=== PATIENT | female | born 1935 | race Hispanic/Latino ===

== ENCOUNTER 2018-07-10 18:01 | Inpatient (IN) | payer MEDICARE ==
[2018-07-10 18:08] VITALS: BMI 23.0
--- NOTE | 2018-07-10 18:37 | ED PDOC ---
Arrival/HPI - General Historian: Patient, Spouse - History of Present Illness Narrative History of Present Illness (Text): 07/10/18 18:34 83yr old female presents today s/p fall and weakness. pt states she occasionally feels dizzy, but otherwise denies any complaints. pts states that he was assisting the patient to the bathroom and when the patients legs gave out. pt st ates he was able to lower the patient to ground. states she did not hit her head. pt denies any arm or leg pain. no n/v/d/c. pt denies fever/chills. no cp or sob. <Radhika Egan - Last Filed: 07/11/18 01:27> <Trevor Kaufman - Last Filed: 07/13/18 07:28> - General Chief Complaint: Trauma Time Seen by Provider: 07/10/18 18:04 Past Medical History - Provider Review Nursing Documentation Reviewed: Yes - Travel History Have you recently traveled outside [place] w/in the past 3 mons?: No - Infectious Disease Hx of Infectious Diseases: None - Cardiac Hx Hypertension: Yes - HEENT Hx Cataracts: Yes - Endocrine/Metabolic Hx Hypothyroidism: Yes - Musculoskeletal/Rheumatological Hx Back Pain: Yes Hx Falls: Yes - Gastrointestinal Hx Constipation: Yes Hx Gastroesophageal Reflux: Yes - Psychiatric Hx Depression: Yes Hx Substance Use: No <Radhika Egan - Last Filed: 07/11/18 01:27> Family/Social History - Physician Review Nursing Documentation Reviewed: Yes Family/Social History: Unknown Family HX Smoking Status: Never Smoked Hx Alcohol Use: No Hx Substance Use: No <Radhika Egan - Last Filed: 07/11/18 01:27> Allergies/Home Meds <Radhika Egan - Last Filed: 07/11/18 01:27> <Trevor Kaufman - Last Filed: 07/13/18 07:28> Allergies/Adverse Reactions: Allergies No Known Allergies Allergy (Verified 03/05/17 12:50) Home Medications: Home Meds Medication Instructions Recorded Confirmed Aspirin [Ecotrin] 81 mg PO DAILY 03/05/17 07/10/18 Atorvastatin [Lipitor] 40 mg PO HS 03/05/17 07/10/18 Levothyroxine [Synthroid] 37.5 mcg PO DAILY 03/05/17 07/10/18 Paroxetine HCl [Paxil] 40 mg PO DAILY 03/05/17 07/10/18 Famotidine [Pepcid] 1 tab PO DAILY 07/10/18 07/10/18 Olmesartan Medoxomil [Benicar] 40 mg PO DAILY 07/10/18 07/10/18 Pantoprazole [Protonix EC Tab] 1 tab PO DAILY 07/10/18 07/10/18 Risperidone [Risperdal] 1 tab PO HS 07/10/18 07/10/18 Review of Systems - Review of Systems Constitutional: Fatigue. absent: Fevers Respiratory: absent: SOB, Cough Cardiovascular: absent: Chest Pain, Palpitations Gastrointestinal: absent: Abdominal Pain, Constipation, Diarrhea, Nausea, Vomiting Genitourinary Female: absent: Dysuria, Frequency, Hematuria Musculoskeletal: absent: Arthralgias, Back Pain, Neck Pain Skin: absent: Rash, Pruritis Neurological: Dizziness (occasional). absent: Headache Psychiatric: absent: Anxiety <Radhika Egan - Last Filed: 07/11/18 01:27> Physical Exam Vital Signs Reviewed: Yes Vital Signs Temp Pulse Resp BP Pulse Ox 07/10/18 18:17 98.2 F 89 18 139/69 97 Temperature: Afebrile Blood Pressure: Normal Pulse: Regular Respiratory Rate: Normal Appearance: Positive for: Well-Appearing, Non-Toxic, Comfortable Pain Distress: None Mental Status: Positive for: Alert and Oriented X 3 - Systems Exam Head: Present: Atraumatic Mouth: Present: Moist Mucous Membranes Respiratory/Chest: Present: Clear to Auscultation, Good Air Exchange. No: Respiratory Distress, Accessory Muscle Use Cardiovascular: Present: Regular Rate and Rhythm, Normal S1, S2. No: Murmurs Abdomen: No: Tenderness, Distention, Rebound, Guarding Upper Extremity: No: Tenderness Lower Extremity: Present: Normal ROM. No: CALF TENDERNESS Neurological: Present: GCS=15, Speech Normal Skin: Present: Warm, Dry Psychiatric: Present: Alert <Radhika Egan - Last Filed: 07/11/18 01:27> Vital Signs Temp Pulse Resp BP Pulse Ox 07/10/18 21:53 71 18 113/76 100 07/10/18 18:17 98.2 F 89 18 139/69 97 <Trevor Kaufman - Last Filed: 07/13/18 07:28> Medical Decision Making ED Course and Treatment: 07/10/18 18:38 83yr old female presents with generalized weakness. Labs reviewed: cbc; wnl cmp; elevated BUN/CR Troponin negative CPK 1086 ekg; normal sinus rhythm at 92 bpm normal axis no ST elevations QTC 415 cxr; rotated. no infiltrate head CT: FINDINGS: BRAIN There is slight midline shift to the right which appears chronic and is not related to mass effect Chronic periventricular and subcortical microvascular disease is seen. VENTRICLES: There is generalized parenchymal atrophy, disproportionately involving right ventricular system to a greater extent than the left and left sulci to a greater extent then the right. ORBITS: The orbits are unremarkable. SINUSES AND MASTOIDS: The paranasal sinuses and mastoid air cells are clear. BONES: No fracture. MISCELLANEOUS: No acute intracranial pathology. iMPRESSION: 1. Assymetric generalized parenchymal atrophy, as above. 2. There is slight midline shift to the right which appears chronic and is not related to mass effect. 3. Chronic periventricular and subcortical microvascular disease is seen. 4. No acute intracranial pathology. pt started on NS 500cc. Multiple calls placed to dr. malone without return call. will admit to hospitalist. case discussed with dr. fermin in depth; accepts admission impression; rhabdomyolysis, generalized weakness, renal insufficiency Admit to telemetry pt found to have UTI; started on rocephin. - RAD Interpretation Radiology Orders: 07/10/18 18:32 CHEST PORTABLE [RAD] Stat 07/10/18 18:33 HEAD W/O CONTRAST [CT] Stat <Radhika Egan T - Last Filed: 07/11/18 01:27> - Lab Interpretations Lab Results: 07/10/18 19:14 07/10/18 19:14 Lab Results 07/10/18 19:14: WBC 10.2, RBC 4.44, Hgb 12.4, Hct 37.8, MCV 85.1, MCH 27.9, MCHC 32.8, RDW 14.6 H, Plt Count 265, MPV 12.3 H, Gran % 89.1 H, Lymph % (Auto) 5.6 L, [place] % (Auto) 4.3, Eos % (Auto) 0.9 L, Baso % (Auto) 0.1, Gran # 9.10 H, Lymph # (Auto) 0.6 L, [place] # (Auto) 0.4, Eos # (Auto) 0.1, Baso # (Auto) 0.01 07/10/18 19:14: Sodium 139, Potassium 4.4, Chloride 101, Carbon Dioxide 22, An ion Gap 20, BUN 38 H, Creatinine 2.6 H, Est GFR ( Amer) 21, Est GFR (Non- Af Amer) 18, Random Glucose 137 H, Calcium 10.1, Total Bilirubin 0.6, AST 52 H, ALT 19, Alkaline Phosphatase 75, Lactate Dehydrogenase 594, Total Creatine Kinase 1086 H, CK-MB (CK-2) 8.4 H, CK-MB (CK-2) % 0.8 L, Troponin I < 0.01, NT-Pro-B Natriuret Pep 65.0, Total Protein 7.6, Albumin 4.4, Globulin 3.2, Albumin/Globulin Ratio 1.4 - RAD Interpretation Radiology Orders: 07/10/18 18:32 CHEST PORTABLE [RAD] Stat 07/10/18 18:33 HEAD W/O CONTRAST [CT] Stat - Medication Orders Current Medication Orders: Amantadine HCl (Amantadine 100 Mg Cap) 100 mg PO Q48H [facility] Last Admin: 07/12/18 12:07 Dose: 100 mg Artificial Tears (Artificial Tears) 2 ml OU DAILY PRN PRN Reason: FOR DRY EYES Last Admin: 07/12/18 08:47 Dose: 2 units Comments: 1 drop to each eye Aspirin (Ecotrin) 81 mg PO DAILY [facility] Last Admin: 07/12/18 12:06 Dose: 81 mg Atorvastatin Calcium (Lipitor) 40 mg PO HS [facility] Last Admin: 07/12/18 22:00 Dose: 40 mg Heparin Sodium (Porcine) (Heparin) 5,000 units SC Q8H [facility]; Protocol Last Admin: 07/13/18 05:33 Dose: 5,000 units Subcutaneous Administrations Document 07/13/18 05:33 OWUSR (Rec: 07/13/18 05:33 OWUSR [id number]) Injection Site MAR Injection Site Right Abdomen Charges for Administration # of Subcutaneous Administrations 1 Sodium Chloride (Sodium Chloride 0.9%) 1,000 mls @ 75 mls/hr IV .[id number] [facility] Last Admin: 07/11/18 17:33 Dose: 75 mls/hr eMAR Start Stop Document 07/11/18 17:33 RDS (Rec: 07/11/18 17:33 RDS [id number]) Intravenous Solution Start Date 07/11/18 Start Time 17:33 Ceftriaxone Sodium (Rocephin 1 Gram Ivpb) 1 gm in 100 mls @ 100 mls/hr IVPB DAILY [facility]; Protocol Last Admin: 07/12/18 09:53 Dose: 100 mls/hr eMAR Start Stop Document 07/12/18 09:53 RDS (Rec: 07/12/18 09:54 RDS [id number]) Intravenous Solution Start Date 07/12/18 Start Time 09:54 End Date 07/12/18 End time 10:54 Total Infusion Time 60 Levothyroxine Sodium (Synthroid) 37.5 mcg PO 0600 [facility] Last Admin: 07/13/18 05:25 Dose: 37.5 mcg Pantoprazole Sodium (Protonix Ec Tab) 40 mg PO 0600 [facility] Last Admin: 07/13/18 05:27 Dose: 40 mg Paroxetine HCl (Paxil) 40 mg PO DAILY [facility] Last Admin: 07/12/18 12:06 Dose: 40 mg Tobramycin/Dexamethasone (Tobradex Opht Susp) 0 ml OU DAILY [facility] Discontinued Medications Amantadine HCl (Amantadine 100 Mg Cap) 100 mg PO Q48H [facility] Last Admin: 07/11/18 18:45 Dose: Not Given Non-Admin Reason: NPO Comments: Joy Sumner aware; to give at 20:00 once patient passed the swallow eval being done at this time 18:45. Sodium Chloride (Sodium Chloride 0.9%) 1,000 mls @ 75 mls/hr IV .[id number] [facility] Sodium Chloride (Sodium Chloride 0.9%) 1,000 mls @ 100 mls/hr IV .Q10H [facility] Vancomycin HCl (Vancomycin 1gm) 1 gm in 250 mls @ 167 mls/hr IVPB STAT STA; Protocol Stop: 07/12/18 11:45 Last Admin: 07/12/18 12:07 Dose: 167 mls/hr eMAR Start Stop Document 07/12/18 12:07 RDS (Rec: 07/12/18 12:07 RDS [id number]) Intravenous Solution Start Date 07/12/18 Start Time 12:07 End Date 07/12/18 End time 13:37 Total Infusion Time 90 <Trevor Kaufman - Last Filed: 07/13/18 07:28> - PA / MULTIPLE RESAW OPERATOR / Resident Statement MD/DO has reviewed & agrees with the documentation as recorded. <Trevor Kaufman - Last Filed: 07/13/18 07:28> Disposition/Present on Arrival - Present on Arrival Any Indicators Present on Arrival: No History of DVT/PE: No History of Uncontrolled Diabetes: No Urinary Catheter: No History of Decub. Ulcer: No History Surgical Site Infection Following: None - Disposition Have Diagnosis and Disposition been Completed?: Yes Disposition Time: 20:56 Patient Plan: Admission, Telemetry <Radhika Egan - Last Filed: 07/11/18 01:27> <Trevor Kaufman - Last Filed: 07/13/18 07:28> - Disposition Diagnosis: Rhabdomyolysis, Generalized weakness, Renal insufficiency, Near syncope, Urinary tract infection Disposition: HOSPITALIZED Patient Problems: Current Active Problems Problem Status Onset Generalized weakness Acute Near syncope Acute Renal insufficiency Acute Rhabdomyolysis Acute Urinary tract infection Acute Condition: FAIR
[2018-07-10 19:29] LABS: ALB/GLOB RATIO 1.4 (1.1-1.8); ALBUMIN 4.4 g/dL (3.0-4.8); ALT/SGPT 19 U/L (7-56); AST/SGOT 52 U/L (14-36); BLOOD UREA NITROGEN 38 mg/dL (7-21); CALCIUM 10.1 mg/dL (8.4-10.5); GFR NON-AFRICAN AMERICAN 18
[2018-07-10 19:41] LABS: TROPONIN I < 0.01 ng/mL
[2018-07-10 19:56] LABS: BASO # 0.01 K/mm3 (0.0-2.0); BASO % 0.1 % (0.0-3.0); EOS # 0.1 (0.0-0.7); EOS % 0.9 % (1.5-5.0); GRAN # 9.1 (1.4-6.5); GRAN % 89.1 % (50.0-68.0); HEMOGLOBIN 12.4 g/dL (12.0-16.0); LYMPH # 0.6 (1.2-3.4); LYMPH % 5.6 % (22.0-35.0); MEAN CELL VOLUME 85.1 fl (80.0-105.0); MEAN CORPUSCULAR HEMOGLOBIN 27.9 pg (25.0-35.0); MEAN CORPUSCULAR HGB CONC 32.8 g/dl (31.0-37.0); MEAN PLATELET VOLUME 12.3 fl (7.0-11.0); MONO # 0.4 (0.1-0.6); MONO % 4.3 % (1.0-6.0); RBC 4.44 10^6/uL (3.5-6.1); RED CELL DISTRIBUTION WIDTH 14.6 % (11.5-14.5); WHITE BLOOD COUNT 10.2 10^3/ul (4.5-11.0)
[2018-07-10 20:25] LABS: CK MB% 0.8 % (2.5-3.0); CK-MB 8.4 ng/mL (0.0-3.6)
[2018-07-10] MEDS ORDERED: Sodium Chloride 0.9% 500 ML IV STA (20:32)
[2018-07-10] MEDS ORDERED: Sodium Chloride 0.9% 500 ML IV SCH (21:30)
[2018-07-10] MEDS ORDERED: Sodium Chloride 0.9% 1,000 ML IV SCH ×2 (22:30)
[2018-07-10 22:48] LABS: PH,URINE 6.5 (4.7-8.0); URINE BILIRUBIN NEGATIVE (NEGATIVE); URINE BLOOD SMALL (NEGATIVE); URINE GLUCOSE (UA) NEGATIVE (NEGATIVE); URINE LEUKOCYTE ESTERASE LARGE Leu/uL (NEGATIVE); URINE PROTEIN 30 mg/dL (<30 mg/dL); URINE UROBILINOGEN 0.2 E.U./dL (<1 E.U./dL)
[2018-07-10 22:49] LABS: URINE APPEARANCE CLOUDY (CLEAR); URINE COLOR LIGHT YELLOW (YELLOW)
[2018-07-10 23:04] LABS: URINE BACTERIA MANY (NEG); URINE WBC TNTC /hpf (0-6)
[2018-07-11] MEDS: Sodium Chloride 0.9% 1,000 ML IV SCH ×2 (00:05→17:33)
--- NOTE | 2018-07-11 00:41 | CP.PCM.HP ---
History of Present Illness - History of Present Illness History of Present Illness: Hari Barrios, PGY-1 History and Physical for Hospitalist Service CC: Fall HPI: Ms. Rodriguez is an 83 yr old Female with PMHx of HTN, hypercholesterolemia, hypothyroid who presents s/p near-syncope at home. brought patient in after being present when patient was falling at home, having stated that her legs gave out and felt weak. was nearby and caught patient before she hit the ground. Denies hitting head but patient believes she may have lost consciousness. Patient reports some episodes of dizziness and full-body weakness but denies current symptoms. Patient also denies chest pain, shortness of breath, fevers, chills, recent infections, changes to urinary and bowel habits or vision changes. Patient denies having those symptoms in the past and does not fall regularly. PMHx: HTN, hypercholesterolemia, hypothyroid, depression PSHx: R cataract surgery All: NKDA Social: unable to assess currently because patient "does not know" Fam hx: denies Meds: as per ELICIA PCP: Dr Ram Present on Admission - Present on Admission Any Indicators Present on Admission: No Review of Systems - Review of Systems Review of Systems: 12 point ROS completed and negative except as described in HPI. Past Patient History - Infectious Disease Hx of Infectious Diseases: None - Past Social History Smoking Status: Never Smoked - CARDIAC Hx Hypertension: Yes - HEENT Hx Cataracts: Yes - ENDOCRINE/METABOLIC Hx Hypothyroidism: Yes - MUSCULOSKELETAL/RHEUMATOLOGICAL Hx Back Pain: Yes Hx Falls: Yes - GASTROINTESTINAL Hx Constipation: Yes Hx Gastroesophageal Reflux: Yes - PSYCHIATRIC Hx Depression: Yes Hx Substance Use: No Meds Allergies/Adverse Reactions: Allergies Allergy/AdvReac Type Severity Reaction Status Date / Time No Known Allergies Allergy Verified 03/05/17 12:50 Physical Exam - Constitutional Appears: Well, Non-toxic, No Acute Distress - Head Exam Head Exam: ATRAUMATIC, NORMOCEPHALIC - Eye Exam Eye Exam: EOMI. absent: Normal appearance (R eye surrounded by ? hardened disch arge. No changes in vision) Pupil Exam: PERRL - ENT Exam ENT Exam: Mucous Membranes Moist, Normal Exam - Neck Exam Neck exam: Positive for: Full Rom - Respiratory Exam Respiratory Exam: Decreased Breath Sounds, Clear to Auscultation Bilateral, NORMAL BREATHING PATTERN. absent: Rales, Rhonchi, Wheezes - Cardiovascular Exam Cardiovascular Exam: RRR, +S1, +S2 - GI/Abdominal Exam GI & Abdominal Exam: Normal Bowel Sounds, Soft. absent: Distended, Guarding, Tenderness - Extremities Exam Extremities exam: Negative for: normal inspection (gout tophi vs lipid crystals on R index finger MCP and R hallux internally. Nontender to palpation) Results - Vital Signs Recent Vital Signs: Last Vital Signs Temp 98.2 F 07/10/18 18:17 Pulse 71 07/10/18 21:53 Resp 18 07/10/18 21:53 BP 113/76 07/10/18 21:53 Pulse Ox 100 07/10/18 21:53 - Labs Result Diagrams: 07/10/18 19:14 07/10/18 19:14 Labs: Laboratory Results - last 24 hr 07/10/18 07/10/18 07/10/18 19:14 19:14 22:34 WBC 10.2 RBC 4.44 Hgb 12.4 Hct 37.8 MCV 85.1 MCH 27.9 MCHC 32.8 RDW 14.6 H Plt Count 265 MPV 12.3 H Gran % 89.1 H Lymph % (Auto) 5.6 L [place] % (Auto) 4.3 Eos % (Auto) 0.9 L Baso % (Auto) 0.1 Gran # 9.10 H Lymph # (Auto) 0.6 L [place] # (Auto) 0.4 Eos # (Auto) 0.1 Baso # (Auto) 0.01 Sodium 139 Potassium 4.4 Chloride 101 Carbon Dioxide 22 Anion Gap 20 BUN 38 H Creatinine 2.6 H Est GFR ( Amer) 21 Est GFR (Non-Af Amer) 18 Random Glucose 137 H Calcium 10.1 Total Bilirubin 0.6 AST 52 H ALT 19 Alkaline Phosphatase 75 Lactate Dehydrogenase 594 Total Creatine Kinase 1086 H CK-MB (CK-2) 8.4 H CK-MB (CK-2) % 0.8 L Troponin I < 0.01 NT-Pro-B Natriuret Pep 65.0 Total Protein 7.6 Albumin 4.4 Globulin 3.2 Albumin/Globulin Ratio 1.4 Urine Color Light yellow Urine Appearance Cloudy Urine pH 6.5 Ur Specific [place] 1.020 Urine Protein 30 H Urine Glucose (UA) Negative Urine Ketones Negative Urine Blood Small H Urine Nitrate Positive H Urine Bilirubin Negative Urine Urobilinogen 0.2 Ur Leukocyte Esterase Large H Urine RBC 10 - 15 Urine WBC Tntc Ur Epithelial Cells 6 - 8 Urine Bacteria Many Assessment & Plan - Assessment and Plan (Free Text) Assessment: Assessment: 83 year old female with PMHX HTN, hypercholesterolemia, hypothyroid, and depression who presents s/p near-syncopal episode. Plan: Weakness 2/2 syncope 2/2 UTI vs neurogenic vs cardiogenic vs electrolyte abnormality EKG: normal sinus rhythm at 92 bpm normal axis, no ST elevations, QTC 415 CXR: rotated so poor film. Possible RLL infiltrate. f/u repeat in AM Head CT: FINDINGS: There is slight midline shift to the right which appears chronic and is not related to mass effect Chronic periventricular and subcortical microvascular disease is seen. There is generalized parenchymal atrophy. No acute intracranial pathology. UA positive for nitrates and leuk esterase- started on Rocephin 1 gm IVP daily for UTI IVF NS @ 75 cc/hr. Pro-BNP 65 so unlikely CHF but will f/u repeat AM CXR f/u UDS, urine cx ASA 81 mg f/u Echo trop neg x1. F/u second f/u blood cx f/u AM CBC, CMP Mg Phos, Vit D, RPR SW referral Glucose 137 - follow accuchecks Fall protocol PT/OT- recommendations appreciated Speech/swallow eval Software Test Specialist referral Rhabdo 2/2 near-fall CK 1086 repeat CK in AM HUI likely 2/2 prerenal azotemia 2/2 dehydration vs intrinsic Reports poor oral intake BUN/Cr 38/2.6 elevated from 26/1.2 on 03/17 will consider renal U/S and renal consult if no improvement on fluids in AM labs NS @ 75 cc/hr avoid nephrotoxic medications - hold home ARB for now Hypothyroid f/u TSH and free T4 on Synthroid 37.5 mcg Hypercholesterolemia f/u lipid panel and a1c Lipitor 40 Depression c/w home Paroxetine Will hold risperidone GI/DVT ppx SCDs Heparin 5000 q8 Protonix 40 mg Patient seen, case reviewed and plan discussed with Dr. Miller. Hari Barrios, PGY-1
[2018-07-11] MEDS: Pantoprazole 40 mg EC Tab PO SCH (05:00)
[2018-07-11] MEDS: Levothyroxine 75 MCG TAB PO SCH (05:01)
[2018-07-11 07:09] LABS: BARBITURATES, UR NEGATIVE (NEGATIVE); BENZODIAZEPINES, UR NEGATIVE (NEGATIVE); OPIATES, UR NEGATIVE (NEGATIVE); PHENCYCLIDINE, UR NEGATIVE (NEGATIVE)
[2018-07-11 07:18] LABS: BASO # 0.02 K/mm3 (0.0-2.0); BASO % 0.3 % (0.0-3.0); EOS # 0.2 (0.0-0.7); EOS % 3.2 % (1.5-5.0); GRAN # 4.67 (1.4-6.5); GRAN % 74.8 % (50.0-68.0); HEMOGLOBIN 10.9 g/dL (12.0-16.0); LYMPH # 0.8 (1.2-3.4); LYMPH % 12.3 % (22.0-35.0); MEAN CELL VOLUME 85.6 fl (80.0-105.0); MEAN CORPUSCULAR HEMOGLOBIN 27.5 pg (25.0-35.0); MEAN CORPUSCULAR HGB CONC 32.1 g/dl (31.0-37.0); MEAN PLATELET VOLUME 11.8 fl (7.0-11.0); MONO # 0.6 (0.1-0.6); MONO % 9.4 % (1.0-6.0); RBC 3.97 10^6/uL (3.5-6.1); RED CELL DISTRIBUTION WIDTH 14.7 % (11.5-14.5); WHITE BLOOD COUNT 6.3 10^3/ul (4.5-11.0)
[2018-07-11 07:32] LABS: ALB/GLOB RATIO 1.2 (1.1-1.8); ALBUMIN 3.6 g/dL (3.0-4.8)
[2018-07-11 07:45] LABS: FREE T4 1.04 ng/dL (0.78-2.19)
--- NOTE | 2018-07-11 07:50 | RAD ---
Date of service: 07/11/2018 HISTORY: fall COMPARISON: Portable chest 07/10/2018. FINDINGS: LUNGS: Patient remains grossly rotated toward the right obscuring right lung evaluation. No left-sided infiltrate definitively shown. Hiatal hernia likely. Linear atelectasis or fibrosis reiterated at the right base with the right apex completely obscured by the patient's lower face. PLEURA: No significant pleural effusion identified, no pneumothorax apparent. CARDIOVASCULAR: No definite pulmonary vascular congestion. Cardiac silhouette appears prominent. OSSEOUS STRUCTURES: No significant abnormalities. VISUALIZED UPPER ABDOMEN: Normal. OTHER FINDINGS: None. IMPRESSION: No definitive infiltrate bilaterally. Hiatal hernia likely. Cardiac silhouette appears prominent without pulmonary vascular congestion. Fibrosis or linear atelectasis right base reiterated. Right apex obscured by the patient's lower face completely.
[2018-07-11 07:54] LABS: CK MB% 0.8 % (2.5-3.0); CK-MB 8.2 ng/mL (0.0-3.6)
--- NOTE | 2018-07-11 09:07 | CT ---
Date of service: 07/10/2018 PROCEDURE: CT HEAD WITHOUT CONTRAST. HISTORY: weakness COMPARISON: None available. TECHNIQUE: Axial computed tomography images were obtained through the head/brain without intravenous contrast. Radiation dose: Total exam DLP = 833 mGy-cm. This CT exam was performed using one or more of the following dose reduction techniques: Automated exposure control, adjustment of the mA and/or kV according to patient size, and/or use of iterative reconstruction technique. FINDINGS: HEMORRHAGE: No intracranial hemorrhage. BRAIN: No mass effect or edema. There is asymmetrical atrophy severe on the left. There is also cerebellar atrophy left greater than right. Chronic microvascular changes are seen. No acute intracranial findings VENTRICLES: Unremarkable. No hydrocephalus. CALVARIUM: Unremarkable. PARANASAL SINUSES: Unremarkable as visualized. No significant inflammatory changes. MASTOID AIR CELLS: Unremarkable as visualized. No inflammatory changes. OTHER FINDINGS: The report concurs with the preliminary [facility] report IMPRESSION: No acute intracranial findings
--- NOTE | 2018-07-11 10:01 | RAD ---
Date of service: 07/10/2018 HISTORY: weakness COMPARISON: No prior. FINDINGS: LUNGS: No active pulmonary disease. PLEURA: No significant pleural effusion identified, no pneumothorax apparent. CARDIOVASCULAR: Patient rotated toward the right severely, limiting ostia cardiac size and the hilar anatomy. No pulmonary vascular congestion. Cardiac silhouette appears somewhat prominent. OSSEOUS STRUCTURES: Scoliotic thoracolumbar spinal deformity. VISUALIZED UPPER ABDOMEN: Hiatal hernia felt to be present posterior to the heart. OTHER FINDINGS: None. IMPRESSION: No acute infiltrate, pleural effusion or pneumothorax bilaterally. Potential cardiomegaly. Patient is severely rotated toward the right limiting interpreted bloody of the mediastinal anatomy. Hiatal hernia felt to be present.
--- NOTE | 2018-07-11 10:22 | CARD ---
APPROVED REPORT Date of service: 07/10/2018 EKG Measurement Heart [id number] <Conclusion> Normal sinus rhythm Non Specific ST-T Changes.
[2018-07-11] MEDS: cefTRIAXone 1 gm 1 GM/100 ML BAG IVPB SCH ×2 (10:31)
--- NOTE | 2018-07-11 14:01 | CP.PCM.CON ---
History of Present Illness - History of Present Illness History of Present Illness: Joy Palmer, PGY2, Neurology Consult Note for Dr Eubanks: Reason for consult: AMS/syncope 83 year old female, referred by Dr Jennifer Mckeon, with PMH HTN, HLD, hypothyroidism, depression, presents post-fall at home. Per husbands report, he was assisting her to the bathroom when her legs gave out and he helped her to the floor. She did not hit her head or lose consciousness. says she was down on the floor for 30 minutes. She has been home-bound for the past year and uses a wheelchair to get around the house, is the only caregiver. She has not seen her PMD in 1 year because she cannot get out of the house. reports she has has been lethargic for past 6 months, but it is currently worse than her baseline. In ED, patient found to have a UTI, treated with rocephin. As per staff, patient's mental status improving. At the time of my exam, patient arousable by verbal command, responding to questions appropriately with one word answers, states that she is sleepy and "would like to rather rest." HPI limited due to patient's AMS. PMHx: HTN, HLD, hypothyroid, depression PSHx: R cataract surgery All: NKDA Meds: Risperdal, ASA 81, Paxil 40, Protonix, Benicar 40, Synthroid 37.5, Pepcid, Lipitor 40 SocHx: denies tobacco, alcohol, drug use FHx: unknown PMD: Saleeb Review of Systems - Review of Systems Systems not reviewed;Unavailable: Altered Mental Status Past Patient History - Infectious Disease Hx of Infectious Diseases: None - Past Social History Smoking Status: Never Smoked - CARDIAC Hx Hypertension: Yes - NEUROLOGICAL Hx Neurological Disorder: Yes Hx Dizziness: Yes - HEENT Hx Cataracts: Yes - ENDOCRINE/METABOLIC Hx Hypothyroidism: Yes - MUSCULOSKELETAL/RHEUMATOLOGICAL Hx Back Pain: Yes Hx Falls: Yes - GASTROINTESTINAL Hx Constipation: Yes Hx Gastroesophageal Reflux: Yes - PSYCHIATRIC Hx Depression: Yes Hx Substance Use: No Meds Allergies/Adverse Reactions: Allergies Allergy/AdvReac Type Severity Reaction Status Date / Time No Known Allergies Allergy Verified 03/05/17 12:50 - Medications Medications: Current Medications Aspirin (Ecotrin) 81 mg PO DAILY [facility] Last Admin: 07/11/18 10:31 Dose: Not Given Atorvastatin Calcium (Lipitor) 40 mg PO HS [facility] Last Admin: 07/11/18 01:06 Dose: Not Given Heparin Sodium (Porcine) (Heparin) 5,000 units SC Q8H [facility]; Protocol Last Admin: 07/11/18 05:33 Dose: 5,000 units Sodium Chloride (Sodium Chloride 0.9%) 1,000 mls @ 75 mls/hr IV .[id number] [facility] Last Admin: 07/11/18 00:05 Dose: 75 mls/hr Ceftriaxone Sodium (Rocephin 1 Gram Ivpb) 1 gm in 100 mls @ 100 mls/hr IVPB DAILY [facility]; Protocol Last Admin: 07/11/18 10:31 Dose: 100 mls/hr Levothyroxine Sodium (Synthroid) 37.5 mcg PO 0600 [facility] Last Admin: 07/11/18 05:01 Dose: Not Given Pantoprazole Sodium (Protonix Ec Tab) 40 mg PO 0600 [facility] Last Admin: 07/11/18 05:00 Dose: Not Given Paroxetine HCl (Paxil) 40 mg PO DAILY [facility] Last Admin: 07/11/18 10:31 Dose: Not Given Physical Exam - Constitutional Appears: Chronically Ill - Head Exam Head Exam: ATRAUMATIC, NORMOCEPHALIC - Eye Exam Eye Exam: PERRL. absent: Conjunctival injection, Nystagmus, Periorbital tenderness, Scleral icterus Pupil Exam: PERRL. absent: Irregular, Miosis, Unequal - ENT Exam ENT Exam: Mucous Membranes Dry - Neck Exam Neck exam: Positive for: Full Rom - Respiratory Exam Respiratory Exam: Clear to Auscultation Bilateral, NORMAL BREATHING PATTERN. absent: Rhonchi, Wheezes - Cardiovascular Exam Cardiovascular Exam: RRR, +S1, +S2. absent: Systolic Murmur - GI/Abdominal Exam GI & Abdominal Exam: Normal Bowel Sounds, Soft. absent: Tenderness - Extremities Exam Extremities exam: Negative for: calf tenderness, pedal edema Additional comments: + bilateral big toe podagara noted. +Inflammation, erythema of right index finger PIP joint - Neurological Exam Neurological exam: Altered Additional comments: Lethargic. Opens eyes with verbal command. responds to questions with one word answers. Moving all extremities. +intentional tremor of bilateral UE/LE with movement - Psychiatric Exam Additional comments: lethargic - Skin Skin Exam: Normal Color, Warm Results - Vital Signs Recent Vital Signs: Last Vital Signs Temp 97.1 F L 07/11/18 12:00 Pulse 90 07/11/18 12:00 Resp 19 07/11/18 12:00 BP 118/88 07/11/18 12:00 Pulse Ox 100 07/11/18 06:00 - Labs Result Diagrams: 07/11/18 06:30 07/11/18 06:30 Labs: Laboratory Results - last 24 hr 07/10/18 07/10/18 07/10/18 19:14 19:14 22:34 WBC 10.2 RBC 4.44 Hgb 12.4 Hct 37.8 MCV 85.1 MCH 27.9 MCHC 32.8 RDW 14.6 H Plt Count 265 MPV 12.3 H Gran % 89.1 H Lymph % (Auto) 5.6 L Owen % (Auto) 4.3 Eos % (Auto) 0.9 L Baso % (Auto) 0.1 Gran # 9.10 H Lymph # (Auto) 0.6 L Owen # (Auto) 0.4 Eos # (Auto) 0.1 Baso # (Auto) 0.01 Sodium 139 Potassium 4.4 Chloride 101 Carbon Dioxide 22 Anion Gap 20 BUN 38 H Creatinine 2.6 H Est GFR ( Amer) 21 Est GFR (Non-Af Amer) 18 POC Glucose (mg/dL) Random Glucose 137 H Hemoglobin A1c Calcium 10.1 Phosphorus Magnesium Total Bilirubin 0.6 AST 52 H ALT 19 Alkaline Phosphatase 75 Lactate Dehydrogenase 594 Total Creatine Kinase 1086 H CK-MB (CK-2) 8.4 H CK-MB (CK-2) % 0.8 L Troponin I < 0.01 NT-Pro-B Natriuret Pep 65.0 Total Protein 7.6 Albumin 4.4 Globulin 3.2 Albumin/Globulin Ratio 1.4 Triglycerides Cholesterol LDL Cholesterol Direct HDL Cholesterol 25-OH Vitamin D Total Free T4 TSH 3rd Generation Urine Color Light yellow Urine Appearance Cloudy Urine pH 6.5 Ur Specific Summit 1.020 Urine Protein 30 H Urine Glucose (UA) Negative Urine Ketones Negative Urine Blood Small H Urine Nitrate Positive H Urine Bilirubin Negative Urine Urobilinogen 0.2 Ur Leukocyte Esterase Large H Urine RBC 10 - 15 Urine WBC Tntc Ur Epithelial Cells 6 - 8 Urine Bacteria Many Urine Opiates Screen Urine Methadone Screen Ur Barbiturates Screen Ur Phencyclidine Scrn Ur Amphetamines Screen U Benzodiazepines Scrn U Oth Cocaine Metabols U Cannabinoids Screen 07/11/18 07/11/18 07/11/18 00:40 02:05 04:43 WBC RBC Hgb Hct MCV MCH MCHC RDW Plt Count MPV Gran % Lymph % (Auto) Owen % (Auto) Eos % (Auto) Baso % (Auto) Gran # Lymph # (Auto) Owen # (Auto) Eos # (Auto) Baso # (Auto) Sodium Potassium Chloride Carbon Dioxide Anion Gap BUN Creatinine Est GFR ( Amer) Est GFR (Non-Af Amer) POC Glucose (mg/dL) 96 111 H Random Glucose Hemoglobin A1c Calcium Phosphorus Magnesium Total Bilirubin AST ALT Alkaline Phosphatase Lactate Dehydrogenase Total Creatine Kinase CK-MB (CK-2) CK-MB (CK-2) % Troponin I < 0.01 NT-Pro-B Natriuret Pep Total Protein Albumin Globulin Albumin/Globulin Ratio Triglycerides Cholesterol LDL Cholesterol Direct HDL Cholesterol 25-OH Vitamin D Total Free T4 TSH 3rd Generation Urine Color Urine Appearance Urine pH Ur Specific Summit Urine Protein Urine Glucose (UA) Urine Ketones Urine Blood Urine Nitrate Urine Bilirubin Urine Urobilinogen Ur Leukocyte Esterase Urine RBC Urine WBC Ur Epithelial Cells Urine Bacteria Urine Opiates Screen Urine Methadone Screen Ur Barbiturates Screen Ur Phencyclidine Scrn Ur Amphetamines Screen U Benzodiazepines Scrn U Oth Cocaine Metabols U Cannabinoids Screen 07/11/18 07/11/18 07/11/18 05:00 06:00 06:30 WBC 6.3 D RBC 3.97 Hgb 10.9 L Hct 34.0 L MCV 85.6 MCH 27.5 MCHC 32.1 RDW 14.7 H Plt Count 232 MPV 11.8 H Gran % 74.8 H Lymph % (Auto) 12.3 L Owen % (Auto) 9.4 H Eos % (Auto) 3.2 Baso % (Auto) 0.3 Gran # 4.67 Lymph # (Auto) 0.8 L Owen # (Auto) 0.6 Eos # (Auto) 0.2 Baso # (Auto) 0.02 Sodium Potassium Chloride Carbon Dioxide Anion Gap BUN Creatinine Est GFR ( Amer) Est GFR (Non-Af Amer) POC Glucose (mg/dL) Random Glucose Hemoglobin A1c Calcium Phosphorus Magnesium Total Bilirubin AST ALT Alkaline Phosphatase Lactate Dehydrogenase Total Creatine Kinase CK-MB (CK-2) CK-MB (CK-2) % Troponin I NT-Pro-B Natriuret Pep Total Protein Albumin Globulin Albumin/Globulin Ratio Triglycerides Cholesterol LDL Cholesterol Direct HDL Cholesterol 25-OH Vitamin D Total 48.6 Free T4 TSH 3rd Generation Urine Color Urine Appearance Urine pH Ur Specific [place] Urine Protein Urine Glucose (UA) Urine Ketones Urine Blood Urine Nitrate Urine Bilirubin Urine Urobilinogen Ur Leukocyte Esterase Urine RBC Urine WBC Ur Epithelial Cells Urine Bacteria Urine Opiates Screen Negative Urine Methadone Screen Negative Ur Barbiturates Screen Negative Ur Phencyclidine Scrn Negative Ur Amphetamines Screen Negative U Benzodiazepines Scrn Negative U Oth Cocaine Metabols Negative U Cannabinoids Screen Negative 07/11/18 07/11/18 07/11/18 06:30 06:30 06:30 WBC RBC Hgb Hct MCV MCH MCHC RDW Plt Count MPV Gran % Lymph % (Auto) Owen % (Auto) Eos % (Auto) Baso % (Auto) Gran # Lymph # (Auto) Owen # (Auto) Eos # (Auto) Baso # (Auto) Sodium 138 Potassium 4.1 Chloride 106 Carbon Dioxide 21 Anion Gap 15 BUN 35 H Creatinine 2.1 H Est GFR ( Amer) 27 Est GFR (Non-Af Amer) 22 POC Glucose (mg/dL) Random Glucose 91 Hemoglobin A1c 5.9 Calcium 9.0 Phosphorus 4.3 Magnesium 1.9 Total Bilirubin 0.5 AST 52 H ALT 21 Alkaline Phosphatase 70 Lactate Dehydrogenase Total Creatine Kinase 994 H CK-MB (CK-2) 8.2 H CK-MB (CK-2) % 0.8 L Troponin I NT-Pro-B Natriuret Pep Total Protein 6.6 Albumin 3.6 Globulin 3.0 Albumin/Globulin Ratio 1.2 Triglycerides 274 H Cholesterol 174 LDL Cholesterol Direct 93 HDL Cholesterol 27 L 25-OH Vitamin D Total Free T4 1.04 TSH 3rd Generation 1.94 Urine Color Urine Appearance Urine pH Ur Specific Summit Urine Protein Urine Glucose (UA) Urine Ketones Urine Blood Urine Nitrate Urine Bilirubin Urine Urobilinogen Ur Leukocyte Esterase Urine RBC Urine WBC Ur Epithelial Cells Urine Bacteria Urine Opiates Screen Urine Methadone Screen Ur Barbiturates Screen Ur Phencyclidine Scrn Ur Amphetamines Screen U Benzodiazepines Scrn U Oth Cocaine Metabols U Cannabinoids Screen 07/11/18 07/11/18 07:34 11:14 WBC RBC Hgb Hct MCV MCH MCHC RDW Plt Count MPV Gran % Lymph % (Auto) Owen % (Auto) Eos % (Auto) Baso % (Auto) Gran # Lymph # (Auto) Owen # (Auto) Eos # (Auto) Baso # (Auto) Sodium Potassium Chloride Carbon Dioxide Anion Gap BUN Creatinine Est GFR ( Amer) Est GFR (Non-Af Amer) POC Glucose (mg/dL) 97 87 Random Glucose Hemoglobin A1c Calcium Phosphorus Magnesium Total Bilirubin AST ALT Alkaline Phosphatase Lactate Dehydrogenase Total Creatine Kinase CK-MB (CK-2) CK-MB (CK-2) % Troponin I NT-Pro-B Natriuret Pep Total Protein Albumin Globulin Albumin/Globulin Ratio Triglycerides Cholesterol LDL Cholesterol Direct HDL Cholesterol 25-OH Vitamin D Total Free T4 TSH 3rd Generation Urine Color Urine Appearance Urine pH Ur Specific [place] Urine Protein Urine Glucose (UA) Urine Ketones Urine Blood Urine Nitrate Urine Bilirubin Urine Urobilinogen Ur Leukocyte Esterase Urine RBC Urine WBC Ur Epithelial Cells Urine Bacteria Urine Opiates Screen Urine Methadone Screen Ur Barbiturates Screen Ur Phencyclidine Scrn Ur Amphetamines Screen U Benzodiazepines Scrn U Oth Cocaine Metabols U Cannabinoids Screen Assessment & Plan - Assessment and Plan (Free Text) Assessment: 83 year old female with a PMHx of HTN, HLD, hypothyroid, depression, presents fo r lethargy, found to have UTI, undergoing treatment with IV antibiotics: - AMS likely toxic metabolic encephalopathy - 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 - C/w ASA 81 mg, statin - lipid panel reviewed - will start Amantadine 100 mg q48h (renally dosed) - Physical therapy eval - social work eval - Monitor Case seen and discussed with Dr Eubanks.
--- NOTE | 2018-07-11 17:08 | CARD ---
APPROVED REPORT Date of service: 07/11/2018 EXAM: Two-dimensional and M-mode echocardiogram with Doppler and color Doppler. INDICATION baseline echo 2D DIMENSIONS Left Atrium (2D)3.3 (1.6-4.0cm)IVSd1.3 (0.7-1.1cm) LVDd3.4 (3.9-5.9cm)PWd1.2 (0.7-1.1cm) LVDs2.2 (2.5-4.0cm)FS (%) 34.5 % LVEF (%)64.7 (>50%) M-Mode DIMENSIONS Aortic Root2.70 (2.2-3.7cm)Aortic Cusp Exc.1.70 (1.5-2.0cm) Aortic Valve AoV Peak Qynppngf098.0cm/Ritesh Peak GR.5mmHg Mitral Valve MV E Yoelocks34.1cm/sMV A Gkoycskn00.9cm/sE/A ratio0.8 TDI E/Lateral E'0.0E/Medial E'0.0 Tricuspid Valve TR Peak [id number] [id number] Peak Gr.6mmHg [id number] LEFT VENTRICLE The left ventricle is normal size. There is mild concentric left ventricular hypertrophy. The left ventricular function is normal.EF-65% There is normal LV segmental wall motion. Transmitral Doppler flow pattern is Grade III-reversible restrictive diastolic dysfunction. No left ventricle thrombus noted on this study. There is no ventricular septal defect visualized. There is no left ventricular aneurysm. There is no mass noted in the left ventricle. RIGHT VENTRICLE The right ventricle is normal size. There is normal right ventricular wall thickness. The right ventricular systolic function is normal. ATRIA The left atrium size is normal. The right atrium size is normal. The interatrial septum is intact with no evidence for an atrial septal defect. AORTIC VALVE The aortic valve is thickened but opens well. The aortic valve is mildly sclerotic. There is mild to moderate aortic regurgitation. There is no aortic valvular stenosis. There is no aortic valvular vegetation. MITRAL VALVE The mitral valve is thickened but opens well. Mitral regurgitation is mild. There is no mitral valve stenosis. There is no evidence of mitral valve prolapse. TRICUSPID VALVE The tricuspid valve leaflets are thickened , but open well. There is trace tricuspid regurgitation.RVSP-17 mmof Hg. There is no tricuspid valve stenosis. There is no tricuspid valve prolapse or vegetation. PULMONIC VALVE The pulmonary valve is normal in structure. There is no pulmonic valvular regurgitation. There is no pulmonic valvular stenosis. GREAT VESSELS The aortic root is normal in size. The ascending aorta is normal in size. The pulmonary artery is normal. The IVC is normal in size and collapses >50% with inspiration. PERICARDIAL EFFUSION There is no pleural effusion. There is no pericardial effusion. Anterior Pericardial Pad of Fat. <Conclusion> Normal Chamber Size. EF-65%. There is mild to moderate aortic regurgitation. Mitral regurgitation is mild. There is trace tricuspid regurgitation.RVSP-17 mmof Hg. There is no pericardial effusion. Anterior Pericardial Pad of Fat. The IVC is normal in size and collapses >50% with inspiration. no vegetation or thrombus noted.
--- NOTE | 2018-07-12 05:44 | CP.PCM.PN ---
<Alexis Rodriguez - Last Filed: 07/12/18 17:17> Subjective - Date & Time of Evaluation Date of Evaluation: 07/12/18 Time of Evaluation: 05:41 - Subjective Subjective: INTERNAL MEDICINE PROGRESS NOTE FOR DR. AFSHIN Rodriguez D.O. PGY-1 Pt seen and examined at bedside this am. Pt much more responsive this am compared to yesterday. She is AXO x 1. Answering questions appropriately, less lethargic She is awake, and is not complaining of anything. Pt was seen by neurology yesterday and recs have been appreciated. According to brother, pt is wheelchair bound. She denies fevers, chills, nausea, vomiting, chest pain, palpitations, shortness of breath, nausea, vomiting, diarrhea. Objective - Vital Signs/Intake and Output Vital Signs (last 24 hours): Temp Pulse Resp BP Pulse Ox 98.3 F 70 18 119/66 93 L 07/12/18 00:01 07/12/18 00:01 07/12/18 00:01 07/12/18 00:01 07/12/18 00:01 Intake and Output: 07/11/18 07/12/18 18:59 06:59 Intake Total 825 Balance 825 - Medications Medications: Current Medications Amantadine HCl (Amantadine 100 Mg Cap) 100 mg PO Q48H [facility] Artificial Tears (Artificial Tears) 2 ml OU DAILY PRN PRN Reason: FOR DRY EYES Aspirin (Ecotrin) 81 mg PO DAILY [facility] Last Admin: 07/11/18 10:31 Dose: Not Given Atorvastatin Calcium (Lipitor) 40 mg PO HS [facility] Last Admin: 07/11/18 21:42 Dose: Not Given Heparin Sodium (Porcine) (Heparin) 5,000 units SC Q8H [facility]; Protocol Last Admin: 07/12/18 01:08 Dose: 5,000 units Sodium Chloride (Sodium Chloride 0.9%) 1,000 mls @ 75 mls/hr IV .[id number] [facility] Last Admin: 07/11/18 17:33 Dose: 75 mls/hr Ceftriaxone Sodium (Rocephin 1 Gram Ivpb) 1 gm in 100 mls @ 100 mls/hr IVPB DAILY [facility]; Protocol Last Admin: 07/11/18 10:31 Dose: 100 mls/hr Levothyroxine Sodium (Synthroid) 37.5 mcg PO 0600 [facility] Last Admin: 07/11/18 05:01 Dose: Not Given Pantoprazole Sodium (Protonix Ec Tab) 40 mg PO 0600 [facility] Last Admin: 07/11/18 05:00 Dose: Not Given Paroxetine HCl (Paxil) 40 mg PO DAILY [facility] Last Admin: 07/11/18 10:31 Dose: Not Given - Labs Labs: 07/11/18 06:30 07/11/18 06:30 - Constitutional Appears: Non-toxic, No Acute Distress, Chronically Ill - Head Exam Head Exam: NORMAL INSPECTION, NORMOCEPHALIC - Eye Exam Eye Exam: EOMI, Normal appearance - ENT Exam ENT Exam: Mucous Membranes Moist, Normal Exam - Neck Exam Neck Exam: Normal Inspection. absent: Meningismus - Respiratory Exam Respiratory Exam: Clear to Ausculation Bilateral, NORMAL BREATHING PATTERN - Cardiovascular Exam Cardiovascular Exam: REGULAR RHYTHM, +S1, +S2 - GI/Abdominal Exam GI & Abdominal Exam: Soft, Normal Bowel Sounds. absent: Tenderness - Extremities Exam Extremities Exam: Normal Inspection. absent: Calf Tenderness Additional comments: Tophi noted on L thumb Tophi noted on b/l big toes - Back Exam Back Exam: NORMAL INSPECTION. absent: CVA tenderness (L), CVA tenderness (R) - Neurological Exam Neurological Exam: Alert, Awake. absent: Oriented x3 Additional comments: Lethargic - Psychiatric Exam Psychiatric exam: Normal Affect Additional comments: non-conversant - Skin Skin Exam: Dry, Intact, Warm Assessment and Plan - Assessment and Plan (Free Text) Assessment: 83 year old female with PMHX HTN, hypercholesterolemia, hypothyroid, and depression who presents s/p near-syncopal episode. History provided by husbands report. Pt has been lethargic, and has not given any history. She is awake and will respond "yes "to questions, but hasn't been conversant. Plan: Weakness/AMS 2/2 syncope 2/2 UTI vs neurogenic vs cardiogenic Continue amantadine per neuro recs Neurology consulted: Dr. Eubanks. 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 Possible RLL infiltrate. Head CT (07/10): FINDINGS: There is slight midline shift to the right which appears chronic and is not related to mass effect Chronic periventricular and subcortical microvascular disease is seen. There is generalized parenchymal atrophy. No acute intracranial pathology. Chest X-ray (07/10): No acute infiltrate, pleural effusion or pneumothoarax bilaterally. Potential cardiomegaly. Patient is severely rotated toward the right limiting interpreted bloody of the mediastinal anatomy. Hiatal hernia felt to be present. Chest X-ray (07/11): No definitive infiltrate bilaterally. Hiatal hernia likely. Cardiac silhouette appears prominent without pulmonary vascular congestion. Fibrosis or linear atelectasis right base reiterated. Right apex obscured by the patients lower face completely. UDS: (-) Echo: EF 65%. Mild-Mod Ao Regurg. Rhabdo 2/2 near-fall CK 1086 (07/10) --> 994 (07/11) --> 486 (07/12) HUI likely 2/2 prerenal azotemia Reports poor oral intake NS @ 75mls/hour will consider renal U/S and renal consult if no improvement on fluids in AM labs avoid nephrotoxic medications - hold home ARB for now Hx of Hypothyroid Continue Synthroid 37.5 mcg Free T4: 1.04 TSH: 1.94 Hx of Hypercholesterolemia Continue Lipitor 40 Continue ASA 81 mg Hx of Depression c/w home Paroxetine Will hold risperidone GI/DVT ppx: Hep SC 5000 q8/ Protonix 40 mg <Jennifer Mckeon R - Last Filed: 07/15/18 21:42> Objective - Vital Signs/Intake and Output Vital Signs (last 24 hours): Temp Pulse Resp BP Pulse Ox 98 F 61 16 132/75 100 07/15/18 18:00 07/15/18 18:00 07/15/18 18:00 07/15/18 18:00 07/15/18 06:00 - Medications Medications: Current Medications Artificial Tears (Artificial Tears) 2 ml OU DAILY PRN PRN Reason: FOR DRY EYES Last Admin: 07/12/18 08:47 Dose: 2 units Aspirin (Ecotrin) 81 mg PO DAILY [facility] Last Admin: 07/15/18 11:09 Dose: 81 mg Atorvastatin Calcium (Lipitor) 40 mg PO HS [facility] Last Admin: 07/14/18 23:11 Dose: 40 mg Cefpodoxime Proxetil (Vantin) 100 mg PO Q12 [facility]; Protocol Stop: 07/21/18 22:01 Last Admin: 07/15/18 11:09 Dose: 100 mg Colchicine (Colocrys) 0.6 mg PO DAILY [facility] Last Admin: 07/15/18 11:13 Dose: 0.6 mg Heparin Sodium (Porcine) (Heparin) 5,000 units SC Q8H [facility]; Protocol Last Admin: 07/15/18 15:02 Dose: 5,000 units Levothyroxine Sodium (Synthroid) 37.5 mcg PO 0600 [facility] Last Admin: 07/15/18 06:47 Dose: 37.5 mcg Ondansetron HCl (Zofran Inj) 4 mg IVP Q4H PRN PRN Reason: Nausea/Vomiting Pantoprazole Sodium (Protonix Ec Tab) 40 mg PO 0600 [facility] Last Admin: 07/15/18 05:24 Dose: 40 mg Paroxetine HCl (Paxil) 40 mg PO DAILY [facility] Last Admin: 07/15/18 11:09 Dose: 40 mg Tobramycin/Dexamethasone (Tobradex Opht Susp) 0.1 ml OU DAILY [facility] Stop: 07/16/18 11:45 - Labs Labs: 07/15/18 05:30 07/15/18 05:30 Attending/Attestation - Attestation I have personally seen and examined this patient.: Yes I have fully participated in the care of the patient.: Yes I have reviewed all pertinent clinical information, including history, physical exam and plan: Yes Notes (Text): Patient seen and examined by me with resident at 10:25AM on 07/12/18 with resident. Case including HPI, physical exam, and assessment and plan discussed with resident. Agree with above with following additions/corrections. Patient is an 83-year-old female with past medical history significant for hypertension, hypercholesterolemia, depression, and hypothyroidism presented to the emergency room with near syncope at home. Patient is awake and alert. Patient with some confusion. Patient states that she has some blurry vision but thats chronic. Patient is unsure why she is in the hospital. Patient oriented to self only. Denies any chest pain or palpitations. No shortness of breath. No headaches or dizziness. No fevers or chills. No dysuria. Unsure if review of systems accurate as patient confused. Physical exam: Gen: Awake and alert lying in bed in no acute distress HEENT: Normocephalic, atraumatic. Extraocular muscles intact, pupils equal and reactive. No scleral icterus. Positive green crust bilateral eyes. Oropharynx is pink. Positive dry mucous membranes. Neck is supple. Cardiovascular: Normal rhythm. Normal S1, S2. No murmurs, rubs, or gallops appreciated Pulmonary: Normal respiratory effort. No rhonchi, rales, or wheezing appreciated. Gastrointestinal: Soft. Nondistended. Nontender. Positive bowel sounds all 4 quadrants, no guarding. Musculoskeletal: Moves all extremities. No calf tenderness. Central nervous system: Awake and alert. Oriented to self. Dermatologic: Skin warm and dry. Positive tophi left thumb and bilateral great toes. Assessment and plan: Patient is an 83-year-old female with past medical history significant for hypertension, hypercholesterolemia, depression, and hypothyroidism presented to the emergency room with near syncope at home. 1. Near syncope. Toxic metabolic encephalopathy. Likely secondary to UTI and bacteremia. Neurology following, recommendations appreciated. Blood culture positive for gram positive cocci. Urine culture positive for gram negative rods. Continue Rocephin. Consult ID, Follow up recommendations. Head CT per radiologist shows no acute intracranial findings. 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 Continue ASA and Lipitor. Patient started on amantadine per neuro. Continue supportive care. 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 2. Rhabdomyolysis. Improving. Continue IV fluids. Follow up repeat CPK in AM 3. HUI. May be secondary to dehydration and poor oral intake. Improving with IV fluids. Continue to monitor. 4. Hypothyroidism. Continue synthroid 5. Conjunctivitis. Continue tobradex for 5 days. 6. Hypercholesterolemia. Continue Lipitor 7. Depression. Continue home paxil 8. Patient is a full code. Palliative care is following. Case discussed in detail with patient regarding current diagnosis and treatment plan. All questions answered.
[2018-07-12 06:41] LABS: BASO # 0.01 K/mm3 (0.0-2.0); BASO % 0.2 % (0.0-3.0); EOS # 0.2 (0.0-0.7); EOS % 3.1 % (1.5-5.0); GRAN # 4.38 (1.4-6.5); GRAN % 74.8 % (50.0-68.0); HEMOGLOBIN 9.9 g/dL (12.0-16.0); LYMPH # 0.9 (1.2-3.4); LYMPH % 14.9 % (22.0-35.0); MEAN CELL VOLUME 85.5 fl (80.0-105.0); MEAN CORPUSCULAR HEMOGLOBIN 27.6 pg (25.0-35.0); MEAN CORPUSCULAR HGB CONC 32.2 g/dl (31.0-37.0); MEAN PLATELET VOLUME 11.9 fl (7.0-11.0); MONO # 0.4 (0.1-0.6); RBC 3.59 10^6/uL (3.5-6.1); RED CELL DISTRIBUTION WIDTH 14.7 % (11.5-14.5); WHITE BLOOD COUNT 5.9 10^3/ul (4.5-11.0)
[2018-07-12 06:56] LABS: ALBUMIN 2.9 g/dL (3.0-4.8); CALCIUM 8.4 mg/dL (8.4-10.5)
[2018-07-12 07:13] LABS: CK MB% 1.1 % (2.5-3.0); CK-MB 5.2 ng/mL (0.0-3.6)
[2018-07-12] MEDS: Aritificial Tears (15ml) OU PRN (08:47)
[2018-07-12] MEDS: cefTRIAXone 1 gm 1 GM/100 ML BAG IVPB SCH (09:53)
[2018-07-12] MEDS ORDERED: Vancomycin 1gm in NS 250ml 1 GM/250 ML BAG IVPB STA (10:16)
--- NOTE | 2018-07-12 11:10 | CP.PCM.CON ---
History of Present Illness - History of Present Illness History of Present Illness: Palliative consult requested by Dr Africa Mckeon Goals of care/advance care planning 83 year old female with history of HTN, HLD, hypothyroidism who presented to ED yesterday after having near syncopal episode at home. states that the patient was weak and her legs gave out.The patient reported some dizziness weakness, but denied chest pain, shortness of breath, fever, chills,urinary symptoms, nausea, vomiting or diarrhea. EKG: NSR , non specific T wave changes ECHO:LV normal, EF 65%, mild/mod AR, Mild TR, trace TR. CT of head: No acute findings Chest X ray:no acute findings, potential cardiomegaly Labs:Wbc 10.2, Hgb 12.4, Plt 265Na 139, K 4.1, BUN 35, Rejoiner 2.1, glucose 91, AST 52, ALT 21, TCK 994, CK-MB8.2>0.08%, Albumin 3.0, urine + nitrite, protein and leukocytes. Urine culture > gram negative rods. Blood culture positive for gram + Cocci. Serology and Tox. screens negative PMHx: HTN, HLD, hypothyroidism, depression PSHx: right cataract surgery. Social History: Non smoker, no alcohol or drug use. Lives at home with spouse Family History: Non contributory Advance Care Planning: The patient does not have an Advanced Directive. Review of Systems: Patient reports weakness, difficulty ambulating. 12 point review negative Past Patient History - Infectious Disease Hx of Infectious Diseases: None - Past Social History Smoking Status: Never Smoked - CARDIAC Hx Hypertension: Yes - NEUROLOGICAL Hx Neurological Disorder: Yes Hx Dizziness: Yes - HEENT Hx Cataracts: Yes - ENDOCRINE/METABOLIC Hx Hypothyroidism: Yes - MUSCULOSKELETAL/RHEUMATOLOGICAL Hx Back Pain: Yes Hx Falls: Yes - GASTROINTESTINAL Hx Constipation: Yes Hx Gastroesophageal Reflux: Yes - PSYCHIATRIC Hx Depression: Yes Hx Substance Use: No Meds Allergies/Adverse Reactions: Allergies Allergy/AdvReac Type Severity Reaction Status Date / Time No Known Allergies Allergy Verified 03/05/17 12:50 - Medications Medications: Current Medications Amantadine HCl (Amantadine 100 Mg Cap) 100 mg PO Q48H [facility] Artificial Tears (Artificial Tears) 2 ml OU DAILY PRN PRN Reason: FOR DRY EYES Last Admin: 07/12/18 08:47 Dose: 2 units Aspirin (Ecotrin) 81 mg PO DAILY [facility] Last Admin: 07/11/18 10:31 Dose: Not Given Atorvastatin Calcium (Lipitor) 40 mg PO HS [facility] Last Admin: 07/11/18 21:42 Dose: Not Given Heparin Sodium (Porcine) (Heparin) 5,000 units SC Q8H [facility]; Protocol Last Admin: 07/12/18 01:08 Dose: 5,000 units Sodium Chloride (Sodium Chloride 0.9%) 1,000 mls @ 75 mls/hr IV .[id number] [facility] Last Admin: 07/11/18 17:33 Dose: 75 mls/hr Ceftriaxone Sodium (Rocephin 1 Gram Ivpb) 1 gm in 100 mls @ 100 mls/hr IVPB DAILY [facility]; Protocol Last Admin: 07/12/18 09:53 Dose: 100 mls/hr Vancomycin HCl (Vancomycin 1gm) 1 gm in 250 mls @ 167 mls/hr IVPB STAT [facility]; Protocol Stop: 07/12/18 11:45 Levothyroxine Sodium (Synthroid) 37.5 mcg PO 0600 [facility] Last Admin: 07/11/18 05:01 Dose: Not Given Pantoprazole Sodium (Protonix Ec Tab) 40 mg PO 0600 [facility] Last Admin: 07/11/18 05:00 Dose: Not Given Paroxetine HCl (Paxil) 40 mg PO DAILY [facility] Last Admin: 07/11/18 10:31 Dose: Not Given Physical Exam - Constitutional Appears: No Acute Distress - Head Exam Head Exam: NORMAL INSPECTION - Eye Exam Eye Exam: Normal appearance, PERRL - ENT Exam ENT Exam: Mucous Membranes Moist, Normal Oropharynx - Neck Exam Neck exam: Positive for: Normal Inspection - Respiratory Exam Respiratory Exam: Decreased Breath Sounds, NORMAL BREATHING PATTERN - Cardiovascular Exam Cardiovascular Exam: REGULAR RHYTHM, +S1, +S2 - GI/Abdominal Exam GI & Abdominal Exam: Normal Bowel Sounds, Soft Additional comments: no tenderness - Extremities Exam Extremities exam: Positive for: pedal pulses present - Neurological Exam Neurological exam: Alert, Oriented x3 - Skin Skin Exam: Dry, Warm - Additional Findings Additional findings: Palliative performance scale rating 40% Results - Vital Signs Recent Vital Signs: Last Vital Signs Temp 98.9 F 07/12/18 06:00 Pulse 65 07/12/18 06:00 Resp 20 07/12/18 06:00 BP 149/63 07/12/18 06:00 Pulse Ox 95 07/12/18 06:00 - Labs Result Diagrams: 07/12/18 05:20 07/12/18 05:20 Labs: Laboratory Results - last 24 hr 07/11/18 07/11/18 07/11/18 06:00 06:30 06:30 WBC RBC Hgb Hct MCV MCH MCHC RDW Plt Count MPV Gran % Lymph % (Auto) Dunn % (Auto) Eos % (Auto) Baso % (Auto) Gran # Lymph # (Auto) Dunn # (Auto) Eos # (Auto) Baso # (Auto) Sodium Potassium Chloride Carbon Dioxide Anion Gap BUN Creatinine Est GFR ( Amer) Est GFR (Non-Af Amer) POC Glucose (mg/dL) Random Glucose Hemoglobin A1c 5.9 Uric Acid Calcium Total Bilirubin AST ALT Alkaline Phosphatase Total Creatine Kinase CK-MB (CK-2) CK-MB (CK-2) % Total Protein Albumin Globulin Albumin/Globulin Ratio 25-OH Vitamin D Total 48.6 Procalcitonin RPR Nonreactive 07/11/18 07/11/18 07/11/18 10:00 11:14 16:33 WBC RBC Hgb Hct MCV MCH MCHC RDW Plt Count MPV Gran % Lymph % (Auto) Dunn % (Auto) Eos % (Auto) Baso % (Auto) Gran # Lymph # (Auto) Dunn # (Auto) Eos # (Auto) Baso # (Auto) Sodium Potassium Chloride Carbon Dioxide Anion Gap BUN Creatinine Est GFR ( Amer) Est GFR (Non-Af Amer) POC Glucose (mg/dL) 87 90 Random Glucose Hemoglobin A1c Uric Acid Calcium Total Bilirubin AST ALT Alkaline Phosphatase Total Creatine Kinase CK-MB (CK-2) CK-MB (CK-2) % Total Protein Albumin Globulin Albumin/Globulin Ratio 25-OH Vitamin D Total Procalcitonin 0.06 L RPR 07/11/18 07/12/18 07/12/18 21:07 05:20 05:20 WBC 5.9 RBC 3.59 Hgb 9.9 L Hct 30.7 L MCV 85.5 MCH 27.6 MCHC 32.2 RDW 14.7 H Plt Count 216 MPV 11.9 H Gran % 74.8 H Lymph % (Auto) 14.9 L Dunn % (Auto) 7.0 H Eos % (Auto) 3.1 Baso % (Auto) 0.2 Gran # 4.38 Lymph # (Auto) 0.9 L Dunn # (Auto) 0.4 Eos # (Auto) 0.2 Baso # (Auto) 0.01 Sodium 141 Potassium 3.8 Chloride 111 H Carbon Dioxide 24 Anion Gap 10 BUN 26 H Creatinine 1.5 H Est GFR ( Amer) 40 Est GFR (Non-Af Amer) 33 POC Glucose (mg/dL) 92 Random Glucose 85 Hemoglobin A1c Uric Acid 10.0 H Calcium 8.4 Total Bilirubin 0.4 AST 44 H ALT 20 Alkaline Phosphatase 59 Total Creatine Kinase 486 H CK-MB (CK-2) 5.2 H CK-MB (CK-2) % 1.1 L Total Protein 5.7 L Albumin 2.9 L Globulin 2.8 Albumin/Globulin Ratio 1.0 L 25-OH Vitamin D Total Procalcitonin RPR 07/12/18 07:23 WBC RBC Hgb Hct MCV MCH MCHC RDW Plt Count MPV Gran % Lymph % (Auto) Dunn % (Auto) Eos % (Auto) Baso % (Auto) Gran # Lymph # (Auto) Dunn # (Auto) Eos # (Auto) Baso # (Auto) Sodium Potassium Chloride Carbon Dioxide Anion Gap BUN Creatinine Est GFR ( Amer) Est GFR (Non-Af Amer) POC Glucose (mg/dL) 85 Random Glucose Hemoglobin A1c Uric Acid Calcium Total Bilirubin AST ALT Alkaline Phosphatase Total Creatine Kinase CK-MB (CK-2) CK-MB (CK-2) % Total Protein Albumin Globulin Albumin/Globulin Ratio 25-OH Vitamin D Total Procalcitonin RPR Assessment & Plan - Assessment and Plan (Free Text) Assessment: 83 year old female with history of HTN, HLD, depression and hypothyroidsim wh was admitted with near syncope, bacteremia, UTI ,HUI, rhabdomyolysis and AMS which has since resolved The pat is alert and oriented and is able to answer complex questions. She reports that she fell at home but doesn't remember exactly what happened. She denies any symptoms or complaints at this time. She states she is dependent on her for most ADL's Advance care planning discussion ensued. The patient states that she does not have an advanced directive. I asked her wishes regarding resuscitation and intubation. She states she has never thought about it. I explained the ramifications of CPR/intubation. Patient states she may consider doing an Advanced Directive but wants to speak with her and wants him present if she decides to complete AD. Time spent in goals of care and advance care planning discussion with patient, 20 minutes Plan: Goals of care and advance care planning Bacteremia/UTI: Continue Rocephin HUI: Slowly resolving. Continue IVF's, monitor labs Rhabdomyolosis: resolving;Continue IVF's, monitor labs Deconditioning: PT/OT
[2018-07-12] MEDS: Levothyroxine 75 MCG TAB PO SCH (12:06)
[2018-07-12] MEDS: Pantoprazole 40 mg EC Tab PO SCH (12:06)
--- NOTE | 2018-07-12 12:48 | CP.PCM.PN ---
Subjective - Date & Time of Evaluation Date of Evaluation: 07/12/18 Time of Evaluation: 11:00 - Subjective Subjective: Joy Palmer, PGY2, Neurology progress Note for Dr Eubanks: Patient seen and examined at bedside. No acute events overnight. Patient has lucid intervals, as per staff. Patient awake, alert, oriented x3 this AM. Patient states that she is here due to a fall. No fevers, chest pain, new focal weakness, shaking movements of her body. Objective - Vital Signs/Intake and Output Vital Signs (last 24 hours): Temp Pulse Resp BP Pulse Ox 97.1 F L 68 19 140/66 95 07/12/18 12:00 07/12/18 12:00 07/12/18 12:00 07/12/18 12:00 07/12/18 06:00 Intake and Output: 07/12/18 07/12/18 06:59 18:59 Intake Total 1725 Balance 1725 - Medications Medications: Current Medications Amantadine HCl (Amantadine 100 Mg Cap) 100 mg PO Q48H [facility] Last Admin: 07/12/18 12:07 Dose: 100 mg Artificial Tears (Artificial Tears) 2 ml OU DAILY PRN PRN Reason: FOR DRY EYES Last Admin: 07/12/18 08:47 Dose: 2 units Aspirin (Ecotrin) 81 mg PO DAILY [facility] Last Admin: 07/12/18 12:06 Dose: 81 mg Atorvastatin Calcium (Lipitor) 40 mg PO HS [facility] Last Admin: 07/11/18 21:42 Dose: Not Given Heparin Sodium (Porcine) (Heparin) 5,000 units SC Q8H [facility]; Protocol Last Admin: 07/12/18 01:08 Dose: 5,000 units Sodium Chloride (Sodium Chloride 0.9%) 1,000 mls @ 75 mls/hr IV .[id number] [facility] Last Admin: 07/11/18 17:33 Dose: 75 mls/hr Ceftriaxone Sodium (Rocephin 1 Gram Ivpb) 1 gm in 100 mls @ 100 mls/hr IVPB DAILY [facility]; Protocol Last Admin: 07/12/18 09:53 Dose: 100 mls/hr Levothyroxine Sodium (Synthroid) 37.5 mcg PO 0600 [facility] Last Admin: 07/12/18 12:06 Dose: 37.5 mcg Pantoprazole Sodium (Protonix Ec Tab) 40 mg PO 0600 [facility] Last Admin: 07/12/18 12:06 Dose: 40 mg Paroxetine HCl (Paxil) 40 mg PO DAILY [facility] Last Admin: 07/12/18 12:06 Dose: 40 mg Tobramycin/Dexamethasone (Tobradex Opht Susp) 0 ml OU DAILY [facility] - Labs Labs: 07/12/18 05:20 07/12/18 05:20 - Additional Findings Additional findings: - Constitutional Appears: Chronically Ill - Head Exam Head Exam: ATRAUMATIC, NORMOCEPHALIC - Eye Exam Eye Exam: PERRL. absent: Conjunctival injection, Nystagmus, Periorbital tenderness, Scleral icterus Pupil Exam: PERRL. absent: Irregular, Miosis, Unequal - ENT Exam ENT Exam: Mucous Membranes Dry - Neck Exam Neck exam: Positive for: Full Rom - Respiratory Exam Respiratory Exam: Clear to Auscultation Bilateral, NORMAL BREATHING PATTERN. absent: Rhonchi, Wheezes - Cardiovascular Exam Cardiovascular Exam: RRR, +S1, +S2. absent: Systolic Murmur - GI/Abdominal Exam GI & Abdominal Exam: Normal Bowel Sounds, Soft. absent: Tenderness - Extremities Exam Extremities exam: Negative for: calf tenderness, pedal edema Additional comments: + bilateral big toe podagara noted. +Inflammation, erythema of right index finger PIP joint - Neurological Exam Neurological exam: Alert, awake, oriented to self, place, time, situation Additional comments: Moving all extremities. 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 - C/w ASA 81 mg, statin - lipid panel reviewed - C/w Amantadine 100 mg q48h (renally dosed) - Physical therapy eval - social work eval - Thank you for your consult. Case seen and discussed with Dr Eubanks.
[2018-07-12] MEDS: Tobramycin/Dexamethasone (Tobradex) Opth Sol (2.5 ml) OU SCH (13:45)
--- NOTE | 2018-07-12 20:17 | CP.PCM.CON ---
History of Present Illness - History of Present Illness History of Present Illness: 83 year old female with PMH of HTN, dyslipidemia, hypothyroidism, depression was brought in to [facility] because of near syncope. I took the history from medical records and nursing staff on the floors. Apparently the patient was about to fal l when the was able to catch her before she fell on the floor. The patient feels that she lost consciousness for a few seconds. Prior to the fall, she felt lightheaded with generalized weakness. She had no fevers, no vomiting, no diarrhea, states she has problems with urination but does not qualify. Blood cx were done which are showing bacteria. Infectious Diseases consult is requested to further evaluate and manage. Past Patient History - Infectious Disease Hx of Infectious Diseases: None - Past Social History Smoking Status: Never Smoked - CARDIAC Hx Hypertension: Yes - NEUROLOGICAL Hx Neurological Disorder: Yes Hx Dizziness: Yes - HEENT Hx Cataracts: Yes - ENDOCRINE/METABOLIC Hx Hypothyroidism: Yes - MUSCULOSKELETAL/RHEUMATOLOGICAL Hx Back Pain: Yes Hx Falls: Yes - GASTROINTESTINAL Hx Constipation: Yes Hx Gastroesophageal Reflux: Yes - PSYCHIATRIC Hx Depression: Yes Hx Substance Use: No Meds Allergies/Adverse Reactions: Allergies Allergy/AdvReac Type Severity Reaction Status Date / Time No Known Allergies Allergy Verified 03/05/17 12:50 - Medications Medications: Current Medications Amantadine HCl (Amantadine 100 Mg Cap) 100 mg PO Q48H [facility] Last Admin: 07/12/18 12:07 Dose: 100 mg Artificial Tears (Artificial Tears) 2 ml OU DAILY PRN PRN Reason: FOR DRY EYES Last Admin: 07/12/18 08:47 Dose: 2 units Aspirin (Ecotrin) 81 mg PO DAILY [facility] Last Admin: 07/12/18 12:06 Dose: 81 mg Atorvastatin Calcium (Lipitor) 40 mg PO HS [facility] Last Admin: 07/11/18 21:42 Dose: Not Given Heparin Sodium (Porcine) (Heparin) 5,000 units SC Q8H [facility]; Protocol Last Admin: 07/12/18 01:08 Dose: 5,000 units Sodium Chloride (Sodium Chloride 0.9%) 1,000 mls @ 75 mls/hr IV .[id number] [facility] Last Admin: 07/11/18 17:33 Dose: 75 mls/hr Ceftriaxone Sodium (Rocephin 1 Gram Ivpb) 1 gm in 100 mls @ 100 mls/hr IVPB DAILY [facility]; Protocol Last Admin: 07/12/18 09:53 Dose: 100 mls/hr Levothyroxine Sodium (Synthroid) 37.5 mcg PO 0600 [facility] Last Admin: 07/12/18 12:06 Dose: 37.5 mcg Pantoprazole Sodium (Protonix Ec Tab) 40 mg PO 0600 [facility] Last Admin: 07/12/18 12:06 Dose: 40 mg Paroxetine HCl (Paxil) 40 mg PO DAILY [facility] Last Admin: 07/12/18 12:06 Dose: 40 mg Tobramycin/Dexamethasone (Tobradex Opht Susp) 0 ml OU DAILY [facility] Results - Vital Signs Recent Vital Signs: Last Vital Signs Temp 97.1 F L 07/12/18 12:00 Pulse 68 07/12/18 12:00 Resp 19 07/12/18 12:00 BP 140/66 07/12/18 12:00 Pulse Ox 95 07/12/18 06:00 - Labs Result Diagrams: 07/12/18 05:20 07/12/18 05:20 Labs: Laboratory Results - last 24 hr 07/11/18 07/11/18 07/11/18 06:30 10:00 16:33 WBC RBC Hgb Hct MCV MCH MCHC RDW Plt Count MPV Gran % Lymph % (Auto) Gilliam % (Auto) Eos % (Auto) Baso % (Auto) Gran # Lymph # (Auto) Gilliam # (Auto) Eos # (Auto) Baso # (Auto) Sodium Potassium Chloride Carbon Dioxide Anion Gap BUN Creatinine Est GFR ( Amer) Est GFR (Non-Af Amer) POC Glucose (mg/dL) 90 Random Glucose Uric Acid Calcium Total Bilirubin AST ALT Alkaline Phosphatase Total Creatine Kinase CK-MB (CK-2) CK-MB (CK-2) % Total Protein Albumin Globulin Albumin/Globulin Ratio Procalcitonin 0.06 L RPR Nonreactive 07/11/18 07/12/18 07/12/18 21:07 05:20 05:20 WBC 5.9 RBC 3.59 Hgb 9.9 L Hct 30.7 L MCV 85.5 MCH 27.6 MCHC 32.2 RDW 14.7 H Plt Count 216 MPV 11.9 H Gran % 74.8 H Lymph % (Auto) 14.9 L Gilliam % (Auto) 7.0 H Eos % (Auto) 3.1 Baso % (Auto) 0.2 Gran # 4.38 Lymph # (Auto) 0.9 L Gilliam # (Auto) 0.4 Eos # (Auto) 0.2 Baso # (Auto) 0.01 Sodium 141 Potassium 3.8 Chloride 111 H Carbon Dioxide 24 Anion Gap 10 BUN 26 H Creatinine 1.5 H Est GFR ( Amer) 40 Est GFR (Non-Af Amer) 33 POC Glucose (mg/dL) 92 Random Glucose 85 Uric Acid 10.0 H Calcium 8.4 Total Bilirubin 0.4 AST 44 H ALT 20 Alkaline Phosphatase 59 Total Creatine Kinase 486 H CK-MB (CK-2) 5.2 H CK-MB (CK-2) % 1.1 L Total Protein 5.7 L Albumin 2.9 L Globulin 2.8 Albumin/Globulin Ratio 1.0 L Procalcitonin RPR 07/12/18 07/12/18 07:23 11:42 WBC RBC Hgb Hct MCV MCH MCHC RDW Plt Count MPV Gran % Lymph % (Auto) Gilliam % (Auto) Eos % (Auto) Baso % (Auto) Gran # Lymph # (Auto) Gilliam # (Auto) Eos # (Auto) Baso # (Auto) Sodium Potassium Chloride Carbon Dioxide Anion Gap BUN Creatinine Est GFR ( Amer) Est GFR (Non-Af Amer) POC Glucose (mg/dL) 85 99 Random Glucose Uric Acid Calcium Total Bilirubin AST ALT Alkaline Phosphatase Total Creatine Kinase CK-MB (CK-2) CK-MB (CK-2) % Total Protein Albumin Globulin Albumin/Globulin Ratio Procalcitonin RPR
[2018-07-13] MEDS: Levothyroxine 75 MCG TAB PO SCH (05:25)
[2018-07-13] MEDS: Pantoprazole 40 mg EC Tab PO SCH (05:27)
[2018-07-13 07:28] LABS: BASO # 0.02 K/mm3 (0.0-2.0); BASO % 0.4 % (0.0-3.0); EOS # 0.2 (0.0-0.7); EOS % 3.4 % (1.5-5.0); GRAN # 4.1 (1.4-6.5); GRAN % 73.3 % (50.0-68.0); HEMOGLOBIN 9.6 g/dL (12.0-16.0); LYMPH # 0.8 (1.2-3.4); LYMPH % 13.8 % (22.0-35.0); MEAN CELL VOLUME 85.5 fl (80.0-105.0); MEAN CORPUSCULAR HEMOGLOBIN 27.8 pg (25.0-35.0); MEAN CORPUSCULAR HGB CONC 32.5 g/dl (31.0-37.0); MEAN PLATELET VOLUME 11.7 fl (7.0-11.0); MONO # 0.5 (0.1-0.6); MONO % 9.1 % (1.0-6.0); RBC 3.45 10^6/uL (3.5-6.1); RED CELL DISTRIBUTION WIDTH 14.6 % (11.5-14.5); WHITE BLOOD COUNT 5.6 10^3/ul (4.5-11.0)
[2018-07-13 08:07] LABS: ALBUMIN 2.8 g/dL (3.0-4.8); CALCIUM 8.2 mg/dL (8.4-10.5)
[2018-07-13] MEDS: Tobramycin/Dexamethasone (Tobradex) Opth Sol (2.5 ml) OU SCH (09:19)
[2018-07-13] MEDS: cefTRIAXone 1 gm 1 GM/100 ML BAG IVPB SCH (09:20)
[2018-07-13] MEDS: Sodium Chloride 0.9% 1,000 ML IV SCH (12:20)
--- NOTE | 2018-07-13 17:10 | PN ---
DATE: 07/13/2018 SUBJECTIVE: The patient is in bed, in no acute distress and the patient was seen earlier today in [facility], bed 2. PHYSICAL EXAMINATION: VITAL SIGNS: On exam, temperature is 98, blood pressure is 120/60, respiratory rate of 18, heart rate of 57. HEENT: Examination of HEENT is unremarkable. NECK: Supple. LUNGS: Have decreased breath sounds. HEART: Normal S1, S2. ABDOMEN: Soft, nontender. LABORATORY DATA: Laboratory examination reveals the white count is 5.6, hemoglobin of nine, platelets of 228. Chemistries reveals a BUN of 19, creatinine of 1.4. Urinalysis is noted. RPR is nonreactive. Microbiology reveals a gram-positive cocci in the blood and that E. coli in the urine. E. coli in the urine relatively sensitive except for nitrofurantoin. Gram-positive cocci is a coag-negative staph by PNA-FISH. The repeat blood cultures within 24 hours became negative. Review of orders reveals the patient to be on ceftriaxone and was given vancomycin. ASSESSMENT AND PLAN: An 83-year-old female with coagulase-negative Staphylococcus bacteremia, most consistent with a contamination; presyncopal; hypertensive; dyslipidemia; hypothyroidism; depression; who has Klebsiella urinary tract infection with negative blood cultures, repeat negative blood cultures and most consistent with a contamination. No intravascular foreign devices have been reported. Intravascular devices not present with sensitive Escherichia coli in the urine. The patient did not have any fevers throughout the hospitalization, did not have any white count throughout the hospitalization. In the emergency room, had seen the patient. There is weakness, although the patient did not have any fevers in the emergency room. No infiltrates were seen on the chest x-ray. Blood cultures were done. We will follow closely with you. Maybe able to switch to p.o. antibiotics upon discharge. Asa Berkowitz MD
--- NOTE | 2018-07-13 22:39 | CP.PCM.PN ---
Subjective - Date & Time of Evaluation Date of Evaluation: 07/13/18 Time of Evaluation: 22:38 - Subjective Subjective: Pramod Mckeon PGY1 - Internal Medicine Mail Sorter - Hospital Progress Note Patient seen and examined at bedside this morning No acute events reported overnight; No acute issues voiced by patient at this time. Patient alert awake conversing. She does however show some signs of confusion. Waiting to establish baseline mental status at this time. 12 system ROS is negative at this time. Objective - Vital Signs/Intake and Output Vital Signs (last 24 hours): Temp Pulse Resp BP Pulse Ox 98.8 F 63 18 109/78 97 07/13/18 18:00 07/13/18 22:00 07/13/18 18:00 07/13/18 18:00 07/13/18 18:00 Intake and Output: 07/13/18 07/14/18 18:59 06:59 Intake Total 540 925 Output Total 600 Balance -60 925 - Medications Medications: Current Medications Amantadine HCl (Amantadine 100 Mg Cap) 100 mg PO Q48H [facility] Last Admin: 07/12/18 12:07 Dose: 100 mg Artificial Tears (Artificial Tears) 2 ml OU DAILY PRN PRN Reason: FOR DRY EYES Last Admin: 07/12/18 08:47 Dose: 2 units Aspirin (Ecotrin) 81 mg PO DAILY [facility] Last Admin: 07/13/18 09:19 Dose: 81 mg Atorvastatin Calcium (Lipitor) 40 mg PO HS [facility] Last Admin: 07/13/18 21:49 Dose: 40 mg Heparin Sodium (Porcine) (Heparin) 5,000 units SC Q8H [facility]; Protocol Last Admin: 07/13/18 21:49 Dose: 5,000 units Sodium Chloride (Sodium Chloride 0.9%) 1,000 mls @ 75 mls/hr IV .[id number] [facility] Last Admin: 07/13/18 12:20 Dose: 75 mls/hr Ceftriaxone Sodium (Rocephin 1 Gram Ivpb) 1 gm in 100 mls @ 100 mls/hr IVPB DAILY [facility]; Protocol Last Admin: 07/13/18 09:20 Dose: 100 mls/hr Levothyroxine Sodium (Synthroid) 37.5 mcg PO 0600 [facility] Last Admin: 07/13/18 05:25 Dose: 37.5 mcg Pantoprazole Sodium (Protonix Ec Tab) 40 mg PO 0600 [facility] Last Admin: 07/13/18 05:27 Dose: 40 mg Paroxetine HCl (Paxil) 40 mg PO DAILY [facility] Last Admin: 07/13/18 09:18 Dose: 40 mg Tobramycin/Dexamethasone (Tobradex Opht Susp) 0 ml OU DAILY [facility] Last Admin: 07/13/18 09:19 Dose: 2 units - Labs Labs: 07/13/18 06:00 07/13/18 06:00 - Constitutional Appears: Non-toxic, No Acute Distress, Chronically Ill - Head Exam Head Exam: NORMAL INSPECTION, NORMOCEPHALIC - Eye Exam Eye Exam: EOMI, Normal appearance - ENT Exam ENT Exam: Mucous Membranes Moist, Normal Exam - Neck Exam Neck Exam: Normal Inspection. absent: Meningismus - Respiratory Exam Respiratory Exam: Clear to Ausculation Bilateral, NORMAL BREATHING PATTERN - Cardiovascular Exam Cardiovascular Exam: REGULAR RHYTHM, +S1, +S2 - GI/Abdominal Exam GI & Abdominal Exam: Soft, Normal Bowel Sounds. absent: Tenderness - Extremities Exam Extremities Exam: Normal Inspection. absent: Calf Tenderness Additional comments: Tophi noted on L thumb Tophi noted on b/l big toes - Back Exam Back Exam: NORMAL INSPECTION. absent: CVA tenderness (L), CVA tenderness (R) - Neurological Exam Neurological Exam: Alert, Awake. Oriented x1 - Psychiatric Exam Psychiatric exam: Confused, not oriented, - Skin Skin Exam: Dry, Intact, Warm Assessment and Plan - Assessment and Plan (Free Text) Assessment: 83 year old female with PMHX HTN, hypercholesterolemia, hypothyroid, and depression who presents s/p near-syncopal episode. Patient appears to be more alert relative to prior documentation however she is still altered upon exam. 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 Eubanks. Recs appreciated ID Following appreciate reccs Rhabdo 2/2 near-fall CK improving; continue trending CPK HUI likely 2/2 prerenal azotemia - Baseline Cr 1.2 NS @ 75mls/hour Cr improving - 1.4 will consider renal U/S and renal consult if no improvement on fluids in AM labs avoid nephrotoxic medications - hold home ARB for now Hx of Hypothyroid Continue Synthroid 37.5 mcg Free T4: 1.04 TSH: 1.94 Hx of Hypercholesterolemia Continue Lipitor 40 Continue ASA 81 mg Hx of Depression c/w home Paroxetine Will hold risperidone GI/DVT ppx: Hep SC 5000 q8/ Protonix 40 mg DISPO: Continued inpatient management at this time for AMS 2/2 unknown etiology; Upon discharge patient will benefit from [facility] as per PT. Home with services is the next option if patient not accepted to [facility] as per PT. Patient was seen, examined and discussed w/ attending physician Dr. Kenzie Mckeon DO PGY1 Internal Medicine Mail Sorter - Pager [phone]
[2018-07-14] MEDS: Pantoprazole 40 mg EC Tab PO SCH (05:10)
[2018-07-14] MEDS: Sodium Chloride 0.9% 1,000 ML IV SCH ×2 (05:15→17:40)
[2018-07-14 07:11] LABS: ALBUMIN 2.8 g/dL (3.0-4.8); CALCIUM 8.2 mg/dL (8.4-10.5)
[2018-07-14 07:30] LABS: BASO # 0.02 K/mm3 (0.0-2.0); BASO % 0.3 % (0.0-3.0); EOS # 0.2 (0.0-0.7); EOS % 3.2 % (1.5-5.0); GRAN # 4.54 (1.4-6.5); GRAN % 75.8 % (50.0-68.0); HEMOGLOBIN 9.9 g/dL (12.0-16.0); LYMPH # 0.7 (1.2-3.4); LYMPH % 11.9 % (22.0-35.0); MEAN CELL VOLUME 85.5 fl (80.0-105.0); MEAN CORPUSCULAR HEMOGLOBIN 28.1 pg (25.0-35.0); MEAN CORPUSCULAR HGB CONC 32.9 g/dl (31.0-37.0); MEAN PLATELET VOLUME 11.8 fl (7.0-11.0); MONO # 0.5 (0.1-0.6); MONO % 8.8 % (1.0-6.0); RBC 3.52 10^6/uL (3.5-6.1); RED CELL DISTRIBUTION WIDTH 14.7 % (11.5-14.5)
[2018-07-14 07:41] LABS: CK MB% 1.6 % (2.5-3.0); CK-MB 6.2 ng/mL (0.0-3.6)
[2018-07-14] MEDS: Tobramycin/Dexamethasone (Tobradex) Opth Sol (2.5 ml) OU SCH (09:40)
[2018-07-14] MEDS: cefTRIAXone 1 gm 1 GM/100 ML BAG IVPB SCH (09:40)
--- NOTE | 2018-07-14 13:20 | CP.PCM.PN ---
Subjective - Date & Time of Evaluation Date of Evaluation: 07/14/18 Time of Evaluation: 13:16 - Subjective Subjective: Pramod Mckeon PGY1 - Internal Medicine [employer] - Hospital Progress Note Patient seen and examined at bedside this morning No acute events reported overnight; No acute issues voiced by patient at this time. Patient voicing no urinary complaints, fevers, chills, abd pain, cp, sob, n/v/d/c. Remainder 12 system ROS is negative at this time. Objective - Vital Signs/Intake and Output Vital Signs (last 24 hours): Temp Pulse Resp BP Pulse Ox 98.3 F 76 18 173/85 H 96 07/14/18 12:00 07/14/18 12:00 07/14/18 12:00 07/14/18 12:00 07/14/18 06:00 Intake and Output: 07/14/18 07/14/18 06:59 18:59 Intake Total 1045 Output Total 450 Balance 595 - Medications Medications: Current Medications Amantadine HCl (Amantadine 100 Mg Cap) 100 mg PO Q48H [facility] Last Admin: 07/14/18 10:28 Dose: 100 mg Artificial Tears (Artificial Tears) 2 ml OU DAILY PRN PRN Reason: FOR DRY EYES Last Admin: 07/12/18 08:47 Dose: 2 units Aspirin (Ecotrin) 81 mg PO DAILY [facility] Last Admin: 07/14/18 09:39 Dose: 81 mg Atorvastatin Calcium (Lipitor) 40 mg PO HS [facility] Last Admin: 07/13/18 21:49 Dose: 40 mg Cefpodoxime Proxetil (Vantin) 100 mg PO Q12 [facility]; Protocol Stop: 07/21/18 22:01 Colchicine (Colocrys) 0.6 mg PO DAILY [facility] Last Admin: 07/14/18 10:27 Dose: 0.6 mg Heparin Sodium (Porcine) (Heparin) 5,000 units SC Q8H [facility]; Protocol Last Admin: 07/14/18 05:10 Dose: 5,000 units Sodium Chloride (Sodium Chloride 0.9%) 1,000 mls @ 75 mls/hr IV .[id number] [facility] Last Admin: 07/14/18 05:15 Dose: 75 mls/hr Levothyroxine Sodium (Synthroid) 37.5 mcg PO 0600 [facility] Last Admin: 07/13/18 05:25 Dose: 37.5 mcg Pantoprazole Sodium (Protonix Ec Tab) 40 mg PO 0600 [facility] Last Admin: 07/14/18 05:10 Dose: 40 mg Paroxetine HCl (Paxil) 40 mg PO DAILY [facility] Last Admin: 07/14/18 09:39 Dose: 40 mg Tobramycin/Dexamethasone (Tobradex Opht Susp) 0 ml OU DAILY [facility] Last Admin: 07/14/18 09:40 Dose: 2 units - Labs Labs: 07/14/18 06:00 07/14/18 06:00 - Constitutional Appears: Non-toxic, No Acute Distress, Chronically Ill, Clinically looks well - Head Exam Head Exam: NORMAL INSPECTION, NORMOCEPHALIC - Eye Exam Eye Exam: EOMI, Normal appearance - ENT Exam ENT Exam: Mucous Membranes Moist, Normal Exam - Neck Exam Neck Exam: Normal Inspection. absent: Meningismus - Respiratory Exam Respiratory Exam: Clear to Ausculation Bilateral, NORMAL BREATHING PATTERN - Cardiovascular Exam Cardiovascular Exam: REGULAR RHYTHM, +S1, +S2 - GI/Abdominal Exam GI & Abdominal Exam: Soft, Normal Bowel Sounds. absent: Tenderness - Extremities Exam Extremities Exam: Normal Inspection. 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 - Back Exam Back Exam: No BL CVA tenderness - Neurological Exam Neurological Exam: Alert, Awake. Oriented x2 this morning - Psychiatric Exam Psychiatric exam: Normal affect, normal mood - Skin Skin Exam: Dry, Intact, Warm Assessment and Plan - Assessment and Plan (Free Text) Assessment: 83 year old female with PMHX HTN, hypercholesterolemia, hypothyroid, and depression who presents s/p near-syncopal episode.Patient's mental status is improving at this time; clinically improving at this time mental status significantly improved. Patient alert awake answering questions; she is AAO2 vs AAO1 yesterday. 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 Eubanks. Recs appreciated ID Following appreciate reccs Rhabdo 2/2 near-fall CK improving; continue trending CPK HUI likely 2/2 prerenal azotemia - Baseline Cr 1.2 NS @ 75mls/hour Cr improving Avoid nephrotoxic medications - hold home ARB for now Hx of Hypothyroid Continue Synthroid 37.5 mcg Free T4: 1.04 // TSH: 1.94 Hx of Hypercholesterolemia Continue Lipitor 40 Continue ASA 81 mg Hx of Depression c/w home Paroxetine Will hold risperidone GI/DVT ppx: Hep SC 5000 q8/ Protonix 40 mg DISPO: Continued inpatient management at this time for AMS 2/2 unknown etiology; Upon discharge patient will benefit from [facility] as per PT. Home with services is the next option if patient not accepted to [facility] as per PT. Patient was seen, examined and discussed w/ attending physician Dr. Kenzie Mckeon DO PGY1 Internal Medicine [employer] - Pager [phone]
--- NOTE | 2018-07-14 14:24 | PN ---
DATE: 07/14/2018 SUBJECTIVE: The patient was seen earlier this morning in room 265. The patient is comfortable. No fevers. No chills. PHYSICAL EXAMINATION: VITAL SIGNS: Temperature of 98, blood pressure is 150/60, respiratory rate 20, heart rate of 65. HEENT: Examination of HEENT is unremarkable. NECK: Supple. LUNGS: Have decreased breath sounds. HEART: Normal S1, S2. ABDOMEN: Soft, nontender. No rebound or guarding. No masses. LABORATORY DATA: Laboratory examination reveals a white count of 6, hemoglobin of 9, platelets of 231. Chemistries reveals a BUN of 16, creatinine of 1.3 and procalcitonin 0.06. Urinalysis is noted and serology is noted. Microbiology reveals E. Coli in the urine, is pansensitive, which is from the 07/10/2018. There is coag-negative staph in the blood and sensitive coag-negative staph in two bottles. Repeat blood cultures are no growth at 24 hours microbiology. ASSESSMENT AND PLAN: An 83-year-old female with coag-negative Staphylococcus bacteremia that was most consistent with contamination. Repeat cultures negative in a patient with hypertension and dyslipidemia, hypothyroidism, depression with Klebsiella in the urinary tract and repeat blood cultures negative and no intravascular foreign devices have been reported and the patient has been afebrile and normal white count and was admitted because of near syncope. The urinalysis reveals [id number] WBCs, many bacteria. We will change the ceftriaxone to p.o. Vantin since the patient had Escherichia coli in the urine that is pansensitive. The patient's creatinine is 1.3. We will order p.o. Vantin at 100 mg b.i.d. x7 days. Asa Berkowitz MD
[2018-07-14] MEDS: Cefpodoxime (Vantin) 100 mg Tab PO SCH (23:11)
[2018-07-15] MEDS: Pantoprazole 40 mg EC Tab PO SCH (05:24)
[2018-07-15] MEDS: Levothyroxine 75 MCG TAB PO SCH ×2 (05:25→06:47)
[2018-07-15 06:59] LABS: BASO # 0.01 K/mm3 (0.0-2.0); BASO % 0.2 % (0.0-3.0); EOS # 0.2 (0.0-0.7); EOS % 3.4 % (1.5-5.0); GRAN # 3.78 (1.4-6.5); GRAN % 71.9 % (50.0-68.0); HEMOGLOBIN 9.4 g/dL (12.0-16.0); LYMPH # 0.9 (1.2-3.4); LYMPH % 16.5 % (22.0-35.0); MEAN CELL VOLUME 85.6 fl (80.0-105.0); MEAN CORPUSCULAR HEMOGLOBIN 27.6 pg (25.0-35.0); MEAN CORPUSCULAR HGB CONC 32.2 g/dl (31.0-37.0); MEAN PLATELET VOLUME 11.5 fl (7.0-11.0); MONO # 0.4 (0.1-0.6); RBC 3.41 10^6/uL (3.5-6.1); RED CELL DISTRIBUTION WIDTH 14.9 % (11.5-14.5); WHITE BLOOD COUNT 5.3 10^3/ul (4.5-11.0)
[2018-07-15 07:20] LABS: ALB/GLOB RATIO 1.1 (1.1-1.8); ALBUMIN 2.8 g/dL (3.0-4.8); CALCIUM 8.2 mg/dL (8.4-10.5)
[2018-07-15 07:37] LABS: CK MB% 1.8 % (2.5-3.0); CK-MB 5.1 ng/mL (0.0-3.6)
[2018-07-15] MEDS: Cefpodoxime (Vantin) 100 mg Tab PO SCH ×2 (11:09→22:12)
[2018-07-15] MEDS: Tobramycin/Dexamethasone (Tobradex) Opth Sol (2.5 ml) OU SCH (11:10)
--- NOTE | 2018-07-15 15:29 | CP.PCM.PN ---
<Alexis Rordiguez - Last Filed: 07/15/18 17:27> Subjective - Date & Time of Evaluation Date of Evaluation: 07/15/18 Time of Evaluation: 15:28 - Subjective Subjective: INTERNAL MEDICINE PROGRESS NOTE FOR DR. ELLEN Rodriguez PGY-1 Pt seen and examined at bedside this am. Pt still lethargic, but answers questions and shows improvement since admission. She denies any acute complaints. She has been switched to oral antibiotics. Pt has been approved by subacute rehab placement, however is unable to be reached. Pt denies fevers, chills, headache, dizziness, chest pain, palpitations, shortness of breath, nausea, vomiting, constipation, diarrhea, dysuria. Objective - Vital Signs/Intake and Output Vital Signs (last 24 hours): Temp Pulse Resp BP Pulse Ox 98.4 F 61 20 142/73 100 07/15/18 12:00 07/15/18 12:00 07/15/18 12:00 07/15/18 12:00 07/15/18 06:00 Intake and Output: 07/15/18 07/15/18 06:59 18:59 Intake Total 600 Output Total 600 Balance 0 - Medications Medications: Current Medications Artificial Tears (Artificial Tears) 2 ml OU DAILY PRN PRN Reason: FOR DRY EYES Last Admin: 07/12/18 08:47 Dose: 2 units Aspirin (Ecotrin) 81 mg PO DAILY [facility] Last Admin: 07/15/18 11:09 Dose: 81 mg Atorvastatin Calcium (Lipitor) 40 mg PO HS [facility] Last Admin: 07/14/18 23:11 Dose: 40 mg Cefpodoxime Proxetil (Vantin) 100 mg PO Q12 [facility]; Protocol Stop: 07/21/18 22:01 Last Admin: 07/15/18 11:09 Dose: 100 mg Colchicine (Colocrys) 0.6 mg PO DAILY [facility] Last Admin: 07/15/18 11:13 Dose: 0.6 mg Heparin Sodium (Porcine) (Heparin) 5,000 units SC Q8H [facility]; Protocol Last Admin: 07/15/18 15:02 Dose: 5,000 units Levothyroxine Sodium (Synthroid) 37.5 mcg PO 0600 [facility] Last Admin: 07/15/18 06:47 Dose: 37.5 mcg Ondansetron HCl (Zofran Inj) 4 mg IVP Q4H PRN PRN Reason: Nausea/Vomiting Pantoprazole Sodium (Protonix Ec Tab) 40 mg PO 0600 [facility] Last Admin: 07/15/18 05:24 Dose: 40 mg Paroxetine HCl (Paxil) 40 mg PO DAILY [facility] Last Admin: 07/15/18 11:09 Dose: 40 mg Tobramycin/Dexamethasone (Tobradex Opht Susp) 0 ml OU DAILY [facility] Last Admin: 07/15/18 11:10 Dose: 2 drop - Labs Labs: 07/15/18 05:30 07/15/18 05:30 - Constitutional Appears: Non-toxic, No Acute Distress, Chronically Ill - Head Exam Head Exam: NORMAL INSPECTION, NORMOCEPHALIC - Eye Exam Eye Exam: EOMI, Normal appearance - ENT Exam ENT Exam: Mucous Membranes Moist, Normal Exam - Neck Exam Neck Exam: Normal Inspection. absent: Meningismus - Respiratory Exam Respiratory Exam: Clear to Ausculation Bilateral, NORMAL BREATHING PATTERN - Cardiovascular Exam Cardiovascular Exam: REGULAR RHYTHM, +S1, +S2 - GI/Abdominal Exam GI & Abdominal Exam: Soft, Normal Bowel Sounds. absent: Tenderness - Extremities Exam Additional comments: Tophi on L thumb Tophi on b/l big toes - Back Exam Back Exam: NORMAL INSPECTION - Neurological Exam Neurological Exam: Alert, Awake Additional comments: AXO x 2 - Psychiatric Exam Psychiatric exam: Normal Affect, Normal Mood - Skin Skin Exam: Dry, Intact, Warm Assessment and Plan - Assessment and Plan (Free Text) Assessment: 83 year old female with PMHx HTN, hypercholesterolemia, hypothyroid, and depression who presents s/p near-syncopal episode. Patient's mental status is improving at this time; clinically improving at this time mental status significantly improved. Patient alert awake answering questions; she is AAO2 vs AAO1 yesterday. Plan: Weakness/AMS 2/2 syncope 2/2 UTI vs neurogenic vs cardiogenic Patient's mental status is improving at this time; Clinically Blood cultures: gram (+) cocci consistent with contaminantion Repeat Blood Cx negative at this time. No growth after 3 days urine cultures: gram (-) rods; Pansensitive; We will deescalate therapy as per ID reccs Continue Vantin po as per ID x 7 days. 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 Eubanks. Recs appreciated ID Following appreciate recs Rhabdo 2/2 near-fall CK improving; continue trending CPK 486 --> 392 --> 288 HUI likely 2/2 prerenal azotemia - Baseline Cr 1.2 Cr improving Avoid nephrotoxic medications - hold home AR[facility] for now Hx of Hypothyroid Continue Synthroid 37.5 mcg Free T4: 1.04 // TSH: 1.94 Hx of Hypercholesterolemia Continue Lipitor 40 Continue ASA 81 mg Hx of Depression c/w home Paroxetine Will hold risperidone GI/DVT ppx: Hep SC 5000 q8/ Protonix 40 mg DISPO: Continued inpatient management at this time for AMS 2/2 unknown etiology; Upon discharge patient will benefit from [facility] as per PT. Home with services is the next option if patient not accepted to [facility] as per PT. Case seen, examined and discussed with attending physician, Dr. Vora <Lacho Vora - Last Filed: 07/16/18 16:46> Objective - Vital Signs/Intake and Output Vital Signs (last 24 hours): Temp Pulse Resp BP Pulse Ox 97.8 F 92 H 16 122/61 100 07/16/18 13:48 07/16/18 13:48 07/16/18 13:48 07/16/18 13:48 07/16/18 09:00 Intake and Output: 07/16/18 07/16/18 06:59 18:59 Intake Total 0 Output Total 300 Balance -300 - Medications Medications: Current Medications Artificial Tears (Artificial Tears) 2 ml OU DAILY PRN PRN Reason: FOR DRY EYES Last Admin: 07/15/18 22:12 Dose: 2 units Aspirin (Ecotrin) 81 mg PO DAILY [facility] Last Admin: 07/16/18 09:57 Dose: 81 mg Atorvastatin Calcium (Lipitor) 40 mg PO HS [facility] Last Admin: 07/15/18 22:12 Dose: 40 mg Cefpodoxime Proxetil (Vantin) 100 mg PO Q12 [facility]; Protocol Stop: 07/21/18 22:01 Last Admin: 07/16/18 09:57 Dose: 100 mg Colchicine (Colocrys) 0.6 mg PO DAILY [facility] Last Admin: 07/16/18 09:57 Dose: 0.6 mg Heparin Sodium (Porcine) (Heparin) 5,000 units SC Q8H [facility]; Protocol Last Admin: 07/16/18 06:44 Dose: 5,000 units Levothyroxine Sodium (Synthroid) 37.5 mcg PO 0600 [facility] Last Admin: 07/16/18 06:43 Dose: 37.5 mcg Ondansetron HCl (Zofran Inj) 4 mg IVP Q4H PRN PRN Reason: Nausea/Vomiting Pantoprazole Sodium (Protonix Ec Tab) 40 mg PO 0600 [facility] Last Admin: 07/16/18 06:44 Dose: 40 mg Paroxetine HCl (Paxil) 40 mg PO DAILY [facility] Last Admin: 07/16/18 09:57 Dose: 40 mg - Labs Labs: 07/16/18 06:30 07/16/18 06:30 Attending/Attestation - Attestation I have personally seen and examined this patient.: Yes I have fully participated in the care of the patient.: Yes I have reviewed all pertinent clinical information, including history, physical exam and plan: Yes Notes (Text): 07/16/18 16:41 ATTENDING NOTE; Patient seen and examined with resident. Patient is alert and awake. Able to answer a few questions. Able to move right upper and lower extremity. Patient has weakness of the left upper and lower extremity. Patient is afebrile and nontoxic. Patient is an 83-year-old female with past medical history significant for hypertension, hypercholesterolemia, depression, and hypothyroidism presented to the emergency room with near syncope at home. 1. Near syncope. Toxic metabolic encephalopathy. Likely secondary to E. coli UTI. currently on po Vantin. Neurology evaluation appreciated. Head CT shows no acute intracranial findings. 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 Continue ASA and Lipitor. Patient started on amantadine per neuro. Continue supportive care. echo per culture manager showed normal chamber size, EF 65%, no pericardial effusion, no vegetation or thrombus noted, mild to moderate aortic regurgitation. 2. Rhabdomyolysis. resolved.Patient is tolerating diet well. Continue IV fluids. Follow up repeat CPK in AM 3. HUI. secondary to dehydration and poor oral intake. Improving with IV fluids. Continue to monitor. 4. Hypothyroidism. Continue synthroid 5. Hypercholesterolemia. Continue Lipitor 6. Depression. Continue home paxil PT evaluation appreciated. Plan for subacute rehabilitation. case discussed with case operator in detail. message left with patient's for call back. 07/16/18 16:46
[2018-07-15] MEDS ORDERED: Tobramycin/Dexamethasone (Tobradex) Opth Sol (2.5 ml) OU SCH (21:34)
[2018-07-15] MEDS: Aritificial Tears (15ml) OU PRN (22:12)
--- NOTE | 2018-07-16 00:33 | PN ---
DATE: 07/15/2018 SUBJECTIVE: The patient is in bed, in no acute distress, nontoxic. PHYSICAL EXAMINATION: VITAL SIGNS: Temperature is 98, blood pressure is 130/70, respiratory rate of 18, heart rate of 61. HEENT: Unremarkable. NECK: Supple. LUNGS: Decreased breath sounds. HEART: Normal S1, S2. ABDOMEN: Soft, nontender. LABORATORY EXAMINATION: Reveals a white count of 5.3, hemoglobin of 9, platelets of 250. Chemistries reveals a BUN of 14, creatinine of 1.2. The urinalysis is noted. RPR is negative. Microbiology reveals coag-negative staph in two blood cultures. There is E-coli in the urine culture, the E. Coli is pansensitive. The repeat blood cultures are negative. Review of orders reveals the patient to be on p.o. Vantin. ASSESSMENT AND PLAN: An 83-year-old female with coagulase-negative staph bacteremia consistent with contamination, hypertension, dyslipidemia, hypothyroidism, depression, Klebsiella with Escherichia coli urinary tract infection, on p.o. Vantin x7 days. The patient is afebrile and with normal white count. We will follow with you. Asa Berkowitz MD
[2018-07-16] MEDS: Levothyroxine 75 MCG TAB PO SCH (06:43)
[2018-07-16] MEDS: Pantoprazole 40 mg EC Tab PO SCH (06:44)
[2018-07-16 07:14] LABS: BASO # 0.02 K/mm3 (0.0-2.0); BASO % 0.4 % (0.0-3.0); EOS # 0.3 (0.0-0.7); EOS % 5.6 % (1.5-5.0); GRAN # 3.39 (1.4-6.5); GRAN % 65.4 % (50.0-68.0); HEMOGLOBIN 9.5 g/dL (12.0-16.0); LYMPH # 1.1 (1.2-3.4); LYMPH % 20.3 % (22.0-35.0); MEAN CELL VOLUME 85.9 fl (80.0-105.0); MEAN CORPUSCULAR HEMOGLOBIN 27.9 pg (25.0-35.0); MEAN CORPUSCULAR HGB CONC 32.5 g/dl (31.0-37.0); MEAN PLATELET VOLUME 11.4 fl (7.0-11.0); MONO # 0.4 (0.1-0.6); MONO % 8.3 % (1.0-6.0); RBC 3.4 10^6/uL (3.5-6.1); RED CELL DISTRIBUTION WIDTH 15.1 % (11.5-14.5); WHITE BLOOD COUNT 5.2 10^3/ul (4.5-11.0)
[2018-07-16 07:43] LABS: ALBUMIN 2.7 g/dL (3.0-4.8); CALCIUM 8.5 mg/dL (8.4-10.5)
[2018-07-16] MEDS: Cefpodoxime (Vantin) 100 mg Tab PO SCH (09:57)
[2018-07-16 12:24] VITALS: O2SAT 100
--- NOTE | 2018-07-16 12:38 | CP.PCM.DIS ---
<Alexis Rodriguez - Last Filed: 07/16/18 13:11> Provider - Provider Date of Admission: 07/10/18 21:21 Attending physician: Lacho Vora MD Primary care physician: Robert Ram MD Consults: ID: Dr. Mendez Neurology: Dr. Eubanks Palliative Care: Dr. Gongora Time Spent in preparation of Discharge (in minutes): 45 Hospital Course - Lab Results Lab Results: Micro Results 07/12/18 13:30 Blood-Venous Blood Culture - Preliminary NO GROWTH AFTER 3 DAYS 07/12/18 13:15 Blood-Venous Blood Culture - Preliminary NO GROWTH AFTER 3 DAYS 07/11/18 06:30 Blood-Venous S.aureus & Coag-Neg Staph PNA FISH - Final 07/11/18 06:30 Blood-Venous Blood Culture - Final Coagulase Neg Staphylococcus 07/11/18 06:30 Blood-Venous Gram Stain - Final 07/11/18 07:00 Blood-Venous Blood Culture - Final Coagulase Neg Staphylococcus 07/11/18 07:00 Blood-Venous Gram Stain - Final 07/10/18 22:34 Urine Urine Culture - Final Escherichia Coli Most Recent Lab Values WBC 5.2 10^3/ul (4.5-11.0) 07/16/18 06:30 RBC 3.40 10^6/uL (3.5-6.1) L 07/16/18 06:30 Hgb 9.5 g/dL (12.0-16.0) L 07/16/18 06:30 Hct 29.2 % (36.0-48.0) L 07/16/18 06:30 MCV 85.9 fl (80.0-105.0) 07/16/18 06:30 MCH 27.9 pg (25.0-35.0) 07/16/18 06:30 MCHC 32.5 g/dl (31.0-37.0) 07/16/18 06:30 RDW 15.1 % (11.5-14.5) H 07/16/18 06:30 Plt Count 230 10^3/uL (120.0-450.0) 07/16/18 06:30 MPV 11.4 fl (7.0-11.0) H 07/16/18 06:30 Gran % 65.4 % (50.0-68.0) 07/16/18 06:30 Lymph % (Auto) 20.3 % (22.0-35.0) L 07/16/18 06:30 [place] % (Auto) 8.3 % (1.0-6.0) H 07/16/18 06:30 Eos % (Auto) 5.6 % (1.5-5.0) H 07/16/18 06:30 Baso % (Auto) 0.4 % (0.0-3.0) 07/16/18 06:30 Gran # 3.39 (1.4-6.5) 07/16/18 06:30 Lymph # (Auto) 1.1 (1.2-3.4) L 07/16/18 06:30 [place] # (Auto) 0.4 (0.1-0.6) 07/16/18 06:30 Eos # (Auto) 0.3 (0.0-0.7) 07/16/18 06:30 Baso # (Auto) 0.02 K/mm3 (0.0-2.0) 07/16/18 06:30 Sodium 140 mmol/L (132-148) 07/16/18 06:30 Potassium 4.1 mmol/L (3.6-5.0) 07/16/18 06:30 Chloride 111 mmol/L (98-107) H 07/16/18 06:30 Carbon Dioxide 24 mmol/L (21-33) 07/16/18 06:30 Anion Gap 8 (10-20) L 07/16/18 06:30 BUN 15 mg/dL (7-21) 07/16/18 06:30 Creatinine 1.3 mg/dl (0.7-1.2) H 07/16/18 06:30 Est GFR ( Amer) 47 07/16/18 06:30 Est GFR (Non-Af Amer) 39 07/16/18 06:30 POC Glucose (mg/dL) 129 mg/dL (65-110) H 07/16/18 12:00 Random Glucose 89 mg/dL (70-110) 07/16/18 06:30 Hemoglobin A1c 5.9 % (4.2-6.5) 07/11/18 06:30 Uric Acid 10.0 mg/dL (2.5-6.2) H 07/12/18 05:20 Calcium 8.5 mg/dL (8.4-10.5) 07/16/18 06:30 Phosphorus 4.3 mg/dL (2.5-4.5) 07/11/18 06:30 Magnesium 1.9 mg/dL (1.7-2.2) 07/11/18 06:30 Total Bilirubin 0.2 mg/dL (0.2-1.3) 07/16/18 06:30 AST 38 U/L (14-36) H 07/16/18 06:30 ALT 41 U/L (7-56) 07/16/18 06:30 Alkaline Phosphatase 60 U/L (38-126) 07/16/18 06:30 Ammonia < 9 umol/L (9-33) L 07/13/18 19:15 Lactate Dehydrogenase 594 U/L (333-699) 07/10/18 19:14 Total Creatine Kinase 122 U/L (35-230) 07/16/18 06:30 CK-MB (CK-2) 5.1 ng/mL (0.0-3.6) H 07/15/18 05:30 CK-MB (CK-2) % 1.8 % (2.5-3.0) L 07/15/18 05:30 Troponin I < 0.01 ng/mL 07/11/18 00:40 NT-Pro-B Natriuret Pep 65.0 pg/mL (0-450) 07/10/18 19:14 Total Protein 5.3 g/dL (5.8-8.3) L 07/16/18 06:30 Albumin 2.7 g/dL (3.0-4.8) L 07/16/18 06:30 Globulin 2.6 gm/dL 07/16/18 06:30 Albumin/Globulin Ratio 1.0 (1.1-1.8) L 07/16/18 06:30 Triglycerides 274 mg/dL (35-160) H 07/11/18 06:30 Cholesterol 174 mg/dL (130-200) 07/11/18 06:30 LDL Cholesterol Direct 93 mg/dL (0-129) 07/11/18 06:30 HDL Cholesterol 27 mg/dL (29-60) L 07/11/18 06:30 25-OH Vitamin D Total 48.6 NG/ML (30.0-100.0) 07/11/18 06:00 Procalcitonin 0.06 NG/ML (0.19-0.49) L 07/11/18 10:00 Free T4 1.04 ng/dL (0.78-2.19) 07/11/18 06:30 TSH 3rd Generation 1.94 mIU/mL (0.46-4.68) 07/11/18 06:30 Urine Color Light yellow (YELLOW) 07/10/18 22:34 Urine Appearance Cloudy (CLEAR) 07/10/18:34 Urine pH 6.5 (4.7-8.0) 07/10/18:34 Ur Specific [place] 1.020 (1.005-1.035) 07/10/18 22:34 Urine Protein 30 mg/dL (<30 mg/dL) H 07/10/18 22:34 Urine Glucose (UA) Negative mg/dL (NEGATIVE) 07/10/18:34 Urine Ketones Negative mg/dL (NEGATIVE) 07/10/18 22:34 Urine Blood Small (NEGATIVE) H 07/10/18 22:34 Urine Nitrate Positive (NEGATIVE) H 07/10/18:34 Urine Bilirubin Negative (NEGATIVE) 07/10/18:34 Urine Urobilinogen 0.2 E.U./dL (<1 E.U./dL) 07/10/18 22:34 Ur Leukocyte Esterase Large Annmarie/uL (NEGATIVE) H 07/10/18 22:34 Urine RBC 10 - 15 /hpf (0-2) 07/10/18 22:34 Urine WBC Tntc /hpf (0-6) 07/10/18 22:34 Ur Epithelial Cells 6 - 8 /hpf (0-5) 07/10/18 22:34 Urine Bacteria Many (NEG) 07/10/18 22:34 Urine Opiates Screen Negative (NEGATIVE) 07/11/18 05:00 Urine Methadone Screen Negative (NEGATIVE) 07/11/18 05:00 Ur Barbiturates Screen Negative (NEGATIVE) 07/11/18 05:00 Ur Phencyclidine Scrn Negative (NEGATIVE) 07/11/18 05:00 Ur Amphetamines Screen Negative (NEGATIVE) 07/11/18 05:00 U Benzodiazepines Scrn Negative (NEGATIVE) 07/11/18 05:00 U Oth Cocaine Metabols Negative (NEGATIVE) 07/11/18 05:00 U Cannabinoids Screen Negative (NEGATIVE) 07/11/18 05:00 RPR Nonreactive (NONREACTIVE) 07/11/18 06:30 - Hospital Course Hospital Course: Upon Admission: Ms. Rodriguez is an 83 yr old Female with PMHx of HTN, hypercholesterolemia, hypothyroid who presents s/p near-syncope at home. brought patient in after being present when patient was falling at home, having stated that her legs gave out and felt weak. was nearby and caught patient before she hit the ground. Denies hitting head but patient believes she may have lost consciousness. Patient reports some episodes of dizziness and full-body weakness but denies current symptoms. Patient also denies chest pain, shortness of breath, fevers, chills, recent infections, changes to urinary and bowel habits or vision changes. Patient denies having those symptoms in the past and does not fall regularly. Hospital Course: During hospital course, pt was very lethargic and mental status waxed and waned. As per , she is lethargic at baseline and has "good and bad days" in terms of mental status. CT scan at the day of admission showed no acute intracranial findings, however showed asymmetrical atrophy severe on the left. Echocardiogram showed LVEF ~65% with normal chamber size. Chest xray showed "no infiltrates. Hiatal hernia likely. Cardiac silhouette appears prominent without pulmonary vascular congestion. Fibrosis or linear atelectasis right base reiterated. Right apex obscured by the patients lower face complexity. There is also cerebellar atrophy left greater than right. Chronic microvascular changes were seen". She was found to have a urinary tract infection that grew E. Coli and found to have bacteremia growing coagulase ne gative staphylococci. She was also found to have an elevated creatine kinase that had trended downward with treatment with IV fluids. She was treated for urinary tract infections which was likely causing her altered mental status. Infectious Disease, Neurology and Palliative Care specialists were consulted during the hospital stay. Infectious disease recommended treatment with IV vancomycin, which was subsequently switched to oral Vantin for discharge. Neurology endorsed that pt had AMS secondary to toxic metabolic encephalopathy, and recommended renally dosed amantadine. Pts mental status had improved throughout hospital stay with antibiotics and she was evaluated by physical therapy. Arrangements had been made for her to be transferred to [facility] for further rehab. was aware of the pts status, and agreed with plant to discharge to subacute rehab Upon Discharge: Pts mental status had improved overall. She was AxO x 2 and was conversing well. Pt had generalized weakness, which was unchanged from her baseline. She is aware of the current plan to discharge to [facility] re[facility] and is in agreement. She denies fevers, chills, headache, dizziness, chest pain, palpitations, shortness of breath, nausea, vomiting, constipation, diarrhea, dysuria. Discharge Exam - Head Exam Head Exam: NORMAL INSPECTION, NORMOCEPHALIC - Eye Exam Eye Exam: EOMI, Normal appearance - ENT Exam ENT Exam: Mucous Membranes Moist - Neck Exam Neck exam: Normal Inspection - Respiratory Exam Respiratory Exam: Clear to PA & Lateral, NORMAL BREATHING PATTERN - Cardiovascular Exam Cardiovascular Exam: REGULAR RHYTHM, +S1, +S2 - GI/Abdominal Exam GI & Abdominal Exam: Normal Bowel Sounds, Unremarkable - Extremities Exam Extremities exam: normal inspection Additional comments: tophi noted on L thumb tophi noted on b/l big toes - Back Exam Back exam: NORMAL INSPECTION. absent: CVA tenderness (L), CVA tenderness (R) - Neurological Exam Neurological exam: Alert Additional comments: [place] x 2 - Psychiatric Exam Psychiatric exam: Normal Affect, Normal Mood - Skin Skin Exam: Dry, Intact, Warm Discharge Plan - Discharge Medications Prescriptions: Amantadine [Amantadine HCl] 100 mg PO QOTHERDAY #7 cap Cefpodoxime [Vantin] 100 mg PO Q12 #10 tab - Follow Up Plan Condition: FAIR Disposition: TRANSF TO SNF Instructions: Heart Healthy Diet, Acute Kidney Failure (DC), Rhabdomyolysis (DC) Additional Instructions: You will be discharged to [facility]. Your medications will be provided for you at that facility. Please continue taking all medications as they are currently prescribed. Please follow up with your primary care doctor 3-5 days upon discharge from this facility for post discharge follow up. Our neurologist has started you on a medication called Amantadine 100mg that you will be taking once by mouth every other day. Please discuss this new medication with your primary care doctor. You have been taking an antibiotic, "Vantin" while you have been at the hospital for a urine infection. You should continue to take the antibiotic, twice a day for the next five days until 07/21/2018. Please complete the full course of this antibiotic. Please take your other home medications as they have been prescribed. If your symptoms return, please seek emergency medical attention immediately. Referrals: Tulio Eubanks MD [Staff Provider] - Naima Gongora RN, DATA ANALYTICS DEVELOPER [Staff Provider] - Iván Mendez MD [Staff Provider] - Roebrt Ram MD [Primary Care Provider] - <Lacho Vora - Last Filed: 07/17/18 09:04> Provider - Provider Date of Admission: 07/10/18 21:21 Attending physician: Lacho Vora MD Primary care physician: Robert Ram MD Hospital Course - Lab Results Lab Results: Micro Results 07/12/18 13:30 Blood-Venous Blood Culture - Preliminary NO GROWTH AFTER 4 DAYS 07/12/18 13:15 Blood-Venous Blood Culture - Preliminary NO GROWTH AFTER 4 DAYS 07/11/18 06:30 Blood-Venous S.aureus & Coag-Neg Staph PNA FISH - Final 07/11/18 06:30 Blood-Venous Blood Culture - Final Coagulase Neg Staphylococcus 07/11/18 06:30 Blood-Venous Gram Stain - Final 07/11/18 07:00 Blood-Venous Blood Culture - Final Coagulase Neg Staphylococcus 07/11/18 07:00 Blood-Venous Gram Stain - Final 07/10/18 22:34 Urine Urine Culture - Final Escherichia Coli Most Recent Lab Values WBC 5.2 10^3/ul (4.5-11.0) 07/16/18 06:30 RBC 3.40 10^6/uL (3.5-6.1) L 07/16/18 06:30 Hgb 9.5 g/dL (12.0-16.0) L 07/16/18 06:30 Hct 29.2 % (36.0-48.0) L 07/16/18 06:30 MCV 85.9 fl (80.0-105.0) 07/16/18 06:30 MCH 27.9 pg (25.0-35.0) 07/16/18 06:30 MCHC 32.5 g/dl (31.0-37.0) 07/16/18 06:30 RDW 15.1 % (11.5-14.5) H 07/16/18 06:30 Plt Count 230 10^3/uL (120.0-450.0) 07/16/18 06:30 MPV 11.4 fl (7.0-11.0) H 07/16/18 06:30 Gran % 65.4 % (50.0-68.0) 07/16/18 06:30 Lymph % (Auto) 20.3 % (22.0-35.0) L 07/16/18 06:30 [place] % (Auto) 8.3 % (1.0-6.0) H 07/16/18 06:30 Eos % (Auto) 5.6 % (1.5-5.0) H 07/16/18 06:30 Baso % (Auto) 0.4 % (0.0-3.0) 07/16/18 06:30 Gran # 3.39 (1.4-6.5) 07/16/18 06:30 Lymph # (Auto) 1.1 (1.2-3.4) L 07/16/18 06:30 [place] # (Auto) 0.4 (0.1-0.6) 07/16/18 06:30 Eos # (Auto) 0.3 (0.0-0.7) 07/16/18 06:30 Baso # (Auto) 0.02 K/mm3 (0.0-2.0) 07/16/18 06:30 Sodium 140 mmol/L (132-148) 07/16/18 06:30 Potassium 4.1 mmol/L (3.6-5.0) 07/16/18 06:30 Chloride 111 mmol/L (98-107) H 07/16/18 06:30 Carbon Dioxide 24 mmol/L (21-33) 07/16/18 06:30 Anion Gap 8 (10-20) L 07/16/18 06:30 BUN 15 mg/dL (7-21) 07/16/18 06:30 Creatinine 1.3 mg/dl (0.7-1.2) H 07/16/18 06:30 Est GFR ( Amer) 47 07/16/18 06:30 Est GFR (Non-Af Amer) 39 07/16/18 06:30 POC Glucose (mg/dL) 129 mg/dL (65-110) H 07/16/18 12:00 Random Glucose 89 mg/dL (70-110) 07/16/18 06:30 Hemoglobin A1c 5.9 % (4.2-6.5) 07/11/18 06:30 Uric Acid 10.0 mg/dL (2.5-6.2) H 07/12/18 05:20 Calcium 8.5 mg/dL (8.4-10.5) 07/16/18 06:30 Phosphorus 4.3 mg/dL (2.5-4.5) 07/11/18 06:30 Magnesium 1.9 mg/dL (1.7-2.2) 07/11/18 06:30 Total Bilirubin 0.2 mg/dL (0.2-1.3) 07/16/18 06:30 AST 38 U/L (14-36) H 07/16/18 06:30 ALT 41 U/L (7-56) 07/16/18 06:30 Alkaline Phosphatase 60 U/L (38-126) 07/16/18 06:30 Ammonia < 9 umol/L (9-33) L 07/13/18 19:15 Lactate Dehydrogenase 594 U/L (333-699) 07/10/18 19:14 Total Creatine Kinase 122 U/L (35-230) 07/16/18 06:30 CK-MB (CK-2) 5.1 ng/mL (0.0-3.6) H 07/15/18 05:30 CK-MB (CK-2) % 1.8 % (2.5-3.0) L 07/15/18 05:30 Troponin I < 0.01 ng/mL 07/11/18 00:40 NT-Pro-B Natriuret Pep 65.0 pg/mL (0-450) 07/10/18 19:14 Total Protein 5.3 g/dL (5.8-8.3) L 07/16/18 06:30 Albumin 2.7 g/dL (3.0-4.8) L 07/16/18 06:30 Globulin 2.6 gm/dL 07/16/18 06:30 Albumin/Globulin Ratio 1.0 (1.1-1.8) L 07/16/18 06:30 Triglycerides 274 mg/dL (35-160) H 07/11/18 06:30 Cholesterol 174 mg/dL (130-200) 07/11/18 06:30 LDL Cholesterol Direct 93 mg/dL (0-129) 07/11/18 06:30 HDL Cholesterol 27 mg/dL (29-60) L 07/11/18 06:30 25-OH Vitamin D Total 48.6 NG/ML (30.0-100.0) 07/11/18 06:00 Procalcitonin 0.06 NG/ML (0.19-0.49) L 07/11/18 10:00 Free T4 1.04 ng/dL (0.78-2.19) 07/11/18 06:30 TSH 3rd Generation 1.94 mIU/mL (0.46-4.68) 07/11/18 06:30 Urine Color Light yellow (YELLOW) 07/10/18:34 Urine Appearance Cloudy (CLEAR) 07/10/18 22:34 Urine pH 6.5 (4.7-8.0) 07/10/18 22:34 Ur Specific [place] 1.020 (1.005-1.035) 07/10/18:34 Urine Protein 30 mg/dL (<30 mg/dL) H 07/10/18 22:34 Urine Glucose (UA) Negative mg/dL (NEGATIVE) 07/10/18 22:34 Urine Ketones Negative mg/dL (NEGATIVE) 07/10/18 22:34 Urine Blood Small (NEGATIVE) H 07/10/18 22:34 Urine Nitrate Positive (NEGATIVE) H 07/10/18 22:34 Urine Bilirubin Negative (NEGATIVE) 07/10/18 22:34 Urine Urobilinogen 0.2 E.U./dL (<1 E.U./dL) 07/10/18 22:34 Ur Leukocyte Esterase Large Annmarie/uL (NEGATIVE) H 07/10/18 22:34 Urine RBC 10 - 15 /hpf (0-2) 07/10/18 22:34 Urine WBC Tntc /hpf (0-6) 07/10/18 22:34 Ur Epithelial Cells 6 - 8 /hpf (0-5) 07/10/18 22:34 Urine Bacteria Many (NEG) 07/10/18 22:34 Urine Opiates Screen Negative (NEGATIVE) 07/11/18 05:00 Urine Methadone Screen Negative (NEGATIVE) 07/11/18 05:00 Ur Barbiturates Screen Negative (NEGATIVE) 07/11/18 05:00 Ur Phencyclidine Scrn Negative (NEGATIVE) 07/11/18 05:00 Ur Amphetamines Screen Negative (NEGATIVE) 07/11/18 05:00 U Benzodiazepines Scrn Negative (NEGATIVE) 07/11/18 05:00 U Oth Cocaine Metabols Negative (NEGATIVE) 07/11/18 05:00 U Cannabinoids Screen Negative (NEGATIVE) 07/11/18 05:00 RPR Nonreactive (NONREACTIVE) 07/11/18 06:30 Attending/Attestation - Attestation I have personally seen and examined this patient.: Yes I have fully participated in the care of the patient.: Yes I have reviewed all pertinent clinical information, including history, physical exam and plan: Yes Notes (Text): 07/17/18 09:01 attending note; Patient seen and examined with resident. Patient is alert and awake. Able to answer a few questions. getting physical therapy by bedside. able to follow commands. Getting feeding with assistance. Patient is an 83-year-old female with past medical history significant for hypertension, hypercholesterolemia, depression, and hypothyroidism presented to the emergency room with near syncope at home. 1. Near syncope. Toxic metabolic encephalopathy. Likely secondary to E. coli UTI. currently on po Vantin. Neurology evaluation appreciated. Head CT shows no acute intracranial findings. 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 Continue ASA and Lipitor. Patient started on amantadine per neuro. Continue supportive care. echo per turbine room attendant showed normal chamber size, EF 65%, no pericardial effusion, no vegetation or thrombus noted, mild to moderate aortic regurgitation. 2. Rhabdomyolysis. resolved. 3. HUI. secondary to dehydration and poor oral intake. resolved. 4. Hypothyroidism. Continue synthroid 5. Hypercholesterolemia. Continue Lipitor 6. Depression. Continue home paxil PT evaluation appreciated. Transfer to subacute rehabilitation today. case discussed with complex case manager in detail. Patient's informed about rehabilitation placement by social media senior associate and resident.
[2018-07-16 13:49] VITALS: BP 122/61; PULSE 92; RESP 16; TEMP 97.8
--- NOTE | 2018-07-16 23:27 | PN ---
DATE: 07/16/2018 SUBJECTIVE: The patient is in bed, in no acute distress, nontoxic. PHYSICAL EXAMINATION: VITAL SIGNS: On exam, temperature is 98, blood pressure is 120/60, respiratory rate of 18. HEENT: Examination of HEENT is unremarkable. NECK: Supple. LUNGS: Have decreased breath sounds. HEART: Normal S1, S2. ABDOMEN: Soft. LABORATORY DATA: Laboratory examination reveals a white count of 5.2, hemoglobin of 9, platelets of 230. Chemistries are noted. BUN of 15, creatinine of 1.3. Urinalysis is noted and serology is noted. Microbiology reveals coag-negative staph, E. Coli in the urine. ASSESSMENT AND PLAN: An 83-year-old female who was seen earlier this morning in 265, bed 2. Had a coag-negative staph consistent with contamination, hypertension, dyslipidemia, hypothyroidism, depression, Klebsiella and Escherichia coli in the urine, on p.o. Vantin. Complete total of 7 days. Asa Berkowitz MD
== END 2018-07-16 17:36 | DRG 689 ==
LOC: ED 18:01 → ERH 21:21 → 2RNO 23:58
PROVIDERS: ADMIT Hospitalist; ATTEND Internal Medicine
DX: N39.0 Urinary tract infection, site not specified (principal); G92 Toxic encephalopathy; M62.82 Rhabdomyolysis; N17.9 Acute kidney failure, unspecified; J98.11 Atelectasis; I10 Essential (primary) hypertension; E86.0 Dehydration; E03.9 Hypothyroidism, unspecified; H10.9 Unspecified conjunctivitis; K21.9 Gastro-esophageal reflux disease without esophagitis; F32.9 Major depressive disorder, single episode, unspecified; N28.9 Disorder of kidney and ureter, unspecified; R55 Syncope and collapse; B96.20 Unspecified Escherichia coli [E. coli] as the cause of diseases classified elsewhere; E78.00 Pure hypercholesterolemia, unspecified; Z79.82 Long term (current) use of aspirin

== ENCOUNTER 2018-07-25 22:23 | Inpatient (IN) | payer MEDICARE ==
[2018-07-25] MEDS ORDERED: Sodium Chloride 0.9% 1,000 ML IV SCH (23:15)
[2018-07-25 23:29] LABS: MEAN CELL VOLUME 86.5 fl (80.0-105.0); MEAN CORPUSCULAR HEMOGLOBIN 27.9 pg (25.0-35.0); MEAN CORPUSCULAR HGB CONC 32.2 g/dl (31.0-37.0); MEAN PLATELET VOLUME 11.9 fl (7.0-11.0); RBC 4.16 10^6/uL (3.5-6.1); RED CELL DISTRIBUTION WIDTH 15.2 % (11.5-14.5); WHITE BLOOD COUNT 9.1 10^3/uL (4.5-11.0)
[2018-07-25 23:40] LABS: HEMOGLOBIN 11.6 g/dL (12.0-16.0)
[2018-07-25 23:43] LABS: INR 1.02; PARTIAL THROMBOPLASTIN TIME 36.3 Seconds (25.1-36.5); PROTHROMBIN TIME 11.6 SECONDS (9.4-12.5)
[2018-07-25 23:45] LABS: TROPONIN I 0.02 ng/mL
--- NOTE | 2018-07-25 23:53 | ED PDOC ---
Arrival/HPI - General Chief Complaint: Altered Mental Status Time Seen by Provider: 07/25/18 22:46 Historian: Patient - History of Present Illness Narrative History of Present Illness (Text): 07/25/18 23:51 83 year old female, whose past medical history includes hypertension, hyperlipidemia, and hypothyroidism, presents to the emergency department sent from [facility] for evaluation of lethargy. Patient was recently admitted to hospital and treated for rhabdomyolysis on 07/10/18. Patient is currently drowsy and minimally arousable with stimulation. HPI and ROS limited due to patient condition. Time/Duration: Prior to Arrival Activities at Onset: Light Context: Home ([facility]) Past Medical History - Provider Review Nursing Documentation Reviewed: Yes - Infectious Disease Hx of Infectious Diseases: None - Cardiac Hx Hypertension: Yes - Neurological Hx Neurological Disorder: Yes Hx Dizziness: Yes - HEENT Hx Cataracts: Yes - Endocrine/Metabolic Hx Hypothyroidism: Yes - Musculoskeletal/Rheumatological Hx Back Pain: Yes Hx Falls: Yes - Gastrointestinal Hx Constipation: Yes Hx Gastroesophageal Reflux: Yes - Psychiatric Hx Depression: Yes Hx Substance Use: No - Anesthesia Hx Anesthesia: No Family/Social History - Physician Review Nursing Documentation Reviewed: Yes Family/Social History: No Known Family HX Smoking Status: Never Smoked Hx Alcohol Use: No Hx Substance Use: No Allergies/Home Meds Allergies/Adverse Reactions: Allergies No Known Allergies Allergy (Verified 07/25/18 22:38) Home Medications: Home Meds Medication Instructions Recorded Confirmed Aspirin [Ecotrin] 81 mg PO DAILY 03/05/17 07/10/18 Atorvastatin [Lipitor] 40 mg PO HS 03/05/17 07/10/18 Levothyroxine [Synthroid] 37.5 mcg PO DAILY 03/05/17 07/10/18 Paroxetine HCl [Paxil] 40 mg PO DAILY 03/05/17 07/10/18 Famotidine [Pepcid] 1 tab PO DAILY 07/10/18 07/10/18 Olmesartan Medoxomil [Benicar] 40 mg PO DAILY 07/10/18 07/10/18 Pantoprazole [Protonix EC Tab] 1 tab PO DAILY 07/10/18 07/10/18 Risperidone [Risperdal] 1 tab PO HS 07/10/18 07/10/18 Review of Systems - Physician Review All systems were reviewed & negative as marked: Yes - Review of Systems Systems not reviewed;Unavailable: Acuity of Condition Physical Exam Vital Signs Reviewed: Yes Vital Signs Temp Pulse Resp BP Pulse Ox 07/25/18 22:59 98.3 F 54 L 18 107/59 L 97 Temperature: Afebrile Blood Pressure: Hypotensive Pulse: Bradycardic Respiratory Rate: Normal Appearance: Positive for: Well-Appearing, Non-Toxic, Comfortable Pain Distress: None Mental Status: Positive for: Alert and Oriented X 3 Finger Stick Blood Glucose: 94 - Systems Exam Pupils: Present: PERRL Extroacular Muscles: Present: EOMI Mouth: Present: Moist Mucous Membranes Neck: Present: Other (supple) Respiratory/Chest: Present: Clear to Auscultation Cardiovascular: Present: Normal S1, S2, Bradycardic. No: Murmurs Upper Extremity: Present: Normal Inspection. No: Cyanosis, Edema Lower Extremity: Present: Normal Inspection. No: Edema Skin: Present: Normal Color Psychiatric: Present: Lethargic. No: Alert Medical Decision Making ED Course and Treatment: 07/26/18 00:00 Impression: 83 year old female presents with lethargy. Plan: -- CT head -- EKG -- Chest X-ray -- Urinalysis -- Reassess and disposition Prior Visits: Notes and results from previous visits were reviewed. Progress Notes: 07/26/18 00:14 EKG: Ordered, reviewed, and independently interpreted the EKG. Rate : 56 BPM Rhythm : Bradycardia Interpretation : Nonspecific ST wave changes 07/26/18 01:18 CT Head reviewed by radiologist, shows: Moderate diffuse cortical atrophy of the left cerebral hemisphere. Right occipital medial chronic ischemic encephalomalacia. 8.2 mm midline shift to the right side. Moderate chronic ischemic white matter disease. 07/26/18 01:[address] Ram who requests patient be admitted to hospitalist service. Case discussed with medical technologist generalist and Dr. Watts. - Lab Interpretations Lab Results: 07/25/18 23:00 07/25/18 23:00 Lab Results 07/25/18 23:41: POC Glucose (mg/dL) 94 07/25/18 23:00: WBC 9.1 D, RBC 4.16, Hgb 11.6 L D, Hct 36.0, MCV 86.5, MCH 27.9, MCHC 32.2, RDW 15.2 H, Plt Count 308, MPV 11.9 H 07/25/18 23:00: Sodium Pending, Potassium Pending, Chloride Pending, Carbon Dioxide Pending, Anion Gap Pending, BUN Pending, Creatinine Pending, Est GFR ( Amer) Pending, Est GFR (Non-Af Amer) Pending, Random Glucose Pending, Calcium Pending, Total Bilirubin Pending, AST Pending, ALT Pending, Alkaline Phosphatase Pending, Lactate Dehydrogenase Pending, Total Creatine Kinase Pending, Troponin I 0.02 D, Total Protein Pending, Albumin Pending, Globulin Pending, Albumin/Globulin Ratio Pending 07/25/18 23:00: PT 11.6, INR 1.02, APTT 36.3 - RAD Interpretation Radiology Orders: 07/25/18 23:14 HEAD W/O CONTRAST [CT] Stat CHEST ONE VIEW [RAD] Stat - Medication Orders Current Medication Orders: Sodium Chloride (Sodium Chloride 0.9%) 1,000 mls @ 100 mls/hr IV .Q10H RADHA Last Admin: 07/25/18 23:19 Dose: 100 mls/hr eMAR Start Stop Document 07/25/18 23:19 CNR (Rec: 07/25/18 23:19 CNR [id number]) Intravenous Solution Start Date 07/25/18 Start Time 23:19 - Scribe Statement The provider has reviewed the documentation as recorded by the Shelia Sims Provider Scribe Attestation: All medical record entries made by the Scribe were at my direction and personally dictated by me. I have reviewed the chart and agree that the record accurately reflects my personal performance of the history, physical exam, medical decision making, and the department course for this patient. I have also personally directed, reviewed, and agree with the discharge instructions and disposition. Disposition/Present on Arrival - Present on Arrival Any Indicators Present on Arrival: No History of DVT/PE: No History of Uncontrolled Diabetes: No Urinary Catheter: No History of Decub. Ulcer: No History Surgical Site Infection Following: None - Disposition Have Diagnosis and Disposition been Completed?: Yes Diagnosis: Urinary tract infection, Altered mental status Disposition: HOSPITALIZED Disposition Time: 01:40 Condition: STABLE Forms: [employer] (Albanian)
[2018-07-26 00:05] LABS: ALB/GLOB RATIO 1.2 (1.1-1.8); ALBUMIN 3.7 g/dL (3.0-4.8); CALCIUM 9.8 mg/dL (8.4-10.5)
[2018-07-26 00:58] LABS: URINE BILIRUBIN NEGATIVE (NEGATIVE); URINE BLOOD SMALL (NEGATIVE); URINE GLUCOSE (UA) NEGATIVE (NEGATIVE); URINE LEUKOCYTE ESTERASE MODERATE Leu/uL (NEGATIVE); URINE PROTEIN 30 mg/dL (<30 mg/dL); URINE UROBILINOGEN 0.2 E.U./dL (<1 E.U./dL)
[2018-07-26 01:02] LABS: URINE APPEARANCE SL CLOUDY (CLEAR); URINE COLOR YELLOW (YELLOW)
[2018-07-26 01:04] LABS: CK-MB 4.7 ng/mL (0.0-3.6)
[2018-07-26 01:10] LABS: URINE BACTERIA MANY (NEG); URINE WBC TNTC /hpf (0-6)
[2018-07-26] MEDS ORDERED: cefTRIAXone 1 gm 1 GM/100 ML BAG IV STA (01:37)
--- NOTE | 2018-07-26 02:59 | CP.PCM.HP ---
<Kylie Lmia - Last Filed: 07/26/18 06:14> History of Present Illness - History of Present Illness History of Present Illness: Kylie Lima, PGY1 Hospital H&P This is a 83 year old female with PMH of hypothyroidism, HLD and HTN [facility] for the last few days. On examination patient responds to sternal rub but is otherwise lethargic and non responsive. 12 point ROS limited due to patient status. Patient admitted recently on 07/11/18 for 5 day hospital course during which she was treated for rhabdomyolysis and AMS 2/2 metabolic encephalopathy. She was also found to have a urinary tract infection that grew E. Coli and found to have bacteremia growing coagulase negative staphylococci. She was treated with IV vancomycin which was switched to oral Vantin for discharge. Infectious Disease, Neurology and Palliative Care specialists were consulted during the hospital stay and she was discharged to subacute rehab facility. In ED, EKG revealed 56bpm with nonspecific ST wave changes, CT head showed moderate diffuse cortical atrophy of the left cerebral hemisphere, right occipital medial chronic ischemic encephalomalacia, 8.2 mm midline shift to the right side. PMD: Dr. Ram PMH: as above SH: patient lethargic, not communicating Sx: Righ cataract surgery All: NKDA FH: NC per chart review Meds: as per MAR Present on Admission - Present on Admission Any Indicators Present on Admission: No Past Patient History - Infectious Disease Hx of Infectious Diseases: None - Past Social History Smoking Status: Never Smoked - CARDIAC Hx Hypertension: Yes - NEUROLOGICAL Hx Neurological Disorder: Yes Hx Dizziness: Yes - HEENT Hx Cataracts: Yes - ENDOCRINE/METABOLIC Hx Hypothyroidism: Yes - MUSCULOSKELETAL/RHEUMATOLOGICAL Hx Back Pain: Yes Hx Falls: Yes - GASTROINTESTINAL Hx Constipation: Yes Hx Gastroesophageal Reflux: Yes - PSYCHIATRIC Hx Depression: Yes Hx Substance Use: No - ANESTHESIA Hx Anesthesia: No Meds Allergies/Adverse Reactions: Allergies Allergy/AdvReac Type Severity Reaction Status Date / Time No Known Allergies Allergy Verified 07/25/18 22:38 Physical Exam - Constitutional Appears: Chronically Ill Additional comments: lethargic, non responsive - Head Exam Head Exam: ATRAUMATIC, NORMAL INSPECTION - Eye Exam Eye Exam: EOMI Pupil Exam: PERRL - ENT Exam ENT Exam: Mucous Membranes Dry - Respiratory Exam Respiratory Exam: Clear to Auscultation Bilateral. absent: Respiratory Distress - Cardiovascular Exam Cardiovascular Exam: REGULAR RHYTHM, +S1, +S2 - GI/Abdominal Exam GI & Abdominal Exam: Normal Bowel Sounds. absent: Firm, Guarding - Extremities Exam Extremities exam: Positive for: normal inspection. Negative for: calf tenderness - Neurological Exam Additional comments: lethargic, minimally responsive - Skin Skin Exam: Normal Color, Warm Results - Vital Signs Recent Vital Signs: Last Vital Signs Temp 98.3 F 07/25/18 22:59 Pulse 48 L 07/26/18 01:43 Resp 18 07/26/18 01:43 BP 101/56 L 07/26/18 01:43 Pulse Ox 97 07/26/18 01:43 - Labs Result Diagrams: 07/25/18 23:00 07/25/18 23:00 Labs: Laboratory Results - last 24 hr 07/25/18 07/25/18 07/25/18 23:00 23:00 23:00 WBC 9.1 D RBC 4.16 Hgb 11.6 L D Hct 36.0 MCV 86.5 MCH 27.9 MCHC 32.2 RDW 15.2 H Plt Count 308 MPV 11.9 H PT 11.6 INR 1.02 APTT 36.3 Sodium 140 Potassium 4.4 Chloride 103 Carbon Dioxide 28 Anion Gap 14 BUN 29 H Creatinine 1.6 H Est GFR ( Amer) 37 Est GFR (Non-Af Amer) 31 POC Glucose (mg/dL) Random Glucose 99 Calcium 9.8 Total Bilirubin 0.9 AST 63 H D ALT 43 Alkaline Phosphatase 84 Lactate Dehydrogenase 539 Total Creatine Kinase 295 H CK-MB (CK-2) 4.7 H CK-MB (CK-2) % Cancelled Troponin I 0.02 D Total Protein 6.7 Albumin 3.7 Globulin 3.0 Albumin/Globulin Ratio 1.2 Urine Color Urine Appearance Urine pH Ur Specific [place] Urine Protein Urine Glucose (UA) Urine Ketones Urine Blood Urine Nitrate Urine Bilirubin Urine Urobilinogen Ur Leukocyte Esterase Urine RBC Urine WBC Ur Epithelial Cells Urine Bacteria 07/25/18 07/26/18 23:41 00:45 WBC RBC Hgb Hct MCV MCH MCHC RDW Plt Count MPV PT INR APTT Sodium Potassium Chloride Carbon Dioxide Anion Gap BUN Creatinine Est GFR ( Amer) Est GFR (Non-Af Amer) POC Glucose (mg/dL) 94 Random Glucose Calcium Total Bilirubin AST ALT Alkaline Phosphatase Lactate Dehydrogenase Total Creatine Kinase CK-MB (CK-2) CK-MB (CK-2) % Troponin I Total Protein Albumin Globulin Albumin/Globulin Ratio Urine Color Yellow Urine Appearance Sl cloudy Urine pH 7.0 Ur Specific [place] 1.015 Urine Protein 30 H Urine Glucose (UA) Negative Urine Ketones Negative Urine Blood Small H Urine Nitrate Negative Urine Bilirubin Negative Urine Urobilinogen 0.2 Ur Leukocyte Esterase Moderate H Urine RBC 1 - 3 Urine WBC Tntc Ur Epithelial Cells 3 - 4 Urine Bacteria Many Assessment & Plan - Assessment and Plan (Free Text) Assessment: This is a 83 year old female with PMH of hypothyroidism, HLD and HTN [facility] for the last few days. Plan: AMS: -CT Head showed moderate diffuse cortical atrophy of the left cerebral hemisphere, right occipital medial chronic ischemic encephalomalacia, 8.2 mm midline shift to the right side and moderate chronic ischemic white matter disease -Initial EKG showed 56BPM with nonspecific ST changes -CXR: patient is rotated, poor film. Stable from previous CXR -recently admitted for metabolic encephalopathy -UDS pending -troponin x2 -neurology on consult, Dr. Redman -blood culture pending -PT eval, speech/swallow eval -fall/aspiration precautions -dietary referral -neurochecks -ammonia, VBG, lactate pending UTI: -U/A revealed leukocyte esterase, numerous WBC and bacteria -urine culture pending -received rocephin in ED -continue rocephin HUI: -elevated BUN/Cr likely 2/2 prerenal from poor oral intake -continue NS @75cc/hr -avoid nephrotoxic agents -f/u AM labs Hx of Rhabdomyolysis -elevated CK on admission -continue NS @ 75cc/hr -repeat CK AM Hx of Hypothyroidism -TSH/T4 pending -continue home synthroid Hx of HLD -continue lipitor Hx of Depression -continue paxil PPX with protonix and heparin Patient seen and examined with attending, Dr. Watts <Kelsey Watts - Last Filed: 07/26/18 06:22> Results - Vital Signs Recent Vital Signs: Last Vital Signs Temp 98.3 F 07/25/18 22:59 Pulse 50 L 07/26/18 05:33 Resp 16 07/26/18 05:33 BP 115/59 L 07/26/18 05:33 Pulse Ox 100 07/26/18 05:33 - Labs Result Diagrams: 07/25/18 23:00 07/25/18 23:00 Labs: Laboratory Results - last 24 hr 07/25/18 07/25/18 07/25/18 23:00 23:00 23:00 WBC 9.1 D RBC 4.16 Hgb 11.6 L D Hct 36.0 MCV 86.5 MCH 27.9 MCHC 32.2 RDW 15.2 H Plt Count 308 MPV 11.9 H PT 11.6 INR 1.02 APTT 36.3 Sodium 140 Potassium 4.4 Chloride 103 Carbon Dioxide 28 Anion Gap 14 BUN 29 H Creatinine 1.6 H Est GFR ( Amer) 37 Est GFR (Non-Af Amer) 31 POC Glucose (mg/dL) Random Glucose 99 Calcium 9.8 Total Bilirubin 0.9 AST 63 H D ALT 43 Alkaline Phosphatase 84 Ammonia Lactate Dehydrogenase 539 Total Creatine Kinase 295 H CK-MB (CK-2) 4.7 H CK-MB (CK-2) % Cancelled Troponin I 0.02 D Total Protein 6.7 Albumin 3.7 Globulin 3.0 Albumin/Globulin Ratio 1.2 Urine Color Urine Appearance Urine pH Ur Specific [place] Urine Protein Urine Glucose (UA) Urine Ketones Urine Blood Urine Nitrate Urine Bilirubin Urine Urobilinogen Ur Leukocyte Esterase Urine RBC Urine WBC Ur Epithelial Cells Urine Bacteria Urine Opiates Screen Urine Methadone Screen Ur Barbiturates Screen Ur Phencyclidine Scrn Ur Amphetamines Screen U Benzodiazepines Scrn U Oth Cocaine Metabols U Cannabinoids Screen 07/25/18 07/26/18 07/26/18 23:41 00:45 04:35 WBC RBC Hgb Hct MCV MCH MCHC RDW Plt Count MPV PT INR APTT Sodium Potassium Chloride Carbon Dioxide Anion Gap BUN Creatinine Est GFR ( Amer) Est GFR (Non-Af Amer) POC Glucose (mg/dL) 94 Random Glucose Calcium Total Bilirubin AST ALT Alkaline Phosphatase Ammonia < 9 L Lactate Dehydrogenase Total Creatine Kinase CK-MB (CK-2) CK-MB (CK-2) % Troponin I Total Protein Albumin Globulin Albumin/Globulin Ratio Urine Color Yellow Urine Appearance Sl cloudy Urine pH 7.0 Ur Specific [place] 1.015 Urine Protein 30 H Urine Glucose (UA) Negative Urine Ketones Negative Urine Blood Small H Urine Nitrate Negative Urine Bilirubin Negative Urine Urobilinogen 0.2 Ur Leukocyte Esterase Moderate H Urine RBC 1 - 3 Urine WBC Tntc Ur Epithelial Cells 3 - 4 Urine Bacteria Many Urine Opiates Screen Urine Methadone Screen Ur Barbiturates Screen Ur Phencyclidine Scrn Ur Amphetamines Screen U Benzodiazepines Scrn U Oth Cocaine Metabols U Cannabinoids Screen 07/26/18 04:35 WBC RBC Hgb Hct MCV MCH MCHC RDW Plt Count MPV PT INR APTT Sodium Potassium Chloride Carbon Dioxide Anion Gap BUN Creatinine Est GFR ( Amer) Est GFR (Non-Af Amer) POC Glucose (mg/dL) Random Glucose Calcium Total Bilirubin AST ALT Alkaline Phosphatase Ammonia Lactate Dehydrogenase Total Creatine Kinase CK-MB (CK-2) CK-MB (CK-2) % Troponin I Total Protein Albumin Globulin Albumin/Globulin Ratio Urine Color Urine Appearance Urine pH Ur Specific [place] Urine Protein Urine Glucose (UA) Urine Ketones Urine Blood Urine Nitrate Urine Bilirubin Urine Urobilinogen Ur Leukocyte Esterase Urine RBC Urine WBC Ur Epithelial Cells Urine Bacteria Urine Opiates Screen Negative Urine Methadone Screen Negative Ur Barbiturates Screen Negative Ur Phencyclidine Scrn Negative Ur Amphetamines Screen Negative U Benzodiazepines Scrn Negative U Oth Cocaine Metabols Negative U Cannabinoids Screen Negative Attending/Attestation - Attestation I have personally seen and examined this patient.: Yes I have fully participated in the care of the patient.: Yes I have reviewed all pertinent clinical information: Yes Notes (Text): 07/26/18 06:21 Patient was seen when she was in bed # 8 in the ER. Agree with history, physical examination, assessment and plan.
[2018-07-26] MEDS: Sodium Chloride 0.9% 1,000 ML IV SCH ×2 (04:49→18:10)
[2018-07-26 05:51] LABS: BARBITURATES, UR NEGATIVE (NEGATIVE); BENZODIAZEPINES, UR NEGATIVE (NEGATIVE); OPIATES, UR NEGATIVE (NEGATIVE); PHENCYCLIDINE, UR NEGATIVE (NEGATIVE)
[2018-07-26] MEDS ORDERED: Pantoprazole 40 mg EC Tab PO SCH (06:00)
[2018-07-26 07:20] LABS: VENOUS BLOOD GAS BASE EXCESS -0.8 mmol/L (0.0-2.0); VENOUS BLOOD GAS PO2 34 mm/Hg (30-55); VENOUS BLOOD PH 7.36 (7.32-7.43)
[2018-07-26 07:22] LABS: BASO # 0.03 K/mm3 (0.0-2.0); BASO % 0.4 % (0.0-3.0); EOS # 0.2 (0.0-0.7); EOS % 3.1 % (1.5-5.0); GRAN # 6.17 (1.4-6.5); GRAN % 78.8 % (50.0-68.0); HEMOGLOBIN 11.2 g/dL (12.0-16.0); LYMPH # 1.1 (1.2-3.4); MEAN CELL VOLUME 87.5 fl (80.0-105.0); MEAN CORPUSCULAR HEMOGLOBIN 28.1 pg (25.0-35.0); MEAN CORPUSCULAR HGB CONC 32.1 g/dl (31.0-37.0); MEAN PLATELET VOLUME 11.1 fl (7.0-11.0); MONO # 0.3 (0.1-0.6); MONO % 3.7 % (1.0-6.0); RBC 3.99 10^6/uL (3.5-6.1); RED CELL DISTRIBUTION WIDTH 15.5 % (11.5-14.5); WHITE BLOOD COUNT 7.8 10^3/uL (4.5-11.0)
[2018-07-26 07:33] LABS: ALB/GLOB RATIO 1.3 (1.1-1.8); ALBUMIN 3.4 g/dL (3.0-4.8); CALCIUM 9.1 mg/dL (8.4-10.5)
[2018-07-26 07:36] LABS: TROPONIN I 0.02 ng/mL
[2018-07-26 07:45] LABS: T4 8.9 ug/dL (5.5-11.0)
[2018-07-26] MEDS: Levothyroxine 25 MCG TAB PO SCH (08:30)
[2018-07-26] MEDS ORDERED: Magnesium Sulfate 2 GM in Sodium Chloride 0.9% 100 ML IVPB ONE (09:32)
[2018-07-26 09:36] LABS: HDL CHOLESTEROL 26 mg/dL (29-60)
[2018-07-26 09:47] LABS: LDL CHOLESTEROL 83 mg/dL (0-129)
[2018-07-26] MEDS ORDERED: cefTRIAXone 1 gm 1 GM/100 ML BAG IVPB SCH ×2 (10:00→12:00)
[2018-07-26 10:26] LABS: TOTAL IRON BINDING CAPACITY 250 ug/dL (265-497)
--- NOTE | 2018-07-26 10:27 | RAD ---
HISTORY: lethargy COMPARISON: Chest x-ray performed 07/11/18 TECHNIQUE: Chest, one view. FINDINGS: Examination limited by habitus, hypoinflation, and patient obliquity. The patient's chin obscures evaluation of the right lung apex. LUNGS: Bibasilar atelectasis. PLEURA: Blunting of the right hemidiaphragm may reflect tiny pleural effusion or pleural thickening. No definite pneumothorax . CARDIOVASCULAR: Partially obscured cardiomegaly. OSSEOUS STRUCTURES: Degenerative changes. VISUALIZED UPPER ABDOMEN: Elevation of the right hemidiaphragm. OTHER FINDINGS: None. IMPRESSION: Limited study. Hypoinflation. Bibasilar atelectasis. Suspect small pleural effusion or pleural thickening on the right. Elevation of the right hemidiaphragm.
[2018-07-26 10:34] LABS: % IRON SATURATION 28 % (20-55); IRON 70 ug/dL (45-180)
--- NOTE | 2018-07-26 10:40 | CT ---
Date of service: 07/26/2018 PROCEDURE: CT HEAD WITHOUT CONTRAST. HISTORY: lethargy COMPARISON: TECHNIQUE: Axial computed tomography images were obtained through the head/brain without intravenous contrast. Radiation dose: Total exam DLP = 836.58 mGy-cm. This CT exam was performed using one or more of the following dose reduction techniques: Automated exposure control, adjustment of the mA and/or kV according to patient size, and/or use of iterative reconstruction technique. FINDINGS: HEMORRHAGE: No intracranial hemorrhage. 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 Alternatively, this could represent old perisylvian infarct but there is insufficient underlying encephalomalacia change to corroborate this diagnosis. 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 There is mass effect upon the left cerebral hemisphere possibly as a result of the perisylvian arachnoid cyst with midline shift towards the right of approximately 8 mm. There is no ventriculomegaly. There is no intracranial mass identified. 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 Generalized atrophy. There is asymmetric atrophy of the left cerebellar hemisphere relative to the right. This results in asymmetric widening of the CSF space about the left cerebellar hemisphere hemisphere. There is moderate age-appropriate chronic periventricular white matter ischemic change. VENTRICLES: No hydrocephalus. CALVARIUM: Unremarkable. PARANASAL SINUSES: Mild chronic paranasal sinusitis involving sphenoid and bilateral maxillary sinuses. MASTOID AIR CELLS: Unremarkable as visualized. No inflammatory changes. OTHER FINDINGS: None. 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 There is mass effect with shift of the midline structures towards the right by approximately 8 mm. There is no intracranial mass identified. 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 There is asymmetric atrophy of the cerebellum, left greater than right. There is generalized cerebral atrophy. There is chronic white matter ischemic change. 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 Minimal chronic paranasal sinusitis. The preliminary findings for this examination were reported by [facility] at 1:22 a.m. on 07/26/2018. There is discordance of this report with the preliminary findings. Suspected left sylvian fissure arachnoid cyst was not described in the preliminary report of this examination.
[2018-07-26] MEDS: Levothyroxine 100 mcg (0.1 mg) Inj IVP SCH (10:57)
--- NOTE | 2018-07-26 11:07 | CARD ---
APPROVED REPORT Date of service: 07/25/2018 EKG Measurement Heart [id number] <Conclusion> Sinus bradycardia RSR' or QR pattern in V1 suggests right ventricular conduction delay Nonspecific T wave abnormality
--- NOTE | 2018-07-26 11:57 | CP.PCM.CON ---
History of Present Illness - History of Present Illness History of Present Illness: MICU CONSULT NOTE REASON FOR CONSULT: AMS, MIDLINE SHIFT ON CTH HPI Patien tis 83yo female with PMhx of ?dementia, HLD, hypothyroidism, [place] from [place] with lethargy, fatigue, and decreased interaction. History gathered from chart as patient is poor historian. As per the chart patient was just [place] [facility] [place] and coag neg staph bacteremai, treated with abx. In the [place] less interactive, altered, lethargic, sent for evaluation. ICU consulted for midline shift on CT head. Pt is currently drowsy, but arousable, wakes up to painful and verbal stimuli, oriented to person. CT head from previous admission demonstrates the julia 8mm shift with no worsening change, likely 2/2 cyst as per radiology; no evidence of edema, or ventricular enlargement. PMHx HLD, HTN, Hypothyroidism PSHx cataract surgery Meds as per EMR FHx [place] Social lives in [place] Allergies NKDA Review of Systems - Review of Systems Review of Systems: as per HPI Past Patient History - Infectious Disease Hx of Infectious Diseases: None - Past Social History Smoking Status: Never Smoked - CARDIAC Hx Hypertension: Yes - NEUROLOGICAL Hx Neurological Disorder: Yes Hx Dizziness: Yes - HEENT Hx Cataracts: Yes - ENDOCRINE/METABOLIC Hx Hypothyroidism: Yes - MUSCULOSKELETAL/RHEUMATOLOGICAL Hx Back Pain: Yes Hx Falls: Yes - GASTROINTESTINAL Hx Constipation: Yes Hx Gastroesophageal Reflux: Yes - PSYCHIATRIC Hx Depression: Yes Hx Substance Use: No - ANESTHESIA Hx Anesthesia: No Meds Allergies/Adverse Reactions: Allergies Allergy/AdvReac Type Severity Reaction Status Date / Time No Known Allergies Allergy Verified 07/25/18 22:38 - Medications Medications: Current Medications Acetaminophen (Tylenol 325mg Tab) 325 mg PO Q6 PRN PRN Reason: Pain, Mild (1-3) Amantadine HCl (Amantadine 100 Mg Cap) 100 mg PO DAILY [facility] Last Admin: 07/26/18 11:28 Dose: Not Given Aspirin (Ecotrin) 81 mg PO DAILY [facility] Aspirin (Aspirin Supp) 300 mg RC DAILY [facility] Last Admin: 07/26/18 11:28 Dose: Not Given Atorvastatin Calcium (Lipitor) 40 mg PO QPM [facility] Colchicine (Colocrys) 0.6 mg PO DAILY [facility] Last Admin: 07/26/18 11:28 Dose: Not Given Heparin Sodium (Porcine) (Heparin) 5,000 units SC Q12 RADHA; Protocol Last Admin: 07/26/18 11:02 Dose: 5,000 units Ceftriaxone Sodium (Rocephin 1 Gram Ivpb) 1 gm in 100 mls @ 100 mls/hr IVPB DAILY RADHA; Protocol Sodium Chloride (Sodium Chloride 0.9%) 1,000 mls @ 75 mls/hr IV .[id number] [facility] Last Admin: 07/26/18 04:49 Dose: 75 mls/hr Ceftriaxone Sodium (Rocephin 1 Gram Ivpb) 1 gm in 100 mls @ 100 mls/hr IVPB DAILY ARDHA; Protocol Levothyroxine Sodium (Synthroid) 37.5 mcg PO ACB [facility] Last Admin: 07/26/18 08:30 Dose: Not Given Levothyroxine Sodium (Synthroid) 18.75 mcg IVP DAILY [facility] Last Admin: 07/26/18 10:57 Dose: 18.75 mcg Pantoprazole Sodium (Protonix Ec Tab) 40 mg PO 0600 [facility] Last Admin: 07/26/18 06:18 Dose: Not Given Pantoprazole Sodium (Protonix Inj) 40 mg IVP DAILY [facility] Last Admin: 07/26/18 10:56 Dose: 40 mg Paroxetine HCl (Paxil) 40 mg PO DAILY [facility] Last Admin: 07/26/18 11:29 Dose: Not Given Physical Exam - Constitutional Appears: Non-toxic, No Acute Distress, Cachectic, Chronically Ill - Head Exam Head Exam: NORMAL INSPECTION - ENT Exam ENT Exam: Mucous Membranes Moist - Neck Exam Neck exam: Positive for: Full Rom - Respiratory Exam Respiratory Exam: Clear to Auscultation Bilateral, NORMAL BREATHING PATTERN - Cardiovascular Exam Cardiovascular Exam: REGULAR RHYTHM, +S1, +S2 - GI/Abdominal Exam GI & Abdominal Exam: Normal Bowel Sounds, Soft - Back Exam Back exam: NORMAL INSPECTION - Neurological Exam Neurological exam: Altered Results - Vital Signs Recent Vital Signs: Last Vital Signs Temp 97.3 F L 07/26/18 07:01 Pulse 52 L 07/26/18 07:01 Resp 19 07/26/18 07:01 BP 130/62 07/26/18 07:01 Pulse Ox 97 07/26/18 07:01 - Labs Result Diagrams: 07/26/18 06:45 07/26/18 06:45 Labs: Laboratory Results - last 24 hr 07/25/18 07/25/18 07/25/18 23:00 23:00 23:00 WBC 9.1 D RBC 4.16 Hgb 11.6 L D Hct 36.0 MCV 86.5 MCH 27.9 MCHC 32.2 RDW 15.2 H Plt Count 308 MPV 11.9 H Gran % Lymph % (Auto) [place] % (Auto) Eos % (Auto) Baso % (Auto) Gran # Lymph # (Auto) [place] # (Auto) Eos # (Auto) Baso # (Auto) PT 11.6 INR 1.02 APTT 36.3 pO2 VBG pH VBG pCO2 VBG HCO3 VBG O2 Sat (Calc) VBG Base Excess Lactate Sodium 140 Potassium 4.4 Chloride 103 Carbon Dioxide 28 Anion Gap 14 BUN 29 H Creatinine 1.6 H Est GFR ( Amer) 37 Est GFR (Non-Af Amer) 31 POC Glucose (mg/dL) Random Glucose 99 Calcium 9.8 Phosphorus Magnesium Iron TIBC % Saturation Total Bilirubin 0.9 AST 63 H D ALT 43 Alkaline Phosphatase 84 Ammonia Lactate Dehydrogenase 539 Total Creatine Kinase 295 H CK-MB (CK-2) 4.7 H CK-MB (CK-2) % Cancelled Troponin I 0.02 D Total Protein 6.7 Albumin 3.7 Globulin 3.0 Albumin/Globulin Ratio 1.2 Triglycerides Cholesterol LDL Cholesterol Direct HDL Cholesterol Thyroxine (T4) TSH 3rd Generation Urine Color Urine Appearance Urine pH Ur Specific [place] Urine Protein Urine Glucose (UA) Urine Ketones Urine Blood Urine Nitrate Urine Bilirubin Urine Urobilinogen Ur Leukocyte Esterase Urine RBC Urine WBC Ur Epithelial Cells Urine Bacteria Urine Opiates Screen Urine Methadone Screen Ur Barbiturates Screen Ur Phencyclidine Scrn Ur Amphetamines Screen U Benzodiazepines Scrn U Oth Cocaine Metabols U Cannabinoids Screen 07/25/18 07/26/18 07/26/18 23:41 00:45 04:35 WBC RBC Hgb Hct MCV MCH MCHC RDW Plt Count MPV Gran % Lymph % (Auto) [place] % (Auto) Eos % (Auto) Baso % (Auto) Gran # Lymph # (Auto) [place] # (Auto) Eos # (Auto) Baso # (Auto) PT INR APTT pO2 VBG pH VBG pCO2 VBG HCO3 VBG O2 Sat (Calc) VBG Base Excess Lactate Sodium Potassium Chloride Carbon Dioxide Anion Gap BUN Creatinine Est GFR ( Amer) Est GFR (Non-Af Amer) POC Glucose (mg/dL) 94 Random Glucose Calcium Phosphorus Magnesium Iron TIBC % Saturation Total Bilirubin AST ALT Alkaline Phosphatase Ammonia < 9 L Lactate Dehydrogenase Total Creatine Kinase CK-MB (CK-2) CK-MB (CK-2) % Troponin I Total Protein Albumin Globulin Albumin/Globulin Ratio Triglycerides Cholesterol LDL Cholesterol Direct HDL Cholesterol Thyroxine (T4) TSH 3rd Generation Urine Color Yellow Urine Appearance Sl cloudy Urine pH 7.0 Ur Specific [place] 1.015 Urine Protein 30 H Urine Glucose (UA) Negative Urine Ketones Negative Urine Blood Small H Urine Nitrate Negative Urine Bilirubin Negative Urine Urobilinogen 0.2 Ur Leukocyte Esterase Moderate H Urine RBC 1 - 3 Urine WBC Tntc Ur Epithelial Cells 3 - 4 Urine Bacteria Many Urine Opiates Screen Urine Methadone Screen Ur Barbiturates Screen Ur Phencyclidine Scrn Ur Amphetamines Screen U Benzodiazepines Scrn U Oth Cocaine Metabols U Cannabinoids Screen 07/26/18 07/26/18 07/26/18 04:35 06:45 06:45 WBC 7.8 RBC 3.99 Hgb 11.2 L Hct 34.9 L MCV 87.5 MCH 28.1 MCHC 32.1 RDW 15.5 H Plt Count 261 MPV 11.1 H Gran % 78.8 H Lymph % (Auto) 14.0 L [place] % (Auto) 3.7 Eos % (Auto) 3.1 Baso % (Auto) 0.4 Gran # 6.17 Lymph # (Auto) 1.1 L [place] # (Auto) 0.3 Eos # (Auto) 0.2 Baso # (Auto) 0.03 PT INR APTT pO2 VBG pH VBG pCO2 VBG HCO3 VBG O2 Sat (Calc) VBG Base Excess Lactate Sodium 142 Potassium 4.1 Chloride 109 H Carbon Dioxide 24 Anion Gap 12 BUN 27 H Creatinine 1.5 H Est GFR ( Amer) 40 Est GFR (Non-Af Amer) 33 POC Glucose (mg/dL) Random Glucose 89 Calcium 9.1 Phosphorus 3.8 Magnesium 1.6 L Iron TIBC % Saturation Total Bilirubin 0.4 AST 50 H D ALT 37 Alkaline Phosphatase 86 Ammonia Lactate Dehydrogenase Total Creatine Kinase 229 CK-MB (CK-2) CK-MB (CK-2) % Troponin I 0.02 Total Protein 6.1 Albumin 3.4 Globulin 2.6 Albumin/Globulin Ratio 1.3 Triglycerides Cholesterol LDL Cholesterol Direct HDL Cholesterol Thyroxine (T4) TSH 3rd Generation Urine Color Urine Appearance Urine pH Ur Specific [place] Urine Protein Urine Glucose (UA) Urine Ketones Urine Blood Urine Nitrate Urine Bilirubin Urine Urobilinogen Ur Leukocyte Esterase Urine RBC Urine WBC Ur Epithelial Cells Urine Bacteria Urine Opiates Screen Negative Urine Methadone Screen Negative Ur Barbiturates Screen Negative Ur Phencyclidine Scrn Negative Ur Amphetamines Screen Negative U Benzodiazepines Scrn Negative U Oth Cocaine Metabols Negative U Cannabinoids Screen Negative 07/26/18 07/26/18 07/26/18 06:45 06:45 06:45 WBC RBC Hgb Hct MCV MCH MCHC RDW Plt Count MPV Gran % Lymph % (Auto) [place] % (Auto) Eos % (Auto) Baso % (Auto) Gran # Lymph # (Auto) [place] # (Auto) Eos # (Auto) Baso # (Auto) PT INR APTT pO2 34 VBG pH 7.36 VBG pCO2 44.0 VBG HCO3 24.9 VBG O2 Sat (Calc) 62.8 VBG Base Excess -0.8 L Lactate 1.9 Sodium Potassium Chloride Carbon Dioxide Anion Gap BUN Creatinine Est GFR ( Amer) Est GFR (Non-Af Amer) POC Glucose (mg/dL) Random Glucose Calcium Phosphorus Magnesium Iron TIBC % Saturation Total Bilirubin AST ALT Alkaline Phosphatase Ammonia Lactate Dehydrogenase Total Creatine Kinase CK-MB (CK-2) CK-MB (CK-2) % Troponin I Total Protein Albumin Globulin Albumin/Globulin Ratio Triglycerides 255 H Cholesterol 148 LDL Cholesterol Direct 83 HDL Cholesterol 26 L Thyroxine (T4) 8.9 TSH 3rd Generation 3.86 Urine Color Urine Appearance Urine pH Ur Specific [place] Urine Protein Urine Glucose (UA) Urine Ketones Urine Blood Urine Nitrate Urine Bilirubin Urine Urobilinogen Ur Leukocyte Esterase Urine RBC Urine WBC Ur Epithelial Cells Urine Bacteria Urine Opiates Screen Urine Methadone Screen Ur Barbiturates Screen Ur Phencyclidine Scrn Ur Amphetamines Screen U Benzodiazepines Scrn U Oth Cocaine Metabols U Cannabinoids Screen 07/26/18 07:30 WBC RBC Hgb Hct MCV MCH MCHC RDW Plt Count MPV Gran % Lymph % (Auto) [place] % (Auto) Eos % (Auto) Baso % (Auto) Gran # Lymph # (Auto) [place] # (Auto) Eos # (Auto) Baso # (Auto) PT INR APTT pO2 VBG pH VBG pCO2 VBG HCO3 VBG O2 Sat (Calc) VBG Base Excess Lactate Sodium Potassium Chloride Carbon Dioxide Anion Gap BUN Creatinine Est GFR ( Amer) Est GFR (Non-Af Amer) POC Glucose (mg/dL) Random Glucose Calcium Phosphorus Magnesium Iron 70 TIBC 250 L % Saturation 28 Total Bilirubin AST ALT Alkaline Phosphatase Ammonia Lactate Dehydrogenase Total Creatine Kinase CK-MB (CK-2) CK-MB (CK-2) % Troponin I Total Protein Albumin Globulin Albumin/Globulin Ratio Triglycerides Cholesterol LDL Cholesterol Direct HDL Cholesterol Thyroxine (T4) TSH 3rd Generation Urine Color Urine Appearance Urine pH Ur Specific [place] Urine Protein Urine Glucose (UA) Urine Ketones Urine Blood Urine Nitrate Urine Bilirubin Urine Urobilinogen Ur Leukocyte Esterase Urine RBC Urine WBC Ur Epithelial Cells Urine Bacteria Urine Opiates Screen Urine Methadone Screen Ur Barbiturates Screen Ur Phencyclidine Scrn Ur Amphetamines Screen U Benzodiazepines Scrn U Oth Cocaine Metabols U Cannabinoids Screen - Imaging and Cardiology CT scan - head Status: Image reviewed by me, Report reviewed by me Assessment & Plan - Assessment and Plan (Free Text) Assessment: 83yo female with AMS, and UTI AMS UTI Dehydration Hypothyroidism Abnormal CT head; midline shift (unchanged as pe radiology) - currently afebrile, BP stable, comfortable in NAD, drowsy, but wakes up to painful and verbal stimuli, disoriented to time and place - labs, imaging, chart reviewed - CT head with unchanged 8mm midline shift, 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 coli sensitive to Rocephin - IVF - NPO - neuro checks - neurology follow up - MRI brain - check TSH, Free T3, T4 - GI ppx - DVT ppx - Monitor in MICU
--- NOTE | 2018-07-26 12:25 | CP.PCM.CON ---
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 no acute neuropathology no NRS intervention required Past Patient History - Infectious Disease Hx of Infectious Diseases: None - Past Social History Smoking Status: Never Smoked - CARDIAC Hx Hypertension: Yes - NEUROLOGICAL Hx Neurological Disorder: Yes Hx Dizziness: Yes - HEENT Hx Cataracts: Yes - ENDOCRINE/METABOLIC Hx Hypothyroidism: Yes - MUSCULOSKELETAL/RHEUMATOLOGICAL Hx Back Pain: Yes Hx Falls: Yes - GASTROINTESTINAL Hx Constipation: Yes Hx Gastroesophageal Reflux: Yes - PSYCHIATRIC Hx Depression: Yes Hx Substance Use: No - ANESTHESIA Hx Anesthesia: No Meds Allergies/Adverse Reactions: Allergies Allergy/AdvReac Type Severity Reaction Status Date / Time No Known Allergies Allergy Verified 07/25/18 22:38 - Medications Medications: Current Medications Acetaminophen (Tylenol 325mg Tab) 325 mg PO Q6 PRN PRN Reason: Pain, Mild (1-3) Amantadine HCl (Amantadine 100 Mg Cap) 100 mg PO DAILY [facility] Last Admin: 07/26/18 11:28 Dose: Not Given Aspirin (Ecotrin) 81 mg PO DAILY [facility] Aspirin (Aspirin Supp) 300 mg RC DAILY [facility] Last Admin: 07/26/18 11:28 Dose: Not Given Atorvastatin Calcium (Lipitor) 40 mg PO QPM [facility] Colchicine (Colocrys) 0.6 mg PO DAILY [facility] Last Admin: 07/26/18 11:28 Dose: Not Given Heparin Sodium (Porcine) (Heparin) 5,000 units SC Q12 RADHA; Protocol Last Admin: 07/26/18 11:02 Dose: 5,000 units Ceftriaxone Sodium (Rocephin 1 Gram Ivpb) 1 gm in 100 mls @ 100 mls/hr IVPB DAILY [facility]; Protocol Sodium Chloride (Sodium Chloride 0.9%) 1,000 mls @ 75 mls/hr IV .[id number] [facility] Last Admin: 07/26/18 04:49 Dose: 75 mls/hr Levothyroxine Sodium (Synthroid) 37.5 mcg PO ACB [facility] Last Admin: 07/26/18 08:30 Dose: Not Given Levothyroxine Sodium (Synthroid) 18.75 mcg IVP DAILY [facility] Last Admin: 07/26/18 10:57 Dose: 18.75 mcg Pantoprazole Sodium (Protonix Ec Tab) 40 mg PO 0600 [facility] Last Admin: 07/26/18 06:18 Dose: Not Given Pantoprazole Sodium (Protonix Inj) 40 mg IVP DAILY [facility] Last Admin: 07/26/18 10:56 Dose: 40 mg Paroxetine HCl (Paxil) 40 mg PO DAILY [facility] Last Admin: 07/26/18 11:29 Dose: Not Given Results - Vital Signs Recent Vital Signs: Last Vital Signs Temp 97.3 F L 07/26/18 07:01 Pulse 52 L 07/26/18 07:01 Resp 19 07/26/18 07:01 BP 130/62 07/26/18 07:01 Pulse Ox 97 07/26/18 07:01 - Labs Result Diagrams: 07/26/18 06:45 07/26/18 06:45 Labs: Laboratory Results - last 24 hr 07/25/18 07/25/18 07/25/18 23:00 23:00 23:00 WBC 9.1 D RBC 4.16 Hgb 11.6 L D Hct 36.0 MCV 86.5 MCH 27.9 MCHC 32.2 RDW 15.2 H Plt Count 308 MPV 11.9 H Gran % Lymph % (Auto) Long % (Auto) Eos % (Auto) Baso % (Auto) Gran # Lymph # (Auto) Long # (Auto) Eos # (Auto) Baso # (Auto) PT 11.6 INR 1.02 APTT 36.3 pO2 VBG pH VBG pCO2 VBG HCO3 VBG O2 Sat (Calc) VBG Base Excess Lactate Sodium 140 Potassium 4.4 Chloride 103 Carbon Dioxide 28 Anion Gap 14 BUN 29 H Creatinine 1.6 H Est GFR ( Amer) 37 Est GFR (Non-Af Amer) 31 POC Glucose (mg/dL) Random Glucose 99 Calcium 9.8 Phosphorus Magnesium Iron TIBC % Saturation Total Bilirubin 0.9 AST 63 H D ALT 43 Alkaline Phosphatase 84 Ammonia Lactate Dehydrogenase 539 Total Creatine Kinase 295 H CK-MB (CK-2) 4.7 H CK-MB (CK-2) % Cancelled Troponin I 0.02 D Total Protein 6.7 Albumin 3.7 Globulin 3.0 Albumin/Globulin Ratio 1.2 Triglycerides Cholesterol LDL Cholesterol Direct HDL Cholesterol Thyroxine (T4) TSH 3rd Generation Urine Color Urine Appearance Urine pH Ur Specific [place] Urine Protein Urine Glucose (UA) Urine Ketones Urine Blood Urine Nitrate Urine Bilirubin Urine Urobilinogen Ur Leukocyte Esterase Urine RBC Urine WBC Ur Epithelial Cells Urine Bacteria Urine Opiates Screen Urine Methadone Screen Ur Barbiturates Screen Ur Phencyclidine Scrn Ur Amphetamines Screen U Benzodiazepines Scrn U Oth Cocaine Metabols U Cannabinoids Screen 07/25/18 07/26/18 07/26/18 23:41 00:45 04:35 WBC RBC Hgb Hct MCV MCH MCHC RDW Plt Count MPV Gran % Lymph % (Auto) [place] % (Auto) Eos % (Auto) Baso % (Auto) Gran # Lymph # (Auto) Long # (Auto) Eos # (Auto) Baso # (Auto) PT INR APTT pO2 VBG pH VBG pCO2 VBG HCO3 VBG O2 Sat (Calc) VBG Base Excess Lactate Sodium Potassium Chloride Carbon Dioxide Anion Gap BUN Creatinine Est GFR ( Amer) Est GFR (Non-Af Amer) POC Glucose (mg/dL) 94 Random Glucose Calcium Phosphorus Magnesium Iron TIBC % Saturation Total Bilirubin AST ALT Alkaline Phosphatase Ammonia < 9 L Lactate Dehydrogenase Total Creatine Kinase CK-MB (CK-2) CK-MB (CK-2) % Troponin I Total Protein Albumin Globulin Albumin/Globulin Ratio Triglycerides Cholesterol LDL Cholesterol Direct HDL Cholesterol Thyroxine (T4) TSH 3rd Generation Urine Color Yellow Urine Appearance Sl cloudy Urine pH 7.0 Ur Specific [place] 1.015 Urine Protein 30 H Urine Glucose (UA) Negative Urine Ketones Negative Urine Blood Small H Urine Nitrate Negative Urine Bilirubin Negative Urine Urobilinogen 0.2 Ur Leukocyte Esterase Moderate H Urine RBC 1 - 3 Urine WBC Tntc Ur Epithelial Cells 3 - 4 Urine Bacteria Many Urine Opiates Screen Urine Methadone Screen Ur Barbiturates Screen Ur Phencyclidine Scrn Ur Amphetamines Screen U Benzodiazepines Scrn U Oth Cocaine Metabols U Cannabinoids Screen 07/26/18 07/26/18 07/26/18 04:35 06:45 06:45 WBC 7.8 RBC 3.99 Hgb 11.2 L Hct 34.9 L MCV 87.5 MCH 28.1 MCHC 32.1 RDW 15.5 H Plt Count 261 MPV 11.1 H Gran % 78.8 H Lymph % (Auto) 14.0 L [place] % (Auto) 3.7 Eos % (Auto) 3.1 Baso % (Auto) 0.4 Gran # 6.17 Lymph # (Auto) 1.1 L [place] # (Auto) 0.3 Eos # (Auto) 0.2 Baso # (Auto) 0.03 PT INR APTT pO2 VBG pH VBG pCO2 VBG HCO3 VBG O2 Sat (Calc) VBG Base Excess Lactate Sodium 142 Potassium 4.1 Chloride 109 H Carbon Dioxide 24 Anion Gap 12 BUN 27 H Creatinine 1.5 H Est GFR ( Amer) 40 Est GFR (Non-Af Amer) 33 POC Glucose (mg/dL) Random Glucose 89 Calcium 9.1 Phosphorus 3.8 Magnesium 1.6 L Iron TIBC % Saturation Total Bilirubin 0.4 AST 50 H D ALT 37 Alkaline Phosphatase 86 Ammonia Lactate Dehydrogenase Total Creatine Kinase 229 CK-MB (CK-2) CK-MB (CK-2) % Troponin I 0.02 Total Protein 6.1 Albumin 3.4 Globulin 2.6 Albumin/Globulin Ratio 1.3 Triglycerides Cholesterol LDL Cholesterol Direct HDL Cholesterol Thyroxine (T4) TSH 3rd Generation Urine Color Urine Appearance Urine pH Ur Specific [place] Urine Protein Urine Glucose (UA) Urine Ketones Urine Blood Urine Nitrate Urine Bilirubin Urine Urobilinogen Ur Leukocyte Esterase Urine RBC Urine WBC Ur Epithelial Cells Urine Bacteria Urine Opiates Screen Negative Urine Methadone Screen Negative Ur Barbiturates Screen Negative Ur Phencyclidine Scrn Negative Ur Amphetamines Screen Negative U Benzodiazepines Scrn Negative U Oth Cocaine Metabols Negative U Cannabinoids Screen Negative 07/26/18 07/26/18 07/26/18 06:45 06:45 06:45 WBC RBC Hgb Hct MCV MCH MCHC RDW Plt Count MPV Gran % Lymph % (Auto) Long % (Auto) Eos % (Auto) Baso % (Auto) Gran # Lymph # (Auto) Long # (Auto) Eos # (Auto) Baso # (Auto) PT INR APTT pO2 34 VBG pH 7.36 VBG pCO2 44.0 VBG HCO3 24.9 VBG O2 Sat (Calc) 62.8 VBG Base Excess -0.8 L Lactate 1.9 Sodium Potassium Chloride Carbon Dioxide Anion Gap BUN Creatinine Est GFR ( Amer) Est GFR (Non-Af Amer) POC Glucose (mg/dL) Random Glucose Calcium Phosphorus Magnesium Iron TIBC % Saturation Total Bilirubin AST ALT Alkaline Phosphatase Ammonia Lactate Dehydrogenase Total Creatine Kinase CK-MB (CK-2) CK-MB (CK-2) % Troponin I Total Protein Albumin Globulin Albumin/Globulin Ratio Triglycerides 255 H Cholesterol 148 LDL Cholesterol Direct 83 HDL Cholesterol 26 L Thyroxine (T4) 8.9 TSH 3rd Generation 3.86 Urine Color Urine Appearance Urine pH Ur Specific [place] Urine Protein Urine Glucose (UA) Urine Ketones Urine Blood Urine Nitrate Urine Bilirubin Urine Urobilinogen Ur Leukocyte Esterase Urine RBC Urine WBC Ur Epithelial Cells Urine Bacteria Urine Opiates Screen Urine Methadone Screen Ur Barbiturates Screen Ur Phencyclidine Scrn Ur Amphetamines Screen U Benzodiazepines Scrn U Oth Cocaine Metabols U Cannabinoids Screen 07/26/18 07:30 WBC RBC Hgb Hct MCV MCH MCHC RDW Plt Count MPV Gran % Lymph % (Auto) Long % (Auto) Eos % (Auto) Baso % (Auto) Gran # Lymph # (Auto) Long # (Auto) Eos # (Auto) Baso # (Auto) PT INR APTT pO2 VBG pH VBG pCO2 VBG HCO3 VBG O2 Sat (Calc) VBG Base Excess Lactate Sodium Potassium Chloride Carbon Dioxide Anion Gap BUN Creatinine Est GFR ( Amer) Est GFR (Non-Af Amer) POC Glucose (mg/dL) Random Glucose Calcium Phosphorus Magnesium Iron 70 TIBC 250 L % Saturation 28 Total Bilirubin AST ALT Alkaline Phosphatase Ammonia Lactate Dehydrogenase Total Creatine Kinase CK-MB (CK-2) CK-MB (CK-2) % Troponin I Total Protein Albumin Globulin Albumin/Globulin Ratio Triglycerides Cholesterol LDL Cholesterol Direct HDL Cholesterol Thyroxine (T4) TSH 3rd Generation Urine Color Urine Appearance Urine pH Ur Specific [place] Urine Protein Urine Glucose (UA) Urine Ketones Urine Blood Urine Nitrate Urine Bilirubin Urine Urobilinogen Ur Leukocyte Esterase Urine RBC Urine WBC Ur Epithelial Cells Urine Bacteria Urine Opiates Screen Urine Methadone Screen Ur Barbiturates Screen Ur Phencyclidine Scrn Ur Amphetamines Screen U Benzodiazepines Scrn U Oth Cocaine Metabols U Cannabinoids Screen
--- NOTE | 2018-07-26 12:26 | CP.PCM.CON ---
History of Present Illness - History of Present Illness History of Present Illness: Tc Mckeon Internal Medicine Resident- Consult Note on Behalf of Neurology Team Subjective: Patient is a 83 year old female with PMHx of hypothyroidism, HLD and HTN who was admitted to the hospital from a half-way for evaluation and treatment of lethargy. Neurology was consulted for altered mental status. As per records the patient was recently admitted on 07/11/18 for 5 day hospital course during which she was treated for rhabdomyolysis and AMS 2/2 metabolic encephalopathy. Further subjective data cannot be ascertained due to altered mental status. 12 point ROS cannot be ascertained due to altered mental status. PMHx: hypothyroidism, HLD and HTN PSHx: as per records- Righ cataract surgery Allergies: NKDA Family History: as per records- noncontributory Social History: cannot be ascertained Medication: please see medication reconciliation PMD: Dr. Ram Physical Examination: - Constitutional Appears: Chronically Ill Additional comments: lethargic - Head Exam Head Exam: ATRAUMATIC, NORMAL INSPECTION - Eye Exam Eye Exam: EOMI Pupil Exam: PERRL - ENT Exam ENT Exam: Mucous Membranes Dry - Respiratory Exam Respiratory Exam: Clear to Auscultation Bilateral. absent: Respiratory Distress - Cardiovascular Exam Cardiovascular Exam: REGULAR RHYTHM, +S1, +S2 - GI/Abdominal Exam GI & Abdominal Exam: Normal Bowel Sounds. absent: Firm, Guarding - Extremities Exam Extremities exam: Positive for: normal inspection. Negative for: calf tenderness - Neurological Exam Additional comments: lethargic, minimally responsive to verbal stimuli, responsive to painful stimuli, will not follow commands - Skin Skin Exam: Normal Color, Warm Assessment and Plan: Patient is a 83 year old female with PMHx of hypothyroidism, HLD and HTN who was admitted to the hospital from a half-way for evaluation and treatmetn of lethargy. Neurology was consulted for altered mental status. EKG revealed 56bpm with nonspecific ST wave changes, CT head showed moderate diffuse cortical atrophy of the left cerebral hemisphere, right occipital medial chronic ischemic encephalomalacia, 8.2 mm midline shift to the right side. Altered Mental Status -CT Head showed moderate diffuse cortical atrophy of the left cerebral hemisphere, right occipital medial chronic ischemic encephalomalacia, 8.2 mm midline shift to the right side and moderate chronic ischemic white matter disease, shift likely 2/2 perisylvian arachnoid cyst - Keppra load 1 gram IV - Continuous video EEG - MRI brain without contrast ordered and pending - MRA head and neck ordered and pending - neuro surg recs- no acute intervention required Patient seen, case reviewed with, and plan approved by attending physician, Dr. Redman Past Patient History - Infectious Disease Hx of Infectious Diseases: None - Past Social History Smoking Status: Never Smoked - CARDIAC Hx Hypertension: Yes - NEUROLOGICAL Hx Neurological Disorder: Yes Hx Dizziness: Yes - HEENT Hx Cataracts: Yes - ENDOCRINE/METABOLIC Hx Hypothyroidism: Yes - MUSCULOSKELETAL/RHEUMATOLOGICAL Hx Back Pain: Yes Hx Falls: Yes - GASTROINTESTINAL Hx Constipation: Yes Hx Gastroesophageal Reflux: Yes - PSYCHIATRIC Hx Depression: Yes Hx Substance Use: No - ANESTHESIA Hx Anesthesia: No Meds Allergies/Adverse Reactions: Allergies Allergy/AdvReac Type Severity Reaction Status Date / Time No Known Allergies Allergy Verified 07/25/18 22:38 - Medications Medications: Current Medications Acetaminophen (Tylenol 325mg Tab) 325 mg PO Q6 PRN PRN Reason: Pain, Mild (1-3) Amantadine HCl (Amantadine 100 Mg Cap) 100 mg PO DAILY [facility] Last Admin: 07/26/18 11:28 Dose: Not Given Aspirin (Ecotrin) 81 mg PO DAILY [facility] Aspirin (Aspirin Supp) 300 mg RC DAILY [facility] Last Admin: 07/26/18 11:28 Dose: Not Given Atorvastatin Calcium (Lipitor) 40 mg PO QPM [facility] Colchicine (Colocrys) 0.6 mg PO DAILY [facility] Last Admin: 07/26/18 11:28 Dose: Not Given Heparin Sodium (Porcine) (Heparin) 5,000 units SC Q12 [facility]; Protocol Last Admin: 07/26/18 11:02 Dose: 5,000 units Ceftriaxone Sodium (Rocephin 1 Gram Ivpb) 1 gm in 100 mls @ 100 mls/hr IVPB DAILY [facility]; Protocol Sodium Chloride (Sodium Chloride 0.9%) 1,000 mls @ 75 mls/hr IV [id number] [facility] Last Admin: 07/26/18 04:49 Dose: 75 mls/hr Levothyroxine Sodium (Synthroid) 37.5 mcg PO ACB [facility] Last Admin: 07/26/18 08:30 Dose: Not Given Levothyroxine Sodium (Synthroid) 18.75 mcg IVP DAILY [facility] Last Admin: 07/26/18 10:57 Dose: 18.75 mcg Pantoprazole Sodium (Protonix Ec Tab) 40 mg PO 0600 [facility] Last Admin: 07/26/18 06:18 Dose: Not Given Pantoprazole Sodium (Protonix Inj) 40 mg IVP DAILY [facility] Last Admin: 07/26/18 10:56 Dose: 40 mg Paroxetine HCl (Paxil) 40 mg PO DAILY [facility] Last Admin: 07/26/18 11:29 Dose: Not Given Results - Vital Signs Recent Vital Signs: Last Vital Signs Temp 97.3 F L 07/26/18 07:01 Pulse 52 L 07/26/18 07:01 Resp 19 07/26/18 07:01 BP 130/62 07/26/18 07:01 Pulse Ox 97 07/26/18 07:01 - Labs Result Diagrams: 07/26/18 06:45 07/26/18 06:45 Labs: Laboratory Results - last 24 hr 07/25/18 07/25/18 07/25/18 23:00 23:00 23:00 WBC 9.1 D RBC 4.16 Hgb 11.6 L D Hct 36.0 MCV 86.5 MCH 27.9 MCHC 32.2 RDW 15.2 H Plt Count 308 MPV 11.9 H Gran % Lymph % (Auto) Faulk % (Auto) Eos % (Auto) Baso % (Auto) Gran # Lymph # (Auto) Faulk # (Auto) Eos # (Auto) Baso # (Auto) PT 11.6 INR 1.02 APTT 36.3 pO2 VBG pH VBG pCO2 VBG HCO3 VBG O2 Sat (Calc) VBG Base Excess Lactate Sodium 140 Potassium 4.4 Chloride 103 Carbon Dioxide 28 Anion Gap 14 BUN 29 H Creatinine 1.6 H Est GFR ( Amer) 37 Est GFR (Non-Af Amer) 31 POC Glucose (mg/dL) Random Glucose 99 Calcium 9.8 Phosphorus Magnesium Iron TIBC % Saturation Total Bilirubin 0.9 AST 63 H D ALT 43 Alkaline Phosphatase 84 Ammonia Lactate Dehydrogenase 539 Total Creatine Kinase 295 H CK-MB (CK-2) 4.7 H CK-MB (CK-2) % Cancelled Troponin I 0.02 D Total Protein 6.7 Albumin 3.7 Globulin 3.0 Albumin/Globulin Ratio 1.2 Triglycerides Cholesterol LDL Cholesterol Direct HDL Cholesterol Thyroxine (T4) TSH 3rd Generation Urine Color Urine Appearance Urine pH Ur Specific [place] Urine Protein Urine Glucose (UA) Urine Ketones Urine Blood Urine Nitrate Urine Bilirubin Urine Urobilinogen Ur Leukocyte Esterase Urine RBC Urine WBC Ur Epithelial Cells Urine Bacteria Urine Opiates Screen Urine Methadone Screen Ur Barbiturates Screen Ur Phencyclidine Scrn Ur Amphetamines Screen U Benzodiazepines Scrn U Oth Cocaine Metabols U Cannabinoids Screen 07/25/18 07/26/18 07/26/18 23:41 00:45 04:35 WBC RBC Hgb Hct MCV MCH MCHC RDW Plt Count MPV Gran % Lymph % (Auto) Faulk % (Auto) Eos % (Auto) Baso % (Auto) Gran # Lymph # (Auto) Faulk # (Auto) Eos # (Auto) Baso # (Auto) PT INR APTT pO2 VBG pH VBG pCO2 VBG HCO3 VBG O2 Sat (Calc) VBG Base Excess Lactate Sodium Potassium Chloride Carbon Dioxide Anion Gap BUN Creatinine Est GFR ( Amer) Est GFR (Non-Af Amer) POC Glucose (mg/dL) 94 Random Glucose Calcium Phosphorus Magnesium Iron TIBC % Saturation Total Bilirubin AST ALT Alkaline Phosphatase Ammonia < 9 L Lactate Dehydrogenase Total Creatine Kinase CK-MB (CK-2) CK-MB (CK-2) % Troponin I Total Protein Albumin Globulin Albumin/Globulin Ratio Triglycerides Cholesterol LDL Cholesterol Direct HDL Cholesterol Thyroxine (T4) TSH 3rd Generation Urine Color Yellow Urine Appearance Sl cloudy Urine pH 7.0 Ur Specific [place] 1.015 Urine Protein 30 H Urine Glucose (UA) Negative Urine Ketones Negative Urine Blood Small H Urine Nitrate Negative Urine Bilirubin Negative Urine Urobilinogen 0.2 Ur Leukocyte Esterase Moderate H Urine RBC 1 - 3 Urine WBC Tntc Ur Epithelial Cells 3 - 4 Urine Bacteria Many Urine Opiates Screen Urine Methadone Screen Ur Barbiturates Screen Ur Phencyclidine Scrn Ur Amphetamines Screen U Benzodiazepines Scrn U Oth Cocaine Metabols U Cannabinoids Screen 07/26/18 07/26/18 07/26/18 04:35 06:45 06:45 WBC 7.8 RBC 3.99 Hgb 11.2 L Hct 34.9 L MCV 87.5 MCH 28.1 MCHC 32.1 RDW 15.5 H Plt Count 261 MPV 11.1 H Gran % 78.8 H Lymph % (Auto) 14.0 L Faulk % (Auto) 3.7 Eos % (Auto) 3.1 Baso % (Auto) 0.4 Gran # 6.17 Lymph # (Auto) 1.1 L Faulk # (Auto) 0.3 Eos # (Auto) 0.2 Baso # (Auto) 0.03 PT INR APTT pO2 VBG pH VBG pCO2 VBG HCO3 VBG O2 Sat (Calc) VBG Base Excess Lactate Sodium 142 Potassium 4.1 Chloride 109 H Carbon Dioxide 24 Anion Gap 12 BUN 27 H Creatinine 1.5 H Est GFR ( Amer) 40 Est GFR (Non-Af Amer) 33 POC Glucose (mg/dL) Random Glucose 89 Calcium 9.1 Phosphorus 3.8 Magnesium 1.6 L Iron TIBC % Saturation Total Bilirubin 0.4 AST 50 H D ALT 37 Alkaline Phosphatase 86 Ammonia Lactate Dehydrogenase Total Creatine Kinase 229 CK-MB (CK-2) CK-MB (CK-2) % Troponin I 0.02 Total Protein 6.1 Albumin 3.4 Globulin 2.6 Albumin/Globulin Ratio 1.3 Triglycerides Cholesterol LDL Cholesterol Direct HDL Cholesterol Thyroxine (T4) TSH 3rd Generation Urine Color Urine Appearance Urine pH Ur Specific [place] Urine Protein Urine Glucose (UA) Urine Ketones Urine Blood Urine Nitrate Urine Bilirubin Urine Urobilinogen Ur Leukocyte Esterase Urine RBC Urine WBC Ur Epithelial Cells Urine Bacteria Urine Opiates Screen Negative Urine Methadone Screen Negative Ur Barbiturates Screen Negative Ur Phencyclidine Scrn Negative Ur Amphetamines Screen Negative U Benzodiazepines Scrn Negative U Oth Cocaine Metabols Negative U Cannabinoids Screen Negative 07/26/18 07/26/18 07/26/18 06:45 06:45 06:45 WBC RBC Hgb Hct MCV MCH MCHC RDW Plt Count MPV Gran % Lymph % (Auto) Faulk % (Auto) Eos % (Auto) Baso % (Auto) Gran # Lymph # (Auto) Faulk # (Auto) Eos # (Auto) Baso # (Auto) PT INR APTT pO2 34 VBG pH 7.36 VBG pCO2 44.0 VBG HCO3 24.9 VBG O2 Sat (Calc) 62.8 VBG Base Excess -0.8 L Lactate 1.9 Sodium Potassium Chloride Carbon Dioxide Anion Gap BUN Creatinine Est GFR ( Amer) Est GFR (Non-Af Amer) POC Glucose (mg/dL) Random Glucose Calcium Phosphorus Magnesium Iron TIBC % Saturation Total Bilirubin AST ALT Alkaline Phosphatase Ammonia Lactate Dehydrogenase Total Creatine Kinase CK-MB (CK-2) CK-MB (CK-2) % Troponin I Total Protein Albumin Globulin Albumin/Globulin Ratio Triglycerides 255 H Cholesterol 148 LDL Cholesterol Direct 83 HDL Cholesterol 26 L Thyroxine (T4) 8.9 TSH 3rd Generation 3.86 Urine Color Urine Appearance Urine pH Ur Specific [place] Urine Protein Urine Glucose (UA) Urine Ketones Urine Blood Urine Nitrate Urine Bilirubin Urine Urobilinogen Ur Leukocyte Esterase Urine RBC Urine WBC Ur Epithelial Cells Urine Bacteria Urine Opiates Screen Urine Methadone Screen Ur Barbiturates Screen Ur Phencyclidine Scrn Ur Amphetamines Screen U Benzodiazepines Scrn U Oth Cocaine Metabols U Cannabinoids Screen 07/26/18 07:30 WBC RBC Hgb Hct MCV MCH MCHC RDW Plt Count MPV Gran % Lymph % (Auto) Faulk % (Auto) Eos % (Auto) Baso % (Auto) Gran # Lymph # (Auto) Faulk # (Auto) Eos # (Auto) Baso # (Auto) PT INR APTT pO2 VBG pH VBG pCO2 VBG HCO3 VBG O2 Sat (Calc) VBG Base Excess Lactate Sodium Potassium Chloride Carbon Dioxide Anion Gap BUN Creatinine Est GFR ( Amer) Est GFR (Non-Af Amer) POC Glucose (mg/dL) Random Glucose Calcium Phosphorus Magnesium Iron 70 TIBC 250 L % Saturation 28 Total Bilirubin AST ALT Alkaline Phosphatase Ammonia Lactate Dehydrogenase Total Creatine Kinase CK-MB (CK-2) CK-MB (CK-2) % Troponin I Total Protein Albumin Globulin Albumin/Globulin Ratio Triglycerides Cholesterol LDL Cholesterol Direct HDL Cholesterol Thyroxine (T4) TSH 3rd Generation Urine Color Urine Appearance Urine pH Ur Specific [place] Urine Protein Urine Glucose (UA) Urine Ketones Urine Blood Urine Nitrate Urine Bilirubin Urine Urobilinogen Ur Leukocyte Esterase Urine RBC Urine WBC Ur Epithelial Cells Urine Bacteria Urine Opiates Screen Urine Methadone Screen Ur Barbiturates Screen Ur Phencyclidine Scrn Ur Amphetamines Screen U Benzodiazepines Scrn U Oth Cocaine Metabols U Cannabinoids Screen
[2018-07-26] MEDS ORDERED: levETIRAcetam 1000mg/100ml NS 100 ML IV ONE (14:02)
[2018-07-26 15:10] VITALS: BMI 24.7
[2018-07-26 16:05] LABS: FERRITIN 23.7 ng/mL
--- NOTE | 2018-07-26 18:44 | MRI ---
Date of service: 07/26/2018 PROCEDURE: MRI BRAIN WITHOUT CONTRAST HISTORY: ams COMPARISON: Comparison is made to the previous CT dated 07/10/2018 TECHNIQUE: Multiplanar, multisequence MR images of the brain were obtained without intravenous contrast enhancement. FINDINGS: HEMORRHAGE: None DWI: No evidence of an acute or early subacute infarction. BRAIN PARENCHYMA: Encephalomalacia at the left temporal frontal lobe is again noted. Moderate atrophy and volume loss is again noted. Periventricular diffuse hyperintense T2 signal noted. VENTRICLES: The ventricles are dilated suggestive of mild hydrocephalus. CRANIUM: Unremarkable. ORBITS: Grossly unremarkable. PARANASAL SINUSES/MASTOIDS: Mild mucosal thickening in the maxillary and ethmoid sinuses noted. Partial opacification of the mastoids suggestive of possible effusion. VASCULAR SYSTEM: Skull base flow voids intact. OTHER FINDINGS: None. IMPRESSION: No evidence of acute infarct or intracranial hemorrhage No evidence of mass lesion mass effect or midline shift. Mild hydrocephalus associated with increase periventricular T2 signal may represent transependymal edema.
--- NOTE | 2018-07-26 18:51 | MRI ---
Date of service: 07/26/2018 PROCEDURE: Magnetic Resonance Angiography Brain HISTORY: ams COMPARISON: None available. TECHNIQUE: 3D time of flight MR angiography of the intracranial arteries was performed. Rotating maximum intensity projection images were generated. FINDINGS: INTERNAL CAROTID ARTERIES: Unremarkable. The skull base, petrous, cavernous and supraclinoid segments are bilaterally widely patient. ANTERIOR CEREBRAL ARTERIES: Unremarkable. A1 and A2 segments are widely patent. Smaller distal branches unremarkable, as visualized. MIDDLE CEREBRAL ARTERIES: Unremarkable. M1 and M2 segments are widely patent. Perisylvian branches grossly symmetric. POSTERIOR CIRCULATION: Basilar Artery: Unremarkable. Distal Vertebral Arteries: Unremarkable. Posterior Cerebral Arteries: Unremarkable. Posterior Inferior Cerebellar Arteries: Unremarkable. ANEURYSM/ VASCULAR MALFORMATIONS: None. OTHER FINDINGS: None. IMPRESSION: No evidence of occlusion or new critical stenosis.
--- NOTE | 2018-07-26 18:54 | MRI ---
Date of service: 07/26/2018 PROCEDURE: MR Angiography of the neck without contrast HISTORY: ams COMPARISON: None available. TECHNIQUE: 3D [id number] angiography of the neck was performed. Rotating maximum intensity projection images of the cervical carotid and vertebral arteries were generated. The origins of the common carotid arteries were not visualized, which is a limitation inherent to the non-contrast time of flight technique. FINDINGS: RIGHT CAROTID ARTERIES: Common Carotid Artery: Normal. Carotid Bifurcation: Normal. Internal Carotid Artery:Normal. External Carotid Artery (proximal branches): Normal. LEFT CAROTID ARTERIES: Common Carotid Artery: Normal. Carotid Bifurcation: Normal. Internal Carotid Artery:Normal. External Carotid Artery (proximal branches): Normal. VERTEBRAL ARTERIES: Right Vertebral Artery: Normal. Left Vertebral Artery: Normal. OTHER FINDINGS: None. IMPRESSION: Suboptimal study degraded by motion artifact. No evidence of critical stenosis in the common and internal carotid arteries.
[2018-07-27] MEDS: Sodium Chloride 0.9% 1,000 ML IV SCH ×2 (06:12→20:54)
[2018-07-27 06:16] LABS: BASO # 0.02 K/mm3 (0.0-2.0); BASO % 0.3 % (0.0-3.0); EOS # 0.3 (0.0-0.7); EOS % 4.4 % (1.5-5.0); GRAN # 4.66 (1.4-6.5); GRAN % 76.6 % (50.0-68.0); HEMOGLOBIN 10.6 g/dL (12.0-16.0); LYMPH # 0.8 (1.2-3.4); MEAN CELL VOLUME 87.6 fl (80.0-105.0); MEAN CORPUSCULAR HEMOGLOBIN 27.5 pg (25.0-35.0); MEAN CORPUSCULAR HGB CONC 31.4 g/dl (31.0-37.0); MEAN PLATELET VOLUME 11.2 fl (7.0-11.0); MONO # 0.4 (0.1-0.6); MONO % 5.7 % (1.0-6.0); RBC 3.86 10^6/uL (3.5-6.1); RED CELL DISTRIBUTION WIDTH 14.9 % (11.5-14.5); WHITE BLOOD COUNT 6.1 10^3/uL (4.5-11.0)
[2018-07-27 06:59] LABS: ALB/GLOB RATIO 1.2 (1.1-1.8); ALBUMIN 3.2 g/dL (3.0-4.8); CALCIUM 8.9 mg/dL (8.4-10.5)
[2018-07-27] MEDS: cefTRIAXone 1 gm 1 GM/100 ML BAG IVPB SCH (09:29)
[2018-07-27] MEDS: Levothyroxine 100 mcg (0.1 mg) Inj IVP SCH (09:30)
--- NOTE | 2018-07-27 14:03 | PN ---
DATE: 07/27/2018 SUBJECTIVE: The patient is resting with no distress at this time. She is arousable with painful stimuli. No fever, chills, no vomiting. The patient is comfortable. PHYSICAL EXAMINATION: VITAL SIGNS: Note that note that her temperature is 97.2, her pulse is 47, respirations are 14 and BP is 159/107. SKIN: Warm and dry. HEAD: Atraumatic, normocephalic. Eyes reactive to light. Ear, nose and throat seemed to be within normal limits. NECK: Supple. No JVD. No thyroid enlargement . No lymph nodes. HEART: Has regular rate and rhythm. Normal S1, S2, but slightly bradycardic. LUNGS: Reveal good breath sounds bilaterally. ABDOMEN: Soft. Decreased bowel sounds. GENITALIA AND RECTAL: Deferred. MUSCULOSKELETAL: No joint deformities. EXTREMITIES: Reveal positive lower extremity edema. NEUROLOGICALLY: The patient is responsive to painful stimuli. LABORATORY DATA: As far as laboratories, her white count is 6.1, hemoglobin is 10.6 and hematocrit 33.8 with platelets of 258,000. The patient's sodium is 143, potassium 4, chloride 111, CO2 of 23 with a BUN of 24, creatinine of 1.3 and a glucose of 84. IMPRESSION: This patient has altered mental status and has a brain cyst with midline shift, but it has not changed from the last CT scan of the head. The patient carries a diagnosis of dementia, hyperlipidemia, hypothyroidism and is noted to have anemia. PLAN: As far as our plan, she is getting an EEG video assisted and the patient is on aspirin as well as subcu heparin. She is getting Lipitor, Protonix, Rocephin, IV fluids and Synthroid. We will continue to treat aggressively along with the other consultants and the primary care doctor. Rajan Colin MD
--- NOTE | 2018-07-27 15:43 | CP.PCM.PN ---
<Gabriel Voss - Last Filed: 07/27/18 15:58> Subjective - Date & Time of Evaluation Date of Evaluation: 07/27/18 Time of Evaluation: 08:30 - Subjective Subjective: Gabriel Voss DO, PGY-1 Hospitalist Progress Note for Dr. Africa Mckeon Patient was seen and examined at bedside this AM. She responds and opens her eyes when called by name. She is alert to person but responded that she [place] the [place] when asked. She is in no acute distress. Objective - Vital Signs/Intake and Output Vital Signs (last 24 hours): Temp Pulse Resp BP Pulse Ox 98.4 F 52 L 21 149/69 96 07/27/18 11:00 07/27/18 14:20 07/27/18 14:20 07/27/18 14:00 07/27/18 14:20 Intake and Output: 07/27/18 07/27/18 06:59 18:59 Intake Total 900 100 Output Total 350 Balance 550 100 - Medications Medications: Current Medications Acetaminophen (Tylenol 325mg Tab) 325 mg PO Q6 PRN PRN Reason: Pain, Mild (1-3) Amantadine HCl (Amantadine 100 Mg Cap) 100 mg PO DAILY [facility] Last Admin: 07/26/18 11:28 Dose: Not Given Aspirin (Ecotrin) 81 mg PO DAILY [facility] Aspirin (Aspirin Supp) 300 mg RC DAILY [facility] Last Admin: 07/27/18 09:27 Dose: 300 mg Atorvastatin Calcium (Lipitor) 40 mg PO QPM [facility] Colchicine (Colocrys) 0.6 mg PO DAILY [facility] Last Admin: 07/26/18 11:28 Dose: Not Given Heparin Sodium (Porcine) (Heparin) 5,000 units SC Q12 [facility]; Protocol Last Admin: 07/27/18 09:29 Dose: 5,000 units Sodium Chloride (Sodium Chloride 0.9%) 1,000 mls @ 75 mls/hr IV .[id number] [facility] Last Admin: 07/27/18 06:12 Dose: 75 mls/hr Ceftriaxone Sodium (Rocephin 1 Gram Ivpb) 1 gm in 100 mls @ 100 mls/hr IVPB DAILY [facility]; Protocol Last Admin: 07/27/18 09:29 Dose: 100 mls/hr Levothyroxine Sodium (Synthroid) 37.5 mcg PO ACB [facility] Last Admin: 07/26/18 08:30 Dose: Not Given Levothyroxine Sodium (Synthroid) 18.75 mcg IVP DAILY [facility] Last Admin: 07/27/18 09:30 Dose: 18.75 mcg Pantoprazole Sodium (Protonix Ec Tab) 40 mg PO 0600 [facility] Last Admin: 07/26/18 06:18 Dose: Not Given Pantoprazole Sodium (Protonix Inj) 40 mg IVP DAILY [facility] Last Admin: 07/27/18 09:29 Dose: 40 mg Paroxetine HCl (Paxil) 40 mg PO DAILY [facility] Last Admin: 07/26/18 11:29 Dose: Not Given - Labs Labs: 07/27/18 05:50 07/27/18 05:50 PT 11.6 SECONDS (9.4-12.5) 07/25/18 23:00 INR 1.02 07/25/18 23:00 APTT 36.3 Seconds (25.1-36.5) 07/25/18 23:00 - Constitutional Appears: Non-toxic, No Acute Distress, Confused, Cachectic - Head Exam Head Exam: ATRAUMATIC, NORMOCEPHALIC - Eye Exam Eye Exam: EOMI, Normal appearance, PERRL - ENT Exam ENT Exam: Mucous Membranes Moist - Neck Exam Neck Exam: Full ROM, Normal Inspection - Respiratory Exam Respiratory Exam: Clear to Ausculation Bilateral, NORMAL BREATHING PATTERN. absent: Rales, Rhonchi, Wheezes - Cardiovascular Exam Cardiovascular Exam: REGULAR RHYTHM, RRR, +S1, +S2. absent: Gallop, Rubs, Murmur - GI/Abdominal Exam GI & Abdominal Exam: Soft, Normal Bowel Sounds. absent: Guarding, Tenderness - Extremities Exam Extremities Exam: absent: Pedal Edema - Neurological Exam Neurological Exam: Alert, Awake, Oriented x3 - Psychiatric Exam Psychiatric exam: absent: Agitated, Anxious - Skin Skin Exam: Dry, Intact, Warm Assessment and Plan - Assessment and Plan (Free Text) Assessment: 83yo female with PMH of HLD, HTN, and Hypothyroidism presented to ED with AMS and UTI. Plan: 1. 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 UTI UA positive Treated with rocephin F/u urine cx Blood cx x 2 no growth to date Prior urine cx positive for GNR Procal pending Continue IVF ID following, recs appreciated 3. BUN/Cr elevation Likely 2/2 HUI on admission BUN/CR improving, now close to baseline Continue IVF, monitor UOP 4. Hx HLD Continue lipitor 5. Hx hypothyroidism TSH, T3, T4 this admission WNL Continue synthroid DVT/GI PPX: SC heparin, protonix Full Code NPO Monitor in MICU Case and plan reviewed and discussed with my attending Dr. Africa Voss, IM Resident PGY-1 Pager: [phone] <Jennifer Mckeon R - Last Filed: 07/30/18 10:47> Objective - Vital Signs/Intake and Output Vital Signs (last 24 hours): Temp Pulse Resp BP Pulse Ox 98.7 F 92 H 20 158/71 H 98 07/30/18 06:53 07/30/18 10:01 07/30/18 06:53 07/30/18 10:01 07/29/18 22:00 Intake and Output: 07/30/18 07/30/18 06:59 18:59 Intake Total 2040 Output Total 950 Balance 1090 - Medications Medications: Current Medications Acetaminophen (Tylenol 325mg Tab) 325 mg PO Q6 PRN PRN Reason: Pain, Mild (1-3) Amantadine HCl (Amantadine 100 Mg Cap) 100 mg PO DAILY [facility] Last Admin: 07/26/18 11:28 Dose: Not Given Aspirin (Ecotrin) 81 mg PO DAILY [facility] Last Admin: 07/30/18 10:00 Dose: 81 mg Atorvastatin Calcium (Lipitor) 40 mg PO QPM [facility] Last Admin: 07/29/18 17:18 Dose: Not Given Colchicine (Colocrys) 0.6 mg PO DAILY [facility] Last Admin: 07/30/18 10:00 Dose: 0.6 mg Heparin Sodium (Porcine) (Heparin) 5,000 units SC Q12 [facility]; Protocol Last Admin: 07/30/18 10:01 Dose: 5,000 units Hydralazine HCl (Apresoline) 10 mg IVP Q6 PRN PRN Reason: Systolic Blood Pressure Last Admin: 07/30/18 05:45 Dose: 10 mg Ampicillin 2 gm/ Sodium (Chloride) 100 mls @ 200 mls/hr IVPB Q6 [facility]; Protocol Stop: 08/04/18 12:01 Last Admin: 07/30/18 06:46 Dose: 200 mls/hr Meropenem (Merrem Iv 1 Gm Premix) 1 gm in 50 mls @ 100 mls/hr IVPB Q12 [facility]; Protocol Stop: 08/06/18 10:33 Last Admin: 07/30/18 10:09 Dose: 100 mls/hr Potassium Chloride 40 meq/ (Dextrose/Sodium Chloride) 1,020 mls @ 75 mls/hr IV .[id number] [facility] Last Admin: 07/30/18 04:45 Dose: Not Given Potassium Phosphate 30 mmole/ (Sodium Chloride) 260 mls @ 42.5 mls/hr IVPB ONCE ONE Stop: 07/30/18 16:07 Last Admin: 07/30/18 10:17 Dose: 42.5 mls/hr Insulin Human Regular (Humulin R Low) 0 units SC Q6 [facility]; Protocol Last Admin: 07/30/18 06:48 Dose: Not Given Levothyroxine Sodium (Synthroid) 37.5 mcg PO ACB [facility] Last Admin: 07/30/18 08:36 Dose: 37.5 mcg Lisinopril (Zestril) 10 mg PO DAILY [facility] Last Admin: 07/30/18 10:01 Dose: 10 mg Pantoprazole Sodium (Protonix Ec Tab) 40 mg PO 0600 [facility] Last Admin: 07/26/18 06:18 Dose: Not Given Paroxetine HCl (Paxil) 40 mg PO DAILY [facility] Last Admin: 07/26/18 11:29 Dose: Not Given - Labs Labs: 07/30/18 05:40 07/30/18 05:40 PT 11.6 SECONDS (9.4-12.5) 07/25/18 23:00 INR 1.02 07/25/18 23:00 APTT 36.3 Seconds (25.1-36.5) 07/25/18 23:00 Attending/Attestation - Attestation I have personally seen and examined this patient.: Yes I have fully participated in the care of the patient.: Yes I have reviewed all pertinent clinical information, including history, physical exam and plan: Yes Notes (Text): Patient seen and examined by me with resident at 8:35AM on 07/27/18 with resident. Case including HPI, physical exam, and assessment and plan discussed with resident. Agree with above with following additions/corrections. Patient is an 83-year-old female with past medical history significant for hypertension, rhabdomyolysis, near syncope, HUI, toxic metabolic encephalopathy, hypercholesterolemia, depression, and hypothyroidism presented to the emergency room with lethargy. Patient is lethargic but arousable. Patient only oriented to self. Patient states she believes she is in a hardware store. Unsure if review of systems accurate. However, patient denies any pain. No abdominal pain. No nausea or vomiting. No shortness of breath. No headaches or dizziness. No fevers or chills. No dysuria. Physical exam: General: Lethargic lying in bed in no acute distress. HEENT: Normocephalic atraumatic. Pupils equal and reactive. No scleral icterus. Dry crust noted around eyes. Oropharynx is pink. Positive dry mucous membranes. No pharyngeal erythema or exudate appreciated. Neck is supple. Cardiovascular: Normal rhythm. Normal S1, S2. No murmurs, rubs, or gallops appreciated Pulmonary: Normal respiratory effort. No rhonchi, rales, or wheezing appreciated. Gastrointestinal: Soft. Nondistended. Nontender. Positive bowel sounds all 4 quadrants, no guarding. Musculoskeletal: Moves all extremities. No calf tenderness. No edema appreciated. Central nervous system: Lethargic but arousable. Oriented to self. Dermatologic: Skin warm and dry. Positive tophi left thumb and bilateral great toes. Assessment and plan: Patient is an 83-year-old female with past medical history significant for hypertension, rhabdomyolysis, near syncope, HUI, toxic metabolic encephalopathy, hypercholesterolemia, depression, and hypothyroidism presented to the emergency room with lethargy. 1. Toxic metabolic encephalopathy. Likely secondary to UTI. Final urine cultures pending. Continue with video EEG. Patient started on Keppra prophylactically per neurology. Neurology following, recommendations appreciated. 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 Continue ASA and Lipitor. Scan reviewed with neurologist, midline shift likely chronic. MRA and MRI brain pending. Continue to monitor closely in the ICU. 2. UTI. Continue Rocephin. Urine culture pending. Procalcitonin pending. Blood cultures with no growth so far. 3. HUI. May be secondary to dehydration. Improving with IV fluids. Continue to monitor. 4. Hypothyroidism. Continue synthroid 5. Hypercholesterolemia. Continue Lipitor 6. History of gout. Continue Colchicine. 7. Depression. Continue paxil 8. GI/DVT prophylaxis. Protonix/ Heparin 9. Patient is a full code. Palliative care consulted.
[2018-07-28] MEDS ORDERED: Dextrose 50% SYRINGE Inj (50 ml) IVP ONE (01:56)
[2018-07-28 06:43] LABS: BASO # 0.02 K/mm3 (0.0-2.0); BASO % 0.4 % (0.0-3.0); EOS # 0.1 (0.0-0.7); EOS % 2.5 % (1.5-5.0); GRAN # 4.38 (1.4-6.5); GRAN % 79.6 % (50.0-68.0); HEMOGLOBIN 10.2 g/dL (12.0-16.0); LYMPH # 0.7 (1.2-3.4); LYMPH % 13.5 % (22.0-35.0); MEAN CELL VOLUME 86.3 fl (80.0-105.0); MEAN CORPUSCULAR HEMOGLOBIN 27.9 pg (25.0-35.0); MEAN CORPUSCULAR HGB CONC 32.3 g/dl (31.0-37.0); MEAN PLATELET VOLUME 11.5 fl (7.0-11.0); MONO # 0.2 (0.1-0.6); RBC 3.66 10^6/uL (3.5-6.1); RED CELL DISTRIBUTION WIDTH 14.9 % (11.5-14.5); WHITE BLOOD COUNT 5.5 10^3/uL (4.5-11.0)
[2018-07-28 06:54] LABS: ALB/GLOB RATIO 1.1 (1.1-1.8); CALCIUM 8.7 mg/dL (8.4-10.5)
[2018-07-28] MEDS: Levothyroxine 100 mcg (0.1 mg) Inj IVP SCH (10:40)
[2018-07-28] MEDS: cefTRIAXone 1 gm 1 GM/100 ML BAG IVPB SCH (10:46)
[2018-07-28] MEDS ORDERED: Potassium Chloride 20 MEQ in Dextrose 5%/0.9% NS 1,000 ML IV SCH (11:15)
--- NOTE | 2018-07-28 11:16 | CP.PCM.PN ---
<Gabriel Voss - Last Filed: 07/28/18 11:48> Subjective - Date & Time of Evaluation Date of Evaluation: 07/28/18 Time of Evaluation: 08:15 - Subjective Subjective: Gabriel Voss DO, PGY-1 Hospitalist Progress Note for Dr. Africa Mckeon Patient was seen and examined at bedside this AM. She responds to painful stimuli and responds when called. Otherwise she appears somnolent and is non- verbal. Objective - Vital Signs/Intake and Output Vital Signs (last 24 hours): Temp Pulse Resp BP Pulse Ox 98.1 F 55 L 14 153/61 H 96 07/28/18 04:00 07/28/18 06:20 07/28/18 06:20 07/28/18 06:11 07/28/18 06:20 Intake and Output: 07/28/18 07/28/18 06:59 18:59 Intake Total 965 Output Total 500 Balance 465 - Medications Medications: Current Medications Acetaminophen (Tylenol 325mg Tab) 325 mg PO Q6 PRN PRN Reason: Pain, Mild (1-3) Amantadine HCl (Amantadine 100 Mg Cap) 100 mg PO DAILY [facility] Last Admin: 07/26/18 11:28 Dose: Not Given Aspirin (Ecotrin) 81 mg PO DAILY [facility] Aspirin (Aspirin Supp) 300 mg RC DAILY [facility] Last Admin: 07/28/18 10:44 Dose: 300 mg Atorvastatin Calcium (Lipitor) 40 mg PO QPM [facility] Colchicine (Colocrys) 0.6 mg PO DAILY [facility] Last Admin: 07/26/18 11:28 Dose: Not Given Heparin Sodium (Porcine) (Heparin) 5,000 units SC Q12 [facility]; Protocol Last Admin: 07/28/18 10:43 Dose: 5,000 units Ampicillin 2 gm/ Sodium (Chloride) 100 mls @ 200 mls/hr IVPB Q6 [facility]; Protocol Stop: 08/04/18 12:01 Meropenem (Merrem Iv 1 Gm Premix) 1 gm in 50 mls @ 100 mls/hr IVPB Q12 [facility]; Protocol Stop: 08/06/18 10:33 Levothyroxine Sodium (Synthroid) 37.5 mcg PO ACB [facility] Last Admin: 07/26/18 08:30 Dose: Not Given Levothyroxine Sodium (Synthroid) 18.75 mcg IVP DAILY [facility] Last Admin: 07/28/18 10:40 Dose: 18.75 mcg Pantoprazole Sodium (Protonix Ec Tab) 40 mg PO 0600 [facility] Last Admin: 07/26/18 06:18 Dose: Not Given Pantoprazole Sodium (Protonix Inj) 40 mg IVP DAILY [facility] Last Admin: 07/28/18 10:42 Dose: 40 mg Paroxetine HCl (Paxil) 40 mg PO DAILY [facility] Last Admin: 07/26/18 11:29 Dose: Not Given - Labs Labs: 07/28/18 06:00 07/28/18 06:00 PT 11.6 SECONDS (9.4-12.5) 07/25/18 23:00 INR 1.02 07/25/18 23:00 APTT 36.3 Seconds (25.1-36.5) 07/25/18 23:00 - Constitutional Appears: Non-toxic, No Acute Distress - Head Exam Head Exam: ATRAUMATIC, NORMOCEPHALIC - Eye Exam Eye Exam: EOMI, Normal appearance, PERRL - ENT Exam ENT Exam: Mucous Membranes Moist - Neck Exam Neck Exam: Full ROM, Normal Inspection - Respiratory Exam Respiratory Exam: Clear to Ausculation Bilateral, NORMAL BREATHING PATTERN. absent: Rales, Rhonchi, Wheezes - Cardiovascular Exam Cardiovascular Exam: REGULAR RHYTHM, RRR, +S1, +S2. absent: Gallop, Rubs, Murmur - GI/Abdominal Exam GI & Abdominal Exam: Soft, Normal Bowel Sounds. absent: Guarding, Tenderness - Extremities Exam Extremities Exam: absent: Joint Swelling, Pedal Edema - Neurological Exam Neurological Exam: Alert, Awake, Oriented x3 - Psychiatric Exam Psychiatric exam: Normal Affect, Normal Mood - Skin Skin Exam: Dry, Intact, Warm Assessment and Plan - Assessment and Plan (Free Text) Assessment: 83yo female with PMH of HLD, HTN, and Hypothyroidism presented to ED with AMS and UTI. Plan: 1. 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 UTI UA positive Urine cx positive for VRE and enterococcus Ampicillin and merem started per ID recs Blood cx x 2 no growth to date Continue IVF ID following, recs appreciated 3. BUN/Cr elevation BUN/Cr stable at 20/1.2 today Continue to monitor closely 4. Hx HLD Continue lipitor 5. Hx hypothyroidism TSH, T3, T4 this admission WNL Continue synthroid DVT/GI PPX: SC heparin, protonix Full Code NPO Monitor in MICU Case and plan reviewed and discussed with my attending Dr. Africa Voss, IM Resident PGY-1 Pager: [phone] <Jennifer Mckeon R - Last Filed: 07/30/18 11:10> Objective - Vital Signs/Intake and Output Vital Signs (last 24 hours): Temp Pulse Resp BP Pulse Ox 98.7 F 92 H 20 158/71 H 98 07/30/18 06:53 07/30/18 10:01 07/30/18 06:53 07/30/18 10:01 07/29/18 22:00 Intake and Output: 07/30/18 07/30/18 06:59 18:59 Intake Total 2040 Output Total 950 Balance 1090 - Medications Medications: Current Medications Acetaminophen (Tylenol 325mg Tab) 325 mg PO Q6 PRN PRN Reason: Pain, Mild (1-3) Amantadine HCl (Amantadine 100 Mg Cap) 100 mg PO DAILY [facility] Last Admin: 07/26/18 11:28 Dose: Not Given Aspirin (Ecotrin) 81 mg PO DAILY [facility] Last Admin: 07/30/18 10:00 Dose: 81 mg Atorvastatin Calcium (Lipitor) 40 mg PO QPM [facility] Last Admin: 07/29/18 17:18 Dose: Not Given Colchicine (Colocrys) 0.6 mg PO DAILY [facility] Last Admin: 07/30/18 10:00 Dose: 0.6 mg Heparin Sodium (Porcine) (Heparin) 5,000 units SC Q12 [facility]; Protocol Last Admin: 07/30/18 10:01 Dose: 5,000 units Hydralazine HCl (Apresoline) 10 mg IVP Q6 PRN PRN Reason: Systolic Blood Pressure Last Admin: 07/30/18 05:45 Dose: 10 mg Ampicillin 2 gm/ Sodium (Chloride) 100 mls @ 200 mls/hr IVPB Q6 [facility]; Protocol Stop: 08/04/18 12:01 Last Admin: 07/30/18 06:46 Dose: 200 mls/hr Meropenem (Merrem Iv 1 Gm Premix) 1 gm in 50 mls @ 100 mls/hr IVPB Q12 [facility]; Protocol Stop: 08/06/18 10:33 Last Admin: 07/30/18 10:09 Dose: 100 mls/hr Potassium Chloride 40 meq/ (Dextrose/Sodium Chloride) 1,020 mls @ 75 mls/hr IV .[id number] [facility] Last Admin: 07/30/18 04:45 Dose: Not Given Potassium Phosphate 30 mmole/ (Sodium Chloride) 260 mls @ 42.5 mls/hr IVPB ONCE ONE Stop: 07/30/18 16:07 Last Admin: 07/30/18 10:17 Dose: 42.5 mls/hr Insulin Human Regular (Humulin R Low) 0 units SC Q6 [facility]; Protocol Last Admin: 07/30/18 06:48 Dose: Not Given Levothyroxine Sodium (Synthroid) 37.5 mcg PO ACB [facility] Last Admin: 07/30/18 08:36 Dose: 37.5 mcg Lisinopril (Zestril) 10 mg PO DAILY [facility] Last Admin: 07/30/18 10:01 Dose: 10 mg Pantoprazole Sodium (Protonix Ec Tab) 40 mg PO 0600 [facility] Last Admin: 07/26/18 06:18 Dose: Not Given Paroxetine HCl (Paxil) 40 mg PO DAILY [facility] Last Admin: 07/26/18 11:29 Dose: Not Given - Labs Labs: 07/30/18 05:40 07/30/18 05:40 PT 11.6 SECONDS (9.4-12.5) 07/25/18 23:00 INR 1.02 07/25/18 23:00 APTT 36.3 Seconds (25.1-36.5) 07/25/18 23:00 Attending/Attestation - Attestation I have personally seen and examined this patient.: Yes I have fully participated in the care of the patient.: Yes I have reviewed all pertinent clinical information, including history, physical exam and plan: Yes Notes (Text): Patient seen and examined by me with resident at 8:15AM on 07/28/18 with resident. Case including HPI, physical exam, and assessment and plan discussed with resident. Agree with above with following additions/corrections. Patient is an 83-year-old female with past medical history significant for hypertension, rhabdomyolysis, near syncope, HUI, toxic metabolic encephalopathy, hypercholesterolemia, depression, and hypothyroidism presented to the emergency room with lethargy. Patient still lethargic but arousable. Only oriented to self. Slow to answer questions. Unsure if review of systems is accurate. Patient denies any abdominal pain. No nausea or vomiting. No shortness of breath. No headaches or dizziness. No fevers or chills. No dysuria. Physical exam: General: Lethargic lying in bed in no acute distress. HEENT: Normocephalic atraumatic. Pupils equal and reactive. No scleral icterus. Dry crust noted around eyes. Oropharynx is pink. Positive dry mucous membranes. No pharyngeal erythema or exudate appreciated. Neck is supple. Cardiovascular: Normal rhythm. Normal S1, S2. No murmurs, rubs, or gallops appreciated Pulmonary: Normal respiratory effort. No rhonchi, rales, or wheezing appreciated. Gastrointestinal: Soft. Nondistended. Nontender. Positive bowel sounds all 4 quadrants, no guarding. Musculoskeletal: Moves all extremities. No calf tenderness. No edema appreciated. Central nervous system: Lethargic but arousable. Oriented to self. Dermatologic: Skin warm and dry. Positive tophi left thumb and bilateral great toes. Assessment and plan: Patient is an 83-year-old female with past medical history significant for hypertension, rhabdomyolysis, near syncope, HUI, toxic metabolic encephalopathy, hypercholesterolemia, depression, and hypothyroidism presented to the emergency room with lethargy. 1. Toxic metabolic encephalopathy. Likely secondary to UTI. Urine culture positive for VRE. Per neurology, Video EEG with no seizure activity. Keppra stopped. Neurology following, recommendations appreciated. MRI brain per radiologist showed no evidence of acute infarct or intracranial hemorrhage; no evidence of mass lesion mass effect or midline shift; mild hydrocephalus associated with increase periventricular T2 signal may represent transependymal edema. MRA brain per radiologist showed no evidence of occlusion or new critical stenosis. Neck MRA per radiologist showed suboptimal study degraded by motion artifact; no evidence of critical stenosis in the common and internal carotid arteries. 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 Continue ASA and Lipitor. Scan reviewed with neurologist, midline shift likely chronic. MRA and MRI brain pending. Continue to monitor closely in the ICU. 2. UTI. Urine culture positive for VRE and pseudomonas. ID consulted. Patient started on Merrem and Ampicillin. Blood cultures with no growth. D/C stephens catheter. 3. HUI. Resolved. Continue to monitor. 4. Hypokalemia. Will replace potassium. Follow up repeat labs in AM. 5. Hypothyroidism. Continue synthroid 6. Hypercholesterolemia. Continue Lipitor 7. History of gout. Continue Colchicine. 8. Depression. Continue paxil 9. GI/DVT prophylaxis. Protonix/ Heparin 10. Patient is a full code. Palliative care consulted.
[2018-07-28] MEDS: Meropenem IV 1 gm in NS 1 GM/50 ML BAG IVPB SCH ×2 (11:19→21:59)
[2018-07-28] MEDS: AMPicillin 2 GM in Sodium Chloride 0.9% 100 ML IVPB SCH ×3 (11:39→23:59)
[2018-07-28] MEDS: Insulin Reg-LOW-Coverage SC SCH ×2 (12:02→17:30)
--- NOTE | 2018-07-28 14:32 | PN ---
DATE: 07/28/2018 SUBJECTIVE: The patient is resting in bed with O2 via nasal cannula, hemodynamically stable. She has VRE of the urine and is in isolation at this time. No significant cough or congestion. No obvious shortness of breath. No obvious pain. PHYSICAL EXAMINATION: Temperature is 98.1, pulse is 55, respirations 14, and BP is 153/61. Skin is warm and dry. Head is atraumatic, normocephalic. Eyes reactive to light. Ears, nose and throat seem to be within normal limits. Neck is supple. No JVD. No thyroid enlargement or lymph nodes. Heart has a regular rate and rhythm. Normal S1, S2. Lungs reveal mild rhonchi bilaterally. Abdomen is soft. Decreased bowel sounds. Genitalia and rectal deferred. Musculoskeletal, no joint deformities. Extremities reveal trace lower extremity edema. Neurologically, the patient is fairly lethargic and at times confused. LABORATORY DATA: Her white count is 5.5, hemoglobin is 10.2, hematocrit 31.6 with platelets of 284,000. The patient's sodium is 140, potassium 4.3, chloride 111, CO2 of 22 with a BUN of 20, creatinine of 1.2. IMPRESSION: This patient has altered mental status with a brain cyst with slight midline shift. No change from last CT. The patient carries a diagnosis of dementia, hyperlipidemia, hypothyroidism and anemia. PLAN: We will continue with the aspirin and subcu heparin, Lipitor, Protonix, Rocephin as well as Synthroid. We will continue to treat aggressively and follow along with the other consultants and the primary care doctor. Rajan Colin MD
--- NOTE | 2018-07-28 16:20 | CON ---
DATE OF CONSULTATION: 07/28/2018 The patient was seen earlier today in ICU. CHIEF COMPLAINT: Positive VRE in the urine culture. HISTORY OF PRESENT ILLNESS: This is an 83-year-old female with hypertension, hyperlipidemia, hypothyroidism, admitted from the half-way because of a change in mental status. The patient has been in the hospital since 07/25/2018 now, and urine culture is positive for VRE, and infectious disease consultation requested. PAST MEDICAL HISTORY: Significant for hypertension, hyperlipidemia, hypothyroidism. The patient has a history of Klebsiella urinary tract infection, history of coag-negative Staph bacteremia, probable contamination, and the patient also has a history of depression and hypothyroidism. The patient had recent hospitalization. PAST SURGICAL HISTORY: No known surgery has been listed. ALLERGIES: THE PATIENT HAS NO KNOWN ALLERGIES. REVIEW OF SYSTEMS: A 12-point review of systems is performed. The patient has had no fevers. The patient was admitted with a change in mental status and today what I am told by nursing staff is the same. There has been no abdominal pain reported. No chest pain. There has been mild shortness of breath, but no cough. PHYSICAL EXAMINATION: The patient is in bed, chronically ill, debilitated with a temperature of 98, heart rate of 58, respiratory rate of 18, blood pressure is 150/60. Examination of HEENT is unremarkable. Neck is supple. Lungs have decreased breath sounds. Heart exam is normal S1 and S2. Abdominal examination is soft, nontender. No organomegaly or rebound or guarding. No masses. LABORATORY EXAMINATION: White count of 5.5, hemoglobin of 10, platelets of 284. Chemistries reveal a BUN of 24, creatinine is 1.3. Urinalysis is noted. The patient has too numerous to count wbc's, many bacteria. Microbiology reveals a Gram-negative jil and Enterococcus faecium. The Enterococcus faecium is sensitive to ampicillin, resistant to vancomycin, sensitive to Zyvox. The patient also had a chest x-ray, which was reported to be bibasilar atelectasis . The patient had an MRI of the brain, no evidence of acute or early subacute infarction. MRA of the brain, no evidence of occlusion or critical stenosis. MRA of the neck, no evidence of critical stenosis. Dr. Redman's consultation is reviewed. Dr. Dalal' progress note from yesterday is reviewed. ASSESSMENT/PLAN: This is an 83-year-old female who has hypertension, hyperlipidemia, hypothyroidism, history of Klebsiella urinary tract infection, history of coag-negative staph bacteremia, most likely a contamination, history of depression, who is on Paxil, now has VRE urinary tract infection, unable to use Zyvox. We will use ampicillin since it is sensitive to ampicillin, intravenously. Because of Paxil and SSRI drug interaction, we will use ampicillin and we will make further recommendations pending response, although I am not sure if this VRE is responsible for change in mental status. We will check on the final blood culture, which is pending. The MRSA nasal screen is negative. The patient also does have a Gram-negative jil, which is 100,000, which has not been thus far identified. We will also treat with cefepime 1 g every 12 hours pending identification of sensitivity to Gram-negative jil. We will try not to use two beta-lactams in this case with limited options. We will readjust based on the identification of sensitivity to Gram-negative jil. VRE may be a pathogen in the urine, which is causing change in mental status as it is Gram negative. Asa Berkowitz MD
[2018-07-29] MEDS ORDERED: Dextrose 50% SYRINGE Inj (50 ml) IVP ONE ×2 (00:08→00:12)
[2018-07-29] MEDS: Insulin Reg-LOW-Coverage SC SCH ×3 (00:39→13:30)
[2018-07-29] MEDS: Potassium Chloride 40 MEQ in Dextrose 5%/0.9% NS 1,000 ML IV SCH ×2 (03:24→13:31)
[2018-07-29] MEDS: AMPicillin 2 GM in Sodium Chloride 0.9% 100 ML IVPB SCH ×3 (05:11→17:17)
[2018-07-29 07:20] LABS: BASO # 0.01 K/mm3 (0.0-2.0); BASO % 0.2 % (0.0-3.0); EOS # 0.2 (0.0-0.7); EOS % 3.2 % (1.5-5.0); GRAN # 4.4 (1.4-6.5); GRAN % 77.4 % (50.0-68.0); HEMOGLOBIN 11.7 g/dL (12.0-16.0); LYMPH # 0.8 (1.2-3.4); LYMPH % 14.3 % (22.0-35.0); MEAN CELL VOLUME 84.8 fl (80.0-105.0); MEAN CORPUSCULAR HEMOGLOBIN 27.8 pg (25.0-35.0); MEAN CORPUSCULAR HGB CONC 32.8 g/dl (31.0-37.0); MEAN PLATELET VOLUME 11.4 fl (7.0-11.0); MONO # 0.3 (0.1-0.6); MONO % 4.9 % (1.0-6.0); RBC 4.21 10^6/uL (3.5-6.1); RED CELL DISTRIBUTION WIDTH 14.8 % (11.5-14.5); WHITE BLOOD COUNT 5.7 10^3/uL (4.5-11.0)
[2018-07-29 07:28] LABS: ALB/GLOB RATIO 1.2 (1.1-1.8); ALBUMIN 3.6 g/dL (3.0-4.8); CALCIUM 9.1 mg/dL (8.4-10.5)
--- NOTE | 2018-07-29 08:18 | PN ---
DATE: 07/29/2018 SUBJECTIVE: The patient is in bed in no acute distress. PHYSICAL EXAMINATION: VITAL SIGNS: On exam, temperature is 98, blood pressure is 170/70, respiratory rate of 18. HEENT: Unremarkable. NECK: Supple. LUNGS: Have decreased breath sounds. HEART: Normal S1, S2. ABDOMEN: Soft, nontender] LABORATORY EXAMINATION: Reveals a white count of 5.7, hemoglobin of 11, platelets of 304. Chemistries reveals a BUN of 14, creatinine of 1.1 and urinalysis is noted and toxicology is reviewed. Microbiology reveals Pseudomonas aeruginosa and Enterococcus which is a vancomycin-resistant Enterococcus in the urine, both organisms in the urine. ASSESSMENT AND PLAN: An 83-year-old female with hypertension, hyperlipidemia, hypothyroidism, in snf. The patient was admitted because of change in mental status and was seen earlier today, the patient has been afebrile, does have Pseudomonas and vancomycin-resistant Enterococcus. The Pseudomonas is sensitive to meropenem and sensitive to cefepime. The patient is also on ampicillin because of the vancomycin-resistant Enterococcus is sensitive to ampicillin. She is short course of antibiotics, today is day #2 of 5-7 days. We will follow with you. Asa Berkowitz MD
--- NOTE | 2018-07-29 08:27 | CON ---
DATE: 07/26/2018 HISTORY OF PRESENT ILLNESS: This is an 83-year-old known demented lady, actually was just here admitted in the hospital for several days about a week and a half ago. Now, she is admitted for an altered mental status. She has a whole host of medical problems. Neurosurgical consult was requested when a CT that was read as showing an arachnoid cyst with 8 mm of midline shift. The patient is markedly obtunded, really cannot get any eye opening; however, interestingly she does follow commands. She is talking a little bit. She does move all her extremities. She squeezes fingers bilaterally. CT of the brain which is absolutely unchanged from the CT of the brain done on 07/11/2018 shows a tremendous amount of encephalomalacia. There is ex vacuo hydrocephalus secondary to atrophy. There is an again ex vacuo, perhaps arachnoid cyst or simple encephalomalacia in the left anterior frontal region. This is not a true midline shift. There was certainly no mass effect. There was no raised intracranial pressure, and the findings on the CT do not in any way explain the patient's obtundation. There is no neurosurgical involvement required in this case and there is certainly, from my standpoint in the intensive care unit Recommend medical followup and perhaps a consideration for not initiating any very aggressive care in this lady. Rojas Laurent MD
[2018-07-29] MEDS: Meropenem IV 1 gm in NS 1 GM/50 ML BAG IVPB SCH ×2 (11:19→21:30)
[2018-07-29] MEDS: Levothyroxine 100 mcg (0.1 mg) Inj IVP SCH (11:20)
--- NOTE | 2018-07-29 13:35 | CP.PCM.PN ---
Subjective - Date & Time of Evaluation Date of Evaluation: 07/29/18 Time of Evaluation: 13:31 - Subjective Subjective: Mrs. Rodriguez was seen and examined today in the ICU. She continues to be lethargic and encephalopathic. EEG was reviewed and did not show any seizures, but was consistent with diffuse slowing. Objective - Vital Signs/Intake and Output Vital Signs (last 24 hours): Temp Pulse Resp BP Pulse Ox 98.3 F 54 L 19 179/67 H 97 07/29/18 04:00 07/29/18 11:12 07/29/18 06:10 07/29/18 11:12 07/29/18 06:10 Intake and Output: 07/29/18 07/29/18 06:59 18:59 Intake Total 1150 Output Total 800 Balance 350 - Medications Medications: Current Medications Acetaminophen (Tylenol 325mg Tab) 325 mg PO Q6 PRN PRN Reason: Pain, Mild (1-3) Amantadine HCl (Amantadine 100 Mg Cap) 100 mg PO DAILY [facility] Last Admin: 07/26/18 11:28 Dose: Not Given Aspirin (Ecotrin) 81 mg PO DAILY [facility] Last Admin: 07/29/18 11:20 Dose: 81 mg Aspirin (Aspirin Supp) 300 mg RC DAILY [facility] Last Admin: 07/28/18 10:44 Dose: 300 mg Atorvastatin Calcium (Lipitor) 40 mg PO QPM [facility] Colchicine (Colocrys) 0.6 mg PO DAILY [facility] Last Admin: 07/26/18 11:28 Dose: Not Given Heparin Sodium (Porcine) (Heparin) 5,000 units SC Q12 [facility]; Protocol Last Admin: 07/29/18 11:20 Dose: 5,000 units Hydralazine HCl (Apresoline) 10 mg IVP Q6 PRN PRN Reason: Systolic Blood Pressure Last Admin: 07/29/18 11:12 Dose: 10 mg Ampicillin 2 gm/ Sodium (Chloride) 100 mls @ 200 mls/hr IVPB Q6 [facility]; Protocol Stop: 08/04/18 12:01 Last Admin: 07/29/18 11:20 Dose: 200 mls/hr Meropenem (Merrem Iv 1 Gm Premix) 1 gm in 50 mls @ 100 mls/hr IVPB Q12 [facility]; Protocol Stop: 08/06/18 10:33 Last Admin: 07/29/18 11:19 Dose: 100 mls/hr Potassium Chloride 40 meq/ (Dextrose/Sodium Chloride) 1,020 mls @ 75 mls/hr IV .[id number] [facility] Last Admin: 07/29/18 03:24 Dose: 75 mls/hr Insulin Human Regular (Humulin R Low) 0 units SC Q6 [facility]; Protocol Last Admin: 07/29/18 06:03 Dose: Not Given Levothyroxine Sodium (Synthroid) 37.5 mcg PO ACB [facility] Last Admin: 07/26/18 08:30 Dose: Not Given Levothyroxine Sodium (Synthroid) 18.75 mcg IVP DAILY [facility] Last Admin: 07/29/18 11:20 Dose: 18.75 mcg Pantoprazole Sodium (Protonix Ec Tab) 40 mg PO 0600 [facility] Last Admin: 07/26/18 06:18 Dose: Not Given Pantoprazole Sodium (Protonix Inj) 40 mg IVP DAILY [facility] Last Admin: 07/29/18 11:20 Dose: 40 mg Paroxetine HCl (Paxil) 40 mg PO DAILY [facility] Last Admin: 07/26/18 11:29 Dose: Not Given - Labs Labs: 07/29/18 05:40 07/29/18 05:40 PT 11.6 SECONDS (9.4-12.5) 07/25/18 23:00 INR 1.02 07/25/18 23:00 APTT 36.3 Seconds (25.1-36.5) 07/25/18 23:00 - Constitutional Appears: Chronically Ill - Head Exam Head Exam: ATRAUMATIC, NORMAL INSPECTION, NORMOCEPHALIC - Eye Exam Eye Exam: EOMI, Normal appearance, PERRL - Neck Exam Neck Exam: Full ROM, Normal Inspection. absent: Lymphadenopathy - Respiratory Exam Respiratory Exam: Clear to Ausculation Bilateral, NORMAL BREATHING PATTERN - Cardiovascular Exam Cardiovascular Exam: REGULAR RHYTHM, +S1, +S2. absent: Murmur - GI/Abdominal Exam GI & Abdominal Exam: Soft, Normal Bowel Sounds. absent: Tenderness - Neurological Exam Neurological Exam: Altered, CN II-XII Intact Neuro motor strength exam: Left Upper Extremity: 3, Right Upper Extremity: 3, Left Lower Extremity: 3, Right Lower Extremity: 3 Additional comments: Confused about location (said she was in [employer]), unable to recall date, but is oriented to person. Assessment and Plan (1) Dementia Assessment & Plan: The patient likely has baseline dementia consistent with her history. However, this is compounded by the existent of metabolic and infectious events. Continue treatment of underlying cause. Status: Acute (2) Toxic metabolic encephalopathy Assessment & Plan: Continue to optimize medical management. EEG does not show seizures, but is consistent with diffuse encephalopathy. Status: Acute
--- NOTE | 2018-07-29 15:02 | CP.PCM.CON ---
History of Present Illness - History of Present Illness History of Present Illness: Palliative consult requested by Stephany Vora Reason: Goals of care and advance care planning 83 year old female with history of dementia, HTN, HLD who was sent from [facility] with lethargy, AMS. The patient was recently [facility] after being treated for Klebsiella UTI, bacteremia,rhabdolmyolosis and AMS, (07/10-07/16). Chest x ray: Hypo inflation, basilar atelectasis, small pleural effusion or thickening of right lung, elevation of right isaias diaphragm. EKG: bradycardia, non specific ST/T wave changes. 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 8mm,asymmetric atrophy of the cerebellum, L>R,cerebral atrophy,white matter ischemia, old right lacunar infarct Brain MRI: No acute findings, no evidence of mass lesion effect or midline [place] ft, mild hydrocephalus with increase periventricular T2 signal which may represent transependymal edema Head/Neck MRA: No evidence of occlusion or stenosis. Labs 07/25: Wbc 9.1, Hgb 11.6, PLT 308,NA 142, K 4.1, BUN 27, Machine Gun Mechanic 1.5, glucose 89, Mg 1.6, AST 50, ALt 37, Alk Phos 86, TCK 229, Troponin 0.02, Tox. screen negative, RPR non reactive. Blood cultures negative, UC/S positive for Psuedomonas Aeruginosa, Enterococcus. EEG: Diffuse slowing, no seizure activity PMHX: HTN, HLD, dementia, hypothyroidism. PSHx: right cataract surgery. Social History: Non smoker, no alcohol or drug use. Lives at home with spouse. Family History: Non contributory Advance Care Planning: The patient does not have an Advance Directive. Review of Systems: As per HPI, the patient is altered/non verbal. Past Patient History - Infectious Disease Hx of Infectious Diseases: None - Past Social History Smoking Status: Never Smoked - CARDIAC Hx Hypertension: Yes - PULMONARY Hx Respiratory Disorders: No Hx Asthma: No Hx Bronchitis: No Hx Chronic Obstructive Pulmonary Disease (COPD): No Hx Emphysema: No Hx Pneumonia: No Hx Respiratory Aspiration: No Hx Respiratory Tract Infection: No Hx Sleep Apnea: No Hx Tuberculosis: No - NEUROLOGICAL Hx Neurological Disorder: Yes Hx Dizziness: Yes - HEENT Hx Cataracts: Yes - ENDOCRINE/METABOLIC Hx Hypothyroidism: Yes - HEMATOLOGICAL/ONCOLOGICAL Hx Blood Disorders: No Hx AIDS: No Hx Anemia: No Hx Cancer: No Hx Chemotherapy: No Hx Cirrhosis: No Hx Hepatitis A: No Hx Hepatitis B: No Hx Hepatitis C: No Hx Human Immunodeficiency Virus (HIV): No Hx Metastesis: No Hx Shingles: No Hx Unexplained Bleeding: No - MUSCULOSKELETAL/RHEUMATOLOGICAL Hx Back Pain: Yes Hx Falls: Yes - GASTROINTESTINAL Hx Gastroesophageal Reflux: Yes - GENITOURINARY/GYNECOLOGICAL Hx Urinary Tract Infection: Yes - PSYCHIATRIC Hx Depression: Yes - SURGICAL HISTORY Hx Cardiac Catheterization: No Hx Coronary Stent: No - ANESTHESIA Hx Anesthesia: No Meds Allergies/Adverse Reactions: Allergies Allergy/AdvReac Type Severity Reaction Status Date / Time No Known Allergies Allergy Verified 07/25/18 22:38 - Medications Medications: Current Medications Acetaminophen (Tylenol 325mg Tab) 325 mg PO Q6 PRN PRN Reason: Pain, Mild (1-3) Amantadine HCl (Amantadine 100 Mg Cap) 100 mg PO DAILY [facility] Last Admin: 07/26/18 11:28 Dose: Not Given Aspirin (Ecotrin) 81 mg PO DAILY [facility] Last Admin: 07/29/18 11:20 Dose: 81 mg Aspirin (Aspirin Supp) 300 mg RC DAILY [facility] Last Admin: 07/29/18 13:30 Dose: Not Given Atorvastatin Calcium (Lipitor) 40 mg PO QPM [facility] Colchicine (Colocrys) 0.6 mg PO DAILY [facility] Last Admin: 07/26/18 11:28 Dose: Not Given Heparin Sodium (Porcine) (Heparin) 5,000 units SC Q12 [facility]; Protocol Last Admin: 07/29/18 11:20 Dose: 5,000 units Hydralazine HCl (Apresoline) 10 mg IVP Q6 PRN PRN Reason: Systolic Blood Pressure Last Admin: 07/29/18 11:12 Dose: 10 mg Hydralazine HCl (Apresoline) 10 mg PO QID PRN PRN Reason: for sbp>160 Ampicillin 2 gm/ Sodium (Chloride) 100 mls @ 200 mls/hr IVPB Q6 [facility]; Protocol Stop: 08/04/18 12:01 Last Admin: 07/29/18 11:20 Dose: 200 mls/hr Meropenem (Merrem Iv 1 Gm Premix) 1 gm in 50 mls @ 100 mls/hr IVPB Q12 [facility]; Protocol Stop: 08/06/18 10:33 Last Admin: 07/29/18 11:19 Dose: 100 mls/hr Potassium Chloride 40 meq/ (Dextrose/Sodium Chloride) 1,020 mls @ 75 mls/hr IV .[id number] [facility] Last Admin: 07/29/18 13:31 Dose: 75 mls/hr Insulin Human Regular (Humulin R Low) 0 units SC Q6 [facility]; Protocol Last Admin: 07/29/18 13:30 Dose: Not Given Levothyroxine Sodium (Synthroid) 37.5 mcg PO ACB [facility] Last Admin: 07/26/18 08:30 Dose: Not Given Levothyroxine Sodium (Synthroid) 18.75 mcg IVP DAILY [facility] Last Admin: 07/29/18 11:20 Dose: 18.75 mcg Lisinopril (Zestril) 10 mg PO DAILY [facility] Pantoprazole Sodium (Protonix Ec Tab) 40 mg PO 0600 [facility] Last Admin: 07/26/18 06:18 Dose: Not Given Pantoprazole Sodium (Protonix Inj) 40 mg IVP DAILY [facility] Last Admin: 07/29/18 11:20 Dose: 40 mg Paroxetine HCl (Paxil) 40 mg PO DAILY [facility] Last Admin: 07/26/18 11:29 Dose: Not Given Physical Exam - Constitutional Appears: Chronically Ill - Head Exam Head Exam: NORMOCEPHALIC - Eye Exam Eye Exam: Normal appearance, PERRL - ENT Exam ENT Exam: Mucous Membranes Moist - Respiratory Exam Respiratory Exam: Decreased Breath Sounds, NORMAL BREATHING PATTERN - Cardiovascular Exam Cardiovascular Exam: REGULAR RHYTHM, +S1, +S2 - GI/Abdominal Exam GI & Abdominal Exam: Hypoactive Bowel Sounds - Extremities Exam Extremities exam: Positive for: pedal edema, pedal pulses present - Neurological Exam Neurological exam: Altered - Skin Skin Exam: Dry, Warm - Additional Findings Additional findings: Palliative performance scale rating 30% Results - Vital Signs Recent Vital Signs: Last Vital Signs Temp 98.3 F 07/29/18 04:00 Pulse 79 07/29/18 14:04 Resp 19 07/29/18 06:10 BP 154/96 H 07/29/18 14:04 Pulse Ox 97 07/29/18 06:10 - Labs Result Diagrams: 07/29/18 05:40 07/29/18 05:40 Labs: Laboratory Results - last 24 hr 07/27/18 07/27/18 07/28/18 11:36 16:36 01:49 WBC RBC Hgb Hct MCV MCH MCHC RDW Plt Count MPV Gran % Lymph % (Auto) [place] % (Auto) Eos % (Auto) Baso % (Auto) Gran # Lymph # (Auto) [place] # (Auto) Eos # (Auto) Baso # (Auto) Sodium Potassium Chloride Carbon Dioxide Anion Gap BUN Creatinine Est GFR ( Amer) Est GFR (Non-Af Amer) POC Glucose (mg/dL) 78 78 64 L Random Glucose Calcium Total Bilirubin AST ALT Alkaline Phosphatase Total Creatine Kinase Total Protein Albumin Globulin Albumin/Globulin Ratio 07/28/18 07/28/18 07/28/18 06:26 11:26 16:06 WBC RBC Hgb Hct MCV MCH MCHC RDW Plt Count MPV Gran % Lymph % (Auto) [place] % (Auto) Eos % (Auto) Baso % (Auto) Gran # Lymph # (Auto) [place] # (Auto) Eos # (Auto) Baso # (Auto) Sodium Potassium Chloride Carbon Dioxide Anion Gap BUN Creatinine Est GFR ( Amer) Est GFR (Non-Af Amer) POC Glucose (mg/dL) 79 73 81 Random Glucose Calcium Total Bilirubin AST ALT Alkaline Phosphatase Total Creatine Kinase Total Protein Albumin Globulin Albumin/Globulin Ratio 07/29/18 07/29/18 07/29/18 00:05 05:40 05:40 WBC 5.7 RBC 4.21 Hgb 11.7 L Hct 35.7 L MCV 84.8 MCH 27.8 MCHC 32.8 RDW 14.8 H Plt Count 304 MPV 11.4 H Gran % 77.4 H Lymph % (Auto) 14.3 L [place] % (Auto) 4.9 Eos % (Auto) 3.2 Baso % (Auto) 0.2 Gran # 4.40 Lymph # (Auto) 0.8 L [place] # (Auto) 0.3 Eos # (Auto) 0.2 Baso # (Auto) 0.01 Sodium 141 Potassium 3.9 Chloride 108 H Carbon Dioxide 25 Anion Gap 12 BUN 14 Creatinine 1.1 Est GFR ( Amer) 57 Est GFR (Non-Af Amer) 47 POC Glucose (mg/dL) 68 Random Glucose 90 Calcium 9.1 Total Bilirubin 0.5 AST 54 H ALT 55 Alkaline Phosphatase 96 Total Creatine Kinase 78 Total Protein 6.7 Albumin 3.6 Globulin 3.1 Albumin/Globulin Ratio 1.2 07/29/18 06:01 WBC RBC Hgb Hct MCV MCH MCHC RDW Plt Count MPV Gran % Lymph % (Auto) [place] % (Auto) Eos % (Auto) Baso % (Auto) Gran # Lymph # (Auto) [place] # (Auto) Eos # (Auto) Baso # (Auto) Sodium Potassium Chloride Carbon Dioxide Anion Gap BUN Creatinine Est GFR ( Amer) Est GFR (Non-Af Amer) POC Glucose (mg/dL) 88 Random Glucose Calcium Total Bilirubin AST ALT Alkaline Phosphatase Total Creatine Kinase Total Protein Albumin Globulin Albumin/Globulin Ratio Assessment & Plan - Assessment and Plan (Free Text) Assessment: 83 year old female with history of HTN, HLD, hypothyroidism, Klebsiella UTI who is admitted with AMS, metabolic encephalopathy,sepsis. The patient is known to me from previous admission. During that admission the patient stated that she did not have an Advanced Directive. She stated that her would make all her medical decisions. I was unable to reach in order to discuss goals of care at that time. The patient was transferred to [facility] for deconditioning and completion of antibiotic therapy Today, the patient is lethargic, barely opens eyes for me when name is called. Unable to follow command. Voice message left for Kamran Reyesol, . Intent to discuss goals of care and advance care planning. Plan: Goals of care and advance care planning Sepsis/ UTI: ID following, recs appreciated. Continue Ampicillin, Merrem, Amantadine. AMS/encephalopathy: Neuro recs reviewed and appreciated Aspiration precautions: Speech and swallow recs reviewed. IVF's DVT prophylaxis GI prophylaxis
--- NOTE | 2018-07-29 15:33 | CP.PCM.PN ---
<Jax Kim - Last Filed: 07/29/18 15:49> Subjective - Date & Time of Evaluation Date of Evaluation: 07/29/18 Time of Evaluation: 15:36 - Subjective Subjective: Resident Jax Kim DO PGY-1 Hospitalist Progress Note for Dr. Vora Pt was seen and examined this morning at bedside. Pt is able to now answer questions and obey commands, but is still only oriented to self. She is currently denying chest pain, SOB, cough, abd pain, dysuria, hematuria and is denying all other acute complaints. Objective - Vital Signs/Intake and Output Vital Signs (last 24 hours): Temp Pulse Resp BP Pulse Ox 98.3 F 79 19 154/96 H 97 07/29/18 04:00 07/29/18 14:04 07/29/18 06:10 07/29/18 14:04 07/29/18 06:10 Intake and Output: 07/29/18 07/29/18 06:59 18:59 Intake Total 1150 Output Total 800 Balance 350 - Medications Medications: Current Medications Acetaminophen (Tylenol 325mg Tab) 325 mg PO Q6 PRN PRN Reason: Pain, Mild (1-3) Amantadine HCl (Amantadine 100 Mg Cap) 100 mg PO DAILY [facility] Last Admin: 07/26/18 11:28 Dose: Not Given Aspirin (Ecotrin) 81 mg PO DAILY [facility] Last Admin: 07/29/18 11:20 Dose: 81 mg Aspirin (Aspirin Supp) 300 mg RC DAILY [facility] Last Admin: 07/29/18 13:30 Dose: Not Given Atorvastatin Calcium (Lipitor) 40 mg PO QPM [facility] Colchicine (Colocrys) 0.6 mg PO DAILY [facility] Last Admin: 07/26/18 11:28 Dose: Not Given Heparin Sodium (Porcine) (Heparin) 5,000 units SC Q12 [facility]; Protocol Last Admin: 07/29/18 11:20 Dose: 5,000 units Hydralazine HCl (Apresoline) 10 mg IVP Q6 PRN PRN Reason: Systolic Blood Pressure Last Admin: 07/29/18 11:12 Dose: 10 mg Hydralazine HCl (Apresoline) 10 mg PO QID PRN PRN Reason: for sbp>160 Ampicillin 2 gm/ Sodium (Chloride) 100 mls @ 200 mls/hr IVPB Q6 [facility]; Protocol Stop: 08/04/18 12:01 Last Admin: 07/29/18 11:20 Dose: 200 mls/hr Meropenem (Merrem Iv 1 Gm Premix) 1 gm in 50 mls @ 100 mls/hr IVPB Q12 [facility]; Protocol Stop: 08/06/18 10:33 Last Admin: 07/29/18 11:19 Dose: 100 mls/hr Potassium Chloride 40 meq/ (Dextrose/Sodium Chloride) 1,020 mls @ 75 mls/hr IV .[id number] [facility] Last Admin: 07/29/18 13:31 Dose: 75 mls/hr Insulin Human Regular (Humulin R Low) 0 units SC Q6 [facility]; Protocol Last Admin: 07/29/18 13:30 Dose: Not Given Levothyroxine Sodium (Synthroid) 37.5 mcg PO ACB [facility] Last Admin: 07/26/18 08:30 Dose: Not Given Levothyroxine Sodium (Synthroid) 18.75 mcg IVP DAILY [facility] Last Admin: 07/29/18 11:20 Dose: 18.75 mcg Lisinopril (Zestril) 10 mg PO DAILY [facility] Pantoprazole Sodium (Protonix Ec Tab) 40 mg PO 0600 [facility] Last Admin: 07/26/18 06:18 Dose: Not Given Pantoprazole Sodium (Protonix Inj) 40 mg IVP DAILY [facility] Last Admin: 07/29/18 11:20 Dose: 40 mg Paroxetine HCl (Paxil) 40 mg PO DAILY [facility] Last Admin: 07/26/18 11:29 Dose: Not Given - Labs Labs: 07/29/18 05:40 07/29/18 05:40 PT 11.6 SECONDS (9.4-12.5) 07/25/18 23:00 INR 1.02 07/25/18 23:00 APTT 36.3 Seconds (25.1-36.5) 07/25/18 23:00 - Constitutional Appears: Well, Non-toxic, No Acute Distress - Head Exam Head Exam: ATRAUMATIC, NORMAL INSPECTION, NORMOCEPHALIC - Eye Exam Eye Exam: EOMI, Normal appearance Pupil Exam: NORMAL ACCOMODATION - Respiratory Exam Respiratory Exam: Decreased Breath Sounds, NORMAL BREATHING PATTERN. absent: Accessory Muscle Use, Rales, Rhonchi, Wheezes - Cardiovascular Exam Cardiovascular Exam: RRR, +S1, +S2. absent: Gallop, Rubs - GI/Abdominal Exam GI & Abdominal Exam: Soft, Normal Bowel Sounds. absent: Guarding, Rigid, Tenderness (also has no suprapubic tenderness or guarding.) - Extremities Exam Extremities Exam: Normal Capillary Refill. absent: Calf Tenderness, Tenderness - Neurological Exam Neurological Exam: Alert, Awake. absent: Oriented x3 (Oriented only to self) - Psychiatric Exam Additional comments: Altered, still only oriented to self - Skin Skin Exam: Dry, Intact, Normal Color, Warm Assessment and Plan - Assessment and Plan (Free Text) Assessment: 83yo female with PMH of HLD, HTN, and Hypothyroidism presented to ED with AMS and UTI. Her AMS is noted to be improving from initial presentation. She is now able to answer questions and respond to commands, but is still only AOx1. Plan: 1. 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 UTI UA positive Urine cx positive for VRE and enterococcus Ampicillin and merem started per ID recs - Day #2 of Day 5-7. Blood cx x 2 no growth to date Continue IVF ID following, recs appreciated 3. BUN/Cr elevation - Improved BUN/Cr stable at 14/1.1 today Continue to monitor closely 4. Hx HLD Continue lipitor 5. Hx hypothyroidism TSH, T3, T4 this admission WNL Continue synthroid 6. PPX: DVT/GI: SC heparin, protonix Full Code NPO Monitor in MICU Dispo: Will await PT eval for recs on if pt can go back to longterm. <Rangasamy,Ajantha - Last Filed: 07/29/18 18:38> Objective - Vital Signs/Intake and Output Vital Signs (last 24 hours): Temp Pulse Resp BP Pulse Ox 98.3 F 70 16 177/69 H 94 L 07/29/18 08:00 07/29/18 17:12 07/29/18 16:20 07/29/18 17:12 07/29/18 16:20 Intake and Output: 07/29/18 07/29/18 06:59 18:59 Intake Total 1150 Output Total 800 Balance 350 - Medications Medications: Current Medications Acetaminophen (Tylenol 325mg Tab) 325 mg PO Q6 PRN PRN Reason: Pain, Mild (1-3) Amantadine HCl (Amantadine 100 Mg Cap) 100 mg PO DAILY [facility] Last Admin: 07/26/18 11:28 Dose: Not Given Aspirin (Ecotrin) 81 mg PO DAILY [facility] Last Admin: 07/29/18 11:20 Dose: 81 mg Aspirin (Aspirin Supp) 300 mg RC DAILY [facility] Last Admin: 07/29/18 13:30 Dose: Not Given Atorvastatin Calcium (Lipitor) 40 mg PO QPM [facility] Last Admin: 07/29/18 17:18 Dose: Not Given Colchicine (Colocrys) 0.6 mg PO DAILY [facility] Last Admin: 07/26/18 11:28 Dose: Not Given Heparin Sodium (Porcine) (Heparin) 5,000 units SC Q12 [facility]; Protocol Last Admin: 07/29/18 11:20 Dose: 5,000 units Hydralazine HCl (Apresoline) 10 mg IVP Q6 PRN PRN Reason: Systolic Blood Pressure Last Admin: 07/29/18 17:12 Dose: 10 mg Hydralazine HCl (Apresoline) 10 mg PO QID PRN PRN Reason: for sbp>160 Ampicillin 2 gm/ Sodium (Chloride) 100 mls @ 200 mls/hr IVPB Q6 [facility]; Protocol Stop: 08/04/18 12:01 Last Admin: 07/29/18 17:17 Dose: 200 mls/hr Meropenem (Merrem Iv 1 Gm Premix) 1 gm in 50 mls @ 100 mls/hr IVPB Q12 [facility]; Protocol Stop: 08/06/18 10:33 Last Admin: 07/29/18 11:19 Dose: 100 mls/hr Potassium Chloride 40 meq/ (Dextrose/Sodium Chloride) 1,020 mls @ 75 mls/hr IV .[id number] [facility] Last Admin: 07/29/18 13:31 Dose: 75 mls/hr Insulin Human Regular (Humulin R Low) 0 units SC Q6 [facility]; Protocol Last Admin: 07/29/18 13:30 Dose: Not Given Levothyroxine Sodium (Synthroid) 37.5 mcg PO ACB [facility] Last Admin: 07/26/18 08:30 Dose: Not Given Levothyroxine Sodium (Synthroid) 18.75 mcg IVP DAILY [facility] Last Admin: 07/29/18 11:20 Dose: 18.75 mcg Lisinopril (Zestril) 10 mg PO DAILY [facility] Pantoprazole Sodium (Protonix Ec Tab) 40 mg PO 0600 [facility] Last Admin: 07/26/18 06:18 Dose: Not Given Pantoprazole Sodium (Protonix Inj) 40 mg IVP DAILY [facility] Last Admin: 07/29/18 11:20 Dose: 40 mg Paroxetine HCl (Paxil) 40 mg PO DAILY [facility] Last Admin: 07/26/18 11:29 Dose: Not Given - Labs Labs: 07/29/18 05:40 07/29/18 05:40 PT 11.6 SECONDS (9.4-12.5) 07/25/18 23:00 INR 1.02 07/25/18 23:00 APTT 36.3 Seconds (25.1-36.5) 07/25/18 23:00 Attending/Attestation - Attestation I have personally seen and examined this patient.: Yes I have fully participated in the care of the patient.: Yes I have reviewed all pertinent clinical information, including history, physical exam and plan: Yes Notes (Text): 07/29/18 18:27 attending note; Patient seen and examined with resident in ICU. patient is alert and awake. Oriented to place. able to tell me the month after few clues. remembers her 's name. Not in any acute distress. Patient is an 83-year-old female with past medical history significant for hypertension, hypercholesterolemia, depression, dementia and hypothyroidism admitted for altered mental status. 1. altered mental status; patient is currently oriented to place. Toxic metabolic encephalopathy. improving slowly. Patient has underlying dementia. Pseudomonas and enterococcus UTI. Currently on IV meropenem and ampicillin. ID evaluation appreciated. Neurology evaluation appreciated. continue aspirin and lipitor. CT head on admission found 8mm mid-line shift, was subsequently admitted to ICU. Further review of prior CT found mid-line shift is chronic MRI brain showed mild hydrocephalus associated with increase periventricular T2 signal may represent transependymal edema MRA head and neck without significant evidence of occlusion or stenosis video EEG is without signs of seizure but shows diffuse slowing Recent echo showed normal chamber size, EF 65%, no pericardial effusion, no vegetation or thrombus noted, mild to moderate aortic regurgitation. 2. Hypothyroidism. Continue synthroid 3. Hypercholesterolemia. Continue Lipitor 4. Depression. Continue home paxil 5. hypertension; continue lisinopril continue GI and DVT prophylaxis. PT evaluation requested. Palliative care evaluation requested. we will discuss with geriatric case manager for planning. Prognosis is poor. 07/29/18 18:36 07/29/18 18:38
[2018-07-29 19:13] VITALS: TEMP 98.7
[2018-07-30 01:59] VITALS: RESP 20; O2SAT 98
[2018-07-30] MEDS: Potassium Chloride 40 MEQ in Dextrose 5%/0.9% NS 1,000 ML IV SCH (04:45)
[2018-07-30] MEDS: AMPicillin 2 GM in Sodium Chloride 0.9% 100 ML IVPB SCH ×4 (06:46→17:08)
[2018-07-30] MEDS: Insulin Reg-LOW-Coverage SC SCH ×3 (06:48→12:00)
[2018-07-30 06:49] LABS: BASO # 0.02 K/mm3 (0.0-2.0); BASO % 0.2 % (0.0-3.0); EOS # 0.1 (0.0-0.7); EOS % 0.5 % (1.5-5.0); GRAN # 9.24 (1.4-6.5); GRAN % 83.5 % (50.0-68.0); HEMOGLOBIN 12.2 g/dL (12.0-16.0); LYMPH # 1.1 (1.2-3.4); MEAN CELL VOLUME 83.1 fl (80.0-105.0); MEAN CORPUSCULAR HEMOGLOBIN 28.2 pg (25.0-35.0); MEAN PLATELET VOLUME 11.4 fl (7.0-11.0); MONO # 0.6 (0.1-0.6); MONO % 5.8 % (1.0-6.0); RBC 4.32 10^6/uL (3.5-6.1); RED CELL DISTRIBUTION WIDTH 15.2 % (11.5-14.5); WHITE BLOOD COUNT 11.1 10^3/uL (4.5-11.0)
[2018-07-30 06:56] LABS: ALB/GLOB RATIO 1.2 (1.1-1.8); ALBUMIN 3.7 g/dL (3.0-4.8); ALT/SGPT 45 U/L (7-56); AST/SGOT 33 U/L (14-36); BLOOD UREA NITROGEN 10 mg/dL (7-21); CALCIUM 9.6 mg/dL (8.4-10.5); GFR NON-AFRICAN AMERICAN 53
[2018-07-30] MEDS: Levothyroxine 25 MCG TAB PO SCH (08:36)
--- NOTE | 2018-07-30 09:04 | CP.PCM.PN ---
<Tc Mckeon - Last Filed: 07/30/18 13:36> Subjective - Date & Time of Evaluation Date of Evaluation: 07/30/18 Time of Evaluation: 09:30 - Subjective Subjective: Tc Mckeon- Internal Medicine Resident- Progress Note on Behalf of Neurology Team Subjective: Patient seen and examined. No acute events overnight. Patient is awake, alert, responds to verbal stimuli, follows some commands however does not answer questions appropriately. 12 point ROS cannot be determined at this time due to altered state Physical Examination: - Constitutional Appears: No Acute Distress - Head Exam Head Exam: ATRAUMATIC, NORMOCEPHALIC - Eye Exam Eye Exam: EOMI - ENT Exam ENT Exam: Mucous Membranes Moist - Neck Exam Neck exam: normal inspection - Respiratory Exam Respiratory Exam: Clear to Auscultation Bilateral. absent: Rales, Wheezes - Cardiovascular Exam Cardiovascular Exam: REGULAR RHYTHM, +S1, +S2 - GI/Abdominal Exam GI & Abdominal Exam: Normal Bowel Sounds, Soft. 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 Neurology was consulted for altered mental status. EKG revealed 56bpm with nonspecific ST wave changes, CT head showed moderate diffuse cortical atrophy of the left cerebral hemisphere, right occipital medial chronic ischemic encephalomalacia, 8.2 mm midline shift to the right side. 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 Eubanks. Objective - Vital Signs/Intake and Output Vital Signs (last 24 hours): Temp Pulse Resp BP Pulse Ox 98.7 F 80 20 135/59 L 98 07/30/18 06:53 07/30/18 06:53 07/30/18 06:53 07/30/18 06:53 07/29/18 22:00 Intake and Output: 07/30/18 07/30/18 06:59 18:59 Intake Total 2040 Output Total 950 Balance 1090 - Medications Medications: Current Medications Acetaminophen (Tylenol 325mg Tab) 325 mg PO Q6 PRN PRN Reason: Pain, Mild (1-3) Amantadine HCl (Amantadine 100 Mg Cap) 100 mg PO DAILY [facility] Last Admin: 07/26/18 11:28 Dose: Not Given Aspirin (Ecotrin) 81 mg PO DAILY [facility] Last Admin: 07/29/18 11:20 Dose: 81 mg Aspirin (Aspirin Supp) 300 mg RC DAILY [facility] Last Admin: 07/29/18 13:30 Dose: Not Given Atorvastatin Calcium (Lipitor) 40 mg PO QPM [facility] Last Admin: 07/29/18 17:18 Dose: Not Given Colchicine (Colocrys) 0.6 mg PO DAILY [facility] Last Admin: 07/26/18 11:28 Dose: Not Given Heparin Sodium (Porcine) (Heparin) 5,000 units SC Q12 [facility]; Protocol Last Admin: 07/29/18 21:31 Dose: 5,000 units Hydralazine HCl (Apresoline) 10 mg IVP Q6 PRN PRN Reason: Systolic Blood Pressure Last Admin: 07/30/18 05:45 Dose: 10 mg Hydralazine HCl (Apresoline) 10 mg PO QID PRN PRN Reason: for sbp>160 Ampicillin 2 gm/ Sodium (Chloride) 100 mls @ 200 mls/hr IVPB Q6 [facility]; Protocol Stop: 08/04/18 12:01 Last Admin: 07/30/18 06:46 Dose: 200 mls/hr Meropenem (Merrem Iv 1 Gm Premix) 1 gm in 50 mls @ 100 mls/hr IVPB Q12 [facility]; Protocol Stop: 08/06/18 10:33 Last Admin: 07/29/18 21:30 Dose: 100 mls/hr Potassium Chloride 40 meq/ (Dextrose/Sodium Chloride) 1,020 mls @ 75 mls/hr IV .[id number] [facility] Last Admin: 07/30/18 04:45 Dose: Not Given Insulin Human Regular (Humulin R Low) 0 units SC Q6 [facility]; Protocol Last Admin: 07/30/18 06:48 Dose: Not Given Levothyroxine Sodium (Synthroid) 37.5 mcg PO ACB [facility] Last Admin: 07/30/18 08:36 Dose: 37.5 mcg Levothyroxine Sodium (Synthroid) 18.75 mcg IVP DAILY [facility] Last Admin: 07/29/18 11:20 Dose: 18.75 mcg Lisinopril (Zestril) 10 mg PO DAILY [facility] Pantoprazole Sodium (Protonix Ec Tab) 40 mg PO 0600 [facility] Last Admin: 07/26/18 06:18 Dose: Not Given Pantoprazole Sodium (Protonix Inj) 40 mg IVP DAILY [facility] Last Admin: 07/29/18 11:20 Dose: 40 mg Paroxetine HCl (Paxil) 40 mg PO DAILY [facility] Last Admin: 07/26/18 11:29 Dose: Not Given - Labs Labs: 07/30/18 05:40 07/30/18 05:40 PT 11.6 SECONDS (9.4-12.5) 07/25/18 23:00 INR 1.02 07/25/18 23:00 APTT 36.3 Seconds (25.1-36.5) 07/25/18 23:00 <Tulio Eubanks - Last Filed: 07/30/18 16:41> Objective - Vital Signs/Intake and Output Vital Signs (last 24 hours): Temp Pulse Resp BP Pulse Ox 98.7 F 92 H 20 136/71 98 07/30/18 06:53 07/30/18 10:01 07/30/18 06:53 07/30/18 13:41 07/29/18 22:00 Intake and Output: 07/30/18 07/30/18 06:59 18:59 Intake Total 2040 Output Total 950 Balance 1090 - Medications Medications: Current Medications Acetaminophen (Tylenol 325mg Tab) 325 mg PO Q6 PRN PRN Reason: Pain, Mild (1-3) Amantadine HCl (Amantadine 100 Mg Cap) 100 mg PO DAILY [facility] Last Admin: 07/26/18 11:28 Dose: Not Given Aspirin (Ecotrin) 81 mg PO DAILY [facility] Last Admin: 07/30/18 10:00 Dose: 81 mg Atorvastatin Calcium (Lipitor) 40 mg PO QPM [facility] Last Admin: 07/29/18 17:18 Dose: Not Given Colchicine (Colocrys) 0.6 mg PO DAILY [facility] Last Admin: 07/30/18 10:00 Dose: 0.6 mg Heparin Sodium (Porcine) (Heparin) 5,000 units SC Q12 [facility]; Protocol Last Admin: 07/30/18 10:01 Dose: 5,000 units Hydralazine HCl (Apresoline) 10 mg IVP Q6 PRN PRN Reason: Systolic Blood Pressure Last Admin: 07/30/18 05:45 Dose: 10 mg Ampicillin 2 gm/ Sodium (Chloride) 100 mls @ 200 mls/hr IVPB Q6 [facility]; Protocol Stop: 08/04/18 12:01 Last Admin: 07/30/18 13:40 Dose: 200 mls/hr Meropenem (Merrem Iv 1 Gm Premix) 1 gm in 50 mls @ 100 mls/hr IVPB Q12 [facility]; Protocol Stop: 08/06/18 10:33 Last Admin: 07/30/18 10:09 Dose: 100 mls/hr Potassium Chloride 40 meq/ (Dextrose/Sodium Chloride) 1,020 mls @ 75 mls/hr IV .[id number] [facility] Last Admin: 07/30/18 04:45 Dose: Not Given Insulin Human Regular (Humulin R Low) 0 units SC Q6 [facility]; Protocol Last Admin: 07/30/18 12:00 Dose: Not Given Levothyroxine Sodium (Synthroid) 37.5 mcg PO ACB [facility] Last Admin: 07/30/18 08:36 Dose: 37.5 mcg Lisinopril (Zestril) 20 mg PO DAILY [facility] Pantoprazole Sodium (Protonix Ec Tab) 40 mg PO 0600 [facility] Last Admin: 07/26/18 06:18 Dose: Not Given Paroxetine HCl (Paxil) 40 mg PO DAILY [facility] Last Admin: 07/26/18 11:29 Dose: Not Given - Labs Labs: 07/30/18 05:40 07/30/18 05:40 PT 11.6 SECONDS (9.4-12.5) 07/25/18 23:00 INR 1.02 07/25/18 23:00 APTT 36.3 Seconds (25.1-36.5) 07/25/18 23:00 Assessment and Plan (1) Dementia Status: Acute (2) Toxic metabolic encephalopathy Status: Acute Attending/Attestation - Attestation I have personally seen and examined this patient.: Yes I have fully participated in the care of the patient.: Yes I have reviewed all pertinent clinical information, including history, physical exam and plan: Yes Notes (Text): 07/30/18 16:40 I agree with the assessment and plan. The patient has advanced dementia and will require chronic, long-term care.
[2018-07-30] MEDS ORDERED: Potassium Phosphate 3 mmol/ml Inj IV STA (09:27)
[2018-07-30] MEDS ORDERED: Magnesium Sulfate 2 gm/50 ml 2 GM/50 ML BAG IVPB ONE (09:27)
[2018-07-30] MEDS ORDERED: Potassium Phosphate 30 MMOLE in Sodium Chloride 0.9% 250 ML IVPB ONE (10:00)
[2018-07-30] MEDS: Meropenem IV 1 gm in NS 1 GM/50 ML BAG IVPB SCH (10:09)
[2018-07-30 10:10] VITALS: PULSE 92
--- NOTE | 2018-07-30 11:19 | CON ---
DATE: 07/29/2018 CONSULT SERVICE: Cardiology. REASON FOR CONSULTATION: Followup bradycardia, admitted with altered mental status, history of hypertension, hyperlipidemia. BRIEF CLINICAL HISTORY: An 83-year-old female with past medical history of hypertension, hyperlipidemia, hypothyroidism, [facility] because of very weak, lethargic,, altered mental status and found to be in bradycardia. Cardiac consult was called. The patient denies any chest pain, shortness of breath, or any palpitation. EKG admitted shows heartbeat of 56, nonspecific ST-T changes noted. PAST MEDICAL HISTORY: Significant for hypertension, hyperlipidemia. PAST SURGICAL HISTORY: Cataract surgery. SOCIAL HISTORY: Lives in [facility]. No history of active tobacco or alcohol abuse. ALLERGIES: NO KNOWN DRUG ALLERGIES. CURRENT MEDICATION: Patient at home was taking colchicine, acetaminophen, Risperdal, aspirin, levothyroxine, atorvastatin, vitamin. REVIEW OF SYSTEMS: As per HPI. PHYSICAL EXAMINATION: VITAL SIGNS: Height of the patient 5 feet, weight of the patient is 125. Body mass index 23 kg/sq m, heart rate 52, blood pressure 170/90. HEENT: PERRLA. Extraocular muscles intact. NECK: Supple. No carotid bruit. No thyromegaly. CHEST: Clear to auscultation. HEART: S1 and S2 regular. ABDOMEN: Soft. EXTREMITIES: Clubbing and cyanosis negative. LABORATORY DATA: Blood workup as follows: WBC 5.7, hemoglobin 11, hematocrit 35.7, platelet count 304. Chemistry shows sodium 141, potassium 3.9, chloride of 108, carbon dioxide 25, anion gap of 12, BUN 14, and creatine 1.1. EKG shows normal sinus rhythm. No acute ST-T changes noted. Troponin 0.02. IMPRESSION: An 83-year-old female with past medical history of hypertension, hypothyroidism, hyperlipidemia, resident of [facility], transferred because of failure to thrive, altered mental status secondary to sepsis. The patient found was to have bradycardia, not in apparent distress. No evidence of acute myocardial infarction, hypertension. RECOMMENDATION: The patient had previous echo on 07/11/2018 that showed ejection fraction of 55%, mild MR, trace TR, no pericardial effusion. Aggressive medical treatment. Avoid weight limiting calcium channel paz or beta-paz. We will start MATY inhibitors. Monitor renal function closely. Further recommendation depending on hospital course. We will follow with you. We will get lipid profile, TSH, hemoglobin A1c. So far, the patient's blood culture is positive. Continue broad-spectrum antibiotics. We will follow with you. Thank you Dr. Mckeon for providing us the opportunity in taking care of the patient, Jennifer. We will follow with you. Zachary Carrillo MD [id number]
--- NOTE | 2018-07-30 11:49 | CP.PCM.PN ---
Subjective - Date & Time of Evaluation Date of Evaluation: 07/30/18 Time of Evaluation: 10:00 - Subjective Subjective: lethargic, opens eyes when name is called, able to follow simple command Objective - Vital Signs/Intake and Output Vital Signs (last 24 hours): Temp Pulse Resp BP Pulse Ox 98.7 F 92 H 20 158/71 H 98 07/30/18 06:53 07/30/18 10:01 07/30/18 06:53 07/30/18 10:01 07/29/18 22:00 Intake and Output: 07/30/18 07/30/18 06:59 18:59 Intake Total 2040 Output Total 950 Balance 1090 - Medications Medications: Current Medications Acetaminophen (Tylenol 325mg Tab) 325 mg PO Q6 PRN PRN Reason: Pain, Mild (1-3) Amantadine HCl (Amantadine 100 Mg Cap) 100 mg PO DAILY [facility] Last Admin: 07/26/18 11:28 Dose: Not Given Aspirin (Ecotrin) 81 mg PO DAILY [facility] Last Admin: 07/30/18 10:00 Dose: 81 mg Atorvastatin Calcium (Lipitor) 40 mg PO QPM [facility] Last Admin: 07/29/18 17:18 Dose: Not Given Colchicine (Colocrys) 0.6 mg PO DAILY [facility] Last Admin: 07/30/18 10:00 Dose: 0.6 mg Heparin Sodium (Porcine) (Heparin) 5,000 units SC Q12 [facility]; Protocol Last Admin: 07/30/18 10:01 Dose: 5,000 units Hydralazine HCl (Apresoline) 10 mg IVP Q6 PRN PRN Reason: Systolic Blood Pressure Last Admin: 07/30/18 05:45 Dose: 10 mg Ampicillin 2 gm/ Sodium (Chloride) 100 mls @ 200 mls/hr IVPB Q6 [facility]; Protocol Stop: 08/04/18 12:01 Last Admin: 07/30/18 06:46 Dose: 200 mls/hr Meropenem (Merrem Iv 1 Gm Premix) 1 gm in 50 mls @ 100 mls/hr IVPB Q12 [facility]; Protocol Stop: 08/06/18 10:33 Last Admin: 07/30/18 10:09 Dose: 100 mls/hr Potassium Chloride 40 meq/ (Dextrose/Sodium Chloride) 1,020 mls @ 75 mls/hr IV .[id number] [facility] Last Admin: 07/30/18 04:45 Dose: Not Given Potassium Phosphate 30 mmole/ (Sodium Chloride) 260 mls @ 42.5 mls/hr IVPB ONCE ONE Stop: 07/30/18 16:07 Last Admin: 07/30/18 10:17 Dose: 42.5 mls/hr Insulin Human Regular (Humulin R Low) 0 units SC Q6 [facility]; Protocol Last Admin: 07/30/18 06:48 Dose: Not Given Levothyroxine Sodium (Synthroid) 37.5 mcg PO ACB [facility] Last Admin: 07/30/18 08:36 Dose: 37.5 mcg Lisinopril (Zestril) 10 mg PO DAILY [facility] Last Admin: 07/30/18 10:01 Dose: 10 mg Pantoprazole Sodium (Protonix Ec Tab) 40 mg PO 0600 [facility] Last Admin: 07/26/18 06:18 Dose: Not Given Paroxetine HCl (Paxil) 40 mg PO DAILY [facility] Last Admin: 07/26/18 11:29 Dose: Not Given - Labs Labs: 07/30/18 05:40 07/30/18 05:40 PT 11.6 SECONDS (9.4-12.5) 07/25/18 23:00 INR 1.02 07/25/18 23:00 APTT 36.3 Seconds (25.1-36.5) 07/25/18 23:00 - Constitutional Appears: Chronically Ill - Eye Exam Eye Exam: Normal appearance, PERRL - ENT Exam ENT Exam: Mucous Membranes Moist - Respiratory Exam Respiratory Exam: Decreased Breath Sounds, NORMAL BREATHING PATTERN - Cardiovascular Exam Cardiovascular Exam: REGULAR RHYTHM, +S1, +S2 - GI/Abdominal Exam GI & Abdominal Exam: Soft, Hypoactive Bowel Sounds - Extremities Exam Extremities Exam: Normal Capillary Refill, Pedal Edema - Neurological Exam Neurological Exam: Altered - Skin Skin Exam: Dry, Pallor Assessment and Plan - Assessment and Plan (Free Text) Assessment: 83 year old female with history of HTN, HLD an hypothyroidism and UTI who is admitted with AMS, UTI and severe deconditioning I spoke with patients via phone. He verifies that the patient does not have an Advanced Directive. Benefits and burdens of CPR/ intubation discussed at length. Husbands states he does not want CPR or intubation. He requested that his be made DNR/DNI. I explained the importance of initiating as POLST directive. intends to meet with me in order to complete POLST directive. Time spent in goals of care and advance care planning discussion, 20 minutes Plan: Advance care planning: DNR/DNI
[2018-07-30 13:46] VITALS: BP 136/71
--- NOTE | 2018-07-30 16:57 | PN ---
DATE: 07/30/2018 SUBJECTIVE: The patient is in bed, seen earlier today in ICU, bed #4. She is comfortable. She had an uneventful night. No fevers. PHYSICAL EXAMINATION: VITAL SIGNS: Temperature is 98, blood pressure is 130/60, respiratory rate of 20, heart rate of 60. Examination of HEENT is unremarkable. NECK: Supple. LUNGS: Have decreased breath sounds. HEART: Normal S1, S2. ABDOMEN: Soft, nontender. LABORATORY EXAMINATION: Reveals a white count of 11,000, hemoglobin of 12, platelets of 443. Chemistries revealed a BUN of 10, creatinine of 1.0 and a procalcitonin 0.10. Urinalysis is noted and toxicology is reviewed. Microbiology reveals Pseudomonas and Enterococcus. Pseudomonas is sensitive to meropenem and Cipro. Enterococcus is VRE, however, sensitive to ampicillin. Review of orders revealed the patient to be on ampicillin 2 g and meropenem. Naima Gongora's note is noted and reviewed. ASSESSMENT AND PLAN: This is an 83-year-old female with hypertension, hyperlipidemia, hypothyroidism, [facility] patient because of change in mental status and with Pseudomonas, VRE, urine as her source. The Pseudomonas is sensitive to p.o. Cipro and the VRE is sensitive to amoxicillin. Today is day #3 of ampicillin and meropenem. We would complete 5-7 days and if necessary maybe able to use p.o. amoxicillin for the Enterococcus and p.o. Cipro for the Pseudomonas to complete the duration as staged today as day #3 of 5-7 days. Review of the EKG shows the QTc to be 440. Asa Berkowitz MD
--- NOTE | 2018-07-30 17:35 | CP.PCM.DIS ---
<Jax Kim - Last Filed: 07/30/18 17:32> Provider - Provider Date of Admission: 07/26/18 01:43 Attending physician: Lacho Vora MD Time Spent in preparation of Discharge (in minutes): 45 Diagnosis - Discharge Diagnosis (1) Altered mental status Status: Acute (2) Toxic metabolic encephalopathy Status: Acute (3) Urinary tract infection Status: Acute Hospital Course - Lab Results Lab Results: Micro Results 07/25/18 23:15 Blood Blood Culture - Preliminary NO GROWTH AFTER 4 DAYS 07/25/18 23:00 Blood Blood Culture - Preliminary NO GROWTH AFTER 4 DAYS 07/26/18 00:45 Urine,Clean Catch Urine Culture - Final Pseudomonas Aeruginosa Enterococcus Faecium 07/26/18 12:00 Nose MRSA Culture (Admit) - Final MRSA NOT DETECTED Most Recent Lab Values WBC 11.1 10^3/uL (4.5-11.0) H D 07/30/18 05:40 RBC 4.32 10^6/uL (3.5-6.1) 07/30/18 05:40 Hgb 12.2 g/dL (12.0-16.0) 07/30/18 05:40 Hct 35.9 % (36.0-48.0) L 07/30/18 05:40 MCV 83.1 fl (80.0-105.0) 07/30/18 05:40 MCH 28.2 pg (25.0-35.0) 07/30/18 05:40 MCHC 34.0 g/dl (31.0-37.0) 07/30/18 05:40 RDW 15.2 % (11.5-14.5) H 07/30/18 05:40 Plt Count 443 10^3/uL (120.0-450.0) 07/30/18 05:40 MPV 11.4 fl (7.0-11.0) H 07/30/18 05:40 Gran % 83.5 % (50.0-68.0) H 07/30/18 05:40 Lymph % (Auto) 10.0 % (22.0-35.0) L 07/30/18 05:40 Mcminn % (Auto) 5.8 % (1.0-6.0) 07/30/18 05:40 Eos % (Auto) 0.5 % (1.5-5.0) L 07/30/18 05:40 Baso % (Auto) 0.2 % (0.0-3.0) 07/30/18 05:40 Gran # 9.24 (1.4-6.5) H 07/30/18 05:40 Lymph # (Auto) 1.1 (1.2-3.4) L 07/30/18 05:40 Mcminn # (Auto) 0.6 (0.1-0.6) 07/30/18 05:40 Eos # (Auto) 0.1 (0.0-0.7) 07/30/18 05:40 Baso # (Auto) 0.02 K/mm3 (0.0-2.0) 07/30/18 05:40 PT 11.6 SECONDS (9.4-12.5) 07/25/18 23:00 INR 1.02 07/25/18 23:00 APTT 36.3 Seconds (25.1-36.5) 07/25/18 23:00 pO2 34 mm/Hg (30-55) 07/26/18 06:45 VBG pH 7.36 (7.32-7.43) 07/26/18 06:45 VBG pCO2 44.0 (40-60) 07/26/18 06:45 VBG HCO3 24.9 mmol/l (21-28) 07/26/18 06:45 VBG O2 Sat (Calc) 62.8 % (40-65) 07/26/18 06:45 VBG Base Excess -0.8 mmol/L (0.0-2.0) L 07/26/18 06:45 Lactate 1.9 mmol/L (0.7-2.1) 07/26/18 06:45 Sodium 141 mmol/L (132-148) 07/30/18 05:40 Potassium 3.8 mmol/L (3.6-5.0) 07/30/18 05:40 Chloride 110 mmol/L (98-107) H 07/30/18 05:40 Carbon Dioxide 21 mmol/L (21-33) 07/30/18 05:40 Anion Gap 14 (10-20) 07/30/18 05:40 BUN 10 mg/dL (7-21) 07/30/18 05:40 Creatinine 1.0 mg/dl (0.7-1.2) 07/30/18 05:40 Est GFR ( Amer) > 60 07/30/18 05:40 Est GFR (Non-Af Amer) 53 07/30/18 05:40 POC Glucose (mg/dL) 108 mg/dL (65-110) 07/30/18 11:35 Random Glucose 141 mg/dL (70-110) H 07/30/18 05:40 Calcium 9.6 mg/dL (8.4-10.5) 07/30/18 05:40 Phosphorus 2.0 mg/dL (2.5-4.5) L 07/30/18 05:40 Magnesium 1.4 mg/dL (1.7-2.2) L 07/30/18 05:40 Iron 70 ug/dL (45-180) 07/26/18 07:30 TIBC 250 ug/dL (265-497) L 07/26/18 07:30 % Saturation 28 % (20-55) 07/26/18 07:30 Ferritin 23.7 ng/mL 07/26/18 07:30 Total Bilirubin 0.5 mg/dL (0.2-1.3) 07/30/18 05:40 AST 33 U/L (14-36) 07/30/18 05:40 ALT 45 U/L (7-56) 07/30/18 05:40 Alkaline Phosphatase 103 U/L (38-126) 07/30/18 05:40 Ammonia < 9 umol/L (9-33) L 07/26/18 04:35 Lactate Dehydrogenase 539 U/L (333-699) 07/25/18 23:00 Total Creatine Kinase 78 U/L (35-230) 07/29/18 05:40 CK-MB (CK-2) 4.7 ng/mL (0.0-3.6) H 07/25/18 23:00 CK-MB (CK-2) % Cancelled 07/25/18 23:00 Troponin I 0.02 ng/mL 07/26/18 13:00 Total Protein 6.8 g/dL (5.8-8.3) 07/30/18 05:40 Albumin 3.7 g/dL (3.0-4.8) 07/30/18 05:40 Globulin 3.1 gm/dL 07/30/18 05:40 Albumin/Globulin Ratio 1.2 (1.1-1.8) 07/30/18 05:40 Triglycerides 255 mg/dL (35-160) H 07/26/18 06:45 Cholesterol 148 mg/dL (130-200) 07/26/18 06:45 LDL Cholesterol Direct 83 mg/dL (0-129) 07/26/18 06:45 HDL Cholesterol 26 mg/dL (29-60) L 07/26/18 06:45 Vitamin B12 329 pg/mL (239-931) 07/26/18 07:30 Folate 7.0 ng/mL 07/26/18 07:30 Procalcitonin 0.10 NG/ML (0.19-0.49) L 07/26/18 06:45 Thyroxine (T4) 8.9 ug/dL (5.5-11.0) 07/26/18 06:45 TSH 3rd Generation 3.86 mIU/mL (0.46-4.68) 07/26/18 06:45 Urine Color Yellow (YELLOW) 07/26/18 00:45 Urine Appearance Sl cloudy (CLEAR) 07/26/18 00:45 Urine pH 7.0 (4.7-8.0) 07/26/18 00:45 Ur Specific [place] 1.015 (1.005-1.035) 07/26/18 00:45 Urine Protein 30 mg/dL (<30 mg/dL) H 07/26/18 00:45 Urine Glucose (UA) Negative mg/dL (NEGATIVE) 07/26/18 00:45 Urine Ketones Negative mg/dL (NEGATIVE) 07/26/18 00:45 Urine Blood Small (NEGATIVE) H 07/26/18 00:45 Urine Nitrate Negative (NEGATIVE) 07/26/18 00:45 Urine Bilirubin Negative (NEGATIVE) 07/26/18 00:45 Urine Urobilinogen 0.2 E.U./dL (<1 E.U./dL) 07/26/18 00:45 Ur Leukocyte Esterase Moderate Annmarie/uL (NEGATIVE) H 07/26/18 00:45 Urine RBC 1 - 3 /hpf (0-2) 10/26/18 00:45 Urine WBC Tntc /hpf (0-6) 07/26/18 00:45 Ur Epithelial Cells 3 - 4 /hpf (0-5) 07/26/18 00:45 Urine Bacteria Many (NEG) 07/26/18 00:45 Urine Opiates Screen Negative (NEGATIVE) 07/26/18 04:35 Urine Methadone Screen Negative (NEGATIVE) 07/26/18 04:35 Ur Barbiturates Screen Negative (NEGATIVE) 07/26/18 04:35 Ur Phencyclidine Scrn Negative (NEGATIVE) 07/26/18 04:35 Ur Amphetamines Screen Negative (NEGATIVE) 07/26/18 04:35 U Benzodiazepines Scrn Negative (NEGATIVE) 07/26/18 04:35 U Oth Cocaine Metabols Negative (NEGATIVE) 07/26/18 04:35 U Cannabinoids Screen Negative (NEGATIVE) 07/26/18 04:35 - Hospital Course Hospital Course: Upon admission Ms. Rodriguez is an 83 year old female with a PMH of hypothyroidism, HLD, HTN, and depression who presented to the [facility] Emergency Department (ED) on 07/25 for several days of lethargy at sub-acute rehab ([facility]). Patient had been admitted to [facility] after a recent hospitalization on 07/11 for rhabdomyolysis, metabolic encephalopathy, urinary tract infection, and bacteremia. Upon initial examination, patient was only responsive to sternal rub. In the ED, an EKG was ordered and revealed [address] wave changes. A CT of the head showed moderate diffuse cortical atrophy of the left cerebral hemisphere, right occipital medial chronic ischemic encephalomalacia, and an 8.2 mm midline shift to the right side. Hospital course Patient was transferred to the ICU after head CT revealed midline shift, though it was later found to be chronic. Brain MRI, Head MRA, and Neck MRA were ordered. Brain MRI showed no evidence of acute infarct or mass lesion, head MRA showed no evidence of occlusion or new critical stenosis, and neck MRA showed no evidence of critical stenosis in the common and internal carotid arteries. Imaging from a prior admission revealed that the midline shift was stable and had not changed. Neurology was consulted and determined that acute neurosurgical intervention was not necessary. An EEG was ordered and revealed diffuse slowing without evidence of seizure. A urine culture revealed growth of vancomycin resistant enterococcus species and pseudomonas auruginosa. Infectious Disease was consulted and started the patient on meropenem and ampicillin. Blood cultures were negative. The following home medications were continued: colchicine, aspirin, atorvastatin, hydralazine, synthroid, and paroxetine. Protonix and Heparin were started for GI/DVT prophylaxis. Per cardiology recommendations, the patient was started on lisinopril. Following medical stabilization, patient's lethargy improved, but patient remained oriented only to self. Palliative care was consulted and spoke with the patient's . Per 's request, patient was made DNR/DNI. For a complete record of hospital course, please refer to the medical record. Upon discharge Patient has been accepted to sub-acute rehab ([facility]) at formerly [facility]. Per Infectious Disease recommendations, patient is to take amoxicillin and cipro. Patient should resume colchicine, aspirin, atorvastatin, hyralazine, synthroid, paroxetine and lisinopril. If patient's symptoms worsen or return, patient is to return to the nearest emergency department. These instructions were communicated to [facility], and MARTÍN understood. Discharge Exam - Head Exam Head Exam: ATRAUMATIC, NORMAL INSPECTION, NORMOCEPHALIC - Eye Exam Eye Exam: EOMI, Normal appearance - Respiratory Exam Respiratory Exam: NORMAL BREATHING PATTERN. absent: Accessory Muscle Use, Rales, Rhonchi, Wheezes, Respiratory Distress - Cardiovascular Exam Cardiovascular Exam: RRR, +S1, +S2. absent: Gallop, Rubs - GI/Abdominal Exam GI & Abdominal Exam: Normal Bowel Sounds, Unremarkable. absent: Guarding, Tenderness - Extremities Exam Extremities exam: normal capillary refill, pedal pulses present - Neurological Exam Neurological exam: Alert Additional comments: Oreinted to self, at baseline mentation per family - Psychiatric Exam Psychiatric exam: Normal Affect, Normal Mood - Skin Skin Exam: Dry, Intact, Normal Color, Warm Discharge Plan - Discharge Medications Prescriptions: AMPicillin [Ampicillin] 2 gm IJ Q6 5 Days #20 vial Ciprofloxacin [Cipro] 500 mg PO BID 5 Days #10 tab - Follow Up Plan Condition: STABLE Disposition: HOME/ ROUTINE Instructions: Generalized Weakness (DC), Urinary Tract Infection in Women (DC), Urinary Tract Infection in Men (DC), Dysuria (GEN), Altered Mental Status (GEN) Additional Instructions: - Please complete the prescribed course of antibiotics as directed: Ampicillin IV and Ciprofloxacin for 5 days. - Please keep the IV line in. - Take rest of medications as prescribed. - Follow up with your PMD, Dr Ram in 1 week. - Please continue taking all of your home medications as directed - Return to the ER for any worsening of symptoms. Referrals: Robert Ram MD [Family Provider] - <Lacho Vora - Last Filed: 07/31/18 18:14> Provider - Provider Date of Admission: 07/26/18 01:43 Attending physician: Lacho Vora MD Hospital Course - Lab Results Lab Results: Micro Results 07/25/18 23:15 Blood Blood Culture - Final NO GROWTH AFTER 5 DAYS 07/25/18 23:15 Blood Gram Stain - Final TEST NOT PERFORMED 07/25/18 23:00 Blood Blood Culture - Final NO GROWTH AFTER 5 DAYS 07/25/18 23:00 Blood Gram Stain - Final TEST NOT PERFORMED 07/26/18 00:45 Urine,Clean Catch Urine Culture - Final Pseudomonas Aeruginosa Enterococcus Faecium 07/26/18 12:00 Nose MRSA Culture (Admit) - Final MRSA NOT DETECTED Most Recent Lab Values WBC 11.1 10^3/uL (4.5-11.0) H D 07/30/18 05:40 RBC 4.32 10^6/uL (3.5-6.1) 07/30/18 05:40 Hgb 12.2 g/dL (12.0-16.0) 07/30/18 05:40 Hct 35.9 % (36.0-48.0) L 07/30/18 05:40 MCV 83.1 fl (80.0-105.0) 07/30/18 05:40 MCH 28.2 pg (25.0-35.0) 07/30/18 05:40 MCHC 34.0 g/dl (31.0-37.0) 07/30/18 05:40 RDW 15.2 % (11.5-14.5) H 07/30/18 05:40 Plt Count 443 10^3/uL (120.0-450.0) 07/30/18 05:40 MPV 11.4 fl (7.0-11.0) H 07/30/18 05:40 Gran % 83.5 % (50.0-68.0) H 07/30/18 05:40 Lymph % (Auto) 10.0 % (22.0-35.0) L 07/30/18 05:40 Mcminn % (Auto) 5.8 % (1.0-6.0) 07/30/18 05:40 Eos % (Auto) 0.5 % (1.5-5.0) L 07/30/18 05:40 Baso % (Auto) 0.2 % (0.0-3.0) 07/30/18 05:40 Gran # 9.24 (1.4-6.5) H 07/30/18 05:40 Lymph # (Auto) 1.1 (1.2-3.4) L 07/30/18 05:40 Mcminn # (Auto) 0.6 (0.1-0.6) 07/30/18 05:40 Eos # (Auto) 0.1 (0.0-0.7) 07/30/18 05:40 Baso # (Auto) 0.02 K/mm3 (0.0-2.0) 07/30/18 05:40 PT 11.6 SECONDS (9.4-12.5) 07/25/18 23:00 INR 1.02 07/25/18 23:00 APTT 36.3 Seconds (25.1-36.5) 07/25/18 23:00 pO2 34 mm/Hg (30-55) 07/26/18 06:45 VBG pH 7.36 (7.32-7.43) 07/26/18 06:45 VBG pCO2 44.0 (40-60) 07/26/18 06:45 VBG HCO3 24.9 mmol/l (21-28) 07/26/18 06:45 VBG O2 Sat (Calc) 62.8 % (40-65) 07/26/18 06:45 VBG Base Excess -0.8 mmol/L (0.0-2.0) L 07/26/18 06:45 Lactate 1.9 mmol/L (0.7-2.1) 07/26/18 06:45 Sodium 141 mmol/L (132-148) 07/30/18 05:40 Potassium 3.8 mmol/L (3.6-5.0) 07/30/18 05:40 Chloride 110 mmol/L (98-107) H 07/30/18 05:40 Carbon Dioxide 21 mmol/L (21-33) 07/30/18 05:40 Anion Gap 14 (10-20) 07/30/18 05:40 BUN 10 mg/dL (7-21) 07/30/18 05:40 Creatinine 1.0 mg/dl (0.7-1.2) 07/30/18 05:40 Est GFR ( Amer) > 60 07/30/18 05:40 Est GFR (Non-Af Amer) 53 07/30/18 05:40 POC Glucose (mg/dL) 108 mg/dL (65-110) 07/30/18 11:35 Random Glucose 141 mg/dL (70-110) H 07/30/18 05:40 Calcium 9.6 mg/dL (8.4-10.5) 07/30/18 05:40 Phosphorus 2.0 mg/dL (2.5-4.5) L 07/30/18 05:40 Magnesium 1.4 mg/dL (1.7-2.2) L 07/30/18 05:40 Iron 70 ug/dL (45-180) 07/26/18 07:30 TIBC 250 ug/dL (265-497) L 07/26/18 07:30 % Saturation 28 % (20-55) 07/26/18 07:30 Ferritin 23.7 ng/mL 07/26/18 07:30 Total Bilirubin 0.5 mg/dL (0.2-1.3) 07/30/18 05:40 AST 33 U/L (14-36) 07/30/18 05:40 ALT 45 U/L (7-56) 07/30/18 05:40 Alkaline Phosphatase 103 U/L (38-126) 07/30/18 05:40 Ammonia < 9 umol/L (9-33) L 07/26/18 04:35 Lactate Dehydrogenase 539 U/L (333-699) 07/25/18 23:00 Total Creatine Kinase 78 U/L (35-230) 07/29/18 05:40 CK-MB (CK-2) 4.7 ng/mL (0.0-3.6) H 07/25/18 23:00 CK-MB (CK-2) % Cancelled 07/25/18 23:00 Troponin I 0.02 ng/mL 07/26/18 13:00 Total Protein 6.8 g/dL (5.8-8.3) 07/30/18 05:40 Albumin 3.7 g/dL (3.0-4.8) 07/30/18 05:40 Globulin 3.1 gm/dL 07/30/18 05:40 Albumin/Globulin Ratio 1.2 (1.1-1.8) 07/30/18 05:40 Triglycerides 255 mg/dL (35-160) H 07/26/18 06:45 Cholesterol 148 mg/dL (130-200) 07/26/18 06:45 LDL Cholesterol Direct 83 mg/dL (0-129) 07/26/18 06:45 HDL Cholesterol 26 mg/dL (29-60) L 07/26/18 06:45 Vitamin B12 329 pg/mL (239-931) 07/26/18 07:30 Folate 7.0 ng/mL 07/26/18 07:30 Procalcitonin 0.10 NG/ML (0.19-0.49) L 07/26/18 06:45 Thyroxine (T4) 8.9 ug/dL (5.5-11.0) 07/26/18 06:45 TSH 3rd Generation 3.86 mIU/mL (0.46-4.68) 07/26/18 06:45 Urine Color Yellow (YELLOW) 07/26/18 00:45 Urine Appearance Sl cloudy (CLEAR) 07/26/18 00:45 Urine pH 7.0 (4.7-8.0) 07/26/18 00:45 Ur Specific [place] 1.015 (1.005-1.035) 07/26/18 00:45 Urine Protein 30 mg/dL (<30 mg/dL) H 07/26/18 00:45 Urine Glucose (UA) Negative mg/dL (NEGATIVE) 07/26/18 00:45 Urine Ketones Negative mg/dL (NEGATIVE) 07/26/18 00:45 Urine Blood Small (NEGATIVE) H 07/26/18 00:45 Urine Nitrate Negative (NEGATIVE) 07/26/18 00:45 Urine Bilirubin Negative (NEGATIVE) 07/26/18 00:45 Urine Urobilinogen 0.2 E.U./dL (<1 E.U./dL) 07/26/18 00:45 Ur Leukocyte Esterase Moderate Annmarie/uL (NEGATIVE) H 07/26/18 00:45 Urine RBC 1 - 3 /hpf (0-2) 07/26/18 00:45 Urine WBC Tntc /hpf (0-6) 07/26/18 00:45 Ur Epithelial Cells 3 - 4 /hpf (0-5) 07/26/18 00:45 Urine Bacteria Many (NEG) 07/26/18 00:45 Urine Opiates Screen Negative (NEGATIVE) 07/26/18 04:35 Urine Methadone Screen Negative (NEGATIVE) 07/26/18 04:35 Ur Barbiturates Screen Negative (NEGATIVE) 07/26/18 04:35 Ur Phencyclidine Scrn Negative (NEGATIVE) 07/26/18 04:35 Ur Amphetamines Screen Negative (NEGATIVE) 07/26/18 04:35 U Benzodiazepines Scrn Negative (NEGATIVE) 07/26/18 04:35 U Oth Cocaine Metabols Negative (NEGATIVE) 07/26/18 04:35 U Cannabinoids Screen Negative (NEGATIVE) 07/26/18 04:35 Attending/Attestation - Attestation I have personally seen and examined this patient.: Yes I have fully participated in the care of the patient.: Yes I have reviewed all pertinent clinical information, including history, physical exam and plan: Yes Notes (Text): 07/31/18 18:10 attending note; Patient seen and examined with resident. patient is alert and awake. Oriented to place. Not in any acute distress. Patient is an 83-year-old female with past medical history significant for hypertension, hypercholesterolemia, depression, dementia and hypothyroidism admitted for altered mental status. 1. Altered mental status; patient is currently oriented to place. Toxic metabolic encephalopathy. improving slowly. Patient has underlying dementia. Pseudomonas and enterococcus UTI. Currently on IV meropenem and ampicillin. ID evaluation appreciated. Neurology evaluation appreciated. continue aspirin and lipitor. CT head on admission found 8mm mid-line shift, was subsequently admitted to ICU. Further review of prior CT found mid-line shift is chronic. MRI brain showed mild hydrocephalus associated with increase periventricular T2 signal may represent transependymal edema. MRA head and neck without significant evidence of occlusion or stenosis video EEG is without signs of seizure but shows diffuse slowing. Recent echo showed normal chamber size, EF 65%, no pericardial effusion, no vegetation or thrombus noted, mild to moderate aortic regurgitation. 2. Hypothyroidism. Continue synthroid 3. Hypercholesterolemia. Continue Lipitor 4. Depression. Continue home paxil 5. hypertension; continue lisinopril continue GI and DVT prophylaxis. PT evaluation appreciated. Palliative care evaluation appreciated. case discussed with case advocate in detail for discharge planning. Prognosis is poor.
--- NOTE | 2018-07-30 18:00 | PN ---
DATE: 07/30/2018 REASON FOR CONSULTATION: Admitted with altered mental status, bradycardia, hypertension, hyperlipidemia, cardiac evaluation. SUBJECTIVE: The patient denies any chest pain, shortness of breath, or any palpitations. PHYSICAL EXAMINATION: VITAL SIGNS: Temperature afebrile, heart rate 92, blood pressure 158/70. HEENT: PERRLA. Extraocular muscles intact. NECK: Supple. No carotid bruits or thyromegaly. CHEST: Clear to auscultation. HEART: S1 and S2 regular. ABDOMEN: Soft. EXTREMITIES: Clubbing and cyanosis negative. LABORATORY DATA: WBC 11.9, hemoglobin 12.2, hematocrit 35.9, platelet count 443. Chemistry shows sodium 141, potassium 3.8, chloride 110, CO2 of 21, anion gap of 14, BUN 10, creatinine 1. IMPRESSIONS: An 83-year-old female with past medical history of hypertension, hypothyroidism, and hyperlipidemia, resident of [facility], transferred due to failure to thrive, altered mental status secondary to sepsis, bradycardia so far no evidence of acute myocardial infarction, history of hypothyroidism, UTI and sepsis. So far hemodynamically stable. No further episode of bradycardia happened. The patient is being treated for possible urinary tract infection and sepsis. Blood pressure 158/70. RECOMMENDATIONS: Hydralazine IV started. Since the patient had started p.o., we will change p.o. medication. We will increase lisinopril to 10 and put p.r.n. hydralazine for systolic more than 170. I will start DVT prophylaxis as well. We will follow. Thank you for providing us the opportunity in taking care of patient, Jennifer Schofield. The patient will be transferred to [facility] because of the altered mental status most likely secondary to sepsis. No evidence of acute DC so far. Zachary Carrillo MD
--- NOTE | 2018-08-01 14:42 | PCM.VEEG ---
Video EEG - Procedure Start Date: 07/26/18 Start Time: 17:49 End Date: 07/27/18 End Time: 19:00 - Interpretation Interictal non-epileptiform abnormalities: none Interictal epileptiform abnormalities: none Ictal epileptiform abnormalities: none Induction procedures: no hyperventilation or photic stimulation - Impression Impression: This is a normal awake and sleep 24 hour video EEG. There is significant intermittent generalized slowing, that indicates a midl to moderate enceph alopathy but is not indicative of epilepsy. There were no clinical or subclinical seizures noted.
== END 2018-07-30 20:27 | DRG 689 ==
LOC: ED 22:23 → ERH 07-26 01:43 → 2RNO 07-26 06:06 → ICU 07-26 12:27
PROVIDERS: ADMIT Internal Medicine; ATTEND Internal Medicine
DX: N39.0 Urinary tract infection, site not specified (principal); G92 Toxic encephalopathy; I67.82 Cerebral ischemia; N17.9 Acute kidney failure, unspecified; G91.9 Hydrocephalus, unspecified; E86.0 Dehydration; E03.9 Hypothyroidism, unspecified; F03.90 Unspecified dementia, unspecified severity, without behavioral disturbance, psychotic disturbance, mood disturbance, and anxiety; E78.5 Hyperlipidemia, unspecified; D64.9 Anemia, unspecified; G93.0 Cerebral cysts; Z16.21 Resistance to vancomycin; B95.2 Enterococcus as the cause of diseases classified elsewhere; B96.5 Pseudomonas (aeruginosa) (mallei) (pseudomallei) as the cause of diseases classified elsewhere; E87.6 Hypokalemia; E78.00 Pure hypercholesterolemia, unspecified; F32.9 Major depressive disorder, single episode, unspecified; I10 Essential (primary) hypertension; K21.9 Gastro-esophageal reflux disease without esophagitis; R62.7 Adult failure to thrive; M10.9 Gout, unspecified; Z66 Do not resuscitate; Z79.82 Long term (current) use of aspirin

== ENCOUNTER 2018-08-03 16:15 | Inpatient (IN) | payer MEDICARE ==
[2018-08-03 16:32] VITALS: BMI 23.6
--- NOTE | 2018-08-03 16:36 | ED PDOC ---
Arrival/HPI - General Time Seen by Provider: 08/03/18 16:20 Historian: Snf EM Caveat: Dementia - History of Present Illness Narrative History of Present Illness (Text): 08/03/18 16:32 Patient is a 83 year old female whose past medical history includes dementia, who presents to the Emergency department [facility] the [facility] with history of decreased oral intake and decreased level of responsiveness. No other history available at this time due to patient's dementia. HPI and ROS limited due to patient's dementia. Past Medical History - Provider Review Nursing Documentation Reviewed: Yes - Infectious Disease Hx of Infectious Diseases: None - Cardiac Hx Hypertension: Yes - Pulmonary Hx Respiratory Disorders: No Hx Asthma: No Hx Bronchitis: No Hx Chronic Obstructive Pulmonary Disease (COPD): No Hx Emphysema: No Hx Pneumonia: No Hx Respiratory Aspiration: No Hx Respiratory Tract Infection: No Hx Sleep Apnea: No Hx Tuberculosis: No - Neurological Hx Neurological Disorder: Yes Hx Dizziness: Yes - HEENT Hx Cataracts: Yes - Endocrine/Metabolic Hx Hypothyroidism: Yes - Hematological/Oncological Hx Blood Disorders: No Hx AIDS: No Hx Anemia: No Hx Cancer: No Hx Chemotherapy: No Hx Cirrhosis: No Hx Hepatitis A: No Hx Hepatitis B: No Hx Hepatitis C: No Hx Metastasis: No Hx Shingles: No Hx Unexplained Bleeding: No - Musculoskeletal/Rheumatological Hx Back Pain: Yes Hx Falls: Yes - Gastrointestinal Hx Gastroesophageal Reflux: Yes - Genitourinary/Gynecological Hx Urinary Tract Infection: Yes - Psychiatric Hx Depression: Yes Hx Substance Use: No - Surgical History Hx Cardiac Catheterization: No Hx Coronary Stent: No - Anesthesia Hx Anesthesia: No Family/Social History - Physician Review Nursing Documentation Reviewed: Yes Family/Social History: Unknown Family HX Smoking Status: Never Smoked Hx Alcohol Use: No Hx Substance Use: No Allergies/Home Meds Allergies/Adverse Reactions: Allergies No Known Allergies Allergy (Verified 07/25/18 22:38) Home Medications: Home Meds Medication Instructions Recorded Confirmed Acetaminophen [Non-Aspirin Pain 325 mg PO Q6 PRN 07/26/18 08/03/18 Relief] Amantadine [Amantadine 100 mg Cap] 100 mg PO DAILY 07/26/18 08/03/18 Aspirin [Adult Low Dose Aspirin EC] 81 mg PO DAILY 07/26/18 08/03/18 Atorvastatin [Lipitor] 40 mg PO QPM 07/26/18 08/03/18 Colchicine [Mitigare] 0.6 mg PO DAILY 07/26/18 08/03/18 Levothyroxine [Synthroid] 37.5 mcg PO DAILY 07/26/18 08/03/18 Pantoprazole [Protonix EC Tab] 40 mg PO DAILY 07/26/18 08/03/18 Paroxetine HCl [Paxil] 40 mg PO DAILY 07/26/18 08/03/18 Risperidone [Risperidone Odt 0.25 mg PO HS 07/26/18 08/03/18 0.25MG] Review of Systems - Review of Systems Systems not reviewed;Unavailable: Dementia Respiratory: absent: SOB Gastrointestinal: Appetite Changes. absent: Vomiting, Hematochezia, Hematemesis Neurological: absent: Focal Weakness Physical Exam - Physical Exam Narrative Physical Exam (Text): 08/03/18 16:35 Head: Atraumatic. Normocephalic. Eyes: EOMI. Conjunctivae are not pale. ENT: Mucous membranes are dry. Oropharynx is clear and symmetric. Neck: Supple. Full ROM. No JVD. No lymphadenopathy. Cardiovascular: Bradycardic. Systolic murmur. Pulmonary/Chest: No evidence of respiratory distress. Clear to auscultation bilaterally. No wheezing, rales or rhonchi. Abdominal: Soft and non-distended. There is no tenderness. No rebound, guarding, or rigidity. No organomegaly. Good bowel sounds. Back: No deformity. Rectal: no gross bleeding Extremities: No pitting edema. No cyanosis. No clubbing. Full range of motion in all extremities. No calf tenderness. Skin: Skin is warm and dry. No petechiae. No purpura. Neurological: Patient will open eyes to verbal stimuli. At times she will communicate verbally. She moves all four extremities. Psychiatric: Poor eye contact. Vital Signs Reviewed: Yes Temperature: Afebrile Blood Pressure: Hypertensive Pulse: Bradycardic Respiratory Rate: Normal Appearance: Positive for: Non-Toxic Medical Decision Making ED Course and Treatment: 08/03/18 16:35 Impression: 83 year old female who presents from [facility] wt history of decreased oral intake and decreased level of responsiveness. Differential Diagnosis included but are not limited to: Plan: -- EKG -- Cardiac Enzyme -- Blood work -- Chest X-ray -- IV fluids -- Urinalysis -- Reassess and disposition Prior Visits: Notes and results from previous visits were reviewed. Patient was last seen in the emergency department on 07/25/18 and was hospitalized for urinary tract infection and altered mental status. Progress Notes: Patient's hx obtained via nursing noted. I subsequently reviewed symptoms and history with PMD Dr. Ram, who has evaluated patient in the ED and patient is reportedly at her baseline. She is conversive, minimally, with DR. Ram and follow simple commands. No respiratory distress. CV stable. With serial exams she appears more alert and interactive with family present, drinks from a straw with no vomiting noted. 08/03/18 17:00 Reviewed imaging studies from 07/26 showing Brain MRI, Head MRA, and Neck MRA. Brain MRI without contrast(07/26/18): Dictator : Darrius Onofre MD IMPRESSION: No evidence of acute infarct or intracranial hemorrhage. No evidence of mass lesion mass effect or midline shift. Mild hydrocephalus associated with increase periventricular T2 signal may represent transependymal edema. Head MRA (07/26/18): Dictator : Darrius Onofre MD IMPRESSION: No evidence of occlusion or new critical stenosis. Neck MRA(07/26/18): Dictator : Darrius Onofre MD IMPRESSION: Suboptimal study degraded by motion artifact. No evidence of critical stenosis in the common and internal carotid arteries. 08/03/18 18:13 Chest X-ray: Dictator : Bhavik Michael MD IMPRESSION: No active disease. Bun/cr slightly elevated. Will hydrate, admit for serial exams, as per Dr. Ram. - Lab Interpretations I have reviewed the lab results: Yes - RAD Interpretation Proof Carrier: Radiologist - EKG Interpretation EKG Interpretation (Text): 08/03/18 20:17 EKG at 1625 normal sinus rhythm with nonspecifc t wave abnormality Interpreted by ED Physician: Yes Type: 12 lead EKG - Scribe Statement The provider has reviewed the documentation as recorded by the Scribe Orville Jackson Provider Scribe Attestation: All medical record entries made by the Scribe were at my direction and personally dictated by me. I have reviewed the chart and agree that the record accurately reflects my personal performance of the history, physical exam, medical decision making, and the department course for this patient. I have also personally directed, reviewed, and agree with the discharge instructions and disposition. Disposition/Present on Arrival - Present on Arrival Any Indicators Present on Arrival: No History of DVT/PE: No History of Uncontrolled Diabetes: No Urinary Catheter: No History Surgical Site Infection Following: None - Disposition Have Diagnosis and Disposition been Completed?: Yes Diagnosis: Dehydration Disposition: HOSPITALIZED Disposition Time: 18:00 Patient Plan: Admission Patient Problems: Current Active Problems Problem Status Onset Dehydration Acute Condition: FAIR
[2018-08-03] MEDS ORDERED: Sodium Chloride 0.9% 500 ML IV STA (16:47)
[2018-08-03 17:43] LABS: BASO # 0.01 K/mm3 (0.0-2.0); BASO % 0.1 % (0.0-3.0); EOS # 0.3 (0.0-0.7); EOS % 3.7 % (1.5-5.0); GRAN # 6.87 (1.4-6.5); GRAN % 81.7 % (50.0-68.0); HEMOGLOBIN 10.9 g/dL (12.0-16.0); LYMPH # 0.6 (1.2-3.4); LYMPH % 6.7 % (22.0-35.0); MEAN CELL VOLUME 87.4 fl (80.0-105.0); MEAN CORPUSCULAR HEMOGLOBIN 27.9 pg (25.0-35.0); MEAN PLATELET VOLUME 11.3 fl (7.0-11.0); MONO # 0.7 (0.1-0.6); MONO % 7.8 % (1.0-6.0); RBC 3.9 10^6/uL (3.5-6.1); RED CELL DISTRIBUTION WIDTH 15.6 % (11.5-14.5); WHITE BLOOD COUNT 8.4 10^3/uL (4.5-11.0)
--- NOTE | 2018-08-03 17:47 | RAD ---
Date of service: 08/03/2018 HISTORY: weakness COMPARISON: 07/25/2018 FINDINGS: LUNGS: No active pulmonary disease. Patient is rotated to the right side. There is no focal consolidation PLEURA: No significant pleural effusion identified, no pneumothorax apparent. CARDIOVASCULAR: No aortic atherosclerotic calcification present. Mild cardiomegaly no pulmonary vascular congestion. OSSEOUS STRUCTURES: No significant abnormalities. VISUALIZED UPPER ABDOMEN: Normal. OTHER FINDINGS: None. IMPRESSION: No active disease.
[2018-08-03 17:50] LABS: INR 0.98; PARTIAL THROMBOPLASTIN TIME 40.9 Seconds (25.1-36.5); PROTHROMBIN TIME 11.2 SECONDS (9.4-12.5)
[2018-08-03 18:14] LABS: ALB/GLOB RATIO 1.1 (1.1-1.8); ALBUMIN 3.3 g/dL (3.0-4.8); ALT/SGPT 39 U/L (7-56); AST/SGOT 27 U/L (14-36); BLOOD UREA NITROGEN 24 mg/dL (7-21); CALCIUM 9.1 mg/dL (8.4-10.5); GFR NON-AFRICAN AMERICAN 53
[2018-08-03 18:25] LABS: TROPONIN I 0.01 ng/mL
[2018-08-03] MEDS: Insulin Reg-LOW-Coverage SC SCH (22:14)
[2018-08-03] MEDS: Dextrose 5%/0.45% NS 1,000 ML IV SCH (23:30)
--- NOTE | 2018-08-04 04:20 | HP ---
DATE OF EXAM: An 83-year-old female who came in brought in from the rehab unit because of not eating and being lethargic whole day was the last few days. HISTORY OF PRESENT ILLNESS: An 83-year-old female with history of hypertension and hypothyroidism, previous admission for the same reason. The patient came in today because she is not progressively getting better. Mental-vasques, she is still poorly responsive. She is not eating, she is not drinking, and concerned about her nutrition status and also mental status not getting better. She is off Risperdal, she is still on paroxetine which is 40 mg once for day, no other new meds, and she is currently on Unasyn IV for UTI. PAST MEDICAL HISTORY: As I mentioned, she did have history of hypothyroidism, depression, chronic osteoarthritis, chronic back pain, history of renal mass in the past benign, also mild hydrocephalus on MRI of the brain. MEDICATIONS: She takes Amantadine 100 mg daily, hydralazine, colchicine 0.6 mg daily, Ecotrin 81, Lipitor 40 mg, Lovenox 40 subcu daily, Paxil 40 daily, Protonix 40 daily, Synthroid 37.5 and Tylenol 32 mg every 6 hours p.r.n. The patient otherwise do well. REVIEW OF SYSTEMS: As in the present illness, she does have change in mental status, cannot be evaluated. Review of systems, she poorly responsive but she is bedridden, she does not walk much, she does not walk at rehab unit and she is not eating or drinking now. PHYSICAL EXAMINATION: VITAL SIGNS: The patient's temperature is 98.1, heart rate 56, blood pressure is 157/55, respirations 18, saturating 96%. HEAD AND NECK: Normal. No JVD. No thyromegaly. CHEST: Clear bilaterally. CARDIAC: First sound, second sound normal. ABDOMEN: Soft, nontender, except in the suprapubic area, there is [id number] tenderness. EXTREMITIES: There is no edema. NEUROLOGIC: The patient is lethargic. She responds to painful stimuli, but she did eventually talking today. She is able to respond verbally to me, but most of the time, she is more lethargic. She does move her upper extremity. She does move her lower extremity. LABORATORY DATA: White count 8.4, hemoglobin 10.9, hematocrit 34.1, platelets 239. Chemistry: Sodium 141, potassium 3.6, chloride 107, bicarb 24, BUN 24, creatinine 1. Liver function test is normal. Albumin globulin normal and troponin is negative. CPK is normal. The patient also had a chest x-ray which was report as no active pulmonary disease. IMPRESSION AND PLAN: This is an 83-year-old female came in with failure to thrive and poor mental status. The patient will be admitted for: 1. IV fluid and hydration. 2. Neurological evaluation of her mental status. The patient does have hydrocephalus. The question is does patient need a feeding tube to assist with her nutrition and giving her the medications and the other thing is we will get a Psychiatry consultation to look at the psychiatric medications. We will Risperdal. We are going to looking to the anxiety medicine, which she can go down to 20 mg. We will discuss that with the psychiatrist and will see how she do. 3. History of urinary tract infections, still waiting for urine sample. We will get Dr. Berkowitz see her before for that and we will try to get a urine sample for her. Continue current management. Follow up clinically. Continue gastrointestinal and deep venous thrombosis prophylaxis. Robert aRm MD
[2018-08-04] MEDS: Insulin Reg-LOW-Coverage SC SCH ×4 (07:59→22:30)
[2018-08-04] MEDS ORDERED: COLCHICINE 0.6 MG PO SCH (10:00)
[2018-08-04] MEDS ORDERED: PAROXETINE HCL 40 MG PO SCH (10:00)
[2018-08-04] MEDS: Levothyroxine 25 MCG TAB PO SCH (10:36)
[2018-08-04] MEDS: Pantoprazole 40 mg EC Tab PO SCH (10:37)
[2018-08-04] MEDS: Enoxaparin 30 mg Syringe SC SCH (10:37)
--- NOTE | 2018-08-04 11:14 | CARD ---
APPROVED REPORT Date of service: 08/03/2018 EKG Measurement Heart [id number] <Conclusion> Normal sinus rhythm Nonspecific T wave abnormality Abnormal ECG
[2018-08-04 17:08] LABS: PH,URINE 6.5 (4.7-8.0); URINE APPEARANCE CLEAR (CLEAR); URINE BILIRUBIN NEGATIVE (NEGATIVE); URINE BLOOD NEGATIVE (NEGATIVE); URINE COLOR LIGHT YELLOW (YELLOW); URINE GLUCOSE (UA) NEGATIVE (NEGATIVE); URINE LEUKOCYTE ESTERASE NEGATIVE Leu/uL (NEGATIVE); URINE PROTEIN NEGATIVE mg/dL (<30 mg/dL); URINE UROBILINOGEN 0.2 E.U./dL (<1 E.U./dL)
[2018-08-04] MEDS: Piperacillin/Tazobact 3.375 gm 100 ML IVPB SCH (22:36)
--- NOTE | 2018-08-04 23:02 | CON ---
DATE: 08/04/2018 HISTORY OF PRESENT ILLNESS: The patient is an 83-year-old female with unknown psychiatry history though does have history of dementia with prior treatment with Risperdal who is admitted to the medical floor because of failure to thrive. According to the patient's admission note, the patient has not been eating very well or drinking, very concerned about her nutrition status. She is also showing prominently negative symptoms and not very responsive to interactions or communicative, which is what I felt as well when I was at her bedside. The patient does not appear malnourished during my visit; however, she is poorly responsive. She does open her eyes when I request her to open her eyes and she can look at me. However, she does not do much more than this even with much prompting. She was not answering basic questions or any questions whatsoever. She appears fairly nonverbal at this time though she does not appear to be responding to internal stimuli. As noted, the patient used to be on Risperdal. It is unclear why it was discontinued. She is on Paxil 40 mg daily, which is generally used to treat depression and anxiety and likely not causing her negative symptoms. Her insight and judgment considered to be poor. Vital signs and labs were reviewed. Relevant psychiatric medications only include Paxil 40 mg daily. Psychiatric history is essentially unknown as the patient's mental status at this time. Apparently, prior records indicate that she used to take Risperdal which was discontinued. She is taking Paxil 40 mg at bedtime, but this is not certainly likely associated with these negative symptoms. Possible that the Risperdal was started because of her diagnosis of dementia. Socially, she resides in the alf and this is where current mental status was first observed. IMPRESSION: Rule out delirium, rule out dementia, rule out major depressive disorder with a component of pseudodementia. If the patient is delirious, this would be considered hypoactive delirium. RECOMMENDATIONS: We will continue Paxil at this time. There is no indication to change the dose. Regarding her negative symptoms, I will start her on low dose of Abilify which might actually help with depression as well as negative symptoms. I will also start a very low dose of Ativan which might also help with anxiety and catatonic symptoms. Psychiatry will continue to follow up and next followup will be on 08/05/[address] Washburn. Yasmin Wood MD
--- NOTE | 2018-08-05 00:36 | CON ---
DATE: 08/04/2018 SUBJECTIVE: The patient is in bed in room 562, bed 2. CHIEF COMPLAINT: Poor intake and change of mental status times several days. HISTORY OF PRESENT ILLNESS: This is an 83-year-old female with past medical history of dementia, detention patient who was recently discharged from the hospital, who was now admitted because of poor intake and change of mental status, and a history of hypertension, hyperlipidemia, hypothyroidism. The patient is really unable to give any information. She is a poor historian. The patient had VRE in the urine in the past, and recent hospitalization, unable to get any information. REVIEW OF SYSTEMS: A 14-point review of systems performed based on nursing information in the chart. There has been no fevers or chills reported. No chest pain reported. There is mild shortness of breath. No abdominal pain. It is unclear if the patient has urinary symptoms or not. PAST MEDICAL HISTORY: Significant for hypertension, hyperlipidemia, hypothyroidism, Klebsiella urinary tract infections and VRE. The patient has a history of coag-negative Staph bacteremia, which was considered to be a probable contamination. The patient also has history of depression and hypothyroidism. Past medical history significant for dementia, Klebsiella urinary tract infection, coag-negative Staph bacteremia, hypertension, hyperlipidemia, hypothyroidism, VRE in the urine, and depression. PAST SURGICAL HISTORY: Significant for orthopedic surgery. The patient also has a history of cataracts and arthritis, and it is listed the patient has diabetes mellitus and anxiety and depression. Past surgical history is as stated. ALLERGIES: THE PATIENT HAS NO KNOWN ALLERGIES. MEDICATIONS: At the detention, include the patient to be on Paxil, insulin, colchicine, and ampicillin. PHYSICAL EXAMINATION: GENERAL: The patient is in bed, in no acute distress, chronically ill, debilitated, end stage. VITAL SIGNS: Temperature of 98; blood pressure is 120/70; respiratory rate of 16; and heart rate of 61, it was up to 98 yesterday. HEENT: Unremarkable. NECK: Supple. LUNGS: Have decreased breath sounds. HEART: Normal S1, S2. ABDOMEN: Soft, nontender. No organomegaly. No rebound. No guarding. SKIN: Examination of skin, as per Nursing description. LABORATORY DATA: Laboratory examination reveals a white count of 11,000 on 07/30/2018. Yesterday's white count was 8.4. BUN of 24 and creatinine is 1.0. Urinalysis is pending. RPR is negative. Microbiology, the patient had Pseudomonas and VRE, sensitive to ampicillin and penicillin; Enterococcus, sensitive to penicillin. ASSESSMENT AND PLAN: This is an 83-year-old female with hypertension, hyperlipidemia, hypothyroidism, detention patient with Pseudomonas and vancomycin-resistant Enterococci in the urine on last admission, on Cipro and ampicillin. The patient should have completed the therapy. On 07/30/2018, the patient was day # three and was recommended to have four more days after that which would have been yesterday on Cipro and ampicillin, now is admitted with a change of mental status and weakness, poor intake. However, the patient is afebrile. Did have tachycardia . Heart rate of 98 and no white count with a chest x-ray, which is reported to be no active disease. No urinalysis is available at this time. Urine cultures not been collected. We will order blood cultures, sputum cultures, urine cultures, and we will start the patient on Zosyn, which would take care of both penicillin sensitive vancomycin-resistant Enterococci and the Pseudomonas. Pending urinalysis, urine culture, and overall prognosis is quite poor. Should consider supportive care for this patient. We will follow closely with you and make further recommendations for this patient who had Pseudomonas and vancomycin-resistant Enterococci urinary tract infection. We will treat with Zosyn. Pending urinalysis, urine culture, blood cultures and initial workup results. Overall, prognosis is quite poor. The patient was discharged on some 07/30/2018. Asa Berkowitz MD
[2018-08-05] MEDS: Insulin Reg-LOW-Coverage SC SCH ×4 (08:25→22:40)
[2018-08-05] MEDS: Levothyroxine 25 MCG TAB PO SCH (10:41)
[2018-08-05] MEDS: Pantoprazole 40 mg EC Tab PO SCH (10:42)
[2018-08-05] MEDS: Enoxaparin 30 mg Syringe SC SCH (10:43)
[2018-08-05] MEDS: Piperacillin/Tazobact 3.375 gm 100 ML IVPB SCH ×2 (10:43→22:44)
--- NOTE | 2018-08-05 14:11 | CT ---
Date of service: 08/05/2018 PROCEDURE: CT Abdomen and Pelvis without intravenous contrast HISTORY: vomiting COMPARISON: None. TECHNIQUE: Technique. Contrast dose: Radiation dose: Total exam DLP = 847.54 mGy-cm. This CT exam was performed using one or more of the following dose reduction techniques: Automated exposure control, adjustment of the mA and/or kV according to patient size, and/or use of iterative reconstruction technique. FINDINGS: LOWER THORAX: There is dense consolidation and air bronchograms in the medial aspect of the left lung base. Smaller areas of consolidation are seen at the right lung base. Mild aortic and coronary artery calcification LIVER: Unremarkable. No gross lesion or ductal dilatation. GALLBLADDER AND BILE DUCTS: 6 mm gallstone. PANCREAS: Unremarkable. No gross lesion or ductal dilatation. SPLEEN: Unremarkable. ADRENALS: Unremarkable. No mass. KIDNEYS AND URETERS: There is a large heterogeneous predominately fatty lesion in the right kidney measuring 3 x 3.5 cm. This is consistent with a myelolipoma VASCULATURE: Unremarkable. No aortic aneurysm. No aortic atherosclerotic calcification or mural plaque present. BOWEL: Unremarkable. No obstruction. No gross mural thickening. APPENDIX: Unremarkable. Normal appendix. PERITONEUM: Unremarkable. No free fluid. No free air. LYMPH NODES: Unremarkable. No enlarged lymph nodes. BLADDER: Unremarkable. REPRODUCTIVE: Unremarkable. BONES: Severe curvature of the spine convex to the left OTHER FINDINGS: None. IMPRESSION: Bibasilar consolidation left greater than right suspicious for pneumonia. No acute intra-abdominal findings.
--- NOTE | 2018-08-05 14:35 | PN ---
DATE: 08/04/2018 SUBJECTIVE: The patient is little bit more alert. She is off Risperdal. No respiratory distress, but she is almost bedridden and swallowing evaluation seen the patient. PHYSICAL EXAMINATION VITAL SIGNS: Temperature 97.6, heart rate 56, blood pressure , respiration 18 and saturation 98% on room air. MENTAL STATUS: She is awake, but she does not talk, poorly responsive to verbal commands. She is sitting and not moving her legs or arms except rarely and otherwise stable. HEAD AND NECK: Normal. No JVD. No thyromegaly. CHEST: Clear bilaterally. CARDIAC: First sound and second sound normal. ABDOMEN: Soft and nontender. EXTREMITIES: No edema. NEUROLOGIC: She has generalized weakness. She is bedridden, seems like she has dementia. She was not eating or chewing her food, although a swallowing evaluation was done was good able to swallow. LABORATORY STUDIES: Blood sugar was 127 and 112. Her BUN last time and creatinine is 1. Urine culture is still pending. Her TSH done was 1.34 and her troponin was normal. IMPRESSION AND PLAN: 1. Worsening mental status, probably chronic dementia with the patient bedridden. We will continue supportive care. Discussed with . The patient is do not resuscitate/do not intubate. We also recommend Pureed diet for her which she is able to manage and we will continue the supportive care, no feeding tube. 2. Urine tract infection, she will get infectious disease consult to evaluate, probably if the patient is stable we will send her back to the rehab unit and we will continue current IV antibiotic, just awaiting infectious disease consultation recommendations. 3. Hypothyroidism, depression. She is Paxil 40, whether Paxil has also a component of making her sleepy and we will get the psychiatry input. Psychiatry consult to see the patient. 4. History of renal mass years, we will get ultrasound of the kidneys and will follow up on that. Robert Ram MD
--- NOTE | 2018-08-05 17:18 | CON ---
DATE: 08/05/2018 CHIEF COMPLAINT: Evaluation of dementia. HISTORY OF PRESENT ILLNESS: This is an 83-year-old woman with past medical history of hypertension, hyperlipidemia, history of depression and anxiety, who came to the hospital from the long term for a decreased p.o. intake, decreased level of responsiveness, and history is limited due to the patient's underlying demented status. 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 The patient was seen here in 07/2018 for metabolic encephalopathy and had an EEG on 07/24/2018, which showed bilateral cerebral dysfunction. No evidence of any epileptiform activity. MRI of the brain was negative for any acute infarct. Currently, she is moving all extremities and is very deconditioned and malnourished. She had an episode of vomiting, so CT abdomen showed some underlying bibasilar consolidation, left worse than right, suspicious for underlying pneumonia. On top of that she does have some possible residual for underlying sepsis, but the procalcitonin was low, and she is mildly dehydrated. PAST MEDICAL HISTORY: As above. FAMILY HISTORY: Noncontributory. SOCIAL HISTORY: No illicit drug use, smoking, or EtOH abuse. MEDICATIONS: Reviewed by nurse's reconciliation sheet. ALLERGIES: NO KNOWN DRUG ALLERGIES. REVIEW OF SYSTEMS: Not obtained due to the patient's underlying mental status. LABORATORY DATA: Sodium is 141, potassium 3.6, chloride 107, carbon dioxide 24, BUN of 24, creatinine 1. Random glucose of 81. PHYSICAL EXAMINATION: GENERAL: The patient is drowsy, lethargic, in no acute distress. HEENT: Atraumatic, normocephalic. PERRLA. Extraocular muscles intact. NECK: Supple. No JVD. No adenopathy noted. LUNGS: Decreased breath sounds bilaterally. No adventitious sounds. HEART: S1 and S2. Normal rate and rhythm. No murmurs, rubs, or gallops. ABDOMEN: Soft, nontender, and nondistended. Bowel sounds are heard. EXTREMITIES: No clubbing. No cyanosis. Peripheral pulses 2+ felt bilaterally. NEUROLOGICAL: The patient is alert and oriented to person, no month or year. Judgment and insight are poor. Recall after 5 minutes is 0/3. Poor attention span. Slow thought process. Cranial nerves II through XII intact. Motor: Deconditioned, slightly increased tone throughout. Moves all extremities equally. No pronator drift seen. Sensory: light touch intact. Proprioception is intact bilaterally. DTRs are 1+ throughout. Coordination and gait deferred for now. IMPRESSION AND PLAN: Ms. Kanwal Rodriguez does have evidence of severe cognitive impairment, superimposed underlying depression, which is worsened by underlying deconditioning and malnourishment, and possibly underlying pneumonia brewing causing worsening mental status from baseline, seen on the CAT scan of the abdomen. At this time, recommend: 1. CT scan of the chest to assess for pneumonia. 2. ID consult for possibly underlying pneumonia for antibiotic therapy. 3. Monitor electrolytes and correct accordingly and adequate hydration. 4. Delirium precautions. 5. Agree with Psychiatry for low-dose antidepressant medications for pseudodementia type. 6. PT/OT and thiamine 100 mg p.o. daily. 7. Once again, continue current present medical management. Thank you for this consult and advised adequate nutrition and take multivitamins through IV fluid. Georgi Prabhakar MD
--- NOTE | 2018-08-05 17:57 | CP.PCM.PN ---
Subjective - Date & Time of Evaluation Date of Evaluation: 08/05/18 Time of Evaluation: 10:15 - Subjective Subjective: Comfortable in bed, no fevers. Objective - Vital Signs/Intake and Output Vital Signs (last 24 hours): Temp Pulse Resp BP Pulse Ox 98 F 57 L 16 131/57 L 96 08/05/18 14:00 08/05/18 14:00 08/05/18 14:00 08/05/18 14:00 08/05/18 14:00 Intake and Output: 08/05/18 08/05/18 06:59 18:59 Intake Total 120 Balance 120 - Medications Medications: Current Medications Acetaminophen (Tylenol 325mg Tab) 325 mg PO Q6 PRN PRN Reason: Pain, Mild (1-3) Amantadine HCl (Amantadine 100 Mg Cap) 100 mg PO DAILY [facility] Last Admin: 08/05/18 10:42 Dose: 100 mg Amlodipine Besylate (Norvasc) 10 mg PO DAILY [facility] Last Admin: 08/05/18 10:42 Dose: 10 mg Aripiprazole (Abilify) 2.5 mg PO HS [facility] Last Admin: 08/04/18 22:30 Dose: Not Given Aspirin (Ecotrin) 81 mg PO DAILY [facility] Last Admin: 08/05/18 10:42 Dose: 81 mg Atorvastatin Calcium (Lipitor) 40 mg PO QPM [facility] Last Admin: 08/04/18 17:42 Dose: Not Given Colchicine (Colocrys) 0.6 mg PO DAILY [facility] Last Admin: 08/05/18 10:42 Dose: 0.6 mg Enoxaparin Sodium (Lovenox) 30 mg SC DAILY [facility]; Protocol Last Admin: 08/05/18 10:43 Dose: 30 mg Hydralazine HCl (Apresoline) 10 mg PO QID PRN PRN Reason: for sbp>160 Last Admin: 08/03/18 21:03 Dose: 10 mg Dextrose/Sodium Chloride (Dextrose 5%/0.45% Ns 1000 Ml) 1,000 mls @ 75 mls/hr IV .[id number] [facility] Last Admin: 08/03/18 23:30 Dose: 75 mls/hr Piperacillin Sod/Tazobactam Sod (Zosyn 3.375 In Ns 100ml) 100 mls @ 25 mls/hr IVPB Q12 [facility]; Protocol Stop: 08/11/18 22:01 Last Admin: 08/05/18 10:43 Dose: 25 mls/hr Insulin Human Regular (Humulin R Low) 0 units SC ACHS [facility]; Protocol Last Admin: 08/05/18 11:44 Dose: Not Given Levothyroxine Sodium (Synthroid) 37.5 mcg PO DAILY [facility] Last Admin: 08/05/18 10:41 Dose: 37.5 mcg Lorazepam (Ativan) 0.25 mg PO AMHS [facility]; Protocol Last Admin: 08/05/18 10:45 Dose: Not Given Losartan Potassium (Cozaar) 25 mg PO DAILY [facility] Last Admin: 08/05/18 10:43 Dose: 25 mg Ondansetron HCl (Zofran Inj) 4 mg IVP Q4H PRN PRN Reason: Nausea/Vomiting Last Admin: 08/05/18 12:21 Dose: 4 mg Pantoprazole Sodium (Protonix Ec Tab) 40 mg PO DAILY [facility] Last Admin: 08/05/18 10:42 Dose: 40 mg Paroxetine HCl (Paxil) 40 mg PO DAILY [facility] Last Admin: 08/05/18 10:43 Dose: 40 mg Thiamine HCl (Vitamin B1 Inj) 100 mg IM DAILY [facility] - Labs Labs: 08/03/18 17:32 08/03/18 17:32 PT 11.2 SECONDS (9.4-12.5) 08/03/18 17:32 INR 0.98 08/03/18 17:32 APTT 40.9 Seconds (25.1-36.5) H 08/03/18 17:32 - Constitutional Appears: Chronically Ill - Head Exam Head Exam: NORMAL INSPECTION - Respiratory Exam Respiratory Exam: Decreased Breath Sounds - Cardiovascular Exam Cardiovascular Exam: +S1, +S2 - GI/Abdominal Exam GI & Abdominal Exam: Soft. absent: Tenderness Assessment and Plan - Assessment and Plan (Free Text) Plan: Assessment consider bilateral lower lobe HCAP history of UTI with VRE and Pseudomonas, S/P treatment with antibiotics HTN dyslipidemia hypothyroidism depression Plan continue patient on Zosyn day 2 to complete 4-7 days of antibiotics follow up urine cx blood cx are negative overall prognosis is poor
--- NOTE | 2018-08-05 19:16 | PN ---
DATE: 08/05/2018 SUBJECTIVE: In short, the patient is an 83-year-old female with a known previous psychiatric history. The patient has history of dementia, prior treatment with Risperdal, who was admitted on the medical floor because of failure to thrive. The patient was seen by Dr. Wood over the weekend. Notes reviewed. The patient was seen today by this typewriter operator automatic. The patient is deeply sedated, was not able to participate in interview. Dr. Wood's impression was delirium, rule out dementia. Dr. Wood recommended to continue Paxil, Abilify was started with small doses. This typewriter operator automatic attempted to speak to the nursing staff. The patient is very sedated. Abilify was on hold. This typewriter operator automatic reviewed vital signs. PHYSICAL EXAMINATION: VITAL SIGNS: Vital signs seemed to be stable. Temperature 98.0, pulse 57, blood pressure 131/57, respirations 16, oxygen saturation is 96. MEDICATIONS: Reviewed. The patient is on Tylenol, amantadine, Norvasc, Abilify was not given because the patient was sedated, aspirin, Lipitor, colchicine, dextrose, Lovenox, hydralazine, Humulin, Synthroid, Ativan 0.25 mg twice a day, but it was not given to the patient overnight, Protonix, Paxil 40 mg daily was given to the patient today. The patient is on Zosyn and thiamine. LABORATORY DATA: Reviewed. Coagulation reviewed. Chemistries reviewed. Urinalysis reviewed. MENTAL STATUS EXAMINATION: The patient is deeply sedated, was not able to participate in interview. IMPRESSION: Most likely, as far the patient is delirious and demented, hypoactive delirium needs to be ruled out. PLAN: Continue current management. Continue current medication. We will follow up and advise accordingly. Thank you very much for letting me participate in care of your patient. Dania Washburn MD
[2018-08-05] MEDS: Thiamine 100 mg/ml Inj IM SCH (19:46)
[2018-08-06] MEDS: Piperacillin/Tazobact 3.375 gm 100 ML IVPB SCH ×2 (06:32→21:32)
[2018-08-06] MEDS: Insulin Reg-LOW-Coverage SC SCH ×4 (08:53→22:11)
[2018-08-06 09:50] LABS: HEMOGLOBIN 10.5 g/dL (12.0-16.0); MEAN CELL VOLUME 84.9 fl (80.0-105.0); MEAN CORPUSCULAR HEMOGLOBIN 27.8 pg (25.0-35.0); MEAN CORPUSCULAR HGB CONC 32.7 g/dl (31.0-37.0); RBC 3.78 10^6/uL (3.5-6.1); RED CELL DISTRIBUTION WIDTH 14.7 % (11.5-14.5); WHITE BLOOD COUNT 6.9 10^3/uL (4.5-11.0)
[2018-08-06 10:06] LABS: BLOOD UREA NITROGEN 10 mg/dL (7-21); CALCIUM 8.1 mg/dL (8.4-10.5); GFR NON-AFRICAN AMERICAN 53
[2018-08-06] MEDS: Enoxaparin 30 mg Syringe SC SCH (10:30)
[2018-08-06] MEDS: Levothyroxine 25 MCG TAB PO SCH (10:31)
[2018-08-06] MEDS: Pantoprazole 40 mg EC Tab PO SCH (10:35)
[2018-08-06] MEDS: Thiamine 100 mg/ml Inj IM SCH (10:37)
--- NOTE | 2018-08-06 11:12 | PN ---
DATE: 08/06/2018 FOLLOWUP SUBJECTIVE: The patient is a 83-year-old female. The patient was admitted on the medical site for dehydration and failure to thrive. The patient was seen by Dr. Wood. Impression was delirium and rule out dementia. The patient was seen by this chief underwriter yesterday, followup today. The patient presented with hypoactive delirium, also catatonia cannot be excluded. The patient was able to open her eyes, say hello and fall asleep back again. The patient is not moving and the patient presented with some psychomotor retardation. In regards of vital signs, it seems to be stable. Temperature 98, pulse is 59, blood pressure 129/64, respirations 16, oxygen saturation is 95. Medications reviewed. The patient is on aspiration precaution. That is why this chief underwriter would switch Ativan from the p.o. to IV push to help with catatonic stage, Abilify was not given to the patient because the patient is on aspiration precaution and also the patient is lethargic. Labs reviewed, most recent was from today. Chemistry reviewed from today. Urinalysis was negative. Microbiology reviewed urine was positive for yeast species. MENTAL STATUS EXAMINATION: As this chief underwriter described above, the patient presented to be lethargic, hypoactive, psychomotor retardation. The patient was not able to participate in interview. IMPRESSION: Most likely, the patient has hypoactive delirium, rule out catatonia, questionable history of dementia. PLAN: This chief underwriter will start 0.25 mg of Ativan IV push because the patient has catatonia and hypoactive delirium to find out and we will follow up if the patient will be improving. 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 We will continue current management, current medications. Family needs to be involved. Should you have any questions, give me a call back. We will follow up and advise accordingly. Thank you very much for letting me participate in the care of your patient. Dania Washburn MD
--- NOTE | 2018-08-06 11:35 | PN ---
DATE: 08/05/2018 SUBJECTIVE: The patient in the bedside. She is more sedated and not communicating. However, she opened her eyes. She does not move much. She is bedridden. She is able to eat more of a liquid diet and pureed diet. She is not in any respiratory distress. She is stable otherwise. PHYSICAL EXAMINATION: VITAL SIGNS: Temperature is 97.9, heart rate 54, blood pressure 129/62, respirations 20, sat 98%. HEAD AND NECK: Normal. No JVD. No thyromegaly. CHEST: Clear bilaterally. Diminished breath sounds. CARDIAC: First sound and second sound normal. No murmur, rub, or gallop. ABDOMEN: Soft, nontender. EXTREMITIES: No edema. NEUROLOGIC: The patient does not move much, but she is able to move her hands and able to move her legs, responds to painful stimuli. Sometimes, she follows commands, sometimes very poorly, but sometimes she does not talk. She is more of very sedated. LABORATORY STUDIES: She had a blood sugar of 119, otherwise she is stable. The patient also had a blood culture, which is negative. Urine culture is not available yet. IMPRESSION AND PLAN: 1. Change in mental status, probably worsening, could be medication effect. Currently, she is getting Abilify, which is on hold, which I agree. Maybe, the patient does not need it. We will continue Paxil 40 mg. She is also on Ativan. We will discuss with psychiatrist about it. 2. Hypertension, stable. 3. History of depression with worsening neuropsychiatric conditions, probably related to her dementia, so we will follow up with the neurologist and psychiatrist on these cases. 4. 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 Continue current therapy. Current medications: She is getting MATY, amantadine, hydralazine 10 mg four times a day, Ativan 0.25 p.o. b.i.d., colchicine once a day 0.6, losartan 25 daily, IV fluids, aspirin 81, insulin coverage low algorithm, Lipitor 40, Lovenox 30, Norvasc 10, Paxil 40, Protonix 40, Synthroid 37.5, Tylenol p.r.n., Zofran, vitamin B1 injection, and Zosyn. Continue current therapy. 5. The patient has a history of urinary tract infection, vancomycin-resistant Enterococcus and ampicillin and Cipro were started in the rehabilitation unit which were switched to Zosyn. We will discuss with the ID hematology oncology consultant about the therapy. Urine sample is not collected yet. Continue current therapy for now. The patient is DNR/DNI. Probably, we will discuss with the . We will keep the patient comfortable. Robert Ram MD
--- NOTE | 2018-08-06 13:39 | CP.PCM.CON ---
History of Present Illness - History of Present Illness History of Present Illness: Palliative consult requested by Dr Rj Ram Reason: Goals of care 83 year old female with history of HTN, HLD, hypothyroidism,UTI who was sent from [facility] with AMS, poor appetite,deconditioning. The patient was admitted one week ago with similar symptoms. Last admission>EEG showed significant intermittent generalized slowing indicative of moderate encephalopathy, no seizure activity. MRA of head /neck negative for stenosis. MRI of brain mild hydrocephalus associated with increase periventricular T2 signal. EKG: NSR, NS T wave changes Chest X ray: No active disease CT of Ab/pelvis: Bibasilar consolidation L> R, suspicious for pneumonia, no ot her findings. Labs: Wbc 8.4, Hgb 10.9, Plt 239, Na 141, K 3.6, Bun 24, Clinical Program Consultant 1.0, glucose 81, AST 27, ALT 29,albumin 3.1, Procalcitonin 0.07. TSH 1.34, Blood cultures negative. Urine c/s with yeast PSH: HTN, HLD, hypothyroidism,UTI, bacteremia,AMS. PSHx: right cataract surgery Social History: Non smoker, no alcohol or drug use. Was living with spouse, last few weeks at hospitalization> [facility]. Family History Non contributory Advance Care Planning: The patient is DNR/DNI. Review of Systems: As per HPI, patient is non verbal, unable to obtain Past Patient History - Infectious Disease Hx of Infectious Diseases: None - Past Social History Smoking Status: Never Smoked - CARDIAC Hx Hypertension: Yes - PULMONARY Hx Respiratory Disorders: No Hx Asthma: No Hx Bronchitis: No Hx Chronic Obstructive Pulmonary Disease (COPD): No Hx Emphysema: No Hx Pneumonia: No Hx Respiratory Aspiration: No Hx Respiratory Tract Infection: No Hx Sleep Apnea: No Hx Tuberculosis: No - NEUROLOGICAL Hx Neurological Disorder: Yes Hx Dementia: Yes Hx Dizziness: Yes - HEENT Hx Cataracts: Yes - ENDOCRINE/METABOLIC Hx Hypothyroidism: Yes - HEMATOLOGICAL/ONCOLOGICAL Hx Blood Disorders: No Hx AIDS: No Hx Anemia: No Hx Cancer: No Hx Chemotherapy: No Hx Cirrhosis: No Hx Hepatitis A: No Hx Hepatitis B: No Hx Hepatitis C: No Hx Metastesis: No Hx Shingles: No Hx Unexplained Bleeding: No - MUSCULOSKELETAL/RHEUMATOLOGICAL Hx Arthritis: Yes - GASTROINTESTINAL Hx Gastroesophageal Reflux: Yes - GENITOURINARY/GYNECOLOGICAL Hx Urinary Tract Infection: Yes - PSYCHIATRIC Hx Depression: Yes Hx Substance Use: No - SURGICAL HISTORY Hx Cardiac Catheterization: No Hx Coronary Stent: No - ANESTHESIA Hx Anesthesia: No Meds Home Medications: Home Medication List Medication Instructions Recorded Confirmed Type Piperacill/Tazo 3.375gm in Dex 3.375 gm IVPB Q8H 5 Days bag 08/06/18 Rx [Zosyn 3.375 Gm IV] Allergies/Adverse Reactions: Allergies Allergy/AdvReac Type Severity Reaction Status Date / Time No Known Allergies Allergy Verified 07/25/18 22:38 - Medications Medications: Current Medications Acetaminophen (Tylenol 325mg Tab) 325 mg PO Q6 PRN PRN Reason: Pain, Mild (1-3) Amantadine HCl (Amantadine 100 Mg Cap) 100 mg PO DAILY [facility] Last Admin: 08/05/18 10:42 Dose: 100 mg Amlodipine Besylate (Norvasc) 10 mg PO DAILY [facility] Last Admin: 08/06/18 10:33 Dose: 10 mg Aripiprazole (Abilify) 2.5 mg PO HS [facility] Last Admin: 08/05/18 22:40 Dose: Not Given Aspirin (Ecotrin) 81 mg PO DAILY [facility] Last Admin: 08/06/18 10:36 Dose: 81 mg Atorvastatin Calcium (Lipitor) 40 mg PO QPM [facility] Last Admin: 08/05/18 19:43 Dose: Not Given Colchicine (Colocrys) 0.6 mg PO DAILY [facility] [place] Last Admin: 08/06/18 10:36 Dose: 0.6 mg Enoxaparin Sodium (Lovenox) 30 mg SC DAILY [facility]; Protocol Last Admin: 08/06/18 10:30 Dose: 30 mg Hydralazine HCl (Apresoline) 10 mg PO QID PRN PRN Reason: for sbp>160 Last Admin: 08/03/18 21:03 Dose: 10 mg Dextrose/Sodium Chloride (Dextrose 5%/0.45% Ns 1000 Ml) 1,000 mls @ 75 mls/hr IV .[id number] [facility] Last Admin: 08/03/18 23:30 Dose: 75 mls/hr Piperacillin Sod/Tazobactam Sod (Zosyn 3.375 In Ns 100ml) 100 mls @ 25 mls/hr IVPB Q8 [facility]; Protocol Stop: 08/12/18 22:01 Last Admin: 08/06/18 06:32 Dose: 25 mls/hr Insulin Human Regular (Humulin R Low) 0 units SC ACHS [facility]; Protocol Last Admin: 08/06/18 08:53 Dose: Not Given Levothyroxine Sodium (Synthroid) 37.5 mcg PO DAILY [facility] Last Admin: 08/06/18 10:31 Dose: 37.5 mcg Lorazepam (Ativan) 0.25 mg IVP TID [facility]; Protocol Last Admin: 08/06/18 10:38 Dose: 0.25 mg Losartan Potassium (Cozaar) 25 mg PO DAILY [facility] Last Admin: 08/06/18 10:36 Dose: 25 mg Ondansetron HCl (Zofran Inj) 4 mg IVP Q4H PRN PRN Reason: Nausea/Vomiting Last Admin: 08/05/18 19:42 Dose: 4 mg Pantoprazole Sodium (Protonix Ec Tab) 40 mg PO DAILY [facility] Last Admin: 08/06/18 10:35 Dose: 40 mg Paroxetine HCl (Paxil) 40 mg PO DAILY [facility] Last Admin: 08/06/18 10:35 Dose: 40 mg Thiamine HCl (Vitamin B1 Inj) 100 mg IM DAILY [facility] Last Admin: 08/06/18 10:37 Dose: 100 mg Physical Exam - Constitutional Appears: Cachectic, Chronically Ill - Head Exam Head Exam: NORMOCEPHALIC - Eye Exam Eye Exam: Normal appearance, PERRL - ENT Exam ENT Exam: Mucous Membranes Moist - Neck Exam Neck exam: Positive for: Normal Inspection - Respiratory Exam Respiratory Exam: Decreased Breath Sounds, NORMAL BREATHING PATTERN - Cardiovascular Exam Cardiovascular Exam: REGULAR RHYTHM, +S1, +S2 - GI/Abdominal Exam GI & Abdominal Exam: Hypoactive Bowel Sounds, Soft Additional comments: no tenderness - Extremities Exam Extremities exam: Positive for: normal capillary refill, pedal edema - Neurological Exam Neurological exam: Altered - Skin Skin Exam: Dry, Pallor - Additional Findings Additional findings: palliative performance scale rating 30% Results - Vital Signs Recent Vital Signs: Last Vital Signs Temp 98 F 08/06/18 06:00 Pulse 59 L 08/06/18 06:00 Resp 16 08/06/18 06:00 BP 129/64 08/06/18 10:33 Pulse Ox 95 08/06/18 06:00 - Labs Result Diagrams: 08/06/18 09:45 11/06/18 09:45 Labs: Laboratory Results - last 24 hr 08/05/18 08/05/18 08/06/18 15:58 21:01 06:59 WBC RBC Hgb Hct MCV MCH MCHC RDW Plt Count MPV Sodium Potassium Chloride Carbon Dioxide Anion Gap BUN Creatinine Est GFR ( Amer) Est GFR (Non-Af Amer) POC Glucose (mg/dL) 101 133 H 94 Random Glucose Calcium 08/06/18 08/06/18 08/06/18 09:45 09:45 11:18 WBC 6.9 RBC 3.78 Hgb 10.5 L Hct 32.1 L MCV 84.9 MCH 27.8 MCHC 32.7 RDW 14.7 H Plt Count 211 MPV 11.0 Sodium 140 Potassium 3.2 L Chloride 105 Carbon Dioxide 27 Anion Gap 11 BUN 10 Creatinine 1.0 Est GFR ( Amer) > 60 Est GFR (Non-Af Amer) 53 POC Glucose (mg/dL) 107 Random Glucose 105 Calcium 8.1 L Assessment & Plan - Assessment and Plan (Free Text) Assessment: 83 year old female with history of HTN,HLD,hypothyroidism and UTI who is admitted with AMS questionable dementia,delerium, possible pneumonia. The patient is known to me from previous admissions. She presents with AMS, poor appetite,dyspahgia and severe deconditioning. She is bed bound, she is not responding to command. I spoke with patients , Kamran Rodriguez via phone daring last admission. At that time he requested she be made DNR/DNI. He was expected to complete a POLST at that time but did not do so. manager transport, Sam Duckworth and I met with Mr. Rodriguez. We explained that hsi could not return to rehab beauce she is unable to participate in PT/O. We also explained that patient si not eating and drinking enough to sustain her health. does not want feeding tube. Hospice services explained in detail. Questions answered. is agreeable to meeting with student liaison officer to discuss transitioning to home with these services. POLST DNR/DNI directive completed, a copy is placed in the patients chart Time spent with in goals of care and advance care planning, 60 minutes Plan: Goals of care and advance care planning< POLST: DNR/DNI Hospice eval Pneumonia/UTI: Blood and urine cultures negative. On Zosyn, Amantadine,ID following AMS/deleruim/dementia: Psych following, continue Abilify, Paxil, Ativan. Dyspaghia: Speech/swallow eval. Aspiration precautions. Cardio: Continue Norvasc, Lipitor, Ecotrin, Apresoline, DVT prophylaxis Hypothyroidism: Synthroid
--- NOTE | 2018-08-06 14:52 | CP.PCM.PN ---
Subjective - Date & Time of Evaluation Date of Evaluation: 08/06/18 Time of Evaluation: 10:35 - Subjective Subjective: No fevers, not in distress. Objective - Vital Signs/Intake and Output Vital Signs (last 24 hours): Temp Pulse Resp BP Pulse Ox 98 F 57 L 16 131/57 L 96 08/05/18 14:00 08/05/18 14:00 08/05/18 14:00 08/05/18 14:00 08/05/18 14:00 Intake and Output: 08/05/18 08/05/18 06:59 18:59 Intake Total 120 Balance 120 - Medications Medications: Current Medications Acetaminophen (Tylenol 325mg Tab) 325 mg PO Q6 PRN PRN Reason: Pain, Mild (1-3) Amantadine HCl (Amantadine 100 Mg Cap) 100 mg PO DAILY [facility] Last Admin: 08/05/18 10:42 Dose: 100 mg Amlodipine Besylate (Norvasc) 10 mg PO DAILY [facility] Last Admin: 08/05/18 10:42 Dose: 10 mg Aripiprazole (Abilify) 2.5 mg PO HS [facility] Last Admin: 08/04/18 22:30 Dose: Not Given Aspirin (Ecotrin) 81 mg PO DAILY [facility] Last Admin: 08/05/18 10:42 Dose: 81 mg Atorvastatin Calcium (Lipitor) 40 mg PO QPM [facility] Last Admin: 08/04/18 17:42 Dose: Not Given Colchicine (Colocrys) 0.6 mg PO DAILY [facility] Last Admin: 08/05/18 10:42 Dose: 0.6 mg Enoxaparin Sodium (Lovenox) 30 mg SC DAILY [facility]; Protocol Last Admin: 08/05/18 10:43 Dose: 30 mg Hydralazine HCl (Apresoline) 10 mg PO QID PRN PRN Reason: for sbp>160 Last Admin: 08/03/18 21:03 Dose: 10 mg Dextrose/Sodium Chloride (Dextrose 5%/0.45% Ns 1000 Ml) 1,000 mls @ 75 mls/hr IV .[id number] [facility] Last Admin: 08/03/18 23:30 Dose: 75 mls/hr Piperacillin Sod/Tazobactam Sod (Zosyn 3.375 In Ns 100ml) 100 mls @ 25 mls/hr IVPB Q12 [facility]; Protocol Stop: 08/11/18 22:01 Last Admin: 08/05/18 10:43 Dose: 25 mls/hr Insulin Human Regular (Humulin R Low) 0 units SC ACHS [facility]; Protocol Last Admin: 08/05/18 11:44 Dose: Not Given Levothyroxine Sodium (Synthroid) 37.5 mcg PO DAILY [facility] Last Admin: 08/05/18 10:41 Dose: 37.5 mcg Lorazepam (Ativan) 0.25 mg PO AMHS [facility]; Protocol Last Admin: 08/05/18 10:45 Dose: Not Given Losartan Potassium (Cozaar) 25 mg PO DAILY [facility] Last Admin: 08/05/18 10:43 Dose: 25 mg Ondansetron HCl (Zofran Inj) 4 mg IVP Q4H PRN PRN Reason: Nausea/Vomiting Last Admin: 08/05/18 12:21 Dose: 4 mg Pantoprazole Sodium (Protonix Ec Tab) 40 mg PO DAILY [facility] Last Admin: 08/05/18 10:42 Dose: 40 mg Paroxetine HCl (Paxil) 40 mg PO DAILY [facility] Last Admin: 08/05/18 10:43 Dose: 40 mg Thiamine HCl (Vitamin B1 Inj) 100 mg IM DAILY [facility] - Labs Labs: 08/03/18 17:32 08/03/18 17:32 PT 11.2 SECONDS (9.4-12.5) 08/03/18 17:32 INR 0.98 08/03/18 17:32 APTT 40.9 Seconds (25.1-36.5) H 08/03/18 17:32 - Constitutional Appears: No Acute Distress, Chronically Ill - Head Exam Head Exam: NORMAL INSPECTION - Respiratory Exam Respiratory Exam: Decreased Breath Sounds - Cardiovascular Exam Cardiovascular Exam: +S1, +S2 - GI/Abdominal Exam GI & Abdominal Exam: Soft. absent: Tenderness Assessment and Plan - Assessment and Plan (Free Text) Plan: Assessment consider bilateral lower lobe HCAP yeast in the urine probably colonization history of UTI with VRE and Pseudomonas, S/P treatment with antibiotics HTN dyslipidemia hypothyroidism depression Plan continue patient on Zosyn day 3 to complete 4-7 days of antibiotics urine cx showing yeast - if with Hickey catheter should remove blood cx are negative overall prognosis is poor and patient is apparently being arranged for hospice
[2018-08-06] MEDS: Dextrose 5%/0.45% NS 1,000 ML IV SCH (21:36)
[2018-08-07] MEDS: Dextrose 5%/0.45% NS 1,000 ML IV SCH (05:06)
[2018-08-07] MEDS: Piperacillin/Tazobact 3.375 gm 100 ML IVPB SCH ×4 (05:09→22:40)
[2018-08-07 06:41] LABS: CALCIUM 8.2 mg/dL (8.4-10.5)
[2018-08-07 07:08] LABS: MEAN CELL VOLUME 85.2 fl (80.0-105.0); MEAN CORPUSCULAR HEMOGLOBIN 27.3 pg (25.0-35.0); MEAN CORPUSCULAR HGB CONC 32.1 g/dl (31.0-37.0); MEAN PLATELET VOLUME 12.3 fl (7.0-11.0); RBC 3.66 10^6/uL (3.5-6.1); RED CELL DISTRIBUTION WIDTH 14.9 % (11.5-14.5); WHITE BLOOD COUNT 6.3 10^3/uL (4.5-11.0)
[2018-08-07] MEDS: Insulin Reg-LOW-Coverage SC SCH ×4 (08:00→22:45)
[2018-08-07] MEDS: Levothyroxine 25 MCG TAB PO SCH (09:31)
[2018-08-07] MEDS: Enoxaparin 30 mg Syringe SC SCH (09:31)
[2018-08-07] MEDS: Pantoprazole 40 mg EC Tab PO SCH (09:31)
[2018-08-07] MEDS: Thiamine 100 mg/ml Inj IM SCH (09:32)
--- NOTE | 2018-08-07 11:42 | PN ---
DATE: 08/06/2018 SUBJECTIVE: The patient is lying in the bed, is comfortable. She responds to calling her name. She has no respiratory distress. PHYSICAL EXAMINATION: VITAL SIGNS: Temperature is 98, heart rate 59, blood pressure 129/64, respirations 16, sat 95% on room air. HEAD AND NECK: Normal. No JVD. No thyromegaly. CHEST: Clear. CARDIAC: First sound and second sound normal. ABDOMEN: Soft, nontender. EXTREMITIES: No edema. NEUROLOGIC: The patient seems more sedated, although she responds to calling her name poorly and she is more demented. She also sometimes moves her lower extremity, but very slowly. She is bedridden. LABORATORY STUDY: Shows white count 6.9, hemoglobin 10.5, hematocrit 32.1, platelets 211. Chemistry: Sodium 140, potassium 3.2, chloride 105, bicarb 27, BUN 10, creatinine 1, blood sugar 105 and calcium 8.1. 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 IMPRESSION AND PLAN: 1. History of the patient had urinary tract infection, history of vancomycin-resistant Enterococcus. Continue current antibiotic as per Infectious Disease consultation. The patient is stable. We will continue Zosyn for now. Blood cultures are negative. 2. Mental status or neurologically, the patient seems bedridden with dementia and not able to walk, so we have to do precautions feeding, avoid aspirations and bed sores being explained to the family and we will discuss with them about the plan of care and placement for the patient need hospice care or he can take her home and treat her with home services. 3. Hypothyroidism. 4. Hypertension. 5. The patient has depression with some agitation occasionally. Continue the medication for mg and she has a small amount of Ativan p.r.n. 0.25 mg IVP t.i.d. The patient is comfortable. Continue current psychiatric therapy. Seen by psychiatrist. 6. Hypertension stable. Continue Cozaar. Continue Norvasc 10 mg. PLAN: Continue current therapy. Follow up clinically. Current medications: Abilify 2.5 mg at bedtime on hold, hydralazine 10 mg four times a day p.r.n., Ativan 0.25 mg t.i.d., colchicine, Cozaar 25 mg p.o. daily, IV fluids, Humulin insulin low algorithm, Lipitor 40, Lovenox 30, Norvasc 10, Paxil 40, Protonix 40, Synthroid 37.5, Tylenol p.r.n., B1 injections, Zofran p.r.n. and Zosyn she is getting 3.375 IV every 8. Continue current therapy. Follow up clinically. The patient should be go back to rehab in [facility] versus [place] [facility] versus hospice care at home. We will discuss these options with the family and the . Robert Ram MD
--- NOTE | 2018-08-07 13:05 | CP.PCM.PN ---
Subjective - Date & Time of Evaluation Date of Evaluation: 08/07/18 Time of Evaluation: 10:30 - Subjective Subjective: No fevers, not in distress. Objective - Vital Signs/Intake and Output Vital Signs (last 24 hours): Temp Pulse Resp BP Pulse Ox 98.2 F 69 16 102/68 95 08/07/18 06:00 08/07/18 06:00 08/07/18 06:00 08/07/18 09:35 08/07/18 06:00 Intake and Output: 08/07/18 08/07/18 06:59 18:59 Intake Total 900 Balance 900 - Medications Medications: Current Medications Acetaminophen (Tylenol 325mg Tab) 325 mg PO Q6 PRN PRN Reason: Pain, Mild (1-3) Amlodipine Besylate (Norvasc) 10 mg PO DAILY [facility] Last Admin: 08/07/18 09:34 Dose: Not Given Aripiprazole (Abilify) 2.5 mg PO HS [facility] Last Admin: 08/05/18 22:40 Dose: Not Given Aspirin (Ecotrin) 81 mg PO DAILY [facility] Last Admin: 08/07/18 09:32 Dose: 81 mg Atorvastatin Calcium (Lipitor) 40 mg PO QPM [facility] Last Admin: 08/06/18 17:09 Dose: 40 mg Colchicine (Colocrys) 0.6 mg PO DAILY [facility] Last Admin: 08/07/18 09:30 Dose: 0.6 mg Enoxaparin Sodium (Lovenox) 30 mg SC DAILY [facility]; Protocol Last Admin: 08/07/18 09:31 Dose: 30 mg Hydralazine HCl (Apresoline) 10 mg PO QID PRN PRN Reason: for sbp>160 Last Admin: 08/03/18 21:03 Dose: 10 mg Dextrose/Sodium Chloride (Dextrose 5%/0.45% Ns 1000 Ml) 1,000 mls @ 75 mls/hr IV .[id number] [facility] Last Admin: 08/07/18 05:06 Dose: 75 mls/hr Piperacillin Sod/Tazobactam Sod (Zosyn 3.375 In Ns 100ml) 100 mls @ 25 mls/hr IVPB Q8 [facility]; Protocol Stop: 08/12/18 22:01 Last Admin: 08/07/18 05:09 Dose: 25 mls/hr Insulin Human Regular (Humulin R Low) 0 units SC ACHS [facility]; Protocol Last Admin: 08/07/18 08:00 Dose: Not Given Levothyroxine Sodium (Synthroid) 37.5 mcg PO DAILY [facility] Last Admin: 08/07/18 09:31 Dose: 37.5 mcg Lorazepam (Ativan) 0.25 mg IVP TID [facility]; Protocol Last Admin: 08/07/18 09:35 Dose: Not Given Losartan Potassium (Cozaar) 25 mg PO DAILY [facility] Last Admin: 08/07/18 09:35 Dose: Not Given Ondansetron HCl (Zofran Inj) 4 mg IVP Q4H PRN PRN Reason: Nausea/Vomiting Last Admin: 08/05/18 19:42 Dose: 4 mg Pantoprazole Sodium (Protonix Ec Tab) 40 mg PO DAILY [facility] Last Admin: 08/07/18 09:31 Dose: 40 mg Paroxetine HCl (Paxil) 40 mg PO DAILY [facility] Last Admin: 08/07/18 09:46 Dose: 40 mg Thiamine HCl (Vitamin B1 Inj) 100 mg IM DAILY [facility] Last Admin: 08/07/18 09:32 Dose: 100 mg - Labs Labs: 08/07/18 05:30 08/07/18 05:30 PT 11.2 SECONDS (9.4-12.5) 08/03/18 17:32 INR 0.98 08/03/18 17:32 APTT 40.9 Seconds (25.1-36.5) H 08/03/18 17:32 - Constitutional Appears: No Acute Distress, Chronically Ill - Head Exam Head Exam: NORMAL INSPECTION - Respiratory Exam Respiratory Exam: Decreased Breath Sounds - Cardiovascular Exam Cardiovascular Exam: +S1, +S2 - GI/Abdominal Exam GI & Abdominal Exam: Soft. absent: Tenderness Assessment and Plan - Assessment and Plan (Free Text) Assessment: Assessment consider bilateral lower lobe HCAP yeast in the urine probably colonization history of UTI with VRE and Pseudomonas, S/P treatment with antibiotics HTN dyslipidemia hypothyroidism depression Plan continue patient on Zosyn day 4 to complete 4-7 days of antibiotics urine cx showing yeast - if with Hickey catheter should remove blood cx are negative overall prognosis is poor and patient is apparently being arranged for hospice
--- NOTE | 2018-08-07 21:21 | PN ---
DATE: 08/07/2018 SUBJECTIVE: The patient was followed up today. The patient had the same presentation, the patient most likely in hypoactive delirium. As per staff, the patient is little bit better, was able to communicate her needs, but only one-word the answer yes or no. When this technical writer rounded, the patient was deeply sleeping. Notes reviewed. Medications reviewed. As per infectious disease team, the patient most likely had bilateral lower lobe HCAP, history of urinary tract infection. The patient is on antibiotics Zosyn therefore as per medical as well as the infectious disease impression prognosis is overall very poor that is why advanced directive was called and the patient currently is on DNR and DNI. Vital signs seems to be stable. Temperature 98.2, pulse is 69, blood pressure 102/68, respirations 16, oxygen saturation is 95. MEDICATIONS: The patient was on the following medications, Norvasc, Abilify will be on hold, aspirin, Lipitor, Colchicine, dextrose, Lovenox, hydralazine, Humulin, Synthroid, Ativan will be on hold, Cozaar, Zofran, Protonix, Paxil should be continued. The patient is on Zosyn and thiamine. LABORATORY DATA: Labs reviewed. Most recent was from today. MENTAL STATUS EXAM: This technical writer was not able to wake the patient up. The patient is sleeping. As per staff, the patient ate a little today, took some medications, was cleaned and at present moment, she is resting. No periods of aggression or agitation. IMPRESSION: Hypoactive delirium. The patient is on hospice. Right now the patient is DNI and DNR history of depression. PLAN: Comfort measures. Paxil should be continued. Ativan discontinued. Abilify discontinued. Family involved. The patient is currently on DNI and DNR. There is no acute issues from the psychiatric standpoint. This technical writer will sign off. Should you have any questions, give me a call back. Overall prognosis is poor. Dania Washburn MD
[2018-08-08] MEDS: Piperacillin/Tazobact 3.375 gm 100 ML IVPB SCH ×3 (05:16→22:51)
[2018-08-08] MEDS: Insulin Reg-LOW-Coverage SC SCH ×4 (07:30→22:20)
[2018-08-08 07:46] VITALS: RESP 16
--- NOTE | 2018-08-08 12:42 | CP.PCM.PN ---
Subjective - Date & Time of Evaluation Date of Evaluation: 08/09/18 Time of Evaluation: 10:35 - Subjective Subjective: No fevers, not in distress. Objective - Vital Signs/Intake and Output Vital Signs (last 24 hours): Temp Pulse Resp BP Pulse Ox 98.6 F 66 16 173/71 H 95 08/08/18 06:00 08/08/18 06:34 08/08/18 06:00 08/08/18 06:34 08/08/18 06:00 Intake and Output: 08/08/18 08/08/18 06:59 18:59 Intake Total 240 Balance 240 - Medications Medications: Current Medications Acetaminophen (Tylenol 325mg Tab) 325 mg PO Q6 PRN PRN Reason: Pain, Mild (1-3) Amlodipine Besylate (Norvasc) 10 mg PO DAILY [facility] Last Admin: 08/07/18 09:34 Dose: Not Given Aspirin (Ecotrin) 81 mg PO DAILY [facility] Last Admin: 08/07/18 09:32 Dose: 81 mg Atorvastatin Calcium (Lipitor) 40 mg PO QPM [facility] Last Admin: 08/07/18 17:25 Dose: 40 mg Colchicine (Colocrys) 0.6 mg PO DAILY [facility] Last Admin: 08/07/18 09:30 Dose: 0.6 mg Enoxaparin Sodium (Lovenox) 30 mg SC DAILY [facility]; Protocol Last Admin: 08/07/18 09:31 Dose: 30 mg Hydralazine HCl (Apresoline) 10 mg PO QID PRN PRN Reason: for sbp>160 Last Admin: 08/08/18 06:34 Dose: 10 mg Dextrose/Sodium Chloride (Dextrose 5%/0.45% Ns 1000 Ml) 1,000 mls @ 75 mls/hr IV .[id number] [facility] Last Admin: 08/07/18 05:06 Dose: 75 mls/hr Piperacillin Sod/Tazobactam Sod (Zosyn 3.375 In Ns 100ml) 100 mls @ 25 mls/hr IVPB Q8 [facility]; Protocol Stop: 08/12/18 22:01 Last Admin: 08/08/18 05:16 Dose: 25 mls/hr Insulin Human Regular (Humulin R Low) 0 units SC ACHS [facility]; Protocol Last Admin: 08/07/18 22:45 Dose: Not Given Levothyroxine Sodium (Synthroid) 37.5 mcg PO DAILY [facility] Last Admin: 08/07/18 09:31 Dose: 37.5 mcg Lorazepam (Ativan) 0.25 mg IVP TID PRN; Protocol PRN Reason: restlessness/anxiety Losartan Potassium (Cozaar) 25 mg PO DAILY [facility] Last Admin: 08/07/18 09:35 Dose: Not Given Ondansetron HCl (Zofran Inj) 4 mg IVP Q4H PRN PRN Reason: Nausea/Vomiting Last Admin: 08/05/18 19:42 Dose: 4 mg Pantoprazole Sodium (Protonix Ec Tab) 40 mg PO DAILY [facility] Last Admin: 08/07/18 09:31 Dose: 40 mg Paroxetine HCl (Paxil) 40 mg PO DAILY [facility] Last Admin: 08/07/18 09:46 Dose: 40 mg Thiamine HCl (Vitamin B1 Inj) 100 mg IM DAILY [facility] Last Admin: 08/07/18 09:32 Dose: 100 mg - Labs Labs: 08/07/18 05:30 08/07/18 05:30 PT 11.2 SECONDS (9.4-12.5) 08/03/18 17:32 INR 0.98 08/03/18 17:32 APTT 40.9 Seconds (25.1-36.5) H 08/03/18 17:32 - Constitutional Appears: Chronically Ill - Head Exam Head Exam: NORMAL INSPECTION - Respiratory Exam Respiratory Exam: Decreased Breath Sounds - Cardiovascular Exam Cardiovascular Exam: +S1, +S2 - GI/Abdominal Exam GI & Abdominal Exam: Soft. absent: Tenderness Assessment and Plan - Assessment and Plan (Free Text) Plan: Assessment consider bilateral lower lobe HCAP yeast in the urine probably colonization history of UTI with VRE and Pseudomonas, S/P treatment with antibiotics HTN dyslipidemia hypothyroidism depression Plan continue patient on Zosyn day 5 to complete 4-7 days of antibiotics urine cx showing yeast - if with Hickey catheter should remove blood cx are negative overall prognosis is poor and patient is apparently being arranged for hospice
--- NOTE | 2018-08-08 13:11 | CP.PCM.PN ---
Subjective - Date & Time of Evaluation Date of Evaluation: 08/07/18 Time of Evaluation: 16:00 - Subjective Subjective: Lethargic, not opening eyes or responding to command Objective - Vital Signs/Intake and Output Vital Signs (last 24 hours): Temp Pulse Resp BP Pulse Ox 98.6 F 66 16 173/71 H 95 08/08/18 06:00 08/08/18 06:34 08/08/18 06:00 08/08/18 06:34 08/08/18 06:00 Intake and Output: 08/08/18 08/08/18 06:59 18:59 Intake Total 240 Balance 240 - Medications Medications: Current Medications Acetaminophen (Tylenol 325mg Tab) 325 mg PO Q6 PRN PRN Reason: Pain, Mild (1-3) Amlodipine Besylate (Norvasc) 10 mg PO DAILY [facility] Last Admin: 08/07/18 09:34 Dose: Not Given Aspirin (Ecotrin) 81 mg PO DAILY [facility] Last Admin: 08/07/18 09:32 Dose: 81 mg Atorvastatin Calcium (Lipitor) 40 mg PO QPM [facility] Last Admin: 08/07/18 17:25 Dose: 40 mg Colchicine (Colocrys) 0.6 mg PO DAILY [facility] Last Admin: 08/07/18 09:30 Dose: 0.6 mg Enoxaparin Sodium (Lovenox) 30 mg SC DAILY [facility]; Protocol Last Admin: 08/07/18 09:31 Dose: 30 mg Hydralazine HCl (Apresoline) 10 mg PO QID PRN PRN Reason: for sbp>160 Last Admin: 08/08/18 06:34 Dose: 10 mg Dextrose/Sodium Chloride (Dextrose 5%/0.45% Ns 1000 Ml) 1,000 mls @ 75 mls/hr IV .[id number] [facility] Last Admin: 08/07/18 05:06 Dose: 75 mls/hr Piperacillin Sod/Tazobactam Sod (Zosyn 3.375 In Ns 100ml) 100 mls @ 25 mls/hr IVPB Q8 [facility]; Protocol Stop: 08/12/18 22:01 Last Admin: 08/08/18 05:16 Dose: 25 mls/hr Insulin Human Regular (Humulin R Low) 0 units SC ACHS [facility]; Protocol Last Admin: 08/07/18 22:45 Dose: Not Given Levothyroxine Sodium (Synthroid) 37.5 mcg PO DAILY [facility] Last Admin: 08/07/18 09:31 Dose: 37.5 mcg Lorazepam (Ativan) 0.25 mg IVP TID PRN; Protocol PRN Reason: restlessness/anxiety Losartan Potassium (Cozaar) 25 mg PO DAILY [facility] Last Admin: 08/07/18 09:35 Dose: Not Given Ondansetron HCl (Zofran Inj) 4 mg IVP Q4H PRN PRN Reason: Nausea/Vomiting Last Admin: 08/05/18 19:42 Dose: 4 mg Pantoprazole Sodium (Protonix Ec Tab) 40 mg PO DAILY [facility] Last Admin: 08/07/18 09:31 Dose: 40 mg Paroxetine HCl (Paxil) 40 mg PO DAILY [facility] Last Admin: 08/07/18 09:46 Dose: 40 mg Thiamine HCl (Vitamin B1 Inj) 100 mg IM DAILY [facility] Last Admin: 08/07/18 09:32 Dose: 100 mg - Labs Labs: 08/07/18 05:30 08/07/18 05:30 PT 11.2 SECONDS (9.4-12.5) 08/03/18 17:32 INR 0.98 08/03/18 17:32 APTT 40.9 Seconds (25.1-36.5) H 08/03/18 17:32 - Constitutional Appears: Cachectic, Chronically Ill - Eye Exam Eye Exam: Normal appearance, PERRL - ENT Exam ENT Exam: Mucous Membranes Moist - Respiratory Exam Respiratory Exam: Rales, NORMAL BREATHING PATTERN - Cardiovascular Exam Cardiovascular Exam: REGULAR RHYTHM, +S1, +S2 - GI/Abdominal Exam GI & Abdominal Exam: Diminished Bowel Sounds - Extremities Exam Extremities Exam: Normal Capillary Refill, Pedal Edema - Back Exam Back Exam: NORMAL INSPECTION - Neurological Exam Neurological Exam: Altered - Skin Skin Exam: Pallor, Warm Assessment and Plan - Assessment and Plan (Free Text) Assessment: 83 year old female with hisoty of HTN, HLD, hypothyroidism who si admiited with UTI, AMS,delirium anorexia, failure to thrive. I spoke with patient via phone. decided to transition to hospice care. He met with [facility] hospice clinical manager who explained services. He is in the process of preparing their home for equipment and plans to take his home on Sunday. Psychosocial support provided Plan: Goals of care: home with hospice care
[2018-08-08] MEDS: Levothyroxine 25 MCG TAB PO SCH (13:39)
[2018-08-08] MEDS: Pantoprazole 40 mg EC Tab PO SCH (13:45)
[2018-08-08] MEDS: Enoxaparin 30 mg Syringe SC SCH (13:46)
[2018-08-08] MEDS: Thiamine 100 mg/ml Inj IM SCH (13:47)
[2018-08-08] MEDS: Dextrose 5%/0.45% NS 1,000 ML IV SCH (19:03)
[2018-08-08 23:08] VITALS: O2SAT 97
[2018-08-09] MEDS: Piperacillin/Tazobact 3.375 gm 100 ML IVPB SCH (05:42)
[2018-08-09 06:07] VITALS: PULSE 64
[2018-08-09 07:59] VITALS: TEMP 98.1
[2018-08-09] MEDS: Insulin Reg-LOW-Coverage SC SCH ×2 (08:00→12:23)
[2018-08-09] MEDS: Levothyroxine 25 MCG TAB PO SCH (10:18)
[2018-08-09] MEDS: Enoxaparin 30 mg Syringe SC SCH (10:20)
[2018-08-09] MEDS: Pantoprazole 40 mg EC Tab PO SCH (10:20)
[2018-08-09] MEDS: Thiamine 100 mg/ml Inj IM SCH (10:21)
[2018-08-09 10:29] VITALS: BP 166/80
--- NOTE | 2018-08-09 11:31 | PN ---
DATE: 08/08/2018 SUBJECTIVE: The patient is awake. She is nonverbal. She is bedridden and occasionally she moves her extremities, otherwise no distress. PHYSICAL EXAMINATION: VITAL SIGNS: Temperature 98.1, heart rate is 64, blood pressure 171/94, respirations 16, saturations 97% on room air. HEAD AND NECK: Normal. No JVD. No thyromegaly. CHEST: Clear bilaterally. CARDIAC: First sound, second sound normal. ABDOMEN: Soft nontender. EXTREMITIES: No edema. NEUROLOGIC: Patient is nonverbal. She is awake and she is bedridden. She is demented. LABORATORY DATA: Her blood sugar 114. IMPRESSION: 1. Dementia, bedridden, urine incontinence. comfort care, hospice care for the family and to sign papers and we will continue comfort care. 2. Urinary tract infection. She started antibiotic, Zosyn, continue that for now. 3. Hypertension. She probably is going to benefit from clonidine patch. Continue Norvasc 10 mg. Continue Cozaar from now. I may go up on Cozaar, but clonidine patch in case if worsening swelling and noncompliance. 4. Hypothyroidism. Continue Synthroid 37.5. PLAN: Continue current medicine including aspirin, Ativan p.r.n., hydralazine, colchicine, IV fluids, Lipitor 40, Paxil 40, Protonix, Tylenol, vitamin B, Zofran and Zosyn. Robert Ram MD
[2018-08-09] MEDS ORDERED: Influenza Vaccine 60 mcg/0.5 mL SYR (4YR UP) IM ONE (13:50)
--- NOTE | 2018-08-09 13:57 | CP.PCM.PN ---
Subjective - Date & Time of Evaluation Date of Evaluation: 08/09/18 Time of Evaluation: 10:35 - Subjective Subjective: Non-toxic, no fevers. Objective - Vital Signs/Intake and Output Vital Signs (last 24 hours): Temp Pulse Resp BP Pulse Ox 98.6 F 66 16 173/71 H 95 08/08/18 06:00 08/08/18 06:34 08/08/18 06:00 08/08/18 06:34 08/08/18 06:00 Intake and Output: 08/08/18 08/08/18 06:59 18:59 Intake Total 240 Balance 240 - Medications Medications: Current Medications Acetaminophen (Tylenol 325mg Tab) 325 mg PO Q6 PRN PRN Reason: Pain, Mild (1-3) Amlodipine Besylate (Norvasc) 10 mg PO DAILY [facility] Last Admin: 08/07/18 09:34 Dose: Not Given Aspirin (Ecotrin) 81 mg PO DAILY [facility] Last Admin: 08/07/18 09:32 Dose: 81 mg Atorvastatin Calcium (Lipitor) 40 mg PO QPM [facility] Last Admin: 08/07/18 17:25 Dose: 40 mg Colchicine (Colocrys) 0.6 mg PO DAILY [facility] Last Admin: 08/07/18 09:30 Dose: 0.6 mg Enoxaparin Sodium (Lovenox) 30 mg SC DAILY [facility]; Protocol Last Admin: 08/07/18 09:31 Dose: 30 mg Hydralazine HCl (Apresoline) 10 mg PO QID PRN PRN Reason: for sbp>160 Last Admin: 08/08/18 06:34 Dose: 10 mg Dextrose/Sodium Chloride (Dextrose 5%/0.45% Ns 1000 Ml) 1,000 mls @ 75 mls/hr IV .[id number] [facility] Last Admin: 08/07/18 05:06 Dose: 75 mls/hr Piperacillin Sod/Tazobactam Sod (Zosyn 3.375 In Ns 100ml) 100 mls @ 25 mls/hr IVPB Q8 [facility]; Protocol Stop: 08/12/18 22:01 Last Admin: 08/08/18 05:16 Dose: 25 mls/hr Insulin Human Regular (Humulin R Low) 0 units SC ACHS [facility]; Protocol Last Admin: 08/07/18 22:45 Dose: Not Given Levothyroxine Sodium (Synthroid) 37.5 mcg PO DAILY [facility] Last Admin: 08/07/18 09:31 Dose: 37.5 mcg Lorazepam (Ativan) 0.25 mg IVP TID PRN; Protocol PRN Reason: restlessness/anxiety Losartan Potassium (Cozaar) 25 mg PO DAILY [facility] Last Admin: 08/07/18 09:35 Dose: Not Given Ondansetron HCl (Zofran Inj) 4 mg IVP Q4H PRN PRN Reason: Nausea/Vomiting Last Admin: 08/05/18 19:42 Dose: 4 mg Pantoprazole Sodium (Protonix Ec Tab) 40 mg PO DAILY [facility] Last Admin: 08/07/18 09:31 Dose: 40 mg Paroxetine HCl (Paxil) 40 mg PO DAILY [facility] Last Admin: 08/07/18 09:46 Dose: 40 mg Thiamine HCl (Vitamin B1 Inj) 100 mg IM DAILY [facility] Last Admin: 08/07/18 09:32 Dose: 100 mg - Labs Labs: 08/07/18 05:30 08/07/18 05:30 PT 11.2 SECONDS (9.4-12.5) 08/03/18 17:32 INR 0.98 08/03/18 17:32 APTT 40.9 Seconds (25.1-36.5) H 08/03/18 17:32 - Constitutional Appears: Chronically Ill - Head Exam Head Exam: NORMAL INSPECTION - Respiratory Exam Respiratory Exam: Decreased Breath Sounds - Cardiovascular Exam Cardiovascular Exam: +S1, +S2 - GI/Abdominal Exam GI & Abdominal Exam: Soft. absent: Tenderness Assessment and Plan - Assessment and Plan (Free Text) Plan: Assessment consider bilateral lower lobe HCAP yeast in the urine probably colonization history of UTI with VRE and Pseudomonas, S/P treatment with antibiotics HTN dyslipidemia hypothyroidism depression Plan continue patient on Zosyn day 6 to complete 4-7 days of antibiotics urine cx showing yeast is probably colonization blood cx are negative overall prognosis is poor and patient is apparently being arranged for hospice
--- NOTE | 2018-08-10 12:14 | DS ---
SUBJECTIVE: The patient is sitting in bed, lying on her back. She is comfortable, no distress. Poorly responsive to any verbal commands, but she opened her eyes, she is able to eat and tolerate food without any vomiting. PHYSICAL EXAMINATION: VITAL SIGNS: Temperature 98.1, heart rate 64, blood pressure 175/73, respirations 16, saturation 98%. HEAD AND NECK: Normal. No JVD, no thyromegaly. CHEST: Clear, bilateral. CARDIAC: First sound and second sound normal. ABDOMEN: Soft, nontender. EXTREMITIES: No edema. NEUROLOGIC: Patient has dementia. She is bedridden. She spontaneously moves her arms and lower extremities. . LABORATORY DATA: Last labs, sodium 139, potassium is 3.3, chloride 106, bicarb 26, BUN 9, creatinine 1.1. Patient has also white count 6.3, hemoglobin 10, hematocrit 31.2, platelets 215,000. Her urinalysis was normal. HOSPITAL COURSE: Patient seen by Neurology consults, seen by Psychiatry consult and Infectious Disease consultations. Patient is stable, she will discharged home. DISCHARGE DIAGNOSES: 1. Acute urinary tract infection, finished Zosyn. 2. Neuropsychiatric vasques, patient has depression with agitation. Continue current medication including Paxil 40 mg, we will hold off on Abilify because of her worsening symptoms. 3. Dementia with generalized weakness. Continue aspirin once a day. 4. Hypothyroidism. 5. Hypercholesterolemia. PLAN: Discharge patient for hospice care and follow up as outpatient. Robert Ram MD
--- NOTE | 2018-08-10 13:24 | PN ---
DATE: 08/08/2018 SUBJECTIVE: The patient was comfortable lying in bed. No distress. She responds. She is awake, open her eyes and does not do much, verbal response. PHYSICAL EXAMINATION: VITAL SIGNS: Temperature 98, heart rate 61, blood pressure 165/80, respiration 16, saturation 98%. HEAD AND NECK: Normal. No JVD. No thyromegaly. CHEST: Clear bilateral. CARDIAC: First sound and second sound normal. No murmur, rub or gallop. ABDOMEN: Soft, nontender. EXTREMITIES: No edema. NEUROLOGICAL: Normal except the patient has dementia and bedridden. She does move her extremity. LABORATORY STUDY: Last lab shows white count 6.3, hemoglobin 10, hematocrit 31.2, platelets 215. Her sodium 139, potassium 3.3, chloride 106, bicarb 26, BUN 9, creatinine 1.1, blood sugar 112 and calcium 8.2. IMPRESSION AND PLAN: 1. The patient has urinary tract infection. She is on Zosyn, she would be the last day tomorrow and she will be discharged. 2. Dementia, bedridden. The patient's son and the discussed about hospice care, will be done by following day. She will be discharged to hospice care. 3. Hypertension. Continue current blood pressure medicines. Clonidine p.r.n. 4. Hypercholesterolemia. 5. Mild anemia, electrolyte abnormalities, replaced. 6. Hypothyroidism. Plan: Continue current medications. 7. Depression with agitated symptoms. Seems doing well with the current medications. Paxil 40, Protonix 40, Synthroid 37.5, colchicine 0.6 daily, Lipitor 40 at bedtime, aspirin 81 , Tylenol once every 6 hours p.r.n. for pain or temperature mg daily. The patient also is getting Abilify 2.5 mg once a day which will be held. I will follow up the patient clinically. Robert Ram MD
== END 2018-08-09 15:00 | disposition hospice, home (50) | DRG 689 ==
LOC: ED 16:15 → ERH 18:39 → 5RNO 21:41
PROVIDERS: ADMIT Internal Medicine; ATTEND Internal Medicine
DX: N39.0 Urinary tract infection, site not specified (principal); J18.9 Pneumonia, unspecified organism; G91.9 Hydrocephalus, unspecified; G93.40 Encephalopathy, unspecified; F20.2 Catatonic schizophrenia; E46 Unspecified protein-calorie malnutrition; E86.0 Dehydration; R62.7 Adult failure to thrive; I10 Essential (primary) hypertension; E03.9 Hypothyroidism, unspecified; M54.9 Dorsalgia, unspecified; F41.9 Anxiety disorder, unspecified; F03.90 Unspecified dementia, unspecified severity, without behavioral disturbance, psychotic disturbance, mood disturbance, and anxiety; F32.9 Major depressive disorder, single episode, unspecified; D64.9 Anemia, unspecified; E11.9 Type 2 diabetes mellitus without complications; E78.00 Pure hypercholesterolemia, unspecified; E78.5 Hyperlipidemia, unspecified; K21.9 Gastro-esophageal reflux disease without esophagitis; Y95 Nosocomial condition; Z51.5 Encounter for palliative care; Z66 Do not resuscitate; Z74.01 Bed confinement status; Z87.440 Personal history of urinary (tract) infections; Z79.82 Long term (current) use of aspirin; Z79.4 Long term (current) use of insulin; Z68.23 Body mass index [BMI] 23.0-23.9, adult